=== PATIENT | male | born 1950 | race Caucasian/White ===

== ENCOUNTER → 2016-10-25 | Outpatient (CLI) | payer MEDICARE ==
[~2016-10-25] MED LIST: REGADENOSON 0.4 MG/5 ML SYRINGE IV ONE
--- NOTE | 2016-10-25 09:46 | US ---
EXAMINATION TYPE: US carotid duplex BILAT DATE OF EXAM: 10/25/2016 COMPARISON: NONE CLINICAL HISTORY: I65.21 occlusion and stenosis of rt carotid artery. Patient stated has right caroti d artery occlusion; CABG x 6. EXAM MEASUREMENTS: RIGHT: Peak Systolic Velocity (PSV) cm/sec ----- Right CCA: 50.5 ----- Right ICA: 43.5 bulb only ----- Right ECA: 59.2 ICA/CCA ratio: 0.9 RIGHT: End Diastole cm/sec ----- Right CCA: 0.0 ----- Right ICA: 2.5 bulb only ----- Right ECA: 6.9 LEFT: Peak Systolic Velocity (PSV) cm/sec ----- Left CCA: 71.3 ----- Left ICA: 93.8 ----- Left ECA: 68.6 ICA/CCA ratio: 1.3 LEFT: End Diastole cm/sec ----- Left CCA: 27.6 ----- Left ICA: 22.3 ----- Left ECA: 6.5 VERTEBRALS (direction of flow): Right Vertebral: Antegrade Left Vertebral: Antegrade Right ICA occlusion is noted. Intimal wall thickening is seen at left carotid bifurcation. Grayscale, color Doppler, spectral Doppler imaging performed of the carotid arteries. IMPRESSION: Right internal carotid artery is occluded
--- NOTE | 2016-10-25 11:52 | EST ---
DATE OF SERVICE: 10/25/2016 AGE: 65Y SEX: M HT: 5'3" WT: 175 lbs. Protocol Brian: Other: Lexiscan Cardiolite Stage: Dur. of Exercise: *Heart Rate Blood Pressure *Rest: 52 Rest: 139/67 * *Max. Achieved: 67 Maximum BP: 135/57 85% PMHR: 131 100% PMHR: 164 *METS: INDICATIONS: Chest pain. MEDICATIONS: Patient was given Lexiscan injection over a period of 15 seconds. Peak heart rate of 67 was achieved. Maximum blood pressure of 135/57 mmHg was noted. Resting EKG shows normal sinus rhythm with normal CT interval and QRS duration and normal ST-T waves. No ST segment depression suggestive of ischemia was noted. The results of the nuclear study will follow.
--- NOTE | 2016-10-25 11:57 | ECHOF ---
Referral Reason:I25.10 arterosclerotic heart dis MEASUREMENTS -------- HEIGHT: 160.0 cm WEIGHT: 79.4 kg BP: 139/67 RVIDd: 3.5 cm (< 3.3) IVSd: 1.2 cm (0.6 - 1.1) LVIDd: 4.4 cm (3.9 - 5.3) LVPWd: 1.1 cm (0.6 - 1.1) IVSs: 1.7 cm LVIDs: 3.3 cm LVPWs: 1.5 cm LA Diam: 4.4 cm (2.7 - 3.8) LAESV Index (A-L): 29.67 ml/m Ao Diam: 3.4 cm (2.0 - 3.7) AV Cusp: 2.2 cm (1.5 - 2.6) MV EXCURSION: 21.171 mm (> 18.000) MV EF SLOPE: 50 mm/s (70 - 150) EPSS: 0.9 cm MV E [place]: 0.86 m/s MV DecT: 263 ms MV A [place]: 0.84 m/s MV E/A Ratio: 1.03 RAP: 5.00 mmHg RVSP: 21.84 mmHg FINDINGS -------- Resting bradycardia (HR<60bpm). This was a technically good study. The left ventricular size is normal. There is borderline concentric left ventricular hypertrophy. Overall left ventricular systolic function is normal with, an EF between 55 - 60 %. The right ventricle is mildly enlarged. LA is midly dilated 29-33ml/m2. The right atrium is normal in size. Aortic valve is trileaflet and is mildly thickened. Mild mitral annular calcification present. There is trace to mild mitral regurgitation. Mild tricuspid regurgitation present. Right ventricular systolic pressure is normal at < 35 mmHg. Trace/mild (physiologic) pulmonic regurgitation. The aortic root size is normal. Normal inferior vena cava with normal inspiratory collapse consistent with estimated right atrial pressure of 5 mmHg. The pericardium is normal. CONCLUSIONS -------- 1. Resting bradycardia (HR<60bpm). 2. There is trace to mild mitral regurgitation. 3. Mild tricuspid regurgitation present. 4. Right ventricular systolic pressure is normal at < 35 mmHg. 5. Trace/mild (physiologic) pulmonic regurgitation. 6. The aortic root size is normal. 7. Normal inferior vena cava with normal inspiratory collapse consistent with estimated right atrial pressure of 5 mmHg. 8. The pericardium is normal. 9. This was a technically good study. 10. The left ventricular size is normal. 11. There is borderline concentric left ventricular hypertrophy. 12. Overall left ventricular systolic function is normal with, an EF between 55 - 60 %. 13. The right ventricle is mildly enlarged. 14. LA is midly dilated 29-33ml/m2. 15. Aortic valve is trileaflet and is mildly thickened. 16. Mild mitral annular calcification present. [employer] WORKER: Jessica Ramos RDCS
--- NOTE | 2016-10-25 15:56 | NM ---
EXAMINATION TYPE: NM stress lexiscan cardiolite DATE OF EXAM: 10/25/2016 COMPARISON: NONE HISTORY: Atherosclerotic heart disease TECHNIQUE: After the intravenous administration of 10.9 mCi Tc 99m Sestamibi - Cardiolite resting SP ECT images acquired. The patient received 0.4mg Lexiscan, 27.1 mCi Tc 99m Sestamibi - Stress images obtained. FINDINGS: Review of stress and rest SPECT images demonstrates no distinct perfusion abnormality. Gated analysi s shows normal wall motion with an estimated left ventricular ejection fraction of 54 %. IMPRESSION: No scintigraphic evidence for reversible ischemia.
== END | disposition home or self-care (01) ==
LOC: RADNMMAIN 08:28
PROVIDERS: ATTEND Internal Medicine
DX: I65.21 Occlusion and stenosis of right carotid artery (principal); I25.10 Atherosclerotic heart disease of native coronary artery without angina pectoris; R00.1 Bradycardia, unspecified; I37.1 Nonrheumatic pulmonary valve insufficiency; I08.3 Combined rheumatic disorders of mitral, aortic and tricuspid valves; I51.7 Cardiomegaly
CPT/HCPCS: 93017; 93306; 93880; 78452; A9500; J2785

== ENCOUNTER 2017-04-29 07:21 | Day surgery (SDC) | payer MEDICARE ==
[2017-04-25 14:41] VITALS: BMI 32.8
[~2017-04-29 07:21] MED LIST changes: +LACTATED RINGERS 1,000 ML IV SCH; -REGADENOSON 0.4 MG/5 ML SYRINGE IV ONE
[2017-04-29 07:56] VITALS: RESP 18; TEMP 98.1
[2017-04-29] MEDS: CYCLOPENTOLATE 1% OPHTH SOLN 2 ML BTL OP ONE ×3 (07:59→08:20)
[2017-04-29] MEDS: KETOROLAC 0.5% OPHTH DROPS 5 ML BTL OP ONE ×3 (08:02→08:23)
[2017-04-29] MEDS ORDERED: LIDOCAINE 1% 20 ML VIAL (10MG/ML) FOR IV START INTRADERMA ONE (08:08)
[2017-04-29] MEDS: PHENYLEPHRINE 10% OPHTH DROPS 5 ML BTL OP ONE ×3 (08:08→08:26)
[2017-04-29 08:17] LABS: Glucose,Whole Blood 116 mg/dL (75-99)
[2017-04-29] MEDS ORDERED: PROPOFOL 10 MG/ML 20 ML VIAL IV ONE (08:48)
[2017-04-29] MEDS ORDERED: HYALURONATE SODIUM INTRAOCULAR 1 EACH SYRINGE (10MG/ML) INTRAOCULA ONE (08:51)
[2017-04-29] MEDS ORDERED: BALANCED SALT IRRIG SOLN COMB2 15 ML IRRIG.SOLN INTRAOCULA ONE (08:51)
[2017-04-29] MEDS ORDERED: EPINEPHrine (PF) 0.5 ML in BALANCED SALT IRRIG SOLN COMB2 500 ML IRRIGATION ONE (08:54)
--- NOTE | 2017-04-29 09:11 | P.OP ---
Date of Procedure: 04/29/17 Procedure(s) Performed: PREOPERATIVE DIAGNOSIS: Cataract, right eye. POSTOPERATIVE DIAGNOSIS: Cataract, right eye. OPERATION: Phacoemulsification cataract, right eye. DESCRIPTION OF PROCEDURE: The patient was taken to the preoperative holding area. Intravenous Propofol was given so as to bring about adequate sedation. The following mixture was given for local anesthesia: 5 mL of 2% lidocaine, 5 mL of 0.75% Marcaine, and 1 mL of Wydase. Approximately 4 mL was injected in the retrobulbar space of the surgical eye. Additional 1 mL was then directed to the temporal area of the surgical eye. This was performed to allow adequate neurological block of the facial muscles. The patient was revived and then taken into the operative room. The patient was prepped and draped in the usual sterile manner for the operative eye. A lid speculum was put into position. The conjunctiva was resected back from the limbus in the 12 o'clock position. Bleeding was controlled with electrocautery. A #69 blade was then used and a half-thickness scleral incision approximately 1-mm posterior to the limbus was made on bare sclera. This was shelved in the clear cornea using a crescent knife. Next a 15-degree blade was used to make a stab incision at the 3 o' clock position at the corneolimbal interface. Keratome blade was then used and the superior wound was extended into the anterior chamber. Viscoelastic was injected into the anterior chamber and to maintain its form. Next, a cystotome was used and a continuous anterior capsulotomy was made without difficulty. Hydrodissection using a blunt cannula and BSS was performed. Phaco probe was then employed and a groove extending from 12 to 6 o'clock in the lens was created. A Adrian wand was used through the stab incision so as to perform a divide and conquer technique. Next an irrigation aspiration probe was utilized and any residual cortex was removed from the eye. Again, viscoelastic was injected into the anterior chamber. An Waylon posterior chamber lens implant was placed in the cartridge and injected into the anterior chamber without difficulty. The SinFloqey hook was utilized to spin the lens into position and this was again performed without any difficulty. The irrigation and aspiration probe was again employed and any residual viscoelastic was removed from the eye. Then BSS was injected into the limbal stab incision and the anterior chamber re-inflated. The conjunctiva was reapproximated using electrocautery. One drop of 0.25% Timoptic was placed over the corneal along with TobraDex ophthalmic ointment. Two sterile patches and a Toro eye shield were taped into position. The patient was transported to the recovery room in stable condition. Pathology: none sent Condition: stable Disposition: same day
[2017-04-29 09:19] VITALS: PULSE 55
[2017-04-29 09:29] VITALS: BP 141/74
[2017-04-29] MEDS ORDERED: BUPIVACAINE (PF) 0.75% 5 ML, LIDOCAINE 4% (PF) 5 ML, HYALURONIDASE, HUMAN RECOMB 150 UNIT MISCELLANE ONE ×3 (23:00)
[2017-04-29] MEDS ORDERED: TIMOLOL 0.5% OPHTH SOLN (PF) 0.2 ML DROPERETTE OP ONE (23:00)
[2017-04-29] MEDS ORDERED: GENTAMICIN/PREDNISOL AC OPHTH OINT 3.5GM OPHTHALMIC ONE (23:00)
== END 2017-04-29 09:49 | disposition home or self-care (01) ==
LOC: OR 07:21
PROVIDERS: ATTEND Ophthalmology
DX: E11.36 Type 2 diabetes mellitus with diabetic cataract (principal); I11.9 Hypertensive heart disease without heart failure; M19.90 Unspecified osteoarthritis, unspecified site; Z88.0 Allergy status to penicillin; Z88.8 Allergy status to other drugs, medicaments and biological substances; Z79.82 Long term (current) use of aspirin; Z79.02 Long term (current) use of antithrombotics/antiplatelets; Z79.899 Other long term (current) drug therapy; Z96.1 Presence of intraocular lens; Z95.1 Presence of aortocoronary bypass graft
CPT/HCPCS: 66984; V2632; J2001; J3470; J0171; J2704

== ENCOUNTER 2018-07-13 16:35 | Inpatient (IN) | payer MEDICARE ==
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
[2018-07-13 17:47] LABS: Basophils % (A) 1 %; Eosinophils # (A) 0.2 k/uL (0-0.7); Eosinophils % (A) 3 %; HCT 43.2 % (39.0-53.0); HGB 14.1 gm/dL (13.0-17.5); Lymphocytes # (A) 0.9 k/uL (1.0-4.8); Lymphocytes % (A) 13 %; MCH 31.2 pg (25.0-35.0); MCHC 32.5 g/dL (31.0-37.0); MCV 95.9 fL (80.0-100.0); Mean Platelet Volume 7.4; Monocytes # (A) 0.5 k/uL (0-1.0); Monocytes % (A) 7 %; Neutrophils # (A) 5.1 k/uL (1.3-7.7); Neutrophils % (A) 74 %; Platelet Count 224 k/uL (150-450); RDW 12.8 % (11.5-15.5); WBC 6.9 k/uL (3.8-10.6)
[2018-07-13 17:59] LABS: ALT 31 U/L (21-72); AST 30 U/L (17-59); Albumin 4.6 g/dL (3.5-5.0); Alkaline Phosphatase 90 U/L (38-126); Anion Gap 8 mmol/L; Blood Urea Nitrogen 15 mg/dL (9-20); Calcium 9.3 mg/dL (8.4-10.2); Carbon Dioxide 27 mmol/L (22-30); Chloride 105 mmol/L (98-107); Glucose 101 mg/dL (74-99); Magnesium 1.5 mg/dL (1.6-2.3); Potassium 4.6 mmol/L (3.5-5.1); Sodium 140 mmol/L (137-145); Total Protein 7.7 g/dL (6.3-8.2)
[2018-07-13 18:15] LABS: Creatine Kinase MB 0.4 ng/mL (0.0-2.4)
--- NOTE | 2018-07-13 18:16 | XR ---
EXAMINATION TYPE: XR chest 2V DATE OF EXAM: 07/13/2018 COMPARISON: Chest x-ray April 05, 2015 HISTORY: Cough. TECHNIQUE: Frontal and lateral views of the chest are obtained. FINDINGS: Post-CABG changes with mediastinal clips and sternal wires is present. There is chronic par enchymal change without suspicious focal air space opacity, pleural effusion, or pneumothorax seen. The cardiac silhouette size is stable and enlarged. The osseous structures are demineralized.. Chol ecystectomy clips are noted. IMPRESSION: Cardiomegaly without acute pulmonary process.
[2018-07-13] MEDS ORDERED: MAGNESIUM OXIDE 400 MG TAB PO STA (19:14)
[2018-07-13] MEDS ORDERED: PREGABALIN 100 MG CAP PO SCH (22:30)
[2018-07-13] MEDS ORDERED: ATORVASTATIN 40 MG TAB PO SCH (22:30)
[2018-07-13] MEDS ORDERED: RANOLAZINE 500 MG TAB.ER.12H PO SCH (22:30)
[2018-07-13] MEDS ORDERED: MIRTAZAPINE 15 MG TAB PO SCH (22:30)
[2018-07-13] MEDS ORDERED: ZIPRASIDONE 20 MG VIAL IM PRN (22:31)
[2018-07-13] MEDS ORDERED: MAGNESIUM HYDROXIDE 2,400 MG/10 ML CUP PO PRN (22:31)
[2018-07-13] MEDS ORDERED: ACETAMINOPHEN TAB 325 MG TAB PO PRN (22:31)
[2018-07-13] MEDS ORDERED: LORazepam 1 MG TAB PO PRN (22:31)
[2018-07-13] MEDS ORDERED: MAG HYDROX/AL HYDROX/SIMETH 30 ML CUP PO PRN (22:31)
[2018-07-13] MEDS ORDERED: LORazepam 2 MG/ML INJ IM PRN (22:34)
[2018-07-13 22:43] VITALS: BMI 31.9
[2018-07-13] MEDS ORDERED: SERTRALINE 100 MG TAB PO SCH (22:45)
[2018-07-14 00:22] VITALS: TEMP 98.4
[2018-07-14 01:00] LABS: Glucose,Whole Blood 152 mg/dL (75-99)
[2018-07-14] MEDS ORDERED: NITROGLYCERIN SL TABS 0.4 MG TAB SUBLINGUAL PRN (01:04)
[2018-07-14 01:36] LABS: Basophils % (A) 1 %; Eosinophils # (A) 0.3 k/uL (0-0.7); Eosinophils % (A) 4 %; HGB 14.5 gm/dL (13.0-17.5); Lymphocytes # (A) 1.1 k/uL (1.0-4.8); Lymphocytes % (A) 15 %; MCH 31.7 pg (25.0-35.0); MCHC 33.8 g/dL (31.0-37.0); MCV 93.8 fL (80.0-100.0); Mean Platelet Volume 8.1; Monocytes # (A) 0.6 k/uL (0-1.0); Monocytes % (A) 7 %; Neutrophils # (A) 5.3 k/uL (1.3-7.7); Neutrophils % (A) 72 %; Platelet Count 202 k/uL (150-450); RBC 4.58 m/uL (4.30-5.90); RDW 12.7 % (11.5-15.5); WBC 7.5 k/uL (3.8-10.6)
[2018-07-14] MEDS ORDERED: FLUMAZENIL 0.1 MG/ML 5 ML VIAL IVP ONE (01:42)
[2018-07-14 01:45] LABS: Partial Thromboplastin Time 25.2 sec (22.0-30.0); Prothrombin Time 10.6 sec (9.0-12.0)
--- NOTE | 2018-07-14 02:03 | XR ---
EXAM: XR Chest, 1 View CLINICAL HISTORY: ITS.REASON XR Reason: Resp distress TECHNIQUE: Frontal view of the chest. COMPARISON: Chest x-ray 07/13/18 IMPRESSION: Cardiomegaly. Increase left lung opacity possibly representing pulmonary edema. No pleural effusion.
[2018-07-14 02:07] LABS: Anion Gap 11 mmol/L; Blood Urea Nitrogen 13 mg/dL (9-20); Calcium 9.2 mg/dL (8.4-10.2); Carbon Dioxide 24 mmol/L (22-30); Chloride 107 mmol/L (98-107); Glucose 155 mg/dL (74-99); Sodium 142 mmol/L (137-145)
[2018-07-14 02:08] LABS: Magnesium 1.5 mg/dL (1.6-2.3); Potassium 4.7 mmol/L (3.5-5.1)
[2018-07-14] MEDS ORDERED: FUROSEMIDE 10 MG/ML 4 ML VIAL IV STA (02:22)
[2018-07-14 03:23] VITALS: RESP 16
[2018-07-14 03:31] VITALS: BP 133/71; PULSE 66
--- NOTE | 2018-07-14 03:31 | CT ---
EXAM: CT Head Without Intravenous Contrast CLINICAL HISTORY: ITS.REASON CT Reason: lethargy TECHNIQUE: Axial computed tomography images of the head/brain without intravenous contrast. CTDI is 49 mGy and DLP is 1123 mGy-cm. This CT exam was performed using one or more of the following dose reduction techniques: automated exposure control, adjustment of the mA and/or kV according to patient size, and/or use of iterative reconstruction technique. COMPARISON: No relevant prior studies available. FINDINGS: Brain: No hemorrhage, or mass effect. Patchy periventricular white matter hypodensities likely represent chronic microvascular ischemic changes. Hypodense area in the right insula. Ventricles: No hydrocephalus. Bones/joints: Unremarkable. Soft tissues: Unremarkable. Sinuses: Unremarkable. Mastoid air cells: Clear. IMPRESSION: No acute hemorrhage, hydrocephalus, or mass effect. Chronic microvascular ischemic changes. Hypodensity along the right insula possibly from prior infarct.
[2018-07-14] MEDS ORDERED: CLOPIDOGREL 75 MG TAB PO SCH (09:00)
[2018-07-14] MEDS ORDERED: ASPIRIN 81 MG PO SCH (09:00)
[2018-07-14] MEDS ORDERED: PANTOPRAZOLE 40 MG TABLET PO SCH (09:00)
[2018-07-14] MEDS ORDERED: ATENOLOL 50 MG TAB PO SCH (09:00)
[2018-07-14] MEDS ORDERED: NON-FORMULARY DRUG (Ubidecarenone [Co Q-10] 400 MG) PO SCH (09:00)
== END 2018-07-14 02:23 | disposition short-term general hospital (02) | DRG 885 ==
LOC: EC 16:35 → 3MHU 21:39
PROVIDERS: ADMIT Psychiatry & Neurology Psychiatry; ATTEND Psychiatry & Neurology Psychiatry
DX: F33.2 Major depressive disorder, recurrent severe without psychotic features (principal); R45.851 Suicidal ideations; E66.2 Morbid (severe) obesity with alveolar hypoventilation; E11.42 Type 2 diabetes mellitus with diabetic polyneuropathy; E83.42 Hypomagnesemia; I11.9 Hypertensive heart disease without heart failure; G47.33 Obstructive sleep apnea (adult) (pediatric); I25.10 Atherosclerotic heart disease of native coronary artery without angina pectoris; I44.0 Atrioventricular block, first degree; K21.9 Gastro-esophageal reflux disease without esophagitis; E78.5 Hyperlipidemia, unspecified; M19.90 Unspecified osteoarthritis, unspecified site; B19.20 Unspecified viral hepatitis C without hepatic coma; H26.9 Unspecified cataract; I25.2 Old myocardial infarction; R09.02 Hypoxemia; R06.89 Other abnormalities of breathing; Z79.82 Long term (current) use of aspirin; Z68.32 Body mass index [BMI] 32.0-32.9, adult; Z79.02 Long term (current) use of antithrombotics/antiplatelets; Z79.84 Long term (current) use of oral hypoglycemic drugs; Z79.899 Other long term (current) drug therapy; Z99.89 Dependence on other enabling machines and devices; Z95.1 Presence of aortocoronary bypass graft; Z95.5 Presence of coronary angioplasty implant and graft; Z90.49 Acquired absence of other specified parts of digestive tract; Z87.19 Personal history of other diseases of the digestive system; Z86.19 Personal history of other infectious and parasitic diseases; Z77.098 Contact with and (suspected) exposure to other hazardous, chiefly nonmedicinal, chemicals; Z88.0 Allergy status to penicillin; Z88.8 Allergy status to other drugs, medicaments and biological substances
CPT/HCPCS: 36415; 70450; 71045; 71046; 80048; 80053; 82075; 82550; 82553; 83735; 84484; 85025; 85379; 85610; 85730; 93005; 99285

== ENCOUNTER 2018-07-14 02:25 | Inpatient (IN) | payer MEDICARE ==
[2018-07-14] MEDS ORDERED: FUROSEMIDE 10 MG/ML 4 ML VIAL IV STA (02:33)
[2018-07-14 02:42] VITALS: BMI 31.9
[2018-07-14] MEDS: RANOLAZINE 500 MG TAB.ER.12H PO SCH ×2 (08:16→20:01)
[2018-07-14] MEDS: SERTRALINE 100 MG TAB PO SCH ×2 (08:16→20:01)
[2018-07-14] MEDS: ASPIRIN 81 MG PO SCH (08:16)
[2018-07-14] MEDS: ATENOLOL 50 MG TAB PO SCH (08:16)
[2018-07-14] MEDS: PANTOPRAZOLE 40 MG TABLET PO SCH (08:17)
[2018-07-14] MEDS ORDERED: NON-FORMULARY DRUG (Ubidecarenone [Co Q-10] 400 MG) PO SCH (09:00)
[2018-07-14 10:37] LABS: HCT 39.5 % (39.0-53.0); HGB 13.4 gm/dL (13.0-17.5); MCH 32.5 pg (25.0-35.0); MCHC 33.9 g/dL (31.0-37.0); Mean Platelet Volume 7.6; Platelet Count 184 k/uL (150-450); RBC 4.11 m/uL (4.30-5.90); RDW 12.7 % (11.5-15.5); WBC 6.2 k/uL (3.8-10.6)
[2018-07-14] MEDS: PREGABALIN 100 MG CAP PO SCH ×2 (10:41→20:01)
[2018-07-14 10:47] LABS: ALT 28 U/L (21-72); AST 26 U/L (17-59); Albumin 3.9 g/dL (3.5-5.0); Alkaline Phosphatase 85 U/L (38-126); Anion Gap 6 mmol/L; Blood Urea Nitrogen 14 mg/dL (9-20); Calcium 8.8 mg/dL (8.4-10.2); Carbon Dioxide 28 mmol/L (22-30); Chloride 107 mmol/L (98-107); Glucose 133 mg/dL (74-99); Potassium 4.3 mmol/L (3.5-5.1); Sodium 141 mmol/L (137-145); Total Protein 6.5 g/dL (6.3-8.2)
--- NOTE | 2018-07-14 11:14 | P.HPIM ---
History of Present Illness H&P Date: 07/14/18 Chief Complaint: Acute hypoxemia. His is a 67-year-old male one of my patient with a paced medical history significant for coronary artery disease status post coronary artery bypass graft with the prick his current [facility], hypertension and hypertensive cardio vascular disease with left ventricular hypertrophy, GERD, hyperlipidemia, osteoarthritis, obesity with obstructive sleep apnea, chronic stable angina, patient has been under a lot of stress after his has with multiple medical problem as a matter fact she was hospitalized at [facility] and she ended up with major ischemic stroke for which she ended up dying and her hospice care, patient has been depressed has been following up with me as on a regular basis he came yesterday for a follow-up appointment with his friend and his friend stated that the patient pull up his gun toward his head and was thinking about killing himself, at that time patient was sent to the ER at [facility] and we managed to send the patient to the mental health unit, while he was there patient became quite anxious he did receive Ativan 1 mg and Remeron 30 mg and the patient became quite lethargic and he was not able to wake up at that time the nursing staff had called the A team did receive Romazicon without any relief he was placed on 35% Ventimask because his oxidation was around 88% he had a chest x-ray that showed possible fluid and cardiomegaly, and computed tomography scan of the brain did not show any evidence of acute infarct or bleed, patient was given 1 dose of Lasix 40 mg IV push and was transferred to selective care for evaluation cardiology consultation as well as pulmonary consultation was obtained. Review of Systems Constitutional: Reports lethargy, Reports malaise, Reports weakness, Reports weight loss, Denies anorexia, Denies chronic headaches Eyes: denies blurred vision, denies bulging eye, denies decreased vision Ears: deny: decreased hearing Ears, nose, mouth and throat: Denies dysphagia, Denies neck lump, Denies swelling in throat, Denies sore throat Cardiovascular: Denies chest pain, Denies decreased exercise tolerance, Denies dyspnea on exertion, Denies lightheadedness, Denies rapid heart beat, Denies shortness of breath, Denies syncope Respiratory: Reports sleep apnea, Reports snoring, Denies congestion, Denies cough with sputum, Denies hemoptysis, Denies home oxygen, Denies wheezing Gastrointestinal: Reports diarrhea, Reports loss of appetite, Denies abdominal pain, Denies bloating, Denies BRBPR, Denies heartburn, Denies hematemesis, Denies hematochezia, Denies melena, Denies nausea, Denies vomiting Genitourinary: Reports nocturia, Denies dysuria Musculoskeletal: Denies myalgias Musculoskeletal: absent: ankle pain, ankle stiffness, ankle swelling, elbow pain , elbow stiffness, elbow swelling, foot pain, foot stiffness, foot swelling, hand pain, hand stiffness, hand swelling, hip pain, hip stiffness, hip swelling , knee pain, knee stiffness, knee swelling, shoulder pain, shoulder stiffness, shoulder swelling, wrist pain, wrist stiffness, wrist swelling Integumentary: Denies pruritus, Denies rash Neurological: Denies numbness, Denies weakness Psychiatric: Reports anxiety, Reports depression, Reports sadness/tearfulness, Reports sleep disturbances, Reports suicidal ideation Endocrine: Denies fatigue, Denies weight change Past Medical History Past Medical History: Coronary Artery Disease (CAD), Chest Pain / Angina, Diabetes Mellitus, Eye Disorder, GERD/Reflux, Hyperlipidemia, Hypertension, Myocardial Infarction (MA), Osteoarthritis (OA), Prostate Disorder, Sleep Apnea/ CPAP/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 CATARACT RT EYE Last Myocardial Infarction Date:: 2003? History of Any Multi-Drug Resistant Organisms: None Reported Past Surgical History: Cholecystectomy, Coronary Bypass/CABG, Heart Catheterization With Stent, Orthopedic Surgery Additional Past Surgical History / Comment(s): RT WRIST GANGLION CYST REMOVED.has had stents post cabg not sure how many or what arteries they are in. CABG 2000, COLONOSCOPY, EGD, Past Anesthesia/Blood Transfusion Reactions: Motion Sickness Date of Last Stent Placement:: 2003 Past Psychological History: No Psychological Hx Reported Smoking Status: Never smoker Past Alcohol Use History: None Reported Past Drug Use History: None Reported - Past Family History Father History Unknown: Yes Additional Family Medical History / Comment(s): PT ADOPTED Mother History Unknown: Yes Additional Family Medical History / Comment(s): PT ADOPTED Brother(s) Additional Family Medical History / Comment(s): did find several brothers that had also been adopted out one from agent orange exposure/complications, one from etoh abuse, and one from chino gehrig's disease. Medications and Allergies Home Medications Medication Instructions Recorded Confirmed Type Atenolol [Tenormin] 50 mg PO DAILY 04/05/15 07/14/18 History Pantoprazole Sodium [Protonix] 40 mg PO DAILY 04/05/15 07/14/18 History Aspirin [Adult Low Dose Aspirin EC] 81 mg PO DAILY 03/05/17 07/14/18 History Atorvastatin Calcium [Lipitor] 40 mg PO HS 03/05/17 07/14/18 History Ubidecarenone [Co Q-10] 400 mg PO DAILY 04/25/17 07/14/18 History Chlorhexidine Gluconate [Periogard] 15 ml PO AC-BID 07/14/18 07/14/18 History Clopidogrel [Plavix] 75 mg PO DAILY 07/14/18 07/14/18 History DULoxetine HCL [Cymbalta] 60 mg PO DAILY 07/14/18 07/14/18 History Fluticasone Nasal [place] [Flonase 1 spray EA NOSTRIL BID 07/14/18 07/14/18 History Nasal [place]] Glucerna Shake 1 can PO TID-W/MEALS 07/14/18 07/14/18 History Losartan [Cozaar] 25 mg PO DAILY 07/14/18 07/14/18 History Nitroglycerin Sl Tabs [Nitrostat] 0.4 mg SUBLINGUAL Q5M PRN 07/14/18 07/14/18 History Ranolazine [Ranexa] 1,000 mg PO BID 07/14/18 07/14/18 History metFORMIN HCL [Glucophage] 500 mg PO BID 07/14/18 07/14/18 History Allergies Allergy/AdvReac Type Severity Reaction Status Date / Time Penicillins Allergy Anaphylaxis Verified 07/14/18 09:44 simvastatin [From Zocor] Allergy SEVERE Verified 07/14/18 09:44 JOINT PAIN Physical Exam Vitals: Vital Signs Temp Pulse Resp BP Pulse Ox 07/14/18 08:05 97.6 F 60 12 146/74 97 07/14/18 08:00 60 12 07/14/18 04:12 96 07/14/18 03:26 98.3 F 65 15 132/76 94 L 07/14/18 03:19 88 L Intake and Output 07/13/18 07/14/18 07/14/18 22:59 06:59 14:59 Intake Total 10 Output Total 300 300 Balance -300 -290 Intake: IV 10 Invasive Line 1 10 Output: Urine 300 300 Other: # Voids 1 # Bowel Movements 1 Weight 81.8 kg - Constitutional General appearance: average body habitus, mild distress - EENT Eyes: anicteric sclerae, EOMI, PERRLA, no ptosis, no scleral icterus, normal appearance ENT: hearing grossly normal, NA/AT, normal oropharynx, no thrush Ears: bilateral: normal - Neck Neck: no lymphadenopathy, normal ROM, no rigidity, no stridor, no thyromegaly Carotids: bilateral: upstroke normal Thyroid: bilateral: normal size - Respiratory Respiratory: bilateral: diminished, negative: dullness, rales, rhonchi, wheezing , prolonged expiration, prolonged inspiration - Cardiovascular Rhythm: regular Heart sounds: normal: S1, S2 Abnormal Heart Sounds: systolic murmur, no rub, no S3 Gallop, no S4 Gallop, no click - Gastrointestinal General gastrointestinal: normal bowel sounds, soft, no tenderness, no umbilical hernia, no ventral hernia - Integumentary Integumentary: normal, normal turgor - Neurologic Neurologic: CNII-XII intact - Musculoskeletal Musculoskeletal: gait normal, strength equal bilaterally - Psychiatric Psychiatric: A&O x's 3, no appropriate affect, intact judgment & insight Results CBC & Chem 7: 07/14/18 10:11 07/14/18 10:11 Labs: Abnormal Lab Results - Last 24 Hours (Table) 07/14/18 07/14/18 Range/Units 10:11 10:11 RBC 4.11 L (4.30-5.90) m/uL Glucose 133 H (74-99) mg/dL Thrombosis Risk Factor Assmnt - DVT/VTE Prophylaxis DVT/VTE Prophylaxis: Pharmacologic Prophylaxis ordered, Mechanical Prophylaxis ordered - Choose All That Apply Any of the Below Risk Factors Present?: Yes Each Factor Represents 1 point: Obesity (BMI >25) Other Risk Factors: Yes Each Risk Factor Represents 2 Points: Age 61-74 years Other congenital or acquired thrombophilia - If yes, enter type in comment: No Thrombosis Risk Factor Assessment Total Risk Factor Score: 3 Thrombosis Risk Factor Assessment Level: Moderate Risk Assessment and Plan Assessment: Assessment and plan: 1. Acute hypoxemic possibly hypercarbic respiratory insufficiency thought to be due to underlying obstructive sleep apnea with obesity hypoventilation syndrome, worse with the use of Ativan at the mental health unit without any evidence of acute coronary syndrome or an acute pulmonary edema, we will monitor the patient very closely we'll continue to monitor his cardiac enzymes every 8 hours for the next 3 hours, we will obtain cardiology and pulmonary evaluation, d-dimer is negative at this point in time doubt any evidence of any thrombus embolic disease, repeat a chest x-ray showed cardio megaly without evidence of any pulmonary embolism, computed tomography scan of the brain is negative, we will continue to monitor the patient very closely and discontinue benzodiazepine for good. 2. Severe depression with suicidal thoughts and plan that did not carried out. Patient had pulled a gun to his head and he tried to shoot himself in the past , we'll keep with suicidal precautions, continue patient on Zoloft 100 mg orally twice every day, and Remeron 15 mg orally once every day, we'll obtain psychiatry consultation. 3. History of CAD post CABG with PCI in the past. Continue atenolol 50 mg orally once every day, aspirin 81 mg orally once every day, Ranexa 1000 mg orally twice every day, Lipitor 40 mg orally once every day. 4. Hypertension and hypertensive cardio vascular disease. Continue atenolol 50 mg orally once every day, losartan 25 mg orally once every day. 5. Hyperlipidemia. Continue Lipitor 40 mg orally once every day. 6. Diabetes mellitus type 2. Continue patient on metformin 500 mg orally twice every day. 7. Diabetic polyneuropathy. Continue Lyrica 100 mg orally twice every day. 8. Obesity with obstructive sleep apnea. Patient has a CPAP but he does not use. 9. GERD with a prior history of Hemphill's esophagus. Continue PPI. 10. Osteoarthritis. Stable. 11. DVT prophylaxis. Lovenox 40 mg subcutaneously every 24 hours. 12. GI prophylaxis. Continue patient on PPI. 13. Admit to inpatient. Estimated length of stay 2 midnights. 14. Patient is full code.
[2018-07-14] MEDS: MAGNESIUM SULFATE-D5W PMX 1 GM in DEXTROSE/WATER 1 100ML.BAG IVPB SCH ×2 (11:25→12:10)
[2018-07-14] MEDS: ENOXAPARIN 40 MG/0.4 ML SYRINGE SQ SCH (12:10)
--- NOTE | 2018-07-14 13:55 | P.CNPUL ---
History of Present Illness Consult date: 07/14/18 Requesting physician: Kenisha Stokes Reason for consult: dyspnea Chief complaint: Chest pain History of present illness: This is a very pleasant 67-year-old gentleman who follows with Dr. Stokes as his primary care physician. He has a history of coronary artery disease with previous coronary artery bypass grafting in 2000, multiple stent placements, hyperlipidemia, hypertension, exposure to agent orange, posttraumatic stress disorder. He presented here to the emergency room yesterday with suicidal ideation stating he had held a gun to his head on 2 separate occasions recently. Based on these comments he was admitted to the inpatient psychiatric unit. Earlier this morning he became quite anxious and received Ativan and Remeron and then became quite lethargic and difficult to arouse. He had oxygen saturations are 88% on 3 L. He was placed on a Ventimask and increased to the 90s. An A TEAM was called and he was subsequently transferred here to the selective care unit for further evaluation. Computed tomography scan of the brain revealed no acute intracranial process. This x-ray showed evidence of cardiomegaly and some increasing left lung opacity suspicious for pulmonary edema. We are consulted for the same. The patient is seen today in consultation on the selective care unit. He is currently awake and alert in no acute distress. He is a lifelong nonsmoker. He has not been on oxygen or inhalers in the past. He denies any worsening shortness of breath at this time. No cough or congestion. Maintaining O2 saturations in the 90s on 2 L/m per nasal cannula. White count 6.2. Hemoglobin 13.4. Creatinine 0.95. ProBNP 942. He did receive one dose of Lasix 40 mg IVP approximately 3:30 this morning. He is currently in a negative balance. Echocardiogram for 2017 revealed preserved left ventricular systolic function. Cardiology consult pending. He does have a sitter at the bedside. Review of Systems Constitutional: Reports fatigue, Reports lethargy Eyes: denies blurred vision, denies decreased vision Ears: deny: decreased hearing Ears, nose, mouth and throat: Denies headache, Denies sore throat Cardiovascular: Reports chest pain, Reports dyspnea on exertion, Reports shortness of breath Respiratory: Reports dyspnea Gastrointestinal: Denies abdominal pain, Denies diarrhea, Denies nausea, Denies vomiting Genitourinary: Reports as per HPI Musculoskeletal: Denies myalgias Integumentary: Denies pruritus, Denies rash Neurological: Denies numbness, Denies weakness Psychiatric: Reports anxiety, Reports confusion, Reports suicidal ideation Endocrine: Denies fatigue, Denies weight change Hematologic/Lymphatic: Reports as per HPI Allergic/Immunologic: Reports as per HPI Past Medical History Past Medical History: Coronary Artery Disease (CAD), Chest Pain / Angina, Diabetes Mellitus, Eye Disorder, GERD/Reflux, Hyperlipidemia, Hypertension, Myocardial Infarction ([place]), Osteoarthritis (OA), Prostate Disorder, Sleep Apnea/ CPAP/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 CATARACT RT EYE Last Myocardial Infarction Date:: 2003? History of Any Multi-Drug Resistant Organisms: None Reported Past Surgical History: Cholecystectomy, Coronary Bypass/CABG, Heart Catheterization With Stent, Orthopedic Surgery Additional Past Surgical History / Comment(s): RT WRIST GANGLION CYST REMOVED.has had stents post cabg not sure how many or what arteries they are in. CABG 2000, COLONOSCOPY, EGD, Past Anesthesia/Blood Transfusion Reactions: Motion Sickness Date of Last Stent Placement:: 2003 Past Psychological History: No Psychological Hx Reported Smoking Status: Never smoker Past Alcohol Use History: None Reported Past Drug Use History: None Reported - Past Family History Father History Unknown: Yes Additional Family Medical History / Comment(s): PT ADOPTED Mother History Unknown: Yes Additional Family Medical History / Comment(s): PT ADOPTED Brother(s) Additional Family Medical History / Comment(s): did find several brothers that had also been adopted out one from agent orange exposure/complications, one from etoh abuse, and one from chino gehrig's disease. Medications and Allergies Home Medications Medication Instructions Recorded Confirmed Type Atenolol [Tenormin] 50 mg PO DAILY 04/05/15 07/14/18 History Pantoprazole Sodium [Protonix] 40 mg PO DAILY 04/05/15 07/14/18 History Aspirin [Adult Low Dose Aspirin EC] 81 mg PO DAILY 03/05/17 07/14/18 History Atorvastatin Calcium [Lipitor] 40 mg PO HS 03/05/17 07/14/18 History Ubidecarenone [Co Q-10] 400 mg PO DAILY 04/25/17 07/14/18 History Chlorhexidine Gluconate [Periogard] 15 ml PO AC-BID 07/14/18 07/14/18 History Clopidogrel [Plavix] 75 mg PO DAILY 07/14/18 07/14/18 History DULoxetine HCL [Cymbalta] 60 mg PO DAILY 07/14/18 07/14/18 History Fluticasone Nasal [place] [Flonase 1 spray EA NOSTRIL BID 07/14/18 07/14/18 History Nasal [place]] Glucerna Shake 1 can PO TID-W/MEALS 07/14/18 07/14/18 History Losartan [Cozaar] 25 mg PO DAILY 07/14/18 07/14/18 History Nitroglycerin Sl Tabs [Nitrostat] 0.4 mg SUBLINGUAL Q5M PRN 07/14/18 07/14/18 History Ranolazine [Ranexa] 1,000 mg PO BID 07/14/18 07/14/18 History metFORMIN HCL [Glucophage] 500 mg PO BID 07/14/18 07/14/18 History Allergies Allergy/AdvReac Type Severity Reaction Status Date / Time Penicillins Allergy Anaphylaxis Verified 07/14/18 09:44 simvastatin [From Zocor] Allergy SEVERE Verified 07/14/18 09:44 JOINT PAIN Physical Exam Vitals: Vital Signs Temp Pulse Resp BP Pulse Ox 07/14/18 12:00 62 12 07/14/18 11:39 98.2 F 62 12 139/82 98 07/14/18 08:05 97.6 F 60 12 146/74 97 07/14/18 08:00 60 12 07/14/18 04:12 96 07/14/18 03:26 98.3 F 65 15 132/76 94 L 07/14/18 03:19 88 L Intake and Output 07/13/18 07/14/18 07/14/18 22:59 06:59 14:59 Intake Total 20 Output Total 300 300 Balance -300 -280 Intake: IV 20 Invasive Line 1 20 Output: Urine 300 300 Other: # Voids 1 # Bowel Movements 1 Weight 81.8 kg GENERAL EXAM: Alert, active, comfortable in no apparent distress. On 2 L/m per nasal cannula HEAD: Normocephalic. EYES: Normal reaction of pupils, equal size. NOSE: Clear with pink turbinates. THROAT: No erythema or exudates. NECK: No masses, no JVD. CHEST: No chest wall deformity. LUNGS: Equal air entry with no crackles, wheeze, rhonchi or dullness. CVS: S1 and S2 normal with no audible murmur, regular rhythm. ABDOMEN: No hepatosplenomegaly, normal bowel sounds, no guarding or rigidity. SPINE: No scoliosis or deformity SKIN: No rashes CENTRAL NERVOUS SYSTEM: No focal deficits, tone is normal in all 4 extremities. EXTREMITIES: There is no peripheral edema. No clubbing, no cyanosis. Peripheral pulses are intact. Results - Laboratory Findings CBC and BMP: 07/14/18 10:11 07/14/18 10:11 PT/INR, D-dimer D-Dimer 0.37 mg/L FEU (<0.60) 07/14/18 10:11 Abnormal lab findings: Abnormal Labs 07/14/18 07/14/18 10:11 10:11 RBC 4.11 L Glucose 133 H - Diagnostic Findings Chest x-ray: image reviewed Assessment and Plan Assessment: Impression: #1 Acute hypoxic respiratory failure secondary to suspected excess sedation for anxiety as well as some evidence of fluid volume overload. #2 Suicidal ideation. #3 Coronary artery disease with previous coronary artery bypass grafting and stent placements. Previously preserved left ventricular systolic function in 2017. #4 History of anxiety/depression. #5 Hypertension. #6 Hyperlipidemia. #7 Lifelong nonsmoker. Plan: The patient was seen and evaluated by Dr. Mcgee. Chest x-ray and labs were reviewed. He did receive Lasix 40 mg IVP 1 earlier this morning. No pulmonary complaints. Avoid excess sedation. Maintaining good O2 saturations on 2 L. We'll continue to follow. Continue with a sitter at the bedside regarding suicidal ideation. I, the cosigning physician, performed a history & physical examination of the patient. Lungs sounds with faint crackles in the posterior bases. Maintaining good O2 saturations in the 90s on 2 L/m per nasal cannula. I discussed the assessment and plan of care with my nurse practitioner, Gwendolyn Ruiz. I attest to the above consultation as dictated by her. Time with Patient: Greater than 30
--- NOTE | 2018-07-14 15:35 | P.CRDCN ---
History of Present Illness Consult date: 07/14/18 Requesting physician: Kenisha Stokes Consult reason: chest pain Chief complaint: Attempted suicide History of present illness: This is a pleasant 67-year-old gentleman with known history of diabetes, hyperlipidemia, hypertension, family history of premature coronary artery disease, history of coronary artery disease with prior bypass surgery and stent placement, carotid artery disease with known total occlusion of the right carotid. According to the patient, he's been under significant amount of stress, he states that his had within the past few months. Apparently the patient had gone to his primary care doctor's office for a follow-up visit, a friend went with him and mentioned that the patient had held a gun up to his head and was thinking about killing himself. Patient did go to the emergency room, and subsequently went to the mental health unit. While t here patient became quite anxious, he did receive Ativan and Remeron and after that was significantly lethargic. And 18 was called, chest x-ray was performed which revealed congestive heart failure and cardiomegaly, CT of the brain did not reveal any acute infarct or bleed. Patient was given a dose of IV Lasix and was transferred to the telemetry unit. According to the patient, upon wakening from this he does state that he had an episode of sharp chest pain which lasted about half hour in duration. He denies any associated diaphoresis. Mild shortness of breath. Initial chest x-ray on presentation here showed cardiomegaly without any acute process. EKG showed normal sinus rhythm with no acute changes. Subsequent EKG showed normal sinus rhythm with no acute changes. At the time of my examination, patient is awake and alert, oriented 3, he does have a friend at the bedside. Denies any shortness of breath or further chest discomfort. Echocardiogram performed in 2017 revealed a preserved left ventricular systolic function. White blood cell count is normal, hemoglobin 13.4, platelet count 184. D-dimer negative. Sodium 141, potassium 4.3, BUN 14 and creatinine 0.9. Magnesium 1.5 on admission. Troponin 0.012. BNP 942. Past Medical History Past Medical History: Coronary Artery Disease (CAD), Chest Pain / Angina, Diabetes Mellitus, Eye Disorder, GERD/Reflux, Hyperlipidemia, Hypertension, Myocardial Infarction (NM), Osteoarthritis (OA), Prostate Disorder, Sleep Apnea/CPAP/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 CATARACT RT EYE Last Myocardial Infarction Date:: 2003? History of Any Multi-Drug Resistant Organisms: None Reported Past Surgical History: Cholecystectomy, Coronary Bypass/CABG, Heart Catheterization With Stent, Orthopedic Surgery Additional Past Surgical History / Comment(s): RT WRIST GANGLION CYST REMOVED.has had stents post cabg not sure how many or what arteries they are in. CABG 2000, COLONOSCOPY, EGD, Past Anesthesia/Blood Transfusion Reactions: Motion Sickness Date of Last Stent Placement:: 2003 Past Psychological History: No Psychological Hx Reported Smoking Status: Never smoker Past Alcohol Use History: None Reported Past Drug Use History: None Reported - Past Family History Father History Unknown: Yes Additional Family Medical History / Comment(s): PT ADOPTED Mother History Unknown: Yes Additional Family Medical History / Comment(s): PT ADOPTED Brother(s) Additional Family Medical History / Comment(s): did find several brothers that had also been adopted out one from agent orange exposure/complications, one from etoh abuse, and one from chino gehrig's disease. Medications and Allergies Home Medications Medication Instructions Recorded Confirmed Type Atenolol [Tenormin] 50 mg PO DAILY 04/05/15 07/14/18 History Pantoprazole Sodium [Protonix] 40 mg PO DAILY 04/05/15 07/14/18 History Aspirin [Adult Low Dose Aspirin EC] 81 mg PO DAILY 03/05/17 07/14/18 History Atorvastatin Calcium [Lipitor] 40 mg PO HS 03/05/17 07/14/18 History Ubidecarenone [Co Q-10] 400 mg PO DAILY 04/25/17 07/14/18 History Chlorhexidine Gluconate [Periogard] 15 ml PO AC-BID 07/14/18 07/14/18 History Clopidogrel [Plavix] 75 mg PO DAILY 07/14/18 07/14/18 History DULoxetine HCL [Cymbalta] 60 mg PO DAILY 07/14/18 07/14/18 History Fluticasone Nasal [place] [Flonase 1 spray EA NOSTRIL BID 07/14/18 07/14/18 History Nasal [place]] Glucerna Shake 1 can PO TID-W/MEALS 07/14/18 07/14/18 History Losartan [Cozaar] 25 mg PO DAILY 07/14/18 07/14/18 History Nitroglycerin Sl Tabs [Nitrostat] 0.4 mg SUBLINGUAL Q5M PRN 07/14/18 07/14/18 History Ranolazine [Ranexa] 1,000 mg PO BID 07/14/18 07/14/18 History metFORMIN HCL [Glucophage] 500 mg PO BID 07/14/18 07/14/18 History Allergies Allergy/AdvReac Type Severity Reaction Status Date / Time Penicillins Allergy Anaphylaxis Verified 07/14/18 09:44 simvastatin [From Zocor] Allergy SEVERE Verified 07/14/18 09:44 JOINT PAIN Physical Exam Vitals: Vital Signs Temp Pulse Resp BP Pulse Ox 07/14/18 12:00 62 12 07/14/18 11:39 98.2 F 62 12 139/82 98 07/14/18 08:05 97.6 F 60 12 146/74 97 07/14/18 08:00 60 12 07/14/18 04:12 96 07/14/18 03:26 98.3 F 65 15 132/76 94 L 07/14/18 03:19 88 L Intake and Output 07/14/18 07/14/18 07/14/18 06:59 14:59 22:59 Intake Total 260 Output Total 300 300 Balance -300 -40 Intake: IV 20 Invasive Line 1 20 Oral 240 Output: Urine 300 300 Other: # Voids 1 # Bowel Movements 1 Weight 81.8 kg GENERAL EXAM: Alert, active, comfortable in no apparent distress. On 2 L/m per nasal cannula HEAD: Normocephalic. EYES: Normal reaction of pupils, equal size. NOSE: Clear with pink turbinates. THROAT: No erythema or exudates. NECK: No masses, no JVD. CHEST: No chest wall deformity. LUNGS: Equal air entry with no crackles, wheeze, rhonchi or dullness. CVS: S1 and S2 normal with no audible murmur, regular rhythm. ABDOMEN: No hepatosplenomegaly, normal bowel sounds, no guarding or rigidity. SPINE: No scoliosis or deformity SKIN: No rashes CENTRAL NERVOUS SYSTEM: No focal deficits, tone is normal in all 4 extremities. EXTREMITIES: There is no peripheral edema. No clubbing, no cyanosis. Peripheral pulses are intact. Results 07/14/18 10:11 07/14/18 10:11 Cardiac Enzymes 07/14/18 Range/Units 10:11 AST 26 (17-59) U/L CBC 07/14/18 Range/Units 10:11 WBC 6.2 (3.8-10.6) k/uL RBC 4.11 L (4.30-5.90) m/uL Hgb 13.4 (13.0-17.5) gm/dL Hct 39.5 (39.0-53.0) % Plt Count 184 (150-450) k/uL Comprehensive Metabolic Panel 07/14/18 Range/Units 10:11 Sodium 141 (137-145) mmol/L Potassium 4.3 (3.5-5.1) mmol/L Chloride 107 (98-107) mmol/L Carbon Dioxide 28 (22-30) mmol/L BUN 14 (9-20) mg/dL Creatinine 0.95 (0.66-1.25) mg/dL Glucose 133 H (74-99) mg/dL Calcium 8.8 (8.4-10.2) mg/dL AST 26 (17-59) U/L ALT 28 (21-72) U/L Alkaline Phosphatase 85 (38-126) U/L Total Protein 6.5 (6.3-8.2) g/dL Albumin 3.9 (3.5-5.0) g/dL Current Medications Generic Name Dose Route Start Last Admin Trade Name Jeremiq PRN Reason Stop Dose Admin Aspirin 81 mg 07/14/18 09:00 07/14/18 08:16 Aspirin PO 81 mg DAILY MARGAUX Administration Atenolol 50 mg 07/14/18 09:00 07/14/18 08:16 Tenormin PO 50 mg DAILY MARGAUX Administration Atorvastatin Calcium 40 mg 07/14/18 21:00 Lipitor PO HS MARGAUX Enoxaparin Sodium 40 mg 07/14/18 11:30 07/14/18 12:10 Lovenox SQ 40 mg DAILY MARGAUX Administration Mirtazapine 15 mg 07/14/18 21:00 Remeron PO HS MARGAUX Pantoprazole Sodium 40 mg 07/14/18 09:00 07/14/18 08:17 Protonix PO 40 mg DAILY MARGAUX Administration Pregabalin 100 mg 07/14/18 09:00 07/14/18 10:41 Lyrica PO Not Given BID MARGAUX Ranolazine 500 mg 07/14/18 09:00 07/14/18 08:16 Ranexa PO 500 mg BID MARGAUX Administration Sertraline HCl 100 mg 07/14/18 09:00 07/14/18 08:16 Zoloft PO 100 mg BID MARGAUX Administration Intake and Output 07/14/18 07/14/18 07/14/18 06:59 14:59 22:59 Intake Total 260 Output Total 300 300 Balance -300 -40 Intake: IV 20 Invasive Line 1 20 Oral 240 Output: Urine 300 300 Other: # Voids 1 # Bowel Movements 1 Weight 81.8 kg 07/14/18 10:11 07/14/18 10:11 EKG Interpretations (text) EKG shows a normal sinus rhythm with no acute changes. Assessment and Plan Plan: Assessment and plan #1 Suicidal ideation #2.Acute hypoxic respiratory failure secondary to suspected excess sedation for anxiety as well as some evidence of fluid volume overload. #3 Coronary artery disease with previous coronary artery bypass grafting and stent placements. Previously preserved left ventricular systolic function in 2017. #4 History of anxiety/depression. #5 Hypertension. #6 Hyperlipidemia. #7 chest pain atypical for acute coronary syndrome, initial troponin is negative. EKG shows normal sinus rhythm with no acute changes. Plan We will check an echocardiogram with Doppler study .Obtain 2 subsequent troponins. Start some oral diuretics. Further recommendations to follow. DNP note has been reviewed, I agree with a documented findings and plan of care. Patient was seen and examined.
[2018-07-14] MEDS: MIRTAZAPINE 15 MG TAB PO SCH (20:01)
[2018-07-14] MEDS: ATORVASTATIN 40 MG TAB PO SCH (20:01)
[2018-07-14] MEDS ORDERED: MIRTAZAPINE 15 MG TAB PO SCH (21:00)
[2018-07-14 21:22] LABS: Glucose,Whole Blood 123 mg/dL (75-99)
[2018-07-15 06:53] LABS: Glucose,Whole Blood 114 mg/dL (75-99)
[2018-07-15 07:13] LABS: HCT 40.3 % (39.0-53.0); HGB 13.4 gm/dL (13.0-17.5); MCH 31.6 pg (25.0-35.0); MCHC 33.4 g/dL (31.0-37.0); MCV 94.8 fL (80.0-100.0); Mean Platelet Volume 8.2; Platelet Count 168 k/uL (150-450); RBC 4.25 m/uL (4.30-5.90); RDW 12.6 % (11.5-15.5); WBC 6.7 k/uL (3.8-10.6)
[2018-07-15 07:30] LABS: Albumin 3.7 g/dL (3.5-5.0); Calcium 8.9 mg/dL (8.4-10.2); Magnesium 1.9 mg/dL (1.6-2.3); Potassium 4.3 mmol/L (3.5-5.1); Total Protein 6.5 g/dL (6.3-8.2)
[2018-07-15 07:32] LABS: Glucose,Whole Blood 138 mg/dL (75-99)
[2018-07-15 07:32] LABS: Glucose,Whole Blood 122 mg/dL (75-99)
[2018-07-15] MEDS: ENOXAPARIN 40 MG/0.4 ML SYRINGE SQ SCH (08:28)
[2018-07-15] MEDS: ATENOLOL 50 MG TAB PO SCH (08:28)
[2018-07-15] MEDS: SERTRALINE 100 MG TAB PO SCH ×2 (08:28→21:02)
[2018-07-15] MEDS: PREGABALIN 100 MG CAP PO SCH ×2 (08:28→21:02)
[2018-07-15] MEDS: PANTOPRAZOLE 40 MG TABLET PO SCH (08:28)
[2018-07-15] MEDS: RANOLAZINE 500 MG TAB.ER.12H PO SCH ×2 (08:28→21:01)
[2018-07-15] MEDS: ASPIRIN 81 MG PO SCH (08:28)
--- NOTE | 2018-07-15 09:43 | XR ---
EXAMINATION TYPE: XR chest 2V DATE OF EXAM: 07/15/2018 COMPARISON: Prior chest x-ray 07/14/2018 HISTORY: Shortness of breath TECHNIQUE: Frontal and lateral views of the chest are obtained. FINDINGS: Findings are similar to prior exam. Patient is post median sternotomy, heart size is stabl e. No pneumothorax or pleural effusion. Prominent lung volume may be indicative of underlying COPD. S trand-like densities may reflect subsegmental atelectasis or scarring. IMPRESSION: Findings similar to prior exam, possible atelectatic change, follow-up as indicated
[2018-07-15 11:37] LABS: Glucose,Whole Blood 117 mg/dL (75-99)
--- NOTE | 2018-07-15 11:44 | P.PN ---
Subjective Progress Note Date: 07/15/18 His is a 67-year-old male one of my patient with a paced medical history significant for coronary artery disease status post coronary artery bypass graft with the prick his current intervention [facility], hypertension and hypertensive cardio vascular disease with left ventricular hypertrophy, GERD, hyperlipidemia, osteoarthritis, obesity with obstructive sleep apnea, chronic stable angina, patient has been under a lot of stress after his has with multiple medical problem as a matter fact she was hospitalized at [facility] and she ended up with major ischemic stroke for which she ended up dying and her hospice care, patient has been depressed has been following up with me as on a regular basis he came yesterday for a follow-up appointment with his friend and his friend stated that the patient pull up his gun toward his head and was thinking about killing himself, at that time patient was sent to the ER at [facility] and we managed to send the patient to the mental health unit, while he was there patient became quite anxious he did receive Ativan 1 mg and Remeron 30 mg and the patient became quite lethargic and he was not able to wake up at that time the nursing staff had called the A team did receive Romazicon without any relief he was placed on 35% Ventimask because his oxidation was around 88% he had a chest x-ray that showed possible fluid and cardiomegaly, and computed tomography scan of the brain did not show any evidence of acute infarct or bleed, patient was given 1 dose of Lasix 40 mg IV push and was transferred to selective care for evaluation cardiology consultation as well as pulmonary consultation was obtained. 07/15: Patient is sitting on the edge of the bed talking with the sitter. He is stating he is much improved from yesterday. He denies any shortness of breath or cough. He states he walked in the hallway but did have a drop in his pulse ox 85% with ambulation. His lungs today are clear. He did have a bowel movement yesterday. Chest x-ray is showing a possible left-sided pneumonia and Levaquin will be started. Chest x-ray report is showing similar possible atelectatic change. Incentive spirometry will be added. Patient has been seen bipolar medicine and cardiology. Echocardiogram has been obtained the report is pending. Patient has not been seen by psychiatry. We will plan to monitor patient overnight and transferred to the mental health unit tomorrow. Review of Systems Constitutional: Denies lethargy, denies malaise, denies weakness, Reports weight loss, Denies anorexia, Denies chronic headaches Eyes: denies blurred vision, denies bulging eye, denies decreased vision Ears: deny: decreased hearing Ears, nose, mouth and throat: Denies dysphagia, Denies neck lump, Denies swelling in throat, Denies sore throat Cardiovascular: Denies chest pain, Denies decreased exercise tolerance, Denies dyspnea on exertion, Denies lightheadedness, Denies rapid heart beat, Denies shortness of breath, Denies syncope Respiratory: Reports sleep apnea, Reports snoring, Denies congestion, Denies cough with sputum, Denies hemoptysis, Denies home oxygen, Denies wheezing Gastrointestinal: Reports diarrhea, Reports loss of appetite, Denies abdominal pain, Denies bloating, Denies BRBPR, Denies heartburn, Denies hematemesis, Denies hematochezia, Denies melena, Denies nausea, Denies vomiting Genitourinary: Reports nocturia, Denies dysuria Musculoskeletal: Denies myalgias Musculoskeletal: absent: ankle pain, ankle stiffness, ankle swelling, elbow pain, elbow stiffness, elbow swelling, foot pain, foot stiffness, foot swelling, hand pain, hand stiffness, hand swelling, hip pain, hip stiffness, hip swelling, knee pain, knee stiffness, knee swelling, shoulder pain, shoulder stiffness, shoulder swelling, wrist pain, wrist stiffness, wrist swelling Integumentary: Denies pruritus, Denies rash Neurological: Denies numbness, Denies weakness Psychiatric: Reports anxiety, Reports depression, Reports sadness/tearfulness, Reports sleep disturbances, Reports suicidal ideation Endocrine: Denies fatigue, Denies weight change Objective - Vital Signs Vital signs: Vital Signs Temp 97.6 F 07/15/18 07:30 Pulse 66 07/15/18 08:00 Resp 12 07/15/18 08:47 BP 132/86 07/15/18 07:30 Pulse Ox 95 07/15/18 08:47 Intake & Output 07/14/18 07/15/18 07/15/18 18:59 06:59 18:59 Intake Total 1170 180 Output Total 300 Balance 870 180 Weight 83 kg Intake: IV 230 Invasive Line 1 30 Magnesium Sulfate-D5w Pmx 200 1 gm In Dextrose/Water 1 100ml.bag @ 100 mls/hr IVPB Q1H [facility] Rx#: [id number] Oral 940 180 Output: Urine 300 Other: Voiding Method Toilet Toilet # Voids 1 1 # Bowel Movements 1 - Exam General appearance: average body habitus, no distress - EENT Eyes: anicteric sclerae, EOMI, PERRLA, no ptosis, no scleral icterus, normal appearance ENT: hearing grossly normal, NA/AT, normal oropharynx, no thrush Ears: bilateral: normal - Neck Neck: no lymphadenopathy, normal ROM, no rigidity, no stridor, no thyromegaly Carotids: bilateral: upstroke normal Thyroid: bilateral: normal size - Respiratory Respiratory: bilateral: Clear to auscultation, negative: dullness, rales, rhonchi, wheezing, prolonged expiration, prolonged inspiration - Cardiovascular Rhythm: regular Heart sounds: normal: S1, S2 Abnormal Heart Sounds: systolic murmur, no rub, no S3 Gallop, no S4 Gallop, no click - Gastrointestinal General gastrointestinal: normal bowel sounds, soft, no tenderness, no umbilical hernia, no ventral hernia - Integumentary Integumentary: normal, normal turgor - Neurologic Neurologic: CNII-XII intact - Musculoskeletal Musculoskeletal: gait normal, strength equal bilaterally - Psychiatric Psychiatric: A&O x's 3, no appropriate affect, intact judgment & insight - Labs CBC & Chem 7: 07/15/18 06:44 07/15/18 06:44 Labs: Abnormal Lab Results - Last 24 Hours (Table) 07/14/18 07/14/18 07/14/18 Range/Units 10:11 10:11 11:41 RBC 4.11 L (4.30-5.90) m/uL Glucose 133 H (74-99) mg/dL POC Glucose (mg/dL) 122 H (75-99) mg/dL 07/14/18 07/14/18 07/15/18 Range/Units 16:04 21:16 06:44 RBC 4.25 L (4.30-5.90) m/uL Glucose (74-99) mg/dL POC Glucose (mg/dL) 138 H 123 H (75-99) mg/dL 07/15/18 07/15/18 Range/Units 06:44 06:50 RBC (4.30-5.90) m/uL Glucose 121 H (74-99) mg/dL POC Glucose (mg/dL) 114 H (75-99) mg/dL Assessment and Plan Plan: 1. Acute hypoxemic respiratory failure secondary to underlying obstructive sleep apnea with obesity hypoventilation syndrome, worse with the use of Ativan at the mental health unit with acute pulmonary edema. Continue oral Lasix 40 mg daily, Levaquin and incentive spirometry added for possible pneumonia or atelectasis. Cardiology and troponin are medicine consults appreciated. Echocardiogram is pending. 2. Metabolic encephalopathy secondary to use of Ativan in addition to Remeron and hypoxia. Ativan has been discontinued. Remeron decreased to 15 mg at bedtime. Mental status is back to baseline. 3. Severe depression with suicidal thoughts and plan that did not carried out. Patient had pulled a gun to his head and he tried to shoot himself in the past, we'll keep with suicidal precautions, continue patient on Zoloft 100 mg orally twice every day, and Remeron 15 mg orally once every day, we'll obtain psychiatry consultation. Sitter remains at the bedside. 4. History of CAD post CABG with PCI in the past. Continue atenolol 50 mg orally once every day, aspirin 81 mg orally once every day, Ranexa 1000 mg orally twice every day, Lipitor 40 mg orally once every day. 5. Hypertension and hypertensive cardio vascular disease. Continue atenolol 50 mg orally once every day, losartan 25 mg orally once every day. 6. Hyperlipidemia. Continue Lipitor 40 mg orally once every day. 7. Diabetes mellitus type 2. Continue patient on metformin 500 mg orally twice every day. 8. Diabetic polyneuropathy. Continue Lyrica 100 mg orally twice every day. 9. Obesity with obstructive sleep apnea. Patient has a CPAP but he does not use. 10. GERD with a prior history of Hemphill's esophagus. Continue PPI. 11. Osteoarthritis. Stable. 12. DVT prophylaxis. Lovenox 40 mg subcutaneously every 24 hours. 13. GI prophylaxis. Continue patient on PPI. Patient is full code. Discharge plan: Transfer to the mental health unit tomorrow Impression and plan of care have been directed as dictated by the signing physician. Suzette Layne nurse practitioner acting as scribe for signing physician.
[2018-07-15] MEDS: LEVOFLOXACIN 500 MG TAB PO SCH (12:53)
--- NOTE | 2018-07-15 13:49 | P.PN ---
Subjective Progress Note Date: 07/15/18 This is a pleasant 67-year-old gentleman with known history of diabetes, hyperlipidemia, hypertension, family history of premature coronary artery disease, history of coronary artery disease with prior bypass surgery and stent placement, carotid artery disease with known total occlusion of the right carotid. According to the patient, he's been under significant amount of stress, he states that his had within the past few months. Apparently the patient had gone to his primary care doctor's office for a follow-up visit, a friend went with him and mentioned that the patient had held a gun up to his head and was thinking about killing himself. Patient did go to the emergency room, and subsequently went to the mental health unit. While there patient became quite anxious, he did receive Ativan and Remeron and after that was significantly lethargic. And 18 was called, chest x-ray was performed which revealed congestive heart failure and cardiomegaly, CT of the brain did not reveal any acute infarct or bleed. Patient was given a dose of IV Lasix and was transferred to the telemetry unit. According to the patient, upon wakening from this he does state that he had an episode of sharp chest pain which lasted about half hour in duration. He denies any associated diaphoresis. Mild shortness of breath. Initial chest x-ray on presentation here showed cardiomegaly without any acute process. EKG showed normal sinus rhythm with no acute changes. Subsequent EKG showed normal sinus rhythm with no acute changes. At the time of my examination, patient is awake and alert, oriented 3, he does have a friend at the bedside. Denies any shortness of breath or further chest discomfort. Echocardiogram performed in 2016 revealed a preserved left ventricular systolic function. White blood cell count is normal, hemoglobin 13.4, platelet count 184. D-dimer negative. Sodium 141, potassium 4.3, BUN 14 and creatinine 0.9. Magnesium 1.5 on admission. Troponin 0.012. BNP 942. 07/15/2017 Patient was seen and examined this morning, improved significantly from yesterday. He was up ambulating with physical therapy today, pulse ox did drop to 85% at that time. His lungs overall clear today. Chest x-ray showing a possible left-sided pneumonia patient has been initiated on Levaquin. Echocardiogram with Doppler study has been requested but is yet pending. Blood pressure 128/80 with a heart rate in the 60s, 93% on room air. White blood cell count 6.7, hemoglobin 13.4, platelet count 168. Sodium 141, potassium 4.3, BUN 18 and creatinine 1.0. Magnesium level I.9. IV Lasix has been discontinued and patient has been put back on oral diuretics. Objective - Vital Signs Vital signs: Vital Signs Temp 97.3 F L 07/15/18 12:00 Pulse 64 07/15/18 12:00 Resp 12 07/15/18 12:00 BP 128/81 07/15/18 12:00 Pulse Ox 93 L 07/15/18 12:00 Intake & Output 07/14/18 07/15/18 07/15/18 18:59 06:59 18:59 Intake Total 1170 450 Output Total 300 300 Balance 870 150 Weight 83 kg Intake: IV 230 10 Invasive Line 1 30 10 Magnesium Sulfate-D5w Pmx 200 1 gm In Dextrose/Water 1 100ml.bag @ 100 mls/hr IVPB Q1H [facility] Rx#: [id number] Oral 940 440 Output: Urine 300 300 Other: Voiding Method Toilet Toilet # Voids 1 1 1 # Bowel Movements 1 - Exam GENERAL EXAM: Alert, active, comfortable in no apparent distress. On 2 L/m per nasal cannula HEAD: Normocephalic. EYES: Normal reaction of pupils, equal size. NOSE: Clear with pink turbinates. THROAT: No erythema or exudates. NECK: No masses, no JVD. CHEST: No chest wall deformity. LUNGS: Equal air entry with no crackles, wheeze, rhonchi or dullness. CVS: S1 and S2 normal with no audible murmur, regular rhythm. ABDOMEN: No hepatosplenomegaly, normal bowel sounds, no guarding or rigidity. SPINE: No scoliosis or deformity SKIN: No rashes CENTRAL NERVOUS SYSTEM: No focal deficits, tone is normal in all 4 extremities. EXTREMITIES: There is no peripheral edema. No clubbing, no cyanosis. Periph eral pulses are intact. - Labs CBC & Chem 7: 07/15/18 06:44 07/15/18 06:44 Labs: Abnormal Lab Results - Last 24 Hours (Table) 07/14/18 07/14/18 07/14/18 Range/Units 11:41 16:04 21:16 RBC (4.30-5.90) m/uL Glucose (74-99) mg/dL POC Glucose (mg/dL) 122 H 138 H 123 H (75-99) mg/dL 07/15/18 07/15/18 07/15/18 Range/Units 06:44 06:44 06:50 RBC 4.25 L (4.30-5.90) m/uL Glucose 121 H (74-99) mg/dL POC Glucose (mg/dL) 114 H (75-99) mg/dL 07/15/18 Range/Units 11:31 RBC (4.30-5.90) m/uL Glucose (74-99) mg/dL POC Glucose (mg/dL) 117 H (75-99) mg/dL Assessment and Plan Plan: Assessment and plan #1 Suicidal ideation #2.Acute hypoxic respiratory failure secondary to suspected excess sedation for anxiety as well as some evidence of fluid volume overload. #3 Coronary artery disease with previous coronary artery bypass grafting and stent placements. Previously preserved left ventricular systolic function in 2017. #4 History of anxiety/depression. #5 Hypertension. #6 Hyperlipidemia. #7 chest pain atypical for acute coronary syndrome, initial troponin is negative. EKG shows normal sinus rhythm with no acute changes. Plan We will review the echocardiogram with Doppler study. Continue current medications. DNP note has been reviewed, I agree with a documented findings and plan of care. Patient was seen and examined.
--- NOTE | 2018-07-15 16:02 | P.PN ---
Subjective Progress Note Date: 07/15/18 Principal diagnosis: Acute hypoxic rest or a failure secondary to suspected hypoventilation, and sedation, and mild fluid overload This is a very pleasant 67-year-old gentleman who follows with Dr. Stokes as his primary care physician. He has a history of coronary artery disease with previous coronary artery bypass grafting in 2000, multiple stent placements, hyperlipidemia, hypertension, exposure to agent orange, posttraumatic stress disorder. He presented here to the emergency room yesterday with suicidal ideation stating he had held a gun to his head on 2 separate occasions recently. Based on these comments he was admitted to the inpatient psychiatric unit. Earlier this morning he became quite anxious and received Ativan and Remeron and then became quite lethargic and difficult to arouse. He had oxygen saturations are 88% on 3 L. He was placed on a Ventimask and increased to the 90s. An A TEAM was called and he was subsequently transferred here to the selective care unit for further evaluation. Computed tomography scan of the brain revealed no acute intracranial process. This x-ray showed evidence of cardiomegaly and some increasing left lung opacity suspicious for pulmonary edema. We are consulted for the same. The patient is seen today in consultation on the selective care unit. He is currently awake and alert in no acute distress. He is a lifelong nonsmoker. He has not been on oxygen or inhalers in the past. He denies any worsening shortness of breath at this time. No cough or congestion. Maintaining O2 saturations in the 90s on 2 L/m per nasal cannula. White count 6.2. Hemoglobin 13.4. Creatinine 0.95. ProBNP 942. He did receive one dose of Lasix 40 mg IVP approximately 3:30 this morning. He is currently in a negative balance. Echocardiogram for 2017 revealed preserved left ventricular systolic function. Cardiology consult pending. He does have a sitter at the bedside. On 07/15/2017 patient seen in follow-up on selective care unit, he is awake and alert, sitting up in the recliner, in no acute distress, room air pulse ox is 93%, lung sounds are clear to auscultation, afebrile, no rhonchi, no wheezes no rales, patient was given a dose of IV Lasix yesterday, he has been transitioned to oral Lasix per cardiology, antibiotic coverage in the form of Levaquin, no cough or chest congestion. Objective - Vital Signs Vital signs: Vital Signs Temp 98.2 F 07/15/18 14:39 Pulse 62 07/15/18 14:39 Resp 12 07/15/18 14:39 BP 127/73 07/15/18 14:39 Pulse Ox 93 L 07/15/18 14:39 Intake & Output 07/14/18 07/15/18 07/15/18 18:59 06:59 18:59 Intake Total 1170 1310 Output Total 300 300 Balance 870 1010 Weight 83 kg Intake: IV 230 10 Invasive Line 1 30 10 Magnesium Sulfate-D5w Pmx 200 1 gm In Dextrose/Water 1 100ml.bag @ 100 mls/hr IVPB Q1H [facility] Rx#: [id number] Oral 940 1300 Output: Urine 300 300 Other: Voiding Method Toilet Toilet # Voids 1 1 1 # Bowel Movements 1 - Exam GENERAL EXAM: Alert, pleasant, 67-year-old white male, sitting up in the recliner, on room air, with a pulse ox of 93% comfortable in no apparent distress. HEAD: Normocephalic/atraumatic. EYES: Normal reaction of pupils, equal size. Conjunctiva pink, sclera white. NOSE: Clear with pink turbinates. THROAT: No erythema or exudates. NECK: No masses, no JVD, no thyroid enlargement, no adenopathy. CHEST: No chest wall deformity. Symmetrical expansion. LUNGS: Equal air entry with no crackles, wheeze, rhonchi or dullness. CVS: Regular rate and rhythm, normal S1 and S2, no gallops, no murmurs, no rubs ABDOMEN: Soft, nontender. No hepatosplenomegaly, normal bowel sounds, no guarding or rigidity. EXTREMITIES: No clubbing, no edema, no cyanosis, 2+ pulses and upper and lower extremities. MUSCULOSKELETAL: Muscle strength and tone normal. SPINE: No scoliosis or deformity SKIN: No rashes CENTRAL NERVOUS SYSTEM: Alert and oriented -3. No focal deficits, tone is normal in all 4 extremities. PSYCHIATRIC: Alert and oriented -3. Appropriate affect. Intact judgment and insight. - Labs CBC & Chem 7: 07/15/18 06:44 07/15/18 06:44 Labs: Abnormal Lab Results - Last 24 Hours (Table) 07/14/18 07/14/18 07/14/18 Range/Units 11:41 16:04 21:16 RBC (4.30-5.90) m/uL Glucose (74-99) mg/dL POC Glucose (mg/dL) 122 H 138 H 123 H (75-99) mg/dL 07/15/18 07/15/18 07/15/18 Range/Units 06:44 06:44 06:50 RBC 4.25 L (4.30-5.90) m/uL Glucose 121 H (74-99) mg/dL POC Glucose (mg/dL) 114 H (75-99) mg/dL 07/15/18 Range/Units 11:31 RBC (4.30-5.90) m/uL Glucose (74-99) mg/dL POC Glucose (mg/dL) 117 H (75-99) mg/dL Assessment and Plan Plan: Assessment: #1 Acute hypoxic respiratory failure secondary to hypoventilation and suspected excess sedation for anxiety as well as some evidence of fluid volume overload. #2 Suicidal ideation. #3 Coronary artery disease with previous coronary artery bypass grafting and stent placements. Previously preserved left ventricular systolic function in 2017. #4 History of anxiety/depression. #5 Hypertension. #6 Hyperlipidemia. #7 Lifelong nonsmoker. Plan: Continue with current medical treatment, patient has been weaned off the oxygen, he is awake and alert, no acute distress, lung sounds are clear, no fever no chills, no cough or chest congestion. Maintaining good saturations on room air, denies any chest pain. We will follow on as-needed basis, I performed a history & physical examination of the patient and discussed their management with my nurse practitioner, Laura Alvares. I reviewed the nurse practitioner's note and agree with the documented findings and plan of care. Lung sounds are positive for clear breath sounds. The findings and the impression was discussed with the patient. I attest to the documentation by the nurse practitioner. Time with Patient: Less than 30
[2018-07-15 16:47] LABS: Glucose,Whole Blood 112 mg/dL (75-99)
--- NOTE | 2018-07-15 18:37 | ECHOF ---
Referral Reason:chf MEASUREMENTS -------- HEIGHT: 160.0 cm WEIGHT: 82.6 kg BP: IVSd: 1.2 cm (0.6 - 1.1) LVIDd: 4.6 cm (3.9 - 5.3) LVPWd: 1.4 cm (0.6 - 1.1) IVSs: 1.5 cm LVIDs: 3.4 cm LVPWs: 1.5 cm LAESV Index (A-L): 20.42 ml/m Ao Diam: 2.9 cm (2.0 - 3.7) AV Cusp: 1.9 cm (1.5 - 2.6) LA Diam: 3.6 cm (2.7 - 3.8) MV EXCURSION: 17.701 mm (> 18.000) MV EF SLOPE: 53 mm/s (70 - 150) EPSS: 1.2 cm MV E [place]: 0.49 m/s MV DecT: 349 ms MV A [place]: 0.78 m/s MV E/A Ratio: 0.64 AR PHT: 261 ms RAP: 5.00 mmHg RVSP: 11.42 mmHg FINDINGS -------- Sinus rhythm. This was a technically good study. The left ventricular size is normal. There is mild concentric left ventricular hypertrophy. Overa ll left ventricular systolic function is mildly impaired with, an EF between 45 - 50 %. There is pa radoxical/dysynergic septal motion consistent with post-operative status. Basal inferior LV wall mo tion is hypokinetic. The right ventricle is normal in size. Normal LA size by volume 22+/-6 ml/m2. The right atrial size is normal. Aortic valve is trileaflet and is mildly thickened. Trace amount of aortic regurgitation. There is trace mitral regurgitation. Trace tricuspid regurgitation present. The right ventricular systolic pressure, as measured by Dopp ler, is 11.42mmHg. The pulmonic valve was not well visualized. The aortic root size is normal. IVC Not well visulized. The pericardium is normal. CONCLUSIONS -------- 1. Sinus rhythm. 2. This was a technically good study. 3. The left ventricular size is normal. 4. There is mild concentric left ventricular hypertrophy. 5. Overall left ventricular systolic function is mildly impaired with, an EF between 45 - 50 %. 6. There is paradoxical/dysynergic septal motion consistent with post-operative status. 7. Basal inferior LV wall motion is hypokinetic. 8. The right ventricle is normal in size. 9. Normal LA size by volume 22+/-6 ml/m2. 10. The right atrial size is normal. 11. Aortic valve is trileaflet and is mildly thickened. 12. Trace amount of aortic regurgitation. 13. There is trace mitral regurgitation. 14. Trace tricuspid regurgitation present. 15. The right ventricular systolic pressure, as measured by Doppler, is 11.42mmHg. 16. The pulmonic valve was not well visualized. 17. The aortic root size is normal. 18. IVC Not well visulized. 19. The pericardium is normal. PRODUCTION CELL LEADER: Jessa Luu RDCS
[2018-07-15 20:48] LABS: Glucose,Whole Blood 160 mg/dL (75-99)
[2018-07-15] MEDS: MIRTAZAPINE 15 MG TAB PO SCH (21:01)
[2018-07-15] MEDS: ATORVASTATIN 40 MG TAB PO SCH (21:02)
[2018-07-16 06:07] LABS: Glucose,Whole Blood 143 mg/dL (75-99)
[2018-07-16 08:33] VITALS: RESP 16
[2018-07-16] MEDS ORDERED: FUROSEMIDE 40 MG TAB PO SCH (09:00)
[2018-07-16] MEDS: PREGABALIN 100 MG CAP PO SCH (09:10)
[2018-07-16] MEDS: PANTOPRAZOLE 40 MG TABLET PO SCH (09:10)
[2018-07-16] MEDS: SERTRALINE 100 MG TAB PO SCH (09:11)
[2018-07-16] MEDS: LEVOFLOXACIN 500 MG TAB PO SCH (09:11)
[2018-07-16] MEDS: ASPIRIN 81 MG PO SCH (09:11)
[2018-07-16] MEDS: ENOXAPARIN 40 MG/0.4 ML SYRINGE SQ SCH (09:11)
[2018-07-16] MEDS: ATENOLOL 50 MG TAB PO SCH (09:11)
[2018-07-16] MEDS: RANOLAZINE 500 MG TAB.ER.12H PO SCH (09:22)
[2018-07-16 09:46] VITALS: PULSE 64
[2018-07-16 11:22] LABS: Glucose,Whole Blood 168 mg/dL (75-99)
[2018-07-16 11:39] VITALS: BP 115/69; TEMP 98.2
--- NOTE | 2018-07-16 11:58 | P.DS ---
Providers Date of admission: 07/14/18 02:25 Expected date of discharge: 07/16/18 Attending physician: Kenisha Stokes Consults: 07/14/18 02:36 Consult Physician Routine Consulting Provider: Ernie Andino Consult Reason/Comments: Suicidal ideations; depression Do you want consulting provider notified?: Yes, Notify in am Placement Type Exists?: Yes 07/14/18 09:07 Consult Physician Routine Consulting Provider: Tung Mcgee Consult Reason/Comments: hypoxemia Do you want consulting provider notified?: Yes Consult Physician Routine Consulting Provider: Carlton Osullivan Consult Reason/Comments: chest pain Do you want consulting provider notified?: Yes Primary care physician: Kenisha Stokes Hospital Course: This is a 67-year-old male one of my patient with a paced medical history significant for coronary artery disease status post coronary artery bypass graft with the prick his current intervention [facility], hypertension and hypertensive cardio vascular disease with left ventricular hypertrophy, GERD, hyperlipidemia, osteoarthritis, obesity with obstructive sleep apnea, chronic stable angina, patient has been under a lot of stress after his has with multiple medical problem as a matter fact she was hospitalized at [facility] and she ended up with major ischemic stroke for which she ended up dying and her hospice care, patient has been depressed has been following up with me as on a regular basis he came yesterday for a follow-up appointment with his friend and his friend stated that the patient pull up his gun toward his head and was thinking about killing himself, at that time patient was sent to the ER at [facility] and we managed to send the patient to the mental health unit, while he was there patient became quite anxious he did receive Ativan 1 mg and Remeron 30 mg and the patient became quite lethargic and he was not able to wake up at that time the nursing staff had called the A team did receive Romazicon without any relief he was placed on 35% Ventimask because his oxidation was around 88% he had a chest x-ray that showed possible fluid and cardiomegaly, and computed tomography scan of the brain did not show any evidence of acute infarct or bleed, patient was given 1 dose of Lasix 40 mg IV push and was transferred to [facility] care for evaluation cardiology consultation as well as pulmonary consultation was obtained. 07/15: Patient is sitting on the edge of the bed talking with the sitter. He is stating he is much improved from yesterday. He denies any shortness of breath or cough. He states he walked in the hallway but did have a drop in his pulse ox 85% with ambulation. His lungs today are clear. He did have a bowel movement yesterday. Chest x-ray is showing a possible left-sided pneumonia and Levaquin will be started. Chest x-ray report is showing similar possible atelectatic change. Incentive spirometry will be added. Patient has been seen bipolar medicine and cardiology. Echocardiogram has been obtained the report is pending. Patient has not been seen by psychiatry. We will plan to monitor patient overnight and transferred to the mental health unit tomorrow. 07/16: Patient has been afebrile, heart rate in the 60s and 70s, pulse ox 94% on room air, blood pressure 115/69. Patient states that he is feeling well and is back to his baseline. He denies having any cough. Patient's mental status is back to normal. He does have a sitter at the bedside. We are waiting for psychiatry evaluation. At this time, patient is cleared medically for transfer to mental health unit. Discharge diagnoses: 1. Acute hypoxemic respiratory failure secondary to underlying obstructive sleep apnea with obesity hypoventilation syndrome, worse with the use of Ativan at the mental health unit with acute pulmonary edema. 2. Metabolic encephalopathy secondary to use of Ativan in addition to Remeron and hypoxia. 3. Severe depression with suicidal thoughts and plan that did not carried out. 4. History of CAD post CABG with PCI in the past. 5. Hypertension and hypertensive cardio vascular disease. 6. Hyperlipidemia. 7. Diabetes mellitus type 2. 8. Diabetic polyneuropathy. 9. Obesity with obstructive sleep apnea. 10. GERD with a prior history of Hemphill's esophagus. 11. Osteoarthritis, generalized. Discharge plan: Transfer to the mental health unit Impression and plan of care have been directed as dictated by the signing physician. Suzette Layne nurse practitioner acting as scribe for signing physician. Patient Condition at Discharge: Good Plan - Discharge Summary Discharge Rx Participant: Yes New Discharge Prescriptions: New Furosemide [Lasix] 40 mg PO DAILY #30 tab Levofloxacin [Levaquin] 500 mg PO DAILY #5 tab Pregabalin [Lyrica] 100 mg PO BID cap Mirtazapine [Remeron] 15 mg PO HS tab Continue Pantoprazole Sodium [Protonix] 40 mg PO DAILY Atenolol [Tenormin] 50 mg PO DAILY Atorvastatin Calcium [Lipitor] 40 mg PO HS Aspirin [Adult Low Dose Aspirin EC] 81 mg PO DAILY Ubidecarenone [Co Q-10] 400 mg PO DAILY Ranolazine [Ranexa] 1,000 mg PO BID Glucerna Shake 1 can PO TID-W/MEALS Clopidogrel [Plavix] 75 mg PO DAILY metFORMIN HCL [Glucophage] 500 mg PO BID Nitroglycerin Sl Tabs [Nitrostat] 0.4 mg SUBLINGUAL Q5M PRN PRN Reason: Chest Pain DULoxetine HCL [Cymbalta] 60 mg PO DAILY Fluticasone Nasal Henderson [Flonase Nasal Henderson] 1 spray EA NOSTRIL BID Losartan [Cozaar] 25 mg PO DAILY Discontinued Chlorhexidine Gluconate [Periogard] 15 ml PO AC-BID Discharge Medication List Atenolol [Tenormin] 50 mg PO DAILY 04/05/15 [History] Pantoprazole Sodium [Protonix] 40 mg PO DAILY 04/05/15 [History] Aspirin [Adult Low Dose Aspirin EC] 81 mg PO DAILY 03/05/17 [History] Atorvastatin Calcium [Lipitor] 40 mg PO HS 03/05/17 [History] Ubidecarenone [Co Q-10] 400 mg PO DAILY 04/25/17 [History] Clopidogrel [Plavix] 75 mg PO DAILY 07/14/18 [History] DULoxetine HCL [Cymbalta] 60 mg PO DAILY 07/14/18 [History] Fluticasone Nasal Henderson [Flonase Nasal Henderson] 1 spray EA NOSTRIL BID 07/14/18 [History] Glucerna Shake 1 can PO TID-W/MEALS 07/14/18 [History] Losartan [Cozaar] 25 mg PO DAILY 07/14/18 [History] Nitroglycerin Sl Tabs [Nitrostat] 0.4 mg SUBLINGUAL Q5M PRN 07/14/18 [History] Ranolazine [Ranexa] 1,000 mg PO BID 07/14/18 [History] metFORMIN HCL [Glucophage] 500 mg PO BID 07/14/18 [History] Furosemide [Lasix] 40 mg PO DAILY #30 tab 07/16/18 [Rx] Levofloxacin [Levaquin] 500 mg PO DAILY #5 tab 07/16/18 [Rx] Mirtazapine [Remeron] 15 mg PO HS tab 07/16/18 [Rx] Pregabalin [Lyrica] 100 mg PO BID cap 07/16/18 [Rx] Follow up Appointment(s)/Referral(s): Kenisha Stokes MD [Primary Care Provider] - 07/23/18 2:30 pm () Activity/Diet/Wound Care/Special Instructions: U
--- NOTE | 2018-07-16 12:52 | P.PN ---
Subjective Progress Note Date: 07/16/18 This is a pleasant 67-year-old gentleman with known history of diabetes, hyperlipidemia, hypertension, family history of premature coronary artery disease, history of coronary artery disease with prior bypass surgery and stent placement, carotid artery disease with known total occlusion of the right carotid. According to the patient, he's been under significant amount of stress, he states that his had within the past few months. Apparently the patient had gone to his primary care doctor's office for a follow-up visit, a friend went with him and mentioned that the patient had held a gun up to his head and was thinking about killing himself. Patient did go to the emergency room, and subsequently went to the mental health unit. While there patient became quite anxious, he did receive Ativan and Remeron and after that was significantly lethargic. And 18 was called, chest x-ray was performed which revealed congestive heart failure and cardiomegaly, CT of the brain did not reveal any acute infarct or bleed. Patient was given a dose of IV Lasix and was transferred to the telemetry unit. According to the patient, upon wakening from this he does state that he had an episode of sharp chest pain which lasted about half hour in duration. He denies any associated diaphoresis. Mild shortness of breath. Initial chest x-ray on presentation here showed cardiomegaly without any acute process. EKG showed normal sinus rhythm with no acute changes. Subsequent EKG showed normal sinus rhythm with no acute changes. At the time of my examination, patient is awake and alert, oriented 3, he does have a friend at the bedside. Denies any shortness of breath or further chest discomfort. Echocardiogram performed in 2017 revealed a preserved left ventricular systolic function. White blood cell count is normal, hemoglobin 13.4, platelet count 184. D-dimer negative. Sodium 141, potassium 4.3, BUN 14 and creatinine 0.9. Magnesium 1.5 on admission. Troponin 0.012. BNP 942. 07/15/2017 Patient was seen and examined this morning, improved significantly from yesterday. He was up ambulating with physical therapy today, pulse ox did drop to 85% at that time. His lungs overall clear today. Chest x-ray showing a possible left-sided pneumonia patient has been initiated on Levaquin. Echocardiogram with Doppler study has been requested but is yet pending. Blood pressure 128/80 with a heart rate in the 60s, 93% on room air. White blood cell count 6.7, hemoglobin 13.4, platelet count 168. Sodium 141, potassium 4.3, BUN 18 and creatinine 1.0. Magnesium level I.9. IV Lasix has been discontinued and patient has been put back on oral diuretics. 2018 Patient seen and examined this morning, hemodynamically stable. Feeling significantly better overall. Objective - Vital Signs Vital signs: Vital Signs Temp 98.2 F 07/16/18 11:38 Pulse 64 07/16/18 11:38 Resp 16 07/16/18 11:38 BP 115/69 07/16/18 11:38 Pulse Ox 94 L 07/16/18 11:38 Intake & Output 07/15/18 07/16/18 07/16/18 18:59 06:59 18:59 Intake Total 2180 760 300 Output Total 300 Balance 1880 760 300 Weight 81.7 kg Intake: IV 20 10 Invasive Line 1 20 10 Oral 2160 750 300 Output: Urine 300 Other: Voiding Method Toilet Toilet Toilet # Voids 1 1 - Exam GENERAL EXAM: Alert, active, comfortable in no apparent distress. On 2 L/m per nasal cannula HEAD: Normocephalic. EYES: Normal reaction of pupils, equal size. NOSE: Clear with pink turbinates. THROAT: No erythema or exudates. NECK: No masses, no JVD. CHEST: No chest wall deformity. LUNGS: Equal air entry with no crackles, wheeze, rhonchi or dullness. CVS: S1 and S2 normal with no audible murmur, regular rhythm. ABDOMEN: No hepatosplenomegaly, normal bowel sounds, no guarding or rigidity. SPINE: No scoliosis or deformity SKIN: No rashes CENTRAL NERVOUS SYSTEM: No focal deficits, tone is normal in all 4 extremities. EXTREMITIES: There is no peripheral edema. No clubbing, no cyanosis. Peripheral pulses are intact. - Labs CBC & Chem 7: 07/15/18 06:44 07/15/18 06:44 Labs: Abnormal Lab Results - Last 24 Hours (Table) 07/15/18 07/15/18 07/16/18 Range/Units 16:45 20:47 05:44 POC Glucose (mg/dL) 112 H 160 H 143 H (75-99) mg/dL 07/16/18 Range/Units 11:20 POC Glucose (mg/dL) 168 H (75-99) mg/dL Assessment and Plan Plan: Assessment and plan #1 Suicidal ideation #2.Acute hypoxic respiratory failure secondary to suspected excess sedation for anxiety as well as some evidence of fluid volume overload. #3 Coronary artery disease with previous coronary artery bypass grafting and stent placements. Previously preserved left ventricular systolic function in 2017. #4 History of anxiety/depression. #5 Hypertension. #6 Hyperlipidemia. #7 chest pain atypical for acute coronary syndrome, initial troponin is negative. EKG shows normal sinus rhythm with no acute changes. Plan Echocardiac gram with Doppler study revealed an ejection fraction of 45-50%. From our perspective, patient may be transferred to the psychiatric unit, for medical unit, whatever the primary doctor feels is appropriate. We will follow him now when necessary. DNP note has been reviewed, I agree with a documented findings and plan of care. Patient was seen and examined.
--- NOTE | 2018-07-20 09:50 | CDI ---
Documentation Clarification Form Date: 07/20/18 From: Yessenia Holman Eufemia Daisy, Crew Clerk Hours-8:30 am & 5 pm M-F Admit Date: 07/14/2018 2:25:00 AM Patient Name: Gurpreet Hutchinson Visit Number: [id number] Discharge Date: 07/16/2018 12:35:00 PM ATTENTION: The Clinical Documentation Specialists (CDI) and [facility] Coding Staff appreciate your assistance in clarifying documentation. Please respond to the clarification below the line at the bottom and electronically sign. The CDI & [facility] Coding staff will review the response and follow-up if needed. Please note: Queries are made part of the Legal Health Record. If you have any questions, please contact the author of this message via ITS. Dr. Lilli Quevedo Heart failure is documented in the 07/14 consult, 07/15 PN & 07/16 PN. History/Risk Factors: ac hypoxic resp failure, CAD, S/P CABG & PTCA, hypertensive cardiovascular disease VS/Pulse OX: P-65, R-15, BP-132/76, O2 sat-88 BNP: 942 Echocardiogram Results: left ventricular systolic function is mildly impaired w EF between 45-50% Chest X Ray: possible atelectacic change Treatment: 07/14 IV Lasix 40mg once, 07/16 PO Lasix 40 mg daily In your professional opinion, can you please clarify the acuity and type of CHF if known? TYPE Systolic Heart Failure Diastolic Heart Failure Systolic & Diastolic Heart Failure ACUITY Acute Chronic Acute on Chronic Heart Failure Unable to Determine Other, please specify Documentation Clarification Form Date: 07/20/18 From: Yessenia Holman Eufemia Villa, Crew Clerk Hours-8:30 am & 5 pm M-F Admit Date: 07/14/2018 2:25:00 AM Patient Name: Gurpreet Hutchinson Visit Number: [id number] Discharge Date: 07/16/2018 12:35:00 PM ATTENTION: The Clinical Documentation Specialists (CDI) and [facility] Coding Staff appreciate your assistance in clarifying documentation. Please respond to the clarification below the line at the bottom and electronically sign. The CDI & [facility] Coding staff will review the response and follow-up if needed. Please note: Queries are made part of the Legal Health Record. If you have any questions, please contact the author of this message via ITS. Dr. Lilli Quevedo Heart failure is documented in the 07/14 consult, 07/15 PN & 07/16 PN. History/Risk Factors: ac hypoxic resp failure, CAD, S/P CABG & PTCA, hypertensive cardiovascular disease VS/Pulse OX: P-65, R-15, BP-132/76, O2 sat-88 BNP: 942 Echocardiogram Results: left ventricular systolic function is mildly impaired w EF between 45-50% Chest X Ray: possible atelectacic change Treatment: 07/14 IV Lasix 40mg once, 07/16 PO Lasix 40 mg daily In your professional opinion, can you please clarify the acuity and type of CHF if known? TYPE Systolic Heart Failure Diastolic Heart Failure Systolic & Diastolic Heart Failure ACUITY Acute Chronic Acute on Chronic Heart Failure Unable to Determine Other, please specify MTDD
--- NOTE | 2018-08-11 16:00 | CDI ---
Documentation Clarification Form Date: 08/11/18 From: Yessenia River Eufemia Villa, Precision Instrument Maker Hours-8:30 am & 5 pm M-F Admit Date: 07/14/2018 2:25:00 AM Patient Name: Gurpreet Hutchinson Visit Number: [id number] Discharge Date: 07/16/2018 12:35:00 PM ATTENTION: The Clinical Documentation Specialists (CDI) and [facility] Coding Staff appreciate your assistance in clarifying documentation. Please respond to the clarification below the line at the bottom and electronically sign. The CDI & [facility] Coding staff will review the response and follow-up if needed. Please note: Queries are made part of the Legal Health Record. If you have any questions, please contact the author of this message via ITS. Dr. Lilli Quevedo Heart failure is documented in your 07/14 consult under hx of present illness, / PN & 07/16 PN in the 13th line under subjective. History/Risk Factors: ac hypoxic respiratory failure, CAD, S/P CABG & PTCA, hypertensive cardiovascular disease VS/Pulse OX: P-65, R-15, BP-132/76, O2 sat-88 BNP: 942 Echocardiogram Results: left ventricular systolic function is mildly impaired w EF between 45-50% Chest X Ray: possible atelectatic change Treatment: 07/14 IV Lasix 40mg once, 07/16 PO Lasix 40 mg daily In your professional opinion, can you please clarify the acuity and type of CHF if known? Systolic Heart Failure Diastolic Heart Failure Systolic & Diastolic Heart Failure Acute Chronic Acute on Chronic Heart Failure Unable to Determine Other, please specify MTDD
== END 2018-07-16 12:35 | DRG 189 ==
LOC: 3SCARD 02:25
PROVIDERS: ADMIT Internal Medicine; ATTEND Internal Medicine
DX: J96.01 Acute respiratory failure with hypoxia (principal); G92 Toxic encephalopathy; E66.2 Morbid (severe) obesity with alveolar hypoventilation; R45.851 Suicidal ideations; I25.118 Atherosclerotic heart disease of native coronary artery with other forms of angina pectoris; E11.42 Type 2 diabetes mellitus with diabetic polyneuropathy; I11.0 Hypertensive heart disease with heart failure; K21.9 Gastro-esophageal reflux disease without esophagitis; E78.5 Hyperlipidemia, unspecified; M19.90 Unspecified osteoarthritis, unspecified site; B19.20 Unspecified viral hepatitis C without hepatic coma; H26.9 Unspecified cataract; G47.33 Obstructive sleep apnea (adult) (pediatric); F32.9 Major depressive disorder, single episode, unspecified; I25.2 Old myocardial infarction; Z90.49 Acquired absence of other specified parts of digestive tract; T42.4X5A Adverse effect of benzodiazepines, initial encounter; Z79.84 Long term (current) use of oral hypoglycemic drugs; Z79.82 Long term (current) use of aspirin; Z79.02 Long term (current) use of antithrombotics/antiplatelets; Z79.899 Other long term (current) drug therapy; Z95.1 Presence of aortocoronary bypass graft; Z87.19 Personal history of other diseases of the digestive system; Z77.098 Contact with and (suspected) exposure to other hazardous, chiefly nonmedicinal, chemicals; Z99.89 Dependence on other enabling machines and devices; F43.10 Post-traumatic stress disorder, unspecified; Z95.5 Presence of coronary angioplasty implant and graft; Z82.49 Family history of ischemic heart disease and other diseases of the circulatory system; Y92.230 Patient room in hospital as the place of occurrence of the external cause; F41.9 Anxiety disorder, unspecified; N42.9 Disorder of prostate, unspecified; I50.9 Heart failure, unspecified
CPT/HCPCS: 71046; 80053; 83735; 83880; 84484; 85027; 85379; 93005; 93306; 94760

== ENCOUNTER 2018-07-16 12:48 | Inpatient (IN) | payer MEDICARE ==
[2018-07-16] MEDS ORDERED: ZIPRASIDONE 20 MG VIAL IM PRN (13:32)
[2018-07-16] MEDS ORDERED: MAGNESIUM HYDROXIDE 2,400 MG/10 ML CUP PO PRN (13:32)
[2018-07-16] MEDS ORDERED: ACETAMINOPHEN TAB 325 MG TAB PO PRN (13:32)
--- NOTE | 2018-07-16 15:50 | HP ---
HISTORY AND PHYSICAL DATE OF SERVICE/DICTATION: 07/16/2018 IDENTIFYING DATA: This patient is a 67-year-old who was admitted to the mental health unit from the medical floor. The patient was originally admitted for concerns regarding suicidal ideation. HISTORY OF PRESENT ILLNESS: Earlier this week the patient had been admitted to the mental health unit for suicidal ideation. It appears that the evening he was up here he received Ativan on top of his Remeron and became overly sedated. He does have respiratory issues, including obstructive sleep apnea, and he had some pulmonary edema. He was unresponsive and required transfer to the medical unit for stabilization. After several days he is transferred back to our mental health unit. He indicates that he had been experiencing significant symptoms of depression since the of his last March. He states that she had undergone bypass graft surgery for her lower extremities, and during the recovery process she suffered a major stroke which ended her life. He states that they were for 38 years and the grief has been overwhelming. In addition to ongoing grief, he stated physically he was not feeling well. He had been placed on metformin and did not realize it was causing diarrhea that he was experiencing for a month and a half. He states he could not keep any food in his system. He had diarrhea and lost 35 pounds. He has since been taken off of the metformin, he states. He indicates that his appetite is better. He is feeling better. He reports that he did gesture with a firearm when he was home, but he does not want to commit suicide. He is aware that he has several individuals who are supportive. He is endorsing no significant anxiety symptoms. He reports no thoughts of harming others. He has no homicidal ideation, intent or plan. He endorses no auditory or visual hallucinations or any specific delusions. No history of hypomanic or manic episodes. He does have a firearm at home. PAST PSYCHIATRIC HISTORY: This is his first inpatient psychiatric admission. No history of suicide attempts. Currently he is prescribed Remeron 15 mg at bedtime, Cymbalta 60 mg daily. He states his primary care physician recently increased his Cymbalta to 90 mg daily. He states the Cymbalta has provided no relief, and he was better off on Zoloft, which he took for several years in the past. He states he only changed it at the suggestion of his , as she was on Zoloft and changed to Cymbalta and had better results. He does not work with an outpatient therapist or psychiatrist. At one time in the remote past he did see a physician assistant professor of education at the [facility]. PAST MEDICAL HISTORY: Coronary artery disease. He underwent a quadruple bypass at age 49. He had stents placed at age 51. He is known to have hypertension, GERD, hyperlipidemia, obstructive sleep apnea and osteoarthritis. ALLERGIES: Include ZOCOR and PENICILLIN. CHEMICAL DEPENDENCY HISTORY: He reports using alcohol twice a year. He reports no use of marijuana or illicit drugs. He has never been placed in residential treatment for chemical dependency reasons. Family psychiatric and chemical dependency history are unknown, as the patient was adopted at . LEGAL HISTORY: None reported. ABUSE HISTORY: None reported. SOCIAL HISTORY: The patient is 67 years old. He lives alone. His of 38 years in March of 2018. He has 2 sons and 2 daughters. He is the guardian of one of his daughters, who suffered a traumatic brain injury. He did have a history of service, specifically the [employer]. He was in [place] for 2 years. 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 He states he was never diagnosed with PTSD. He endorses no nightmares or flashbacks related to that service. He states that he was exposed to [place] and is on a 100% [place] disability. MENTAL STATUS EXAMINATION: The patient is a shorter-statured male appearing his stated age. He has a morrison, wears eye glasses. He is dressed in hospital attire. He is pleasant, cooperative and easily directed. He indicates his mood is better. He is reporting no suicidal or homicidal ideation, intent or plan. He does admit that he had those thoughts prior to coming to the hospital. He is reporting no homicidal ideation, intent or plan. He reports no auditory or visual hallucinations or any specific delusions. There is no observed evidence of psychosis. He demonstrates no tangential thinking, loose associations or flight of ideas. He does not appear hypomanic or manic. He is able to demonstrate an appropriate range of affect, including appropriate smiling. He is oriented to person, place and date. He is able to name the days of the week backwards. He demonstrates no verbal or physical aggressiveness. No abnormal involuntary movements. STRENGTHS: Housing, income, support from family. WEAKNESSES: Grief. INTELLECT: Average. IMPRESSIONS: 1. Major depressive disorder, recurrent, severe, without psychosis. 2. Medical comorbidities include coronary artery disease, hypertension, gastroesophageal reflux disease, hyperlipidemia, osteoarthritis, obstructive sleep apnea. PLAN: The patient has been admitted to the mental health unit voluntarily. We reviewed his presenting symptoms and treatment options. We decided we would taper him off of the Cymbalta and would initiate Lexapro. He will continue the Remeron at bedtime 15 mg. We will first start tapering the Cymbalta down before initiating the Lexapro. He will be seen by his primary care physician for routine history and physical exam. Social Work will meet with the patient to complete a psychosocial assessment and begin discharge planning. We will monitor him for safety and encourage full participation in the milieu. We will involve his family in treatment and discharge planning as he will allow. TIFFANIE / HUDSON: [id number] /
[2018-07-16] MEDS: metFORMIN 500 MG TAB PO SCH (17:27)
[2018-07-16] MEDS ORDERED: NON-FORMULARY DRUG (Glucerna Shake 1 CAN) PO SCH (17:30)
[2018-07-16] MEDS: FLUTICASONE 50MCG/SPRAY NASAL 16GM EA NOSTRIL SCH (21:46)
[2018-07-16] MEDS: MIRTAZAPINE 15 MG TAB PO SCH (21:47)
[2018-07-16] MEDS: RANOLAZINE 500 MG TAB.ER.12H PO SCH (21:47)
[2018-07-16] MEDS: PREGABALIN 100 MG CAP PO SCH (21:47)
[2018-07-16] MEDS: ATORVASTATIN 40 MG TAB PO SCH (21:47)
[2018-07-17] MEDS: PANTOPRAZOLE 40 MG TABLET PO SCH (08:52)
[2018-07-17] MEDS: metFORMIN 500 MG TAB PO SCH ×2 (08:52→16:56)
[2018-07-17] MEDS: ASPIRIN 81 MG PO SCH (08:52)
[2018-07-17] MEDS: CLOPIDOGREL 75 MG TAB PO SCH (08:53)
[2018-07-17] MEDS: FUROSEMIDE 40 MG TAB PO SCH (08:53)
[2018-07-17] MEDS: LEVOFLOXACIN 500 MG TAB PO SCH (08:53)
[2018-07-17] MEDS: PREGABALIN 100 MG CAP PO SCH ×2 (08:53→21:46)
[2018-07-17] MEDS: RANOLAZINE 500 MG TAB.ER.12H PO SCH ×2 (08:53→21:47)
[2018-07-17] MEDS: ATENOLOL 50 MG TAB PO SCH (08:53)
[2018-07-17] MEDS: LOSARTAN 25 MG TAB PO SCH (08:53)
[2018-07-17] MEDS: FLUTICASONE 50MCG/SPRAY NASAL 16GM EA NOSTRIL SCH ×2 (08:55→21:48)
[2018-07-17] MEDS ORDERED: DULoxetine HCL 30 MG CAPSULE.DR PO SCH (09:00)
[2018-07-17] MEDS ORDERED: NON-FORMULARY DRUG (Ubidecarenone [Co Q-10] 400 MG) PO SCH (09:00)
[2018-07-17] MEDS ORDERED: DULoxetine HCL 60 MG CAPSULE.DR PO SCH (09:00)
--- NOTE | 2018-07-17 12:12 | P.MDCNMH ---
History of Present Illness H&P Date: 07/17/18 This is a 67-year-old male patient of Dr. Stokes with a past medical history significant for coronary artery disease status post coronary artery bypass graft with the prick his current intervention as well [facility] with the [facility], hypertension and hypertensive cardiovascular disease with left ventricular hypertrophy, GERD, hyperlipidemia, osteoarthritis, obesity with obstructive sleep apnea, chronic stable angina, patient has been under a lot of stress after his has with multiple medical problem as a matter fact she was hospitalized at [facility] and she ended up with major ischemic stroke for which she ended up dying under hospice care. Patient has been depressed has been following in the office with Dr. Stokes on a regular basis. He came for a follow-up appointment with his friend and his friend stated that the patient pull up his gun toward his head and was thinking about killing himself, at that time patient was sent to the ER at [facility] and we managed to send the patient to the mental health unit, while he was there patient became quite anxious he did receive Ativan 1 mg and Remeron 30 mg and the patient became quite lethargic and he was not able to wake up at that time the nursing staff had called the A team did receive Romazicon without any relief he was placed on 35% Ventimask because his oxidation was around 88% he had a chest x-ray that showed possible fluid and cardiomegaly, and computed tomography scan of the brain did not show any evidence of acute infarct or bleed, patient was given 1 dose of Lasix 40 mg IV push and was transferred to [facility] care for evaluation cardiology consultation as well as pulmonary consultation was obtained. Patient was stabilized and transferred to the mental health unit. Patient states he has seen the psychiatrist and has participated in group therapy. He states he is feeling improvement in his emotions. Patient denies any cough or shortness of breath. No fever no chills. Review of Systems All systems: negative Constitutional: Denies chills, Denies fatigue, Denies fever, Denies poor appetite, Denies weakness Eyes: Ears: Ears, nose, mouth and throat: Denies dental pain, Denies dysphagia, Denies hea dache, Denies nasal congestion, Denies nasal discharge, Denies sore throat, Denies vertigo Cardiovascular: Denies chest pain, Denies shortness of breath Respiratory: Denies cough Gastrointestinal: Denies abdominal pain, Denies diarrhea, Denies loss of appetite, Denies melena, Denies nausea, Denies vomiting Genitourinary: Denies dysuria Musculoskeletal: Denies frequent falls, Denies gait dysfunction, Denies muscle weakness, Denies myalgias Integumentary: Denies pruritus, Denies rash, Denies wounds Neurological: Reports aphasia, Reports change in mentation, Reports change in speech, Reports confusion, Reports seizures, Denies head injury, Denies numbness, Denies weakness Psychiatric: Reports anxiety, Reports depression, Reports difficulty concentrating, Reports hopelessness, Reports sadness/tearfulness, Reports suicidal ideation Endocrine: Denies fatigue, Denies weight change Past Medical History Past Medical History: Coronary Artery Disease (CAD), Chest Pain / Angina, Diabetes Mellitus, Eye Disorder, GERD/Reflux, Hyperlipidemia, Hypertension, Myocardial Infarction ([place]), Osteoarthritis (OA), Prostate Disorder, 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 CATARACT RT EYE Last Myocardial Infarction Date:: 2003? History of Any Multi-Drug Resistant Organisms: None Reported Past Surgical History: Cholecystectomy, Coronary Bypass/CABG, Heart Catheterization With Stent, Orthopedic Surgery Additional Past Surgical History / Comment(s): RT WRIST GANGLION CYST REMOVED.has had stents post cabg not sure how many or what arteries they are in. CABG 2000, COLONOSCOPY, EGD, Past Anesthesia/Blood Transfusion Reactions: Motion Sickness Date of Last Stent Placement:: 2003 Past Psychological History: No Psychological Hx Reported Smoking Status: Never smoker Past Alcohol Use History: None Reported Past Drug Use History: None Reported - Past Family History Father History Unknown: Yes Additional Family Medical History / Comment(s): PT ADOPTED Mother History Unknown: Yes Additional Family Medical History / Comment(s): PT ADOPTED Brother(s) Additional Family Medical History / Comment(s): did find several brothers that had also been adopted out one from agent orange exposure/complications, one from etoh abuse, and one from chino gehrig's disease. Medications and Allergies Home Medications Medication Instructions Recorded Confirmed Type Atenolol [Tenormin] 50 mg PO DAILY 04/05/15 07/14/18 History Pantoprazole Sodium [Protonix] 40 mg PO DAILY 04/05/15 07/14/18 History Aspirin [Adult Low Dose Aspirin EC] 81 mg PO DAILY 03/05/17 07/14/18 History Atorvastatin Calcium [Lipitor] 40 mg PO HS 03/05/17 07/14/18 History Ubidecarenone [Co Q-10] 400 mg PO DAILY 04/25/17 07/14/18 History Clopidogrel [Plavix] 75 mg PO DAILY 07/14/18 07/14/18 History DULoxetine HCL [Cymbalta] 60 mg PO DAILY 07/14/18 07/14/18 History Fluticasone Nasal [place] [Flonase 1 spray EA NOSTRIL BID 07/14/18 07/14/18 History Nasal [place]] Glucerna Shake 1 can PO TID-W/MEALS 07/14/18 07/14/18 History Losartan [Cozaar] 25 mg PO DAILY 07/14/18 07/14/18 History Nitroglycerin Sl Tabs [Nitrostat] 0.4 mg SUBLINGUAL Q5M PRN 07/14/18 07/14/18 History Ranolazine [Ranexa] 1,000 mg PO BID 07/14/18 07/14/18 History metFORMIN HCL [Glucophage] 500 mg PO BID 07/14/18 07/14/18 History Furosemide [Lasix] 40 mg PO DAILY #30 tab 07/16/18 Rx Levofloxacin [Levaquin] 500 mg PO DAILY #5 tab 07/16/18 Rx Mirtazapine [Remeron] 15 mg PO HS tab 07/16/18 Rx Pregabalin [Lyrica] 100 mg PO BID cap 07/16/18 Rx Allergies Allergy/AdvReac Type Severity Reaction Status Date / Time Penicillins Allergy Anaphylaxis Verified 07/14/18 09:44 simvastatin [From Zocor] Allergy SEVERE Verified 07/14/18 09:44 JOINT PAIN Physical Exam Vitals: Vital Signs Temp Pulse Resp BP Pulse Ox 07/17/18 06:51 97.4 F L 63 18 131/66 90 L 07/16/18 22:16 69 18 125/60 96 07/16/18 13:13 67 16 133/69 97 General appearance: average body habitus, no distress - EENT Eyes: anicteric sclerae, EOMI, PERRLA, no ptosis, no scleral icterus, normal appearance ENT: hearing grossly normal, NA/AT, normal oropharynx, no thrush Ears: bilateral: normal - Neck Neck: no lymphadenopathy, normal ROM, no rigidity, no stridor, no thyromegaly Carotids: bilateral: upstroke normal Thyroid: bilateral: normal size - Respiratory Respiratory: bilateral: diminished, negative: dullness, rales, rhonchi, wheezing, prolonged expiration, prolonged inspiration - Cardiovascular Rhythm: regular Heart sounds: normal: S1, S2 Abnormal Heart Sounds: systolic murmur, no rub, no S3 Gallop, no S4 Gallop, no click - Gastrointestinal General gastrointestinal: normal bowel sounds, soft, no tenderness, no umbilical hernia, no ventral hernia - Integumentary Integumentary: normal, normal turgor - Neurologic Neurologic: CNII-XII intact - Musculoskeletal Musculoskeletal: gait normal, strength equal bilaterally - Psychiatric Psychiatric: A&O x's 3, appropriate affect, intact judgment & insight Cranial Nerve Examination - Cranial Nerves Cranial Nerve I- Olfactory: Intact Cranial Nerve II- Optic: Intact Cranial Nerve III- Oculomotor: Intact Cranial Nerve IV- Trochlear: Intact Cranial Nerve V- Trigeminal: Intact Cranial Nerve - Abducens: Intact Cranial Nerve VII- Facial: Intact Cranial Nerve VIII- Auditory: Intact Cranial Nerve IX- Glossopharyngeal: Intact Cranial Nerve X- Vagus: Intact Cranial Nerve XI- Accessory: Intact Cranial Nerve XII- Hypoglossal: Intact Assessment and Plan Plan: 1. Severe depression with suicidal thoughts and plan that did not carried out. Patient had pulled a gun to his head and he tried to shoot himself in the past. Patient is currently on Cymbalta 30 mg daily, Remeron 15 mg at bedtime, Lyrica 100 mg twice daily, Geodon as needed. Continue current management per psychiatrist. 2. Recent treatment for acute hypoxemic respiratory failure secondary to underlying obstructive sleep apnea with obesity hypoventilation syndrome, possible pneumonia, acute pulmonary edema, stable. Continue Lasix 40 mg oral daily, Levaquin 500 milligrams daily and completed on July 21. 3. Recent treatment for metabolic encephalopathy secondary to use of Ativan in addition to Remeron and hypoxia. 4. History of CAD post CABG with PCI in the past. Continue atenolol 50 mg orally once every day, aspirin 81 mg orally once every day, Ranexa 1000 mg orally twice every day, Lipitor 40 mg orally once every day. 5. Hypertension and hypertensive cardio vascular disease. Continue atenolol 50 mg orally once every day, losartan 25 mg orally once every day. 6. Hyperlipidemia. Continue Lipitor 40 mg orally once every day. 7. Diabetes mellitus type 2. Continue patient on metformin 500 mg orally twice every day. 8. Diabetic polyneuropathy. Continue Lyrica 100 mg orally twice every day. 9. Obesity with obstructive sleep apnea. Patient has a CPAP but he does not use. 10. GERD with a prior history of Hemphill's esophagus. Continue PPI. 11. Osteoarthritis. Stable. 12. DVT prophylaxis. Ambulation. 13. GI prophylaxis. Continue patient on PPI. Patient is full code. Discharge plan: Home Impression and plan of care have been directed as dictated by the signing physician. Suzette Layne nurse practitioner acting as scribe for signing physician.
--- NOTE | 2018-07-17 14:30 | P.PN ---
Progress Note - Text Interval history: The patient is found in group he follows me to an interview room. He states that his mood is better. He has been attending groups. Sleep stable appetite stable. He expects that his female friend will visit over the weekend. We reviewed the proposed medication changes and he is agreeable. We will discontinue the Cymbalta and initiate Lexapro. Continue Remeron is written. He states that's only his female friend knows he is in the hospital his children are unaware as he does not want to bother them. Mental status exam: The patient is alert he is dressed in his own clothing hygiene grooming adequate. He is pleasant cooperative and easily directable. He reports no suicidal or homicidal ideation intent or plan. He reports no auditory or visual hallucinations or any specific delusions. There is no observed evidence of psychosis. He demonstrates no tangential thinking loose associations or flight of ideas. He does not appear hypomanic or manic. He is oriented to person place and date. He demonstrates a euthymic affect which is appropriately reactive. Insight and judgment improving. Plan: We will discontinue the Cymbalta and we'll monitor for any discontinuation side effects. We will initiate Lexapro 5 mg daily with a plan of titrating further. We will monitor him for safety and encourage participation in the milieu. Continue Remeron is written. Vital signs reviewed. He may be appropriate for discharge as soon as Friday if he is clinically stable.
[2018-07-17] MEDS: MIRTAZAPINE 15 MG TAB PO SCH (21:46)
[2018-07-17] MEDS: ATORVASTATIN 40 MG TAB PO SCH (21:47)
[2018-07-17] MEDS: SENNOSIDES-DOCUSATE SODIUM 1 EACH TAB PO SCH (21:47)
[2018-07-18] MEDS: NITROGLYCERIN SL TABS 0.4 MG TAB SUBLINGUAL PRN (07:11)
[2018-07-18] MEDS: MAG HYDROX/AL HYDROX/SIMETH 30 ML CUP PO PRN ×2 (07:24→23:50)
[2018-07-18] MEDS: FLUTICASONE 50MCG/SPRAY NASAL 16GM EA NOSTRIL SCH ×2 (08:55→20:13)
[2018-07-18] MEDS: metFORMIN 500 MG TAB PO SCH ×2 (08:56→17:30)
[2018-07-18] MEDS: ATENOLOL 50 MG TAB PO SCH (08:56)
[2018-07-18] MEDS: CLOPIDOGREL 75 MG TAB PO SCH (08:56)
[2018-07-18] MEDS: ASPIRIN 81 MG PO SCH (08:56)
[2018-07-18] MEDS: PANTOPRAZOLE 40 MG TABLET PO SCH (08:56)
[2018-07-18] MEDS: FUROSEMIDE 40 MG TAB PO SCH (08:57)
[2018-07-18] MEDS: ESCITALOPRAM 5 MG TAB PO SCH (08:57)
[2018-07-18] MEDS: PREGABALIN 100 MG CAP PO SCH ×2 (08:57→20:13)
[2018-07-18] MEDS: LEVOFLOXACIN 500 MG TAB PO SCH (08:57)
[2018-07-18] MEDS: LOSARTAN 25 MG TAB PO SCH (08:57)
[2018-07-18] MEDS: SENNOSIDES-DOCUSATE SODIUM 1 EACH TAB PO SCH ×2 (08:58→20:13)
[2018-07-18] MEDS: RANOLAZINE 500 MG TAB.ER.12H PO SCH ×2 (08:58→20:13)
--- NOTE | 2018-07-18 17:21 | P.PN ---
Progress Note - Text Progress Note Date: 07/18/18 Interval history: Patient reports that initially he was hospitalized medically and then transferred to the psychiatric unit. He is seen in cross coverage today. He does describe that he is feeling better. He seems to be tolerating the psychotropic medications well. He states that earlier today he was having some chest pain had an EKG Geodon which she says was similar to his previous EKG. He seems to relay that it's baseline for him to have some chest pressure. He does not appear to be in any acute distress. He talks about his recently passing away. He has been attending groups. Mental status exam: He is alert and cooperative with the interview. His speech is fluent, not rapid or pressured. Thought processes are organized. He relates that he has resolved any thoughts of harm to himself. He does not voice any thoughts of harm to others. No evidence of psychosis or agitation. Plan: Patient will be maintained on current psychotropic medication regimen. We'll continue to monitor for any medication side effects monitor his ongoing response to treatment.
[2018-07-18] MEDS: MIRTAZAPINE 15 MG TAB PO SCH (20:13)
[2018-07-18] MEDS: ATORVASTATIN 40 MG TAB PO SCH (20:13)
[2018-07-19] MEDS: metFORMIN 500 MG TAB PO SCH ×2 (07:26→17:10)
[2018-07-19] MEDS: PANTOPRAZOLE 40 MG TABLET PO SCH (07:26)
[2018-07-19] MEDS: LEVOFLOXACIN 500 MG TAB PO SCH (09:11)
[2018-07-19] MEDS: CLOPIDOGREL 75 MG TAB PO SCH (09:11)
[2018-07-19] MEDS: FLUTICASONE 50MCG/SPRAY NASAL 16GM EA NOSTRIL SCH ×2 (09:11→20:11)
[2018-07-19] MEDS: ESCITALOPRAM 5 MG TAB PO SCH (09:11)
[2018-07-19] MEDS: RANOLAZINE 500 MG TAB.ER.12H PO SCH ×2 (09:11→20:11)
[2018-07-19] MEDS: FUROSEMIDE 40 MG TAB PO SCH (09:11)
[2018-07-19] MEDS: ATENOLOL 50 MG TAB PO SCH (09:11)
[2018-07-19] MEDS: LOSARTAN 25 MG TAB PO SCH (09:11)
[2018-07-19] MEDS: SENNOSIDES-DOCUSATE SODIUM 1 EACH TAB PO SCH ×2 (09:12→20:11)
[2018-07-19] MEDS: PREGABALIN 100 MG CAP PO SCH ×2 (09:13→20:11)
[2018-07-19] MEDS: ASPIRIN 81 MG PO SCH (09:20)
--- NOTE | 2018-07-19 15:20 | P.PN ---
Progress Note - Text Progress Note Date: 07/19/18 Interval history: Patient is seen again in cross coverage today. He says he slept about 5 hours last night. He relates he didn't have anything for breakfast but he did eat lunch. He says last night he was having some difficulties with acid reflux. He does not voice any specific adverse psych otropic medication side effects. Mental status exam: He is alert and cooperative with the interview. Speech is fluent, not rapid or pressured. Thought processes organized. His mood overall is improved. He denies any thoughts of harm to self. He does not voice any thoughts of harm to others. No evidence of psychosis or agitation. Plan: Patient will be maintained on current psychotropic medication regimen. We'll continue to monitor for any medication side effects monitor his ongoing response to treatment him. Status is improved. He also verbalizes interest in going to a grief counseling group
[2018-07-19] MEDS: ATORVASTATIN 40 MG TAB PO SCH (20:11)
[2018-07-19] MEDS: MIRTAZAPINE 15 MG TAB PO SCH (20:11)
[2018-07-19] MEDS: MAG HYDROX/AL HYDROX/SIMETH 30 ML CUP PO PRN (20:15)
[2018-07-19 21:05] VITALS: BMI 32.3
[2018-07-20 06:57] VITALS: RESP 14; TEMP 97.6
[2018-07-20 07:05] VITALS: BP 120/60; PULSE 63
[2018-07-20] MEDS: NITROGLYCERIN SL TABS 0.4 MG TAB SUBLINGUAL PRN (07:54)
--- NOTE | 2018-07-20 09:32 | P.DS ---
Providers Date of admission: 07/19/18 00:20 Expected date of discharge: 07/20/18 Attending physician: Wil Novak Consults: 07/16/18 13:32 Consult Physician Routine Consulting Provider: Kenisha Stokes Consult Reason/Comments: medical care Do you want consulting provider notified?: Yes Primary care physician: Stated None - Discharge Diagnosis(es) (1) Major depressive disorder, recurrent severe without psychotic features Current Visit: Yes Status: Acute Priority: High Hospital Course: Brief summary of admission note: This patient is a 67-year-old who was admitted to the mental health unit from the medical floor. The patient was admitted to the mental health unit for suicidal ideation. The patient indicated he was experiencing significant symptoms of depression since the of his last March. In addition to dealing with ongoing grief he stated he was not feeling physically well. He was not able to keep food down and had lost a significant amount of weight. At some point he gestured with a firearm at home. He stated he did not want to commit suicide but realized he needed help. For full detail presents referred to my psychiatric evaluation dated 07/16/2018. Summary of hospital course: The patient was initially admitted to the mental health unit for suicidal ideation. During the first evening while here he experienced some respiratory compromise. This appears to be due to ongoing pulmonary issues in conjunction with receiving Ativan at bedtime. He was transferred to the medical floor was stabilized and returned back to the mental health unit for further evaluation and treatment. The patient did sign in vol untarily. We reviewed his presenting symptoms and treatment options. We decided to transition him off of Cymbalta and put him on Lexapro. He was continued on Remeron. No further benzodiazepines were prescribed. The patient was seen by internal medicine for routine history and physical exam. The patient was pleasant cooperative. He participated in groups. Reported a progressive improvement of symptoms while here. He initially stated that he was having significant diarrhea due to being on metformin and he believes asked what caused the weight loss and the physical decompensation. He states the physical decompensation along with his grief led him to have hopeless thoughts. He has however continued to be on metformin without any difficulty. When we discussed this further he does not recall which medication was stopped alleviating that problem. The patient chose not to involve his children and his care but does have a significant other who he is willing to have participate in a support meeting. The patient reports a complete resolution of any hopeless thinking or suicidal thoughts. He demonstrates future oriented thinking. Mental status exam: The patient is a shorter statured male appearing his stated age. He wears a morrison eyeglasses he is dressed in his own clothing. He is pleasant cooperative and easily directed in the interview. He indicates his mood is good. Affect is appropriately expressive. He reports no hopelessness thinking he reports no suicidal ideation intent or plan. He reports no homicidal ideation intent or plan. He reports no auditory or visual hallucinations or any specific delusions there is no observed evidence of psychosis. He demonstrates no tangential thinking loose associations or flight of ideas. He does not appear hypomanic or manic. He seated calmly in the chair. He demonstrates no verbal or physical aggressiveness. Speech is fluent spontaneous nonpressured. He remains oriented to person place and date. He spontaneously describes future oriented thinking. Plan: The patient will be discharged mental health unit today he will return to his own home. His significant other will be involved in a support meeting facilitated by social work. The patient will continue on Remeron 15 mg at bedtime Lexapro 10 mg daily. Social work will arrange his outpatient mental health follow-up. The patient does not require continued hospitalization on the mental health unit. There is no imminent safety risk he is appropriate for transition outpatient care. He is instructed to return to the hospital with any acute safety concerns. Patient Condition at Discharge: Stable Plan - Discharge Summary Discharge Rx Participant: Yes New Discharge Prescriptions: New Levofloxacin [Levaquin] 500 mg PO DAILY #1 tab Escitalopram [Lexapro] 10 mg PO DAILY #30 tab Continue Pantoprazole Sodium [Protonix] 40 mg PO DAILY Atenolol [Tenormin] 50 mg PO DAILY Atorvastatin Calcium [Lipitor] 40 mg PO HS Aspirin [Adult Low Dose Aspirin EC] 81 mg PO DAILY Ubidecarenone [Co Q-10] 400 mg PO DAILY Ranolazine [Ranexa] 1,000 mg PO BID Clopidogrel [Plavix] 75 mg PO DAILY metFORMIN HCL [Glucophage] 500 mg PO BID Nitroglycerin Sl Tabs [Nitrostat] 0.4 mg SUBLINGUAL Q5M PRN PRN Reason: Chest Pain Fluticasone Nasal [place] [Flonase Nasal [place]] 1 spray EA NOSTRIL BID Losartan [Cozaar] 25 mg PO DAILY Furosemide [Lasix] 40 mg PO DAILY #30 tab Pregabalin [Lyrica] 100 mg PO BID cap Mirtazapine [Remeron] 15 mg PO HS #30 tab Discontinued Glucerna Shake 1 can PO TID-W/MEALS DULoxetine HCL [Cymbalta] 60 mg PO DAILY Levofloxacin [Levaquin] 500 mg PO DAILY #5 tab Discharge Medication List Atenolol [Tenormin] 50 mg PO DAILY 04/05/15 [History] Pantoprazole Sodium [Protonix] 40 mg PO DAILY 04/05/15 [History] Aspirin [Adult Low Dose Aspirin EC] 81 mg PO DAILY 03/05/17 [History] Atorvastatin Calcium [Lipitor] 40 mg PO HS 03/05/17 [History] Ubidecarenone [Co Q-10] 400 mg PO DAILY 04/25/17 [History] Clopidogrel [Plavix] 75 mg PO DAILY 07/14/18 [History] Fluticasone Nasal [place] [Flonase Nasal [place]] 1 spray EA NOSTRIL BID 07/14/18 [History] Losartan [Cozaar] 25 mg PO DAILY 07/14/18 [History] Nitroglycerin Sl Tabs [Nitrostat] 0.4 mg SUBLINGUAL Q5M PRN 07/14/18 [History] Ranolazine [Ranexa] 1,000 mg PO BID 07/14/18 [History] metFORMIN HCL [Glucophage] 500 mg PO BID 07/14/18 [History] Furosemide [Lasix] 40 mg PO DAILY #30 tab 07/16/18 [Rx] Pregabalin [Lyrica] 100 mg PO BID cap 07/16/18 [Rx] Escitalopram [Lexapro] 10 mg PO DAILY #30 tab 07/20/18 [Rx] Levofloxacin [Levaquin] 500 mg PO DAILY #1 tab 07/20/18 [Rx] Mirtazapine [Remeron] 15 mg PO HS #30 tab 07/20/18 [Rx] Follow up Appointment(s)/Referral(s): Josi PARK [Other] - 07/24/18 8:00 am
[2018-07-20] MEDS: RANOLAZINE 500 MG TAB.ER.12H PO SCH (09:51)
[2018-07-20] MEDS: PANTOPRAZOLE 40 MG TABLET PO SCH (09:52)
[2018-07-20] MEDS: SENNOSIDES-DOCUSATE SODIUM 1 EACH TAB PO SCH (09:52)
[2018-07-20] MEDS: metFORMIN 500 MG TAB PO SCH (09:52)
[2018-07-20] MEDS: ASPIRIN 81 MG PO SCH (09:52)
[2018-07-20] MEDS: LEVOFLOXACIN 500 MG TAB PO SCH (09:53)
[2018-07-20] MEDS: ATENOLOL 50 MG TAB PO SCH (09:54)
[2018-07-20] MEDS: FUROSEMIDE 40 MG TAB PO SCH (09:54)
[2018-07-20] MEDS: LOSARTAN 25 MG TAB PO SCH (09:54)
[2018-07-20] MEDS: CLOPIDOGREL 75 MG TAB PO SCH (09:54)
[2018-07-20] MEDS: PREGABALIN 100 MG CAP PO SCH (09:55)
[2018-07-20] MEDS: FLUTICASONE 50MCG/SPRAY NASAL 16GM EA NOSTRIL SCH (10:00)
[2018-07-20] MEDS: ESCITALOPRAM 5 MG TAB PO SCH (10:44)
[2018-07-21] MEDS ORDERED: ESCITALOPRAM 10 MG TAB PO SCH (09:00)
== END 2018-07-20 14:53 | disposition home or self-care (01) | DRG 885 ==
LOC: 3MHU 12:48 → UNDOADMIN 12:48 → 3MHU 07-19 00:20
PROVIDERS: ADMIT Psychiatry & Neurology Psychiatry; ATTEND Psychiatry & Neurology Psychiatry
DX: F33.2 Major depressive disorder, recurrent severe without psychotic features (principal); R45.851 Suicidal ideations; E78.5 Hyperlipidemia, unspecified; G47.33 Obstructive sleep apnea (adult) (pediatric); I10 Essential (primary) hypertension; I25.10 Atherosclerotic heart disease of native coronary artery without angina pectoris; K21.9 Gastro-esophageal reflux disease without esophagitis; M19.90 Unspecified osteoarthritis, unspecified site; R07.9 Chest pain, unspecified; Z79.899 Other long term (current) drug therapy; Z95.1 Presence of aortocoronary bypass graft; Z88.0 Allergy status to penicillin; Z88.8 Allergy status to other drugs, medicaments and biological substances
CPT/HCPCS: 84484; 93005

== ENCOUNTER 2018-08-13 07:28 | Emergency (ER) | payer MEDICARE ==
[2018-08-13 07:40] VITALS: RESP 18; TEMP 98.7
[2018-08-13] MEDS ORDERED: SODIUM CHLORIDE 0.9% 1,000 ML IV STA (07:43)
--- NOTE | 2018-08-13 07:57 | ED ---
General Adult HPI <Jon Ring - Last Filed: 08/13/18 12:06> - General Source: patient, EMS, RN notes reviewed, old records reviewed Mode of arrival: EMS Limitations: no limitations <JuanRadha - Last Filed: 08/13/18 22:40> - General Chief complaint: Weakness Stated complaint: Weakness Time Seen by Provider: 08/13/18 07:31 - History of Present Illness Initial comments: Patient is a 67-year-old male with a history of diabetes, hypertension, eye disorder, osteoarthritis prostate disorder and sleep apnea. He presents emergency department today with general weakness and shakiness over the past several days. Patient reports that he fell yesterday onto his buttock. He denies any significant head injury. Patient recently admitted for depression, and had apneic episode. Patient has no fever or chills. Denies cough. (aRdha Martinez) - Related Data Home Medications Medication Instructions Recorded Confirmed Atenolol [Tenormin] 50 mg PO DAILY 04/05/15 08/13/18 Pantoprazole Sodium [Protonix] 40 mg PO DAILY 04/05/15 08/13/18 Aspirin [Adult Low Dose Aspirin EC] 81 mg PO DAILY 03/05/17 08/13/18 Atorvastatin Calcium [Lipitor] 40 mg PO HS 03/05/17 08/13/18 Ubidecarenone [Co Q-10] 400 mg PO DAILY 04/25/17 08/13/18 Clopidogrel [Plavix] 75 mg PO DAILY 07/14/18 08/13/18 Fluticasone Nasal [place] [Flonase 1 spray EA NOSTRIL BID 07/14/18 08/13/18 Nasal [place]] Losartan [Cozaar] 25 mg PO DAILY 07/14/18 08/13/18 Nitroglycerin Sl Tabs [Nitrostat] 0.4 mg SUBLINGUAL Q5M PRN 07/14/18 08/13/18 Ranolazine [Ranexa] 1,000 mg PO BID 07/14/18 08/13/18 metFORMIN HCL [Glucophage] 500 mg PO BID 07/14/18 08/13/18 Previous Rx's Medication Instructions Recorded Furosemide [Lasix] 40 mg PO DAILY #30 tab 07/16/18 Pregabalin [Lyrica] 100 mg PO BID cap 07/16/18 Escitalopram [Lexapro] 10 mg PO DAILY #30 tab 07/20/18 Levofloxacin [Levaquin] 500 mg PO DAILY #1 tab 07/20/18 Mirtazapine [Remeron] 15 mg PO HS #30 tab 07/20/18 Allergies Allergy/AdvReac Type Severity Reaction Status Date / Time Penicillins Allergy Anaphylaxis Verified 08/13/18 08:59 simvastatin [From Zocor] AdvReac SEVERE Verified 08/13/18 08:59 JOINT PAIN Review of Systems ROS Other: All systems not noted in ROS Statement are negative. <Jon Ring - Last Filed: 08/13/18 12:06> ROS Other: All systems not noted in ROS Statement are negative. <Radha Martinez - Last Filed: 08/13/18 22:40> ROS Statement: Those systems with pertinent positive or pertinent negative responses have been documented in the HPI. Past Medical History Past Medical History: Coronary Artery Disease (CAD), Chest Pain / Angina, Diabetes Mellitus, Eye Disorder, GERD/Reflux, Hyperlipidemia, Hypertension, Myocardial Infarction (MT), Osteoarthritis (OA), Prostate Disorder, Sleep Apnea/CPAP/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 CATARACT RT EYE Last Myocardial Infarction Date:: 2003? History of Any Multi-Drug Resistant Organisms: None Reported Past Surgical History: Cholecystectomy, Coronary Bypass/CABG, Heart Catheterization With Stent, Orthopedic Surgery Additional Past Surgical History / Comment(s): RT WRIST GANGLION CYST REMOVED.has had stents post cabg not sure how many or what arteries they are in. CABG 2000, COLONOSCOPY, EGD, Past Anesthesia/Blood Transfusion Reactions: Motion Sickness Date of Last Stent Placement:: 2003 Past Psychological History: No Psychological Hx Reported Smoking Status: Never smoker Past Alcohol Use History: None Reported Past Drug Use History: None Reported - Past Family History Father History Unknown: Yes Additional Family Medical History / Comment(s): PT ADOPTED Mother History Unknown: Yes Additional Family Medical History / Comment(s): PT ADOPTED Brother(s) Additional Family Medical History / Comment(s): did find several brothers that had also been adopted out one from agent orange exposure/complications, one from etoh abuse, and one from chino gehrig's disease. <Radha Martinez - Last Filed: 08/13/18 22:40> General Exam Limitations: no limitations General appearance: alert, in no apparent distress, other (generalized weakness) Head exam: Present: atraumatic, normocephalic, normal inspection Eye exam: Present: normal appearance, PERRL, EOMI. Absent: scleral icterus, conjunctival injection, periorbital swelling ENT exam: Present: normal exam, mucous membranes moist Neck exam: Present: normal inspection. Absent: tenderness, meningismus, lymphadenopathy Respiratory exam: Present: normal lung sounds bilaterally. Absent: respiratory distress, wheezes, rales, rhonchi, stridor Cardiovascular Exam: Present: regular rate, normal rhythm, normal heart sounds. Absent: systolic murmur, diastolic murmur, rubs, gallop, clicks GI/Abdominal exam: Present: soft, normal bowel sounds. Absent: distended, tenderness, guarding, rebound, rigid Extremities exam: Present: normal inspection, full ROM, normal capillary refill. Absent: tenderness, pedal edema, joint swelling, calf tenderness Back exam: Present: normal inspection Neurological exam: Present: alert, oriented X3, CN II-XII intact, other (shakiness noted on hand movements. ) Psychiatric exam: Present: normal affect, normal mood Skin exam: Present: warm, dry, intact, normal color. Absent: rash <Radha Martinez - Last Filed: 08/13/18 22:40> - General Exam Comments Initial Comments: 67 year old male, patient is weak. (Radha Martinez) Course Vital Signs 08/13/18 08/13/18 08/13/18 07:33 08:42 11:04 Temperature 98.7 F Pulse Rate 83 78 81 Respiratory 18 18 18 Rate Blood Pressure 145/84 139/79 160/89 O2 Sat by Pulse 93 L 97 98 Oximetry 08/13/18 14:45 Temperature Pulse Rate 72 Respiratory 18 Rate Blood Pressure 142/72 O2 Sat by Pulse 100 Oximetry EKG Findings - EKG Comments: EKG Findings:: EKG performed at 820 shows sinus rhythm with first-degree AV block. Prolonged QT. Abnormal EKG. She tolerated 80 bpm. Most to 82 ms. Frustration 86 no seconds. QT QTc is 420/44 ms. <Radha Martinez - Last Filed: 08/13/18 22:40> Medical Decision Making - Lab Data Result diagrams: 08/13/18 07:52 08/13/18 07:52 <Jon Ring - Last Filed: 08/13/18 12:06> - Lab Data Result diagrams: 08/13/18 07:52 08/13/18 07:52 <Radha Martinez - Last Filed: 08/13/18 22:40> - Medical Decision Making 59-year-old male presenting with generalized weakness. Patient has nonfocal exam, stable vital signs initial evaluation. Workup in the emergency department reveals normal CBC, CMP does show some hypokalemia, otherwise unremarkable. Patient influenza testing is negative. Urinalysis negative for significant infection. Patient is evaluated by his primary care physician Dr. Stokes in the emergency department, will arrange for close outpatient follow-up. (Jon Ring) - Lab Data Lab Results 08/13/18 08/13/18 08/13/18 Range/Units 07:52 07:52 07:52 WBC 5.3 (3.8-10.6) k/uL RBC 4.04 L (4.30-5.90) m/uL Hgb 12.4 L (13.0-17.5) gm/dL Hct 37.6 L (39.0-53.0) % MCV 93.1 (80.0-100.0) fL MCH 30.7 (25.0-35.0) pg MCHC 33.0 (31.0-37.0) g/dL RDW 13.9 (11.5-15.5) % Plt Count 172 (150-450) k/uL Neutrophils % 74 % Lymphocytes % 10 % Monocytes % 9 % Eosinophils % 3 % Basophils % 1 % Neutrophils # 3.9 (1.3-7.7) k/uL Lymphocytes # 0.5 L (1.0-4.8) k/uL Monocytes # 0.5 (0-1.0) k/uL Eosinophils # 0.2 (0-0.7) k/uL Basophils # 0.0 (0-0.2) k/uL PT (9.0-12.0) sec INR (<1.2) APTT (22.0-30.0) sec Sodium 142 (137-145) mmol/L Potassium 4.4 (3.5-5.1) mmol/L Chloride 110 H (98-107) mmol/L Carbon Dioxide 24 (22-30) mmol/L Anion Gap 8 mmol/L BUN 20 (9-20) mg/dL Creatinine 0.91 (0.66-1.25) mg/dL Est GFR (CKD-EPI)AfAm >90 (>60 ml/min/1.73 sqM) Est GFR (CKD-EPI)NonAf 86 (>60 ml/min/1.73 sqM) Glucose 122 H (74-99) mg/dL Plasma Lactic Acid Tito 1.1 (0.7-2.0) mmol/L Calcium 7.6 L (8.4-10.2) mg/dL Total Bilirubin 1.0 (0.2-1.3) mg/dL AST 39 (17-59) U/L ALT 42 (21-72) U/L Alkaline Phosphatase 111 (38-126) U/L Troponin I (0.000-0.034) ng/mL Total Protein 6.5 (6.3-8.2) g/dL Albumin 3.7 (3.5-5.0) g/dL Urine Color Urine Appearance (Clear) Urine pH (5.0-8.0) Ur Specific [place] (1.001-1.035) Urine Protein (Negative) Urine Glucose (UA) (Negative) Urine Ketones (Negative) Urine Blood (Negative) Urine Nitrite (Negative) Urine Bilirubin (Negative) Urine Urobilinogen (<2.0) mg/dL Ur Leukocyte Esterase (Negative) Urine RBC (0-5) /hpf Urine WBC (0-5) /hpf Urine Mucus (None) /hpf Influenza Type A RNA (Not Detectd) Influenza Type B (PCR) (Not Detectd) 08/13/18 08/13/18 08/13/18 Range/Units 07:52 07:52 10:52 WBC (3.8-10.6) k/uL RBC (4.30-5.90) m/uL Hgb (13.0-17.5) gm/dL Hct (39.0-53.0) % MCV (80.0-100.0) fL MCH (25.0-35.0) pg MCHC (31.0-37.0) g/dL RDW (11.5-15.5) % Plt Count (150-450) k/uL Neutrophils % % Lymphocytes % % Monocytes % % Eosinophils % % Basophils % % Neutrophils # (1.3-7.7) k/uL Lymphocytes # (1.0-4.8) k/uL Monocytes # (0-1.0) k/uL Eosinophils # (0-0.7) k/uL Basophils # (0-0.2) k/uL PT 10.8 (9.0-12.0) sec INR 1.0 (<1.2) APTT 28.1 (22.0-30.0) sec Sodium (137-145) mmol/L Potassium (3.5-5.1) mmol/L Chloride (98-107) mmol/L Carbon Dioxide (22-30) mmol/L Anion Gap mmol/L BUN (9-20) mg/dL Creatinine (0.66-1.25) mg/dL Est GFR (CKD-EPI)AfAm (>60 ml/min/1.73 sqM) Est GFR (CKD-EPI)NonAf (>60 ml/min/1.73 sqM) Glucose (74-99) mg/dL Plasma Lactic Acid Tito (0.7-2.0) mmol/L Calcium (8.4-10.2) mg/dL Total Bilirubin (0.2-1.3) mg/dL AST (17-59) U/L ALT (21-72) U/L Alkaline Phosphatase (38-126) U/L Troponin I <0.012 (0.000-0.034) ng/mL Total Protein (6.3-8.2) g/dL Albumin (3.5-5.0) g/dL Urine Color Red Urine Appearance Clear (Clear) Urine pH 6.0 (5.0-8.0) Ur Specific [place] 1.031 (1.001-1.035) Urine Protein 2+ H (Negative) Urine Glucose (UA) Negative (Negative) Urine Ketones Trace H (Negative) Urine Blood Negative (Negative) Urine Nitrite Negative (Negative) Urine Bilirubin Negative (Negative) Urine Urobilinogen 4.0 (<2.0) mg/dL Ur Leukocyte Esterase Negative (Negative) Urine RBC 9 H (0-5) /hpf Urine WBC 4 (0-5) /hpf Urine Mucus Few H (None) /hpf Influenza Type A RNA (Not Detectd) Influenza Type B (PCR) (Not Detectd) 08/13/18 Range/Units 10:52 WBC (3.8-10.6) k/uL RBC (4.30-5.90) m/uL Hgb (13.0-17.5) gm/dL Hct (39.0-53.0) % MCV (80.0-100.0) fL MCH (25.0-35.0) pg MCHC (31.0-37.0) g/dL RDW (11.5-15.5) % Plt Count (150-450) k/uL Neutrophils % % Lymphocytes % % Monocytes % % Eosinophils % % Basophils % % Neutrophils # (1.3-7.7) k/uL Lymphocytes # (1.0-4.8) k/uL Monocytes # (0-1.0) k/uL Eosinophils # (0-0.7) k/uL Basophils # (0-0.2) k/uL PT (9.0-12.0) sec INR (<1.2) APTT (22.0-30.0) sec Sodium (137-145) mmol/L Potassium (3.5-5.1) mmol/L Chloride (98-107) mmol/L Carbon Dioxide (22-30) mmol/L Anion Gap mmol/L BUN (9-20) mg/dL Creatinine (0.66-1.25) mg/dL Est GFR (CKD-EPI)AfAm (>60 ml/min/1.73 sqM) Est GFR (CKD-EPI)NonAf (>60 ml/min/1.73 sqM) Glucose (74-99) mg/dL Plasma Lactic Acid Tito (0.7-2.0) mmol/L Calcium (8.4-10.2) mg/dL Total Bilirubin (0.2-1.3) mg/dL AST (17-59) U/L ALT (21-72) U/L Alkaline Phosphatase (38-126) U/L Troponin I (0.000-0.034) ng/mL Total Protein (6.3-8.2) g/dL Albumin (3.5-5.0) g/dL Urine Color Urine Appearance (Clear) Urine pH (5.0-8.0) Ur Specific [place] (1.001-1.035) Urine Protein (Negative) Urine Glucose (UA) (Negative) Urine Ketones (Negative) Urine Blood (Negative) Urine Nitrite (Negative) Urine Bilirubin (Negative) Urine Urobilinogen (<2.0) mg/dL Ur Leukocyte Esterase (Negative) Urine RBC (0-5) /hpf Urine WBC (0-5) /hpf Urine Mucus (None) /hpf Influenza Type A RNA Not Detected (Not Detectd) Influenza Type B (PCR) Not Detected (Not Detectd) Disposition <Jon Ring - Last Filed: 08/13/18 12:06> Is patient prescribed a controlled substance at d/c from ED?: No Time of Disposition: 11:48 <Radha Martinez - Last Filed: 08/13/18 22:40> Clinical Impression: Generalized weakness Disposition: HOME SELF-CARE Condition: Good Instructions (If sedation given, give patient instructions): Weakness (ED) Additional Instructions: Patient advised to follow-up with Dr. Stokes in the office. Patient should return to the emergency department if any alarming signs or symptoms occur. Referrals: Kenisha Stokes MD [Primary Care Provider] - 1-2 days
[2018-08-13 08:09] LABS: Basophils % (A) 1 %; Eosinophils # (A) 0.2 k/uL (0-0.7); Eosinophils % (A) 3 %; HCT 37.6 % (39.0-53.0); HGB 12.4 gm/dL (13.0-17.5); Lymphocytes # (A) 0.5 k/uL (1.0-4.8); Lymphocytes % (A) 10 %; MCH 30.7 pg (25.0-35.0); MCV 93.1 fL (80.0-100.0); Mean Platelet Volume 8.4; Monocytes # (A) 0.5 k/uL (0-1.0); Monocytes % (A) 9 %; Neutrophils # (A) 3.9 k/uL (1.3-7.7); Neutrophils % (A) 74 %; Platelet Count 172 k/uL (150-450); RBC 4.04 m/uL (4.30-5.90); RDW 13.9 % (11.5-15.5); WBC 5.3 k/uL (3.8-10.6)
[2018-08-13 08:19] LABS: Partial Thromboplastin Time 28.1 sec (22.0-30.0); Prothrombin Time 10.8 sec (9.0-12.0)
[2018-08-13 08:21] LABS: ALT 42 U/L (21-72); AST 39 U/L (17-59); Albumin 3.7 g/dL (3.5-5.0); Alkaline Phosphatase 111 U/L (38-126); Anion Gap 8 mmol/L; Blood Urea Nitrogen 20 mg/dL (9-20); Calcium 7.6 mg/dL (8.4-10.2); Carbon Dioxide 24 mmol/L (22-30); Chloride 110 mmol/L (98-107); Glucose 122 mg/dL (74-99); Potassium 4.4 mmol/L (3.5-5.1); Sodium 142 mmol/L (137-145); Total Protein 6.5 g/dL (6.3-8.2)
--- NOTE | 2018-08-13 08:21 | CT ---
EXAMINATION TYPE: CT brain wo con DATE OF EXAM: 08/13/2018 COMPARISON: CT brain 07/14/2018 HISTORY: Weakness CT DLP: 1079.4 mGycm Automated exposure control for dose reduction was used. Helical acquisition through the brain. FINDINGS: Cerebral vascular calcifications are present. There is no evident hemorrhage or hydrocephalus. Cortic al atrophy is stable. Periventricular white matter shows patchy low attenuation as on previous. There are basal ganglia calcifications incidentally noted. The calvarium is intact. Paranasal sinuses and mastoid air cells are within normal limits. Orbits are stable. IMPRESSION: STABLE EXAM, NO ACUTE ABNORMALITY.
--- NOTE | 2018-08-13 09:37 | XR ---
EXAMINATION TYPE: XR chest 2V DATE OF EXAM: 08/13/2018 COMPARISON: Chest x-ray July 15, 2018 HISTORY: Increased weakness. TECHNIQUE: Frontal and lateral views of the chest are obtained. FINDINGS: Post CABG changes with mediastinal clips and sternal wires is redemonstrated. 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 The cardiac silhouette size is stable and mildly enlarged. Multilevel spurring in the thoracic spine is present. IMPRESSION: Chronic parenchymal changes and mild cardiomegaly without acute pulmonary process.
[2018-08-13 11:15] LABS: Appearance,Urine Clear (Clear); Bilirubin,Urine Negative (Negative); Blood,Urine Negative (Negative); Color,Urine Red; Glucose,Urine (UA) Negative (Negative); Ketones,Urine Trace (Negative); Leukocyte Esterase,Urine Negative (Negative); Mucus,Urine Few /hpf; Nitrite,Urine Negative (Negative); Protein,Urine 2+ (Negative); RBC,Urine 9 /hpf (0-5); Specific Gravity,Urine 1.031 (1.001-1.035); WBC,Urine 4 /hpf (0-5)
[2018-08-13 14:47] VITALS: BP 142/72; PULSE 72
== END 2018-08-13 12:10 | disposition home or self-care (01) ==
LOC: EC 07:28
DX: R53.1 Weakness (principal); E87.6 Hypokalemia; I25.119 Atherosclerotic heart disease of native coronary artery with unspecified angina pectoris; E11.9 Type 2 diabetes mellitus without complications; K21.9 Gastro-esophageal reflux disease without esophagitis; E78.5 Hyperlipidemia, unspecified; I10 Essential (primary) hypertension; I25.2 Old myocardial infarction; G47.30 Sleep apnea, unspecified; Z79.82 Long term (current) use of aspirin; Z79.02 Long term (current) use of antithrombotics/antiplatelets; Z79.51 Long term (current) use of inhaled steroids; Z79.84 Long term (current) use of oral hypoglycemic drugs; Z79.899 Other long term (current) drug therapy; Z88.0 Allergy status to penicillin; Z88.8 Allergy status to other drugs, medicaments and biological substances; Z95.1 Presence of aortocoronary bypass graft; Z95.5 Presence of coronary angioplasty implant and graft
CPT/HCPCS: 36415; 70450; 71046; 80053; 81001; 83605; 84484; 85025; 85610; 85730; 87502; 93005; 96360; 96361; 99285

== ENCOUNTER 2018-08-15 01:43 | Inpatient (IN) | payer MEDICARE ==
[2018-08-15] MEDS ORDERED: IPRATROPIUM-ALBUTEROL 3 ML NEB INHALATION STA (02:02)
--- NOTE | 2018-08-15 02:13 | ED ---
Chest Pain HPI - General Source: EMS Mode of arrival: EMS Limitations: physical limitation <Melissa Villatoro - Last Filed: 08/15/18 04:48> <Cathy Delacruz - Last Filed: 08/21/18 22:11> - General Chief Complaint: Chest Pain Stated Complaint: Chest Pain Time Seen by Provider: 08/15/18 01:46 - History of Present Illness Initial Comments: 67-year-old male patient with past medical history significant for coronary artery disease status post CABG at age 49 and an additional 4 stents placed 2 years later, presents to the emergency department today for evaluation of chest pain and shortness of breath. Patient states that he woke from sleep with substernal sharp aching chest pain. Patient states is radiating through to his back. Patient states he did have shortness of breath and sweating with this. He did take 2 nitro at home which did improve symptoms. Upon EMS arrival patient was pale, diaphoretic, and using abdominal accessory muscles to breathe. Patient was given additional nitro in the ambulance and started on high flow oxygen. Patient did have improvement of chest pain with these measures. Patient denies any abdominal pain. States he did take Tylenol PM prior to bed. States he is feeling well throughout the day. Patient denies any recent rash, fever, chills, diarrhea, constipation, back pain, numbness, tingling, dizziness, weakness, hematuria, dysuria, urinary urgency, urinary frequency, headache, visual changes, or any other complaints. (Melissa Villatoro) - Related Data Home Medications Medication Instructions Recorded Confirmed Pantoprazole Sodium [Protonix] 40 mg PO DAILY 04/05/15 08/15/18 Aspirin [Adult Low Dose Aspirin EC] 81 mg PO DAILY 03/05/17 08/15/18 Ubidecarenone [Co Q-10] 400 mg PO DAILY 04/25/17 08/15/18 Clopidogrel [Plavix] 75 mg PO DAILY 07/14/18 08/15/18 Fluticasone Nasal [place] [Flonase 1 spray EA NOSTRIL BID 07/14/18 08/15/18 Nasal [place]] Nitroglycerin Sl Tabs [Nitrostat] 0.4 mg SUBLINGUAL Q5M PRN 07/14/18 08/15/18 Ranolazine [Ranexa] 1,000 mg PO BID 07/14/18 08/15/18 Previous Rx's Medication Instructions Recorded Furosemide [Lasix] 40 mg PO DAILY #30 tab 07/16/18 Pregabalin [Lyrica] 100 mg PO BID cap 07/16/18 Escitalopram [Lexapro] 10 mg PO DAILY #30 tab 07/20/18 Mirtazapine [Remeron] 15 mg PO HS #30 tab 07/20/18 Atorvastatin [Lipitor] 80 mg PO HS #30 tab 08/18/18 Carvedilol [Coreg*] 12.5 mg PO BID-W/MEALS #60 tab 08/18/18 Isosorbide Mononitrate ER [Imdur] 30 mg PO DAILY #30 tab.er.24h 08/18/18 Losartan [Cozaar] 25 mg PO HS #0 08/18/18 Spironolactone [Aldactone] 25 mg PO DAILY #30 tab 08/18/18 Tamsulosin [Flomax] 0.4 mg PO PC-BRKFST #30 cap.er.24h 08/18/18 metFORMIN HCL [Glucophage] 500 mg PO BID #0 08/18/18 Allergies Allergy/AdvReac Type Severity Reaction Status Date / Time Penicillins Allergy Anaphylaxis Verified 08/15/18 07:10 simvastatin [From Zocor] AdvReac SEVERE Verified 08/15/18 07:10 JOINT PAIN Review of Systems ROS Other: All systems not noted in ROS Statement are negative. <Melissa Villatoro M - Last Filed: 08/15/18 04:48> ROS Other: All systems not noted in ROS Statement are negative. <Cathy Delacruz - Last Filed: 08/21/18 22:11> ROS Statement: Those systems with pertinent positive or pertinent negative responses have been documented in the HPI. EKG Findings - EKG Comments: EKG Findings:: EKG obtained at 0206 shows sinus rhythm with a first-degree AV block, ventricular rate is 79, MO interval to 52, QRS duration 88, QT 426, QTC 488. No significant past elevation or depression at this time. EKG obtained at 034D obtained after patient had an increase in chest pain and shortness of breath, showed a sinus rhythm with first-degree AV block, did show worsening depression in lead 1, aVL, V2, V3, V4, V5. <Melissa Villatoro M - Last Filed: 08/15/18 04:48> Past Medical History Past Medical History: Coronary Artery Disease (CAD), Chest Pain / Angina, Diabetes Mellitus, Eye Disorder, GERD/Reflux, Hyperlipidemia, Hypertension, Myocardial Infarction (CT), Osteoarthritis (OA), Prostate Disorder, Sleep Apnea/CPAP/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 CATARACT RT EYE Last Myocardial Infarction Date:: 2003? History of Any Multi-Drug Resistant Organisms: None Reported Past Surgical History: Cholecystectomy, Coronary Bypass/CABG, Heart Catheterization With Stent, Orthopedic Surgery Additional Past Surgical History / Comment(s): RT WRIST GANGLION CYST REMOVED.has had stents post cabg not sure how many or what arteries they are in. CABG 2000, COLONOSCOPY, EGD, Past Anesthesia/Blood Transfusion Reactions: Motion Sickness Date of Last Stent Placement:: 2003 Past Psychological History: No Psychological Hx Reported Smoking Status: Never smoker Past Alcohol Use History: None Reported Past Drug Use History: None Reported - Past Family History Father History Unknown: Yes Additional Family Medical History / Comment(s): PT ADOPTED Mother History Unknown: Yes Additional Family Medical History / Comment(s): PT ADOPTED Brother(s) Additional Family Medical History / Comment(s): did find several brothers that had also been adopted out one from agent orange exposure/complications, one from etoh abuse, and one from chino gehrig's disease. <Melissa Villatoro - Last Filed: 08/15/18 04:48> General Exam Limitations: physical limitation General appearance: alert, in no apparent distress, other (Physical well- developed, well-nourished adult male patient in no acute distress. Vital signs upon presentation are temperature 97.3F, pulse 87, respirations 22, blood pressure 141/82, pulse ox 95% on 5 L nasal cannula.) Eye exam: Present: normal appearance, PERRL, EOMI. Absent: scleral icterus, conjunctival injection, periorbital swelling ENT exam: Present: normal exam, normal oropharynx, mucous membranes moist Respiratory exam: Present: wheezes (Course expiratory wheezing in the posterior lung stark). Absent: normal lung sounds bilaterally, respiratory distress, rales, rhonchi, stridor Cardiovascular Exam: Present: regular rate, normal rhythm, normal heart sounds. Absent: systolic murmur, diastolic murmur, rubs, gallop, clicks GI/Abdominal exam: Present: soft, normal bowel sounds. Absent: distended, tenderness, guarding, rebound, rigid Neurological exam: Present: alert, oriented X3, CN II-XII intact Psychiatric exam: Present: normal affect, normal mood Skin exam: Present: warm, dry, intact, normal color. Absent: rash <Bantle,Melissa M - Last Filed: 08/15/18 04:48> Course Vital Signs 08/15/18 08/15/18 08/15/18 01:45 02:22 02:28 Temperature 97.3 F L Pulse Rate 87 80 82 Respiratory 22 18 18 Rate Blood Pressure 141/82 O2 Sat by Pulse 95 Oximetry 08/15/18 08/15/18 08/15/18 03:41 03:55 04:06 Temperature Pulse Rate 86 120 H 105 H Respiratory 22 32 H 24 Rate Blood Pressure 152/95 197/122 162/114 O2 Sat by Pulse 90 L 82 L 95 Oximetry 08/15/18 08/15/18 08/15/18 04:10 04:48 04:51 Temperature Pulse Rate 107 H 84 85 Respiratory 23 18 19 Rate Blood Pressure 151/105 162/104 163/95 O2 Sat by Pulse 94 L 98 96 Oximetry 08/15/18 08/15/18 08/15/18 05:57 06:11 07:11 Temperature 98.4 F Pulse Rate 71 68 65 Respiratory 18 18 18 Rate Blood Pressure 148/93 151/104 151/89 O2 Sat by Pulse 98 97 98 Oximetry 08/15/18 08/15/18 08/15/18 08:00 08:30 09:00 Temperature Pulse Rate 59 L 64 66 Respiratory Rate Blood Pressure 151/89 147/85 147/85 O2 Sat by Pulse 98 98 97 Oximetry 08/15/18 08/15/18 08/15/18 10:00 10:30 11:00 Temperature Pulse Rate 63 62 87 Respiratory Rate Blood Pressure 157/73 145/83 145/83 O2 Sat by Pulse 99 94 L 100 Oximetry 08/15/18 11:30 Temperature Pulse Rate 68 Respiratory Rate Blood Pressure 150/99 O2 Sat by Pulse 99 Oximetry Chest Pain MDM <Melissa Villatoro - Last Filed: 08/15/18 04:48> <Cathy Delacruz - Last Filed: 08/21/18 22:11> - [facility] 67-year-old male patient with history of coronary artery disease, status post CABG and stenting presents to the emergency department today for evaluation of shortness of breath and chest pain. Patient reports symptoms woke him from sleep around 2300. Upon EMS arrival patient was pale, diaphoretic, and hypoxic with oxygen saturation in the high 70s low 80s. Patient symptoms did improve after receiving nitro and oxygen. Upon arrival patient did report improvement of symptoms. Physical examination did reveal coarse crackles to the bilateral posterior lungs. Labs reviewed and did reveal elevated BNP at 2490. Initial troponin 0.030. Remainder of labs are unremarkable. EKG did show some ST changes. Chest xray shows worsening consolidation and developing pleural effusion on the right. While in the emergency department patient did have acute onset of dyspnea, he was hypoxic at 78-79% on 5 L via nasal cannula. Patient was reporting increased chest pain. He was diaphoretic and pale. We repeated the EKG which did show worsening depression and lead 1, aVL, and V2 through V5. We did administer an additional nitro, nitro paste, morphine, and he was given 40 mg of Lasix IV push. We did start BiPAP. Oxygen saturation and symptoms did improve. Blood pressure and heart rate remain elevated, lopressor given. Patient will be admitted for serial troponins, diuresis, and respiratory support. (Melissa Villatoro) I personally saw and examined the patient. I reviewed and agree with the mid- level provider findings including all diagnostic interpretations and treatment plans as written unless otherwise stated. (Cathy Delacruz) Critical Care Time Critical Care Time: Yes Total Critical Care Time: 36 <Melissa Villatoro - Last Filed: 08/15/18 04:48> Disposition Decision to Admit Reason: Admit from EC Decision Date: 08/15/18 Decision Time: 04:48 <Melissa Villatoro - Last Filed: 08/15/18 04:48> <Cathy Delacruz - Last Filed: 08/21/18 22:11> Clinical Impression: Acute respiratory failure with hypoxia, CHF (congestive heart failure), Flash pulmonary edema Disposition: ADMITTED IP TO THIS HOSP Condition: Good
--- NOTE | 2018-08-15 02:37 | XR ---
EXAM: XR Chest, 2 Views CLINICAL HISTORY: Chest Pain TECHNIQUE: Frontal and lateral views of the chest. COMPARISON: 08/13/18 FINDINGS: Worsening consolidation bilaterally compared to prior study. Increasing fluid is suggested by fluid in the fissure on the right. IMPRESSION: Worsening consolidation bilaterally. Developing pleural effusion the right
[2018-08-15 02:44] LABS: Basophils % (A) 1 %; Eosinophils # (A) 0.3 k/uL (0-0.7); Eosinophils % (A) 5 %; HCT 38.5 % (39.0-53.0); HGB 13.1 gm/dL (13.0-17.5); Lymphocytes # (A) 0.8 k/uL (1.0-4.8); Lymphocytes % (A) 12 %; MCH 31.2 pg (25.0-35.0); MCHC 34.1 g/dL (31.0-37.0); MCV 91.5 fL (80.0-100.0); Mean Platelet Volume 10.6; Monocytes # (A) 0.4 k/uL (0-1.0); Monocytes % (A) 6 %; Neutrophils # (A) 4.9 k/uL (1.3-7.7); Neutrophils % (A) 75 %; Platelet Count 159 k/uL (150-450); RBC 4.21 m/uL (4.30-5.90); RDW 15.2 % (11.5-15.5); WBC 6.6 k/uL (3.8-10.6)
[2018-08-15 02:53] LABS: Partial Thromboplastin Time 26.9 sec (22.0-30.0); Prothrombin Time 10.4 sec (9.0-12.0)
[2018-08-15 03:21] LABS: Albumin 3.3 g/dL (3.5-5.0); Calcium 7.7 mg/dL (8.4-10.2); Total Protein 6.2 g/dL (6.3-8.2)
[2018-08-15 03:23] LABS: Magnesium 1.9 mg/dL (1.6-2.3); Potassium 3.9 mmol/L (3.5-5.1)
[2018-08-15] MEDS ORDERED: FUROSEMIDE 10 MG/ML 4 ML VIAL IV STA (03:35)
[2018-08-15] MEDS ORDERED: HEPARIN SODIUM,PORCINE 5,000 UNIT/ML 1 ML VIAL IV PRN (03:42)
[2018-08-15] MEDS ORDERED: MORPHINE SULFATE 4 MG/ML SYRINGE IVP STA (03:42)
[2018-08-15] MEDS ORDERED: NITROGLYCERIN OINT 1 INCH/GM PACKET TOPICAL STA (03:44)
[2018-08-15] MEDS ORDERED: NITROGLYCERIN SL TABS 0.4 MG TAB SUBLINGUAL STA (03:44)
[2018-08-15] MEDS: HEPARIN SOD,PORK IN 0.45% NACL 25,000 UNIT in 0.45% NACL 1 250ML.BAG IV SCH (04:03)
[2018-08-15] MEDS ORDERED: METOPROLOL TARTRATE 5 MG/5 ML VIAL IVP STA (04:29)
[2018-08-15] MEDS ORDERED: NALOXONE 0.4 MG/ML 1 ML VIAL IV PRN (04:45)
[2018-08-15] MEDS: SODIUM CHLORIDE 0.9% 1,000 ML IV SCH (04:53)
--- NOTE | 2018-08-15 06:25 | XR ---
EXAM: XR Chest, 1 View CLINICAL HISTORY: : Pain TECHNIQUE: Frontal view of the chest. COMPARISON: 08/15/18 to 24 hours FINDINGS: Lungs: Worsening consolidation bilaterally compared to prior study Pleural space: Unremarkable. No pneumothorax. Heart: Unremarkable. No cardiomegaly. Mediastinum: Unremarkable. Bones/joints: Unremarkable. IMPRESSION: Worsening bilateral consolidation
--- NOTE | 2018-08-15 10:07 | P.CRDCN ---
History of Present Illness Consult date: 08/15/18 History of present illness: IMPRESSION / ASSESSMENT: Chest pain with EKG changes Acute heart failure Acute hypoxic respiratory failure Known coronary artery disease with previous CABG and stenting Hypertension Hyperlipidemia Obstructive sleep apnea Urgent hypertension PLAN: Continue heparin drip. Continue Lasix 40 mg IV every 12 hours Echocardiogram Repeat troponins Resume atenolol 50 mg daily, Lipitor 40 g at bedtime, Plavix 75 mg daily, aspirin 81 mg daily, losartan 25 mg daily, Ranexa 1000 mg twice daily Patient may require heart catheterization once stabilized HPI This is a 67-year-old male patient of Dr. Dr. Quevedo but follows at the [facility] with past history of hyperlipidemia, hypertension, coronary artery disease with 4 vessel CABG and 4 stents, total occlusion of the right carotid. The patient states he has had indigestion but has been quite bad for the past 2 days. He complains of pain in the midsternal area that radiated thr ough to his back and included his right arm. He thinks that has been relieved with the current BiPAP. He does complain of cough without sputum production. Patient presented to [facility] emergency center with hypoxemia, blood pressure 197/122, heart rate 120s. Chest x-ray reveals worsening bilateral consolidation. EKG is a sinus mechanism with first-degree AV block and ST changes. Troponin 0.030, proBNP 2490, creatinine 1.01, hemoglobin 13.1. Echocardiogram in July 2018 revealed EF of 45-50%, trace mitral regurgitation, trace tricuspid regurgitation. ROS: No fever chills or rigors, Reports cough, no phlegm or expectoration, no nausea, vomiting or diarrhea, no hematuria, dysuria, no musculoskeletal complaints, no strokes or seizures, no skin lesions. EXAMINATION: Gen: This is a 67-year-old male. He is resting in the ER stretcher. BiPAP is in place. Vital signs: Afebrile, heart rate in the 50s and 60s, blood pressure 147/85, pulse ox 97% on BiPAP HEENT: Head is atraumatic, normocephalic. Pupils equal, round. Sclerae is anicteric. NECK: Supple. No JVD. No lymphadenopathy. No thyromegaly. LUNGS: Diminished in the bases with scattered rhonchi. Mild intercostal retractions. HEART: Regular rate and rhythm. Systolic murmur. ABDOMEN: Soft. Bowel sounds are present. No masses. No tenderness. EXTREMITIES: No pedal edema. No calf tenderness. NEUROLOGICAL: Patient is awake, alert and oriented x3. Cranial nerves 2 through 12 are grossly intact. Nurse practitioner note has been reviewed, I agree with documented findings and plan of care. Patient was seen and examined. Past Medical History Past Medical History: Coronary Artery Disease (CAD), Chest Pain / Angina, Diabetes Mellitus, Eye Disorder, GERD/Reflux, Hyperlipidemia, Hypertension, Myocardial Infarction (OR), Osteoarthritis (OA), Prostate Disorder, Sleep Apnea/CPAP/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 CAT ARACT RT EYE Last Myocardial Infarction Date:: 2003? History of Any Multi-Drug Resistant Organisms: None Reported Past Surgical History: Cholecystectomy, Coronary Bypass/CABG, Heart Catheterization With Stent, Orthopedic Surgery Additional Past Surgical History / Comment(s): RT WRIST GANGLION CYST R EMOVED.has had stents post cabg not sure how many or what arteries they are in. CABG 2000, COLONOSCOPY, EGD, Past Anesthesia/Blood Transfusion Reactions: Motion Sickness Date of Last Stent Placement:: 2003 Past Psychological History: No Psychological Hx Reported Smoking Status: Never smoker Past Alcohol Use History: None Reported Past Drug Use History: None Reported - Past Family History Father History Unknown: Yes Additional Family Medical History / Comment(s): PT ADOPTED Mother History Unknown: Yes Additional Family Medical History / Comment(s): PT ADOPTED Brother(s) Additional Family Medical History / Comment(s): did find several brothers that had also been adopted out one from agent orange exposure/complications, one from etoh abuse, and one from chino gehrig's disease. Medications and Allergies Home Medications Medication Instructions Recorded Confirmed Type Atenolol [Tenormin] 50 mg PO DAILY 04/05/15 08/15/18 History Pantoprazole Sodium [Protonix] 40 mg PO DAILY 04/05/15 08/15/18 History Aspirin [Adult Low Dose Aspirin EC] 81 mg PO DAILY 03/05/17 08/15/18 History Atorvastatin Calcium [Lipitor] 40 mg PO HS 03/05/17 08/15/18 History Ubidecarenone [Co Q-10] 400 mg PO DAILY 04/25/17 08/15/18 History Clopidogrel [Plavix] 75 mg PO DAILY 07/14/18 08/15/18 History Fluticasone Nasal [place] [Flonase 1 spray EA NOSTRIL BID 07/14/18 08/15/18 History Nasal [place]] Losartan [Cozaar] 25 mg PO DAILY 07/14/18 08/15/18 History Nitroglycerin Sl Tabs [Nitrostat] 0.4 mg SUBLINGUAL Q5M PRN 07/14/18 08/15/18 History Ranolazine [Ranexa] 1,000 mg PO BID 07/14/18 08/15/18 History metFORMIN HCL [Glucophage] 500 mg PO BID 07/14/18 08/15/18 History Furosemide [Lasix] 40 mg PO DAILY #30 tab 07/16/18 08/15/18 Rx Pregabalin [Lyrica] 100 mg PO BID cap 07/16/18 08/15/18 Rx Escitalopram [Lexapro] 10 mg PO DAILY #30 tab 07/20/18 08/15/18 Rx Mirtazapine [Remeron] 15 mg PO HS #30 tab 07/20/18 08/15/18 Rx Allergies Allergy/AdvReac Type Severity Reaction Status Date / Time Penicillins Allergy Anaphylaxis Verified 08/15/18 07:10 simvastatin [From Zocor] AdvReac SEVERE Verified 08/15/18 07:10 JOINT PAIN Physical Exam Vitals: Vital Signs Temp Pulse Resp BP Pulse Ox 08/15/18 08:00 98 08/15/18 07:11 65 18 151/89 98 08/15/18 06:11 68 18 151/104 97 08/15/18 05:57 98.4 F 71 18 148/93 98 08/15/18 04:51 85 19 163/95 96 08/15/18 04:48 84 18 162/104 98 08/15/18 04:10 107 H 23 151/105 94 L 08/15/18 04:06 105 H 24 162/114 95 08/15/18 03:55 120 H 32 H 197/122 82 L 08/15/18 03:41 86 22 152/95 90 L 08/15/18 02:28 82 18 08/15/18 02:22 80 18 08/15/18 01:45 97.3 F L 87 22 141/82 95 Intake and Output 08/14/18 08/15/18 08/15/18 22:59 06:59 14:59 Other: Weight 86.183 kg Results 08/15/18 02:03 08/15/18 02:03 Cardiac Enzymes 08/15/18 08/15/18 Range/Units 02:03 02:03 AST 35 (17-59) U/L Troponin I 0.030 (0.000-0.034) ng/mL Coagulation 08/15/18 Range/Units 02:03 PT 10.4 (9.0-12.0) sec APTT 26.9 (22.0-30.0) sec CBC 08/15/18 Range/Units 02:03 WBC 6.6 (3.8-10.6) k/uL RBC 4.21 L (4.30-5.90) m/uL Hgb 13.1 (13.0-17.5) gm/dL Hct 38.5 L (39.0-53.0) % Plt Count 159 (150-450) k/uL Comprehensive Metabolic Panel 08/15/18 Range/Units 02:03 Sodium 140 (137-145) mmol/L Potassium 3.9 (3.5-5.1) mmol/L Chloride 110 H (98-107) mmol/L Carbon Dioxide 20 L (22-30) mmol/L BUN 15 (9-20) mg/dL Creatinine 1.01 (0.66-1.25) mg/dL Glucose 160 H (74-99) mg/dL Calcium 7.7 L (8.4-10.2) mg/dL AST 35 (17-59) U/L ALT 38 (21-72) U/L Alkaline Phosphatase 112 (38-126) U/L Total Protein 6.2 L (6.3-8.2) g/dL Albumin 3.3 L (3.5-5.0) g/dL Current Medications Generic Name Dose Route Start Last Admin Trade Name Freq PRN Reason Stop Dose Admin Furosemide 40 mg 08/15/18 09:00 Lasix IV Q12HR MARGAUX Heparin Sodium (Porcine) 0 unit 08/15/18 03:42 Heparin IV PER PROTOCOL PRN Low PTT Protocol Heparin Sodium/Sodium Chloride 250 mls @ 10 mls/hr 08/15/18 04:00 08/15/18 04:03 25,000 unit/ Sodium Chloride IV 1,000 units/hr .Q24H MARGAUX 10 mls/hr Administration Protocol Sodium Chloride 1,000 mls @ 20 mls/hr 08/15/18 04:45 08/15/18 04:53 Saline 0.9% IV 20 mls/hr .Q24H MARGAUX Administration Morphine Sulfate 4 mg 08/15/18 04:45 Morphine Sulfate (Inj) IV Q4HR PRN Severe Pain Naloxone HCl 0.2 mg 08/15/18 04:45 Narcan IV Q2M PRN Opioid Reversal Intake and Output 08/14/18 08/15/18 08/15/18 22:59 06:59 14:59 Other: Weight 86.183 kg 08/15/18 02:03 08/15/18 02:03
[2018-08-15] MEDS ORDERED: ATENOLOL 50 MG TAB PO SCH ×2 (10:15→21:00)
--- NOTE | 2018-08-15 10:51 | P.CRDCN ---
History of Present Illness History of present illness: 67-year-old male patient who presented with shortness of breath and chest discomfort first ECG was normal. Troponin is normal subsequent ECG showed ST depression inferolaterally but troponin was repeated and it jumped up to 9.0 Plan Proceed with coronary angiography discussed with Dr. Osullivan discussed with the nurse Past Medical History Past Medical History: Coronary Artery Disease (CAD), Chest Pain / Angina, Diabetes Mellitus, Eye Disorder, GERD/Reflux, Hyperlipidemia, Hypertension, Myocardial Infarction (MO), Osteoarthritis (OA), Prostate Disorder, Sleep Apnea/CPAP/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 CATARACT RT EYE Last Myocardial Infarction Date:: 2003? History of Any Multi-Drug Resistant Organisms: None Reported Past Surgical History: Cholecystectomy, Coronary Bypass/CABG, Heart Catheterization With Stent, Orthopedic Surgery Additional Past Surgical History / Comment(s): RT WRIST GANGLION CYST REMOVED.has had stents post cabg not sure how many or what arteries they are in. CABG 2000, COLONOSCOPY, EGD, Past Anesthesia/Blood Transfusion Reactions: Motion Sickness Date of Last Stent Placement:: 2003 Past Psychological History: No Psychological Hx Reported Smoking Status: Never smoker Past Alcohol Use History: None Reported Past Drug Use History: None Reported - Past Family History Father History Unknown: Yes Additional Family Medical History / Comment(s): PT ADOPTED Mother History Unknown: Yes Additional Family Medical History / Comment(s): PT ADOPTED Brother(s) Additional Family Medical History / Comment(s): did find several brothers that had also been adopted out one from agent orange exposure/complications, one from etoh abuse, and one from chino gehrig's disease. Medications and Allergies Home Medications Medication Instructions Recorded Confirmed Type Atenolol [Tenormin] 50 mg PO DAILY 04/05/15 08/15/18 History Pantoprazole Sodium [Protonix] 40 mg PO DAILY 04/05/15 08/15/18 History Aspirin [Adult Low Dose Aspirin EC] 81 mg PO DAILY 03/05/17 08/15/18 History Atorvastatin Calcium [Lipitor] 40 mg PO HS 03/05/17 08/15/18 History Ubidecarenone [Co Q-10] 400 mg PO DAILY 04/25/17 08/15/18 History Clopidogrel [Plavix] 75 mg PO DAILY 07/14/18 08/15/18 History Fluticasone Nasal [place] [Flonase 1 spray EA NOSTRIL BID 07/14/18 08/15/18 History Nasal [place]] Losartan [Cozaar] 25 mg PO DAILY 07/14/18 08/15/18 History Nitroglycerin Sl Tabs [Nitrostat] 0.4 mg SUBLINGUAL Q5M PRN 07/14/18 08/15/18 History Ranolazine [Ranexa] 1,000 mg PO BID 07/14/18 08/15/18 History metFORMIN HCL [Glucophage] 500 mg PO BID 07/14/18 08/15/18 History Furosemide [Lasix] 40 mg PO DAILY #30 tab 07/16/18 08/15/18 Rx Pregabalin [Lyrica] 100 mg PO BID cap 07/16/18 08/15/18 Rx Escitalopram [Lexapro] 10 mg PO DAILY #30 tab 07/20/18 08/15/18 Rx Mirtazapine [Remeron] 15 mg PO HS #30 tab 07/20/18 08/15/18 Rx Allergies Allergy/AdvReac Type Severity Reaction Status Date / Time Penicillins Allergy Anaphylaxis Verified 08/15/18 07:10 simvastatin [From Zocor] AdvReac SEVERE Verified 08/15/18 07:10 JOINT PAIN Physical Exam Vitals: Vital Signs Temp Pulse Resp BP Pulse Ox 08/15/18 09:00 66 147/85 97 08/15/18 08:30 64 147/85 98 08/15/18 08:00 59 L 151/89 98 08/15/18 07:11 65 18 151/89 98 08/15/18 06:11 68 18 151/104 97 08/15/18 05:57 98.4 F 71 18 148/93 98 08/15/18 04:51 85 19 163/95 96 08/15/18 04:48 84 18 162/104 98 08/15/18 04:10 107 H 23 151/105 94 L 08/15/18 04:06 105 H 24 162/114 95 08/15/18 03:55 120 H 32 H 197/122 82 L 08/15/18 03:41 86 22 152/95 90 L 08/15/18 02:28 82 18 08/15/18 02:22 80 18 08/15/18 01:45 97.3 F L 87 22 141/82 95 Intake and Output 08/14/18 08/15/18 08/15/18 22:59 06:59 14:59 Intake Total 66 Balance 66 Intake: Intake, IV Titration 66 Amount Heparin Sod,Pork in 0.45% 66 NaCl 25,000 unit In 0.45 % NaCl 1 250ml.bag @ 10 mls/hr IV .Q24H [facility] Rx#: [id number] Other: Weight 86.183 kg Results 08/15/18 02:03 08/15/18 02:03 Cardiac Enzymes 08/15/18 08/15/18 08/15/18 Range/Units 02:03 02:03 09:25 AST 35 (17-59) U/L Troponin I 0.030 9.910 H* (0.000-0.034) ng/mL Coagulation 08/15/18 08/15/18 Range/Units 02:03 09:25 PT 10.4 (9.0-12.0) sec APTT 26.9 43.7 H (22.0-30.0) sec CBC 08/15/18 Range/Units 02:03 WBC 6.6 (3.8-10.6) k/uL RBC 4.21 L (4.30-5.90) m/uL Hgb 13.1 (13.0-17.5) gm/dL Hct 38.5 L (39.0-53.0) % Plt Count 159 (150-450) k/uL Comprehensive Metabolic Panel 08/15/18 Range/Units 02:03 Sodium 140 (137-145) mmol/L Potassium 3.9 (3.5-5.1) mmol/L Chloride 110 H (98-107) mmol/L Carbon Dioxide 20 L (22-30) mmol/L BUN 15 (9-20) mg/dL Creatinine 1.01 (0.66-1.25) mg/dL Glucose 160 H (74-99) mg/dL Calcium 7.7 L (8.4-10.2) mg/dL AST 35 (17-59) U/L ALT 38 (21-72) U/L Alkaline Phosphatase 112 (38-126) U/L Total Protein 6.2 L (6.3-8.2) g/dL Albumin 3.3 L (3.5-5.0) g/dL Current Medications Generic Name Dose Route Start Last Admin Trade Name Freq PRN Reason Stop Dose Admin Aspirin 81 mg 08/15/18 10:15 Aspirin PO DAILY [facility] Atenolol 50 mg 08/15/18 21:00 Tenormin PO DAILY [facility] Atorvastatin Calcium 40 mg 08/15/18 21:00 Lipitor PO HS [facility] Clopidogrel Bisulfate 75 mg 08/15/18 10:15 Plavix PO DAILY [facility] Furosemide 40 mg 08/15/18 09:00 Lasix IV Q12HR [facility] Heparin Sodium (Porcine) 0 unit 08/15/18 03:42 Heparin IV PER PROTOCOL PRN Low PTT Protocol Heparin Sodium/Sodium Chloride 250 mls @ 10 mls/hr 08/15/18 04:00 08/15/18 10:39 25,000 unit/ Sodium Chloride IV 1,200 units/hr .Q24H [facility] 12 mls/hr Titration Protocol Sodium Chloride 1,000 mls @ 20 mls/hr 08/15/18 04:45 08/15/18 04:53 Saline 0.9% IV 20 mls/hr .Q24H [facility] Administration Losartan Potassium 25 mg 08/15/18 10:15 Cozaar PO DAILY [facility] Morphine Sulfate 4 mg 08/15/18 04:45 Morphine Sulfate (Inj) IV Q4HR PRN Severe Pain Naloxone HCl 0.2 mg 08/15/18 04:45 Narcan IV Q2M PRN Opioid Reversal Ranolazine 1,000 mg 08/15/18 10:15 Ranexa PO BID [facility] Intake and Output 08/14/18 08/15/18 08/15/18 22:59 06:59 14:59 Intake Total 66 Balance 66 Intake: Intake, IV Titration 66 Amount Heparin Sod,Pork in 0.45% 66 NaCl 25,000 unit In 0.45 % NaCl 1 250ml.bag @ 10 mls/hr IV .Q24H [facility] Rx#: [id number] Other: Weight 86.183 kg 08/15/18 02:03 08/15/18 02:03
[2018-08-15] MEDS: RANOLAZINE 500 MG TAB.ER.12H PO SCH ×2 (10:57→21:44)
[2018-08-15] MEDS: FUROSEMIDE 10 MG/ML 4 ML VIAL IV SCH ×2 (10:58→21:44)
[2018-08-15] MEDS: ASPIRIN 81 MG PO SCH (10:58)
[2018-08-15] MEDS: CLOPIDOGREL 75 MG TAB PO SCH (10:58)
[2018-08-15] MEDS: LOSARTAN 25 MG TAB PO SCH (11:21)
[2018-08-15] MEDS ORDERED: LIDOCAINE 1% INJ 10MG/ML (20 ML MDV) ONE (11:39)
[2018-08-15] MEDS ORDERED: HEPARIN SODIUM 1,000 UN/ML (10ML VL) ONE (11:39)
[2018-08-15] MEDS ORDERED: VERAPAMIL 2.5 MG/ML 2 ML AMP ONE (11:39)
[2018-08-15] MEDS ORDERED: fentaNYL (PF) 50 MCG/ML 2 ML AMP ONE (11:58)
[2018-08-15] MEDS ORDERED: fentaNYL (PF) 50 MCG/ML 2 ML AMP IVP ONE (12:27)
[2018-08-15] MEDS ORDERED: LIDOCAINE 1% INJ 10MG/ML (20 ML MDV) SQ ONE (12:27)
[2018-08-15] MEDS ORDERED: IV FLUID CONTINUATION 300 ML IV ONE (12:29)
[2018-08-15] MEDS ORDERED: IOPAMIDOL-370 125ML BTL INJ ONE (13:01)
[2018-08-15] MEDS ORDERED: RX INFO: IV CONTRAST WAS GIVEN 1 EACH MISC MISCELLANE PRN (13:05)
[2018-08-15] MEDS ORDERED: SODIUM CHLORIDE 0.9% 1,000 ML IV SCH (13:15)
--- NOTE | 2018-08-15 14:02 | CC ---
CARDIAC CATHETERIZATION REPORT DATE OF SERVICE: PERFORMING PHYSICIAN: Carlton Osullivan MD, [employer]. PROCEDURE PERFORMED: 1. Selective left and right coronary angiogram. 2. Left heart catheterization. 3. Selective right common femoral artery angiogram. INDICATION: This is a 67-year-old gentleman with history of coronary artery disease and prior coronary artery bypass grafting with the last heart catheterization was performed in 2002 showing severe triple-vessel coronary artery disease with patent MARROQUIN to LAD, patent SVG to ramus intermedius, and patent radial artery to RCA. He presented to the hospital with shortness of breath and was diagnosed with flash pulmonary edema. He was ruled in for acute non ST elevation myocardial infarction. He was seen and evaluated by Dr. Wright who did recommend proceeding with coronary angiogram to evaluate the anatomy of the coronary artery and bypass grafting. APPROACH: Right common femoral artery. COMPLICATION: None. LEVEL OF SEDATION: Moderate with sedation length of 34 minutes. PROCEDURE DESCRIPTION: After obtaining an informed consent, the patient was brought to the cardiac director of labor relations. The right common femoral artery was cannulated using micropuncture technique, the micropuncture wire passed easily, then I placed a 6-Turkmen sheath in the right common femoral artery. I did selective left and right coronary angiogram using JL4 and JR4 catheters. I did radial artery to RCA angiogram, SVG to OM angiogram, and MARROQUIN to LAD angiogram using the JR4 catheter. Subsequently, I did left heart catheterization using 6-Turkmen pigtail catheter. The procedure was completed without any complication. SELECTIVE CORONARY ANGIOGRAM: 1. The left main has eccentric plaque, appeared to be in the range of 70% in the mid shaft of the left main. The left main bifurcates into left circumflex, ramus intermedius, and left anterior descending artery. 2. The left circumflex is 100% occluded in the proximal portion. 3. The ramus intermedius has a tight lesion in the proximal portion and the SVG to the ramus appeared to be occluded. 4. The left anterior descending artery has critical disease in the proximal portion. 5. The right coronary artery is occluded by the ostium. CORONARY BYPASS ANGIOGRAM: 1. The MARROQUIN to LAD is patent. 2. The SVG to ramus intermedius occluded. 3. The radial artery to right coronary artery is subtotally occluded as well. CONCLUSION: 1. Severe triple-vessel coronary artery disease. 2. Patent MARROQUIN to LAD and the MARROQUIN is functioning well. 3. Occluded SVG to ramus intermedius. 4. Occluded radial artery to right coronary artery. POSTPROCEDURE MANAGEMENT: 1. Given the above anatomy, I did recommend maximized medical treatment and follow up with the patient. 2. The patient did not have any symptoms of chest pain or chest discomfort and he came in mainly with shortness of breath and flash pulmonary edema. 3. If he develops any more chest pain or chest discomfort, I would recommend doing a PCI of the left main to open the flow to the diagonal/ramus intermedius coronary artery. MMODL / IJN: [id number] /
--- NOTE | 2018-08-15 14:30 | ECHOF ---
Referral Reason:Chest Pain; CHF MEASUREMENTS -------- HEIGHT: 160.0 cm WEIGHT: 86.2 kg BP: 151/104 RVIDd: 2.5 cm (< 3.3) IVSd: 1.2 cm (0.6 - 1.1) LVIDd: 4.3 cm (3.9 - 5.3) LVPWd: 1.3 cm (0.6 - 1.1) IVSs: 1.5 cm LVIDs: 3.7 cm LVPWs: 1.6 cm LA Diam: 2.9 cm (2.7 - 3.8) LAESV Index (A-L): 31.99 ml/m Ao Diam: 3.3 cm (2.0 - 3.7) AV Cusp: 2.1 cm (1.5 - 2.6) MV EXCURSION: 19.089 mm (> 18.000) MV EF SLOPE: 59 mm/s (70 - 150) EPSS: 1.2 cm MV E [place]: 0.91 m/s MV DecT: 156 ms MV A [place]: 0.99 m/s MV E/A Ratio: 0.92 FINDINGS -------- Sinus rhythm. This was a technically adequate study. The left ventricular size is normal. There is mild concentric left ventricular hypertrophy. Overa ll left ventricular systolic function is mild-moderately impaired with, an EF between 40 - 45 %. Ba sabino inferior LV wall motion is hypokinetic. Basal inferoseptal LV wall motion is hypokinetic. M id inferior LV wall motion is hypokinetic. Mid inferoseptal LV wall motion is hypokinetic. The right ventricle is normal in size. LA is midly dilated 29-33ml/m2. The right atrium is normal in size. There is mild aortic valve sclerosis. The mitral valve leaflets are mildly thickened. Mild mitral annular calcification present. Modera te mitral regurgitation is present. The tricuspid valve appears structurally normal. Trace/mild (physiologic) pulmonic regurgitation. The aortic root size is normal. Normal inferior vena cava with normal inspiratory collapse consistent with estimated right atrial pre ssure of 5 mmHg. There is no pericardial effusion. CONCLUSIONS -------- 1. Sinus rhythm. 2. This was a technically adequate study. 3. The left ventricular size is normal. 4. Overall left ventricular systolic function is mild-moderately impaired with, an EF between 40 - 45 %. 5. Basal inferior LV wall motion is hypokinetic. 6. Basal inferoseptal LV wall motion is hypokinetic. 7. Mid inferior LV wall motion is hypokinetic. 8. Mid inferoseptal LV wall motion is hypokinetic. 9. The right ventricle is normal in size. 10. LA is midly dilated 29-33ml/m2. 11. The right atrium is normal in size. 12. There is mild aortic valve sclerosis. 13. The mitral valve leaflets are mildly thickened. 14. Mild mitral annular calcification present. 15. Moderate mitral regurgitation is present. 16. The tricuspid valve appears structurally normal. 17. Trace/mild (physiologic) pulmonic regurgitation. 18. The aortic root size is normal. 19. Normal inferior vena cava with normal inspiratory collapse consistent with estimated right atrial pressure of 5 mmHg. 20. There is no pericardial effusion. CASH SPECIALIST: Jessica Ramos RDCS
[2018-08-15 16:47] LABS: Glucose,Whole Blood 81 mg/dL (75-99)
[2018-08-15] MEDS: CARVEDILOL 6.25 MG TAB PO SCH (18:02)
--- NOTE | 2018-08-15 18:11 | P.HPIM ---
History of Present Illness H&P Date: 08/15/18 Chief Complaint: chest pain shortness of breath This is a 64-year-old gentleman patient of Dr. Stokes, CAD, Dr. Jones follows with [facility]. 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 Patient thinks that this is relieved by BiPAP treatments, he ran out of his nitroglycerin, patient denies any hemoptysis, has some cough, Emergency room, patient has blood pressure of 197/122, heart rate of 122, has some hypoxemia, chest x-ray shows worsening bilateral consolidation, EKG shows n ormal sinus rhythm with AV block and ST changes, troponin on entry was 0.03, creatinine of 1.01, proBNP of 2490, echocardiogram July 2018, EF 45-50%, trace MR, trace TR patient underwent cardiac cath today secondary to an elevated troponin, an abnormal EKG with ST depressions in the lateral precordial leads, he has extensive severe coronary artery disease, the only patent graft is a MARROQUIN to the LAD, significant occlusive disease including left main, severe LV dysfunction. Coronary intervention was for medical management, no percutaneous intervention done during the heart cath Review of Systems Constitutional: Reports as per HPI, Denies anorexia, Denies chills, Denies chronic headaches, Denies chronic pain, Denies daytime sleepiness, Denies fatigue, Denies fever, Denies lethargy, Denies malaise, Denies night sweats, Denies poor appetite, Denies sweats, Denies weakness, Denies weight gain, Denies weight loss Ears, nose, mouth and throat: Reports as per HPI, Denies ant. neck pain, Denies bleeding gums, Denies dental pain, Denies dysphagia, Denies epistaxis, Denies headache, Denies hoarseness, Denies mouth pain, Denies nasal congestion, Denies nasal discharge, Denies neck fullness/pressure, Denies neck lump, Denies nose pain, Denies odynophagia, Denies post-nasal drip, Denies sinus pain, Denies sinus pressure, Denies swelling in mouth, Denies swelling in throat, Denies sore throat, Denies vertigo, Denies voice changes Cardiovascular: Reports as per HPI, Reports chest pain, Reports dyspnea on exertion, Denies claudication, Denies decreased exercise tolerance, Denies edema, Denies high blood pressure, Denies irregular heart beat, Denies leg edema, Denies lightheadedness, Denies orthopnea, Denies palpitations, Denies paroxysmal nocturnal dyspnea, Denies phlebitis, Denies rapid heart beat, Denies shortness of breath, Denies syncope Respiratory: Reports as per HPI, Denies congestion, Denies cough, Denies cough with sputum, Denies dyspnea, Denies excessive sputum, Denies hemoptysis, Denies home oxygen, Denies pain, Denies pain on inspiration, Denies pleurisy, Denies respiratory infections, Denies sleep apnea, Denies snoring, Denies wheezing Gastrointestinal: Reports as per HPI, Denies abdominal pain, Denies belching, Denies bloating, Denies BRBPR, Denies change in bowel habits, Denies coffee ground emesis, Denies constipation, Denies diarrhea, Denies dyspepsia, Denies early satiety, Denies excessive gas, Denies heartburn, Denies hematemesis, Denies hematochezia, Denies indigestion, Denies jaundice, Denies lactose intolerance, Denies loss of appetite, Denies melena, Denies nausea, Denies vomiting Genitourinary: Reports as per HPI, Denies decreased libido, Denies difficulties fathering child, Denies discharge, Denies dysuria, Denies erectile dysfunction, Denies flank pain, Denies genital pain, Denies genital sores, Denies hematuria, Denies impotence, Denies incontinence, Denies kidney stones, Denies nocturia, Denies polyuria, Denies testicular lump, Denies testicular pain, Denies urinary frequency, Denies urinary hesitancy, Denies urinary retention Musculoskeletal: Reports as per HPI, Denies arm numbness/tingling, Denies atrophy, Denies fractures, Denies frequent falls, Denies gait dysfunction, Denies hot joints, Denies leg numbness/tingling, Denies limitation of motion, Denies loss of height, Denies low back pain, Denies morning stiffness, Denies muscle cramps, Denies muscle weakness, Denies myalgias, Denies neck pain, Denies neck stiffness, Denies prior amputations, Denies redness of joints, Denies shooting arm pain, Denies shooting leg pain Integumentary: Reports as per HPI, Denies acne, Denies boils, Denies brittle nails, Denies change in hair/nails, Denies color changes, Denies darkening of skin, Denies depigmentation, Denies dryness, Denies foot/leg ulcers, Denies growths, Denies hirsutism, Denies lesions, Denies onychomycosis, Denies pruritus, Denies rash, Denies sores, Denies striae, Denies unusual bruising, Denies wounds Neurological: Reports as per HPI, Denies aphasia, Denies ataxia, Denies balance difficulties, Denies burning pain, Denies change in mentation, Denies change in smell/taste, Denies change in speech, Denies confusion, Denies convulsions, Denies double vision, Denies gait dysfunction, Denies head injury, Denies headaches, Denies hearing difficulties, Denies lack of coordination, Denies loss of vision, Denies memory loss, Denies migraines, Denies motor disturbance, Denies numbness, Denies paralysis, Denies paresthesias, Denies seizures, Denies sensory deficit, Denies spasticity, Denies syncope, Denies tic, Denies tingling, Denies transient paralysis, Denies tremors, Denies vertigo, Denies weakness, Denies visual changes Psychiatric: Reports as per HPI, Denies anhedonia, Denies anxiety, Denies anxiety attacks, Denies change in appetite, Denies change in libido, Denies change in sleep habits, Denies confusion, Denies depression, Denies difficulty concentrating, Denies disorientation, Denies hallucinations, Denies hopelessness, Denies hypersomnia, Denies insomnia, Denies irritability, Denies memory loss, Denies mood swings, Denies paranoia, Denies sadness/tearfulness, Denies sleep disturbances, Denies suicidal ideation Endocrine: Reports as per HPI, Denies cold intolerance, Denies deepening of the voice, Denies excessive sweating, Denies excessive thirst, Denies fatigue, Denies flushing, Denies heat intolerance, Denies high blood sugars, Denies increase in ring/shoe/hat size, Denies low blood sugars, Denies nocturia, Denies palpitations, Denies polydipsia, Denies polyphagia, Denies polyuria, Denies proptosis, Denies recent glucocorticoid use, Denies thyroid mass, Denies weight change Hematologic/Lymphatic: Reports as per HPI, Denies easy bleeding, Denies easy bruising, Denies lymphadenopathy, Denies lymphedema, Denies thrombophilia Allergic/Immunologic: Reports as per HPI, Denies allergic rhinitis, Denies anaphylaxis, Denies angioedema, Denies gluten intolerance, Denies persistent infections, Denies seasonal allergies, Denies urticaria, Denies wheezing Past Medical History Past Medical History: Coronary Artery Disease (CAD), Chest Pain / Angina, Diabetes Mellitus, Eye Disorder, GERD/Reflux, Hyperlipidemia, Hypertension, Myocardial Infarction (PR), Osteoarthritis (OA), Prostate Disorder, Sleep Apnea/CPAP/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 CATARACT RT EYE Last Myocardial Infarction Date:: 2003? History of Any Multi-Drug Resistant Organisms: None Reported Past Surgical History: Cholecystectomy, Coronary Bypass/CABG, Heart Catheterization With Stent, Orthopedic Surgery Additional Past Surgical History / Comment(s): RT WRIST GANGLION CYST REMOVED.has had stents post cabg not sure how many or what arteries they are in. CABG 2000, COLONOSCOPY, EGD, Past Anesthesia/Blood Transfusion Reactions: Motion Sickness Date of Last Stent Placement:: 2003 Past Psychological History: No Psychological Hx Reported Smoking Status: Never smoker Past Alcohol Use History: None Reported Past Drug Use History: None Reported - Past Family History Father History Unknown: Yes Additional Family Medical History / Comment(s): PT ADOPTED Mother History Unknown: Yes Additional Family Medical History / Comment(s): PT ADOPTED Brother(s) Additional Family Medical History / Comment(s): did find several brothers that had also been adopted out one from agent orange exposure/complications, one from etoh abuse, and one from chino gehrig's disease. Medications and Allergies Home Medications Medication Instructions Recorded Confirmed Type Atenolol [Tenormin] 50 mg PO DAILY 04/05/15 08/15/18 History Pantoprazole Sodium [Protonix] 40 mg PO DAILY 04/05/15 08/15/18 History Aspirin [Adult Low Dose Aspirin EC] 81 mg PO DAILY 03/05/17 08/15/18 History Atorvastatin Calcium [Lipitor] 40 mg PO HS 03/05/17 08/15/18 History Ubidecarenone [Co Q-10] 400 mg PO DAILY 04/25/17 08/15/18 History Clopidogrel [Plavix] 75 mg PO DAILY 07/14/18 08/15/18 History Fluticasone Nasal [place] [Flonase 1 spray EA NOSTRIL BID 07/14/18 08/15/18 History Nasal [place]] Losartan [Cozaar] 25 mg PO DAILY 07/14/18 08/15/18 History Nitroglycerin Sl Tabs [Nitrostat] 0.4 mg SUBLINGUAL Q5M PRN 07/14/18 08/15/18 Hi story Ranolazine [Ranexa] 1,000 mg PO BID 07/14/18 08/15/18 History metFORMIN HCL [Glucophage] 500 mg PO BID 07/14/18 08/15/18 History Furosemide [Lasix] 40 mg PO DAILY #30 tab 07/16/18 08/15/18 Rx Pregabalin [Lyrica] 100 mg PO BID cap 07/16/18 08/15/18 Rx Escitalopram [Lexapro] 10 mg PO DAILY #30 tab 07/20/18 08/15/18 Rx Mirtazapine [Remeron] 15 mg PO HS #30 tab 07/20/18 08/15/18 Rx Allergies Allergy/AdvReac Type Severity Reaction Status Date / Time Penicillins Allergy Anaphylaxis Verified 08/15/18 07:10 simvastatin [From Zocor] AdvReac SEVERE Verified 08/15/18 07:10 JOINT PAIN Physical Exam Vitals: Vital Signs Temp Pulse Resp BP Pulse Ox 08/15/18 11:30 68 150/99 99 08/15/18 11:00 87 145/83 100 08/15/18 10:30 62 145/83 94 L 08/15/18 10:00 63 157/73 99 08/15/18 09:00 66 147/85 97 08/15/18 08:30 64 147/85 98 08/15/18 08:00 59 L 151/89 98 08/15/18 07:11 65 18 151/89 98 08/15/18 06:11 68 18 151/104 97 08/15/18 05:57 98.4 F 71 18 148/93 98 08/15/18 04:51 85 19 163/95 96 08/15/18 04:48 84 18 162/104 98 08/15/18 04:10 107 H 23 151/105 94 L 08/15/18 04:06 105 H 24 162/114 95 08/15/18 03:55 120 H 32 H 197/122 82 L 08/15/18 03:41 86 22 152/95 90 L 08/15/18 02:28 82 18 08/15/18 02:22 80 18 08/15/18 01:45 97.3 F L 87 22 141/82 95 Intake and Output 08/14/18 08/15/18 08/15/18 22:59 06:59 14:59 Intake Total 66 Balance 66 Intake: Intake, IV Titration 66 Amount Heparin Sod,Pork in 0.45% 66 NaCl 25,000 unit In 0.45 % NaCl 1 250ml.bag @ 10 mls/hr IV .Q24H [facility] Rx#: [id number] Other: Weight 86.183 kg - Constitutional General appearance: cooperative, no acute distress, obese - EENT Eyes: anicteric sclerae, PERRLA - Neck Neck: normal ROM - Respiratory Respiratory: bilateral: CTA, negative: diminished, dullness, rales, rhonchi - Cardiovascular Rhythm: regular Heart sounds: normal: S1, S2 - Gastrointestinal General gastrointestinal: normal bowel sounds, soft - Integumentary Integumentary: decreased turgor, normal - Musculoskeletal Musculoskeletal: gait normal - Psychiatric Psychiatric: A&O x's 3, appropriate affect Results CBC & Chem 7: 08/15/18 02:03 08/15/18 02:03 Labs: Abnormal Lab Results - Last 24 Hours (Table) 08/15/18 08/15/18 08/15/18 Range/Units 02:03 02:03 09:25 RBC 4.21 L (4.30-5.90) m/uL Hct 38.5 L (39.0-53.0) % Lymphocytes # 0.8 L (1.0-4.8) k/uL APTT 43.7 H (22.0-30.0) sec Chloride 110 H (98-107) mmol/L Carbon Dioxide 20 L (22-30) mmol/L Glucose 160 H (74-99) mg/dL Calcium 7.7 L (8.4-10.2) mg/dL Troponin I (0.000-0.034) ng/mL Total Protein 6.2 L (6.3-8.2) g/dL Albumin 3.3 L (3.5-5.0) g/dL 08/15/18 Range/Units 09:25 RBC (4.30-5.90) m/uL Hct (39.0-53.0) % Lymphocytes # (1.0-4.8) k/uL APTT (22.0-30.0) sec Chloride (98-107) mmol/L Carbon Dioxide (22-30) mmol/L Glucose (74-99) mg/dL Calcium (8.4-10.2) mg/dL Troponin I 9.910 H* (0.000-0.034) ng/mL Total Protein (6.3-8.2) g/dL Albumin (3.5-5.0) g/dL Thrombosis Risk Factor Assmnt - DVT/VTE Prophylaxis DVT/VTE Prophylaxis: Pharmacologic Prophylaxis ordered - Choose All That Apply Each Factor Represents 1 point: Abnormal pulmonary function (COPD), Acute PR Each Risk Factor Represents 2 Points: Age 61-74 years Thrombosis Risk Factor Assessment Total Risk Factor Score: 4 Thrombosis Risk Factor Assessment Level: Moderate Risk Assessment and Plan Plan: 1. acute and STEMI, with elevated troponins peaking at 11, cardiac cath 08/15/2008shows severe extensive coronary artery disease, with multiple occlusive disease including the left main, and severe LV dysfunction, patient was started on Coreg 6.25 mg twice a day, and after and stressed oh would be initiated,patient patient is not on any Liam during this admission, continue on Ranexa itroglycerin, Plavix Lipitor aspirin. Status post cardiac cath 08/15/2008severe triple-vessel coronary artery disease, patent MARROQUIN to the LAD and MARROQUIN is functioning well, occluded SVG to Ramus intermedius, occluded radial artery to right coronary arteryperformed by Dr. Osullivan 2. history of diabetes mellitus2 with complications to include neuropathy on metformin currently on hold secondary to cardiac cath contrast regular rate for age with sliding scale, obtain hemoglobin A1c Accu-Cheks before meals and at bedtime, continue [id number] mg twice a day no changes 3 history of CAD prior history of CABG four-vessel home medications were resumed to include his hypertensive agents and start insulin 4. Hepatitis C, inactive 5. Exposure to agent orange 6. Dysthymia, on Lexapro 10 and Remeron 15 at bedtime 7, hyperlipidemiaon Lipitor, PSA 9 inhibitors are recommended by cardiology 8. GERD stable on maintenance medications 9. Obstructive sleep apnea 10. Osteoarthritis
[2018-08-15] MEDS ORDERED: ATORVASTATIN 40 MG TAB PO SCH (21:00)
[2018-08-15 21:12] LABS: Glucose,Whole Blood 116 mg/dL (75-99)
[2018-08-15] MEDS: PREGABALIN 100 MG CAP PO SCH (21:44)
[2018-08-15] MEDS: MIRTAZAPINE 15 MG TAB PO SCH (21:44)
[2018-08-15] MEDS: ESCITALOPRAM 10 MG TAB PO SCH (21:51)
[2018-08-15] MEDS: MORPHINE SULFATE 4 MG/ML SYRINGE IV PRN (22:36)
[2018-08-16 06:23] LABS: Glucose,Whole Blood 109 mg/dL (75-99)
[2018-08-16] MEDS: HEPARIN SOD,PORK IN 0.45% NACL 25,000 UNIT in 0.45% NACL 1 250ML.BAG IV SCH (06:35)
[2018-08-16] MEDS: SODIUM CHLORIDE 0.9% 1,000 ML IV SCH (06:48)
[2018-08-16 07:05] LABS: Basophils % (A) 1 %; Eosinophils # (A) 0.3 k/uL (0-0.7); Eosinophils % (A) 6 %; HCT 34.8 % (39.0-53.0); Lymphocytes # (A) 0.7 k/uL (1.0-4.8); Lymphocytes % (A) 13 %; MCHC 34.6 g/dL (31.0-37.0); MCV 89.5 fL (80.0-100.0); Mean Platelet Volume 10.9; Monocytes # (A) 0.4 k/uL (0-1.0); Monocytes % (A) 8 %; Neutrophils # (A) 3.4 k/uL (1.3-7.7); Neutrophils % (A) 69 %; Platelet Count 146 k/uL (150-450); RBC 3.89 m/uL (4.30-5.90)
[2018-08-16] MEDS: FUROSEMIDE 10 MG/ML 4 ML VIAL IV SCH ×2 (07:53→19:34)
[2018-08-16] MEDS: RANOLAZINE 500 MG TAB.ER.12H PO SCH ×2 (07:55→20:21)
[2018-08-16] MEDS: CLOPIDOGREL 75 MG TAB PO SCH (07:55)
[2018-08-16] MEDS: ASPIRIN 81 MG PO SCH (07:55)
[2018-08-16] MEDS: PREGABALIN 100 MG CAP PO SCH ×2 (07:55→20:21)
[2018-08-16] MEDS: CARVEDILOL 6.25 MG TAB PO SCH (07:55)
[2018-08-16] MEDS: ESCITALOPRAM 10 MG TAB PO SCH (07:55)
[2018-08-16] MEDS: PANTOPRAZOLE 40 MG TABLET PO SCH (07:55)
[2018-08-16] MEDS: LOSARTAN 25 MG TAB PO SCH (07:55)
--- NOTE | 2018-08-16 10:21 | P.PN ---
Subjective Patient is resting comfortably in bed. Last night he did have some chest pain. He status post a non-Q-wave myocardial infarction and he underwent coronary angiography yesterday which showed significant and extensive triple-vessel disease, patent MARROQUIN graft to the LAD and a decision was made by Dr. Armenta or myself to pursue medical treatment only given the extent of his disease in the coronary arteries No shortness of breath at this time looks comfortable Breath sounds are reduced bilaterally with no rhonchi no crackles Abdomen soft nontender Extremities warm Blood pressure 145/75 and 130/64 mmHg pulse rate in the 70s afebrile Impression Non-Q wave myocardial infarction Ischemic cardiopathy ejection fraction 40-45% Inferior wall hypokinesis Moderate mitral regurgitation Hypertension Type 2 diabetes Suggest Increase carvedilol to 12.5 mg twice daily Increase atorvastatin to 80 mg daily Aldactone 25 mg daily Lipid panel Continue telemetry monitoring Watch for any arrhythmias Objective - Vital Signs Vital signs: Vital Signs Temp 97.9 F 08/16/18 07:59 Pulse 80 08/16/18 07:59 Resp 18 08/16/18 07:59 BP 145/75 08/16/18 07:59 Pulse Ox 98 08/16/18 07:59 Intake & Output 08/15/18 08/16/18 08/16/18 18:59 06:59 18:59 Intake Total 381 200 358 Output Total 1000 1400 Balance -619 -1200 358 Weight 86.1 kg Intake: IV 75 Intake, IV Titration 66 Amount Heparin Sod,Pork in 0.45% 66 NaCl 25,000 unit In 0.45 % NaCl 1 250ml.bag @ 10 mls/hr IV .Q24H [facility] Rx#: [id number] Oral 240 200 358 Output: Urine 1000 1400 Other: Voiding Method Indwelling Catheter Indwelling Catheter Indwelling Catheter - Labs CBC & Chem 7: 08/16/18 06:04 08/15/18 02:03 Labs: Abnormal Lab Results - Last 24 Hours (Table) 08/15/18 08/15/18 08/15/18 Range/Units 09:25 13:57 21:09 RBC (4.30-5.90) m/uL Hgb (13.0-17.5) gm/dL Hct (39.0-53.0) % RDW (11.5-15.5) % Plt Count (150-450) k/uL Lymphocytes # (1.0-4.8) k/uL POC Glucose (mg/dL) 116 H (75-99) mg/dL Troponin I 9.910 H* 11.700 H* (0.000-0.034) ng/mL 08/16/18 08/16/18 Range/Units 06:04 06:22 RBC 3.89 L (4.30-5.90) m/uL Hgb 12.0 L (13.0-17.5) gm/dL Hct 34.8 L (39.0-53.0) % RDW 16.0 H (11.5-15.5) % Plt Count 146 L (150-450) k/uL Lymphocytes # 0.7 L (1.0-4.8) k/uL POC Glucose (mg/dL) 109 H (75-99) mg/dL Troponin I (0.000-0.034) ng/mL
[2018-08-16 11:39] LABS: Glucose,Whole Blood 147 mg/dL (75-99)
--- NOTE | 2018-08-16 15:40 | P.PN ---
Subjective Progress Note Date: 08/16/18 This is a 64-year-old gentleman patient of Dr. Stokes, CAD, Dr. Jones follows with the MI clinic. 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 Patient thinks that this is relieved by BiPAP treatments, he ran out of his nitroglycerin, patient denies any hemoptysis, has some cough, Emergency room, patient has blood pressure of 197/122, heart rate of 122, has some hypoxemia, chest x-ray shows worsening bilateral consolidation, EKG shows normal sinus rhythm with AV block and ST changes, troponin on entry was 0.03, c reatinine of 1.01, proBNP of 2490, echocardiogram July 2018, EF 45-50%, trace MR, trace TR patient underwent cardiac cath today secondary to an elevated troponin, an abnormal EKG with ST depressions in the lateral precordial leads, he has extensive severe coronary artery disease, the only patent graft is a MARROQUIN to the LAD, significant occlusive disease including left main, severe LV dysfunction. Coronary intervention was for medical management, no percutaneous intervention done during the heart cath 08/16: Patient still has indwelling Kaye catheter, no prior history off prostatic surgery, Flomax initiated, for urinary retention, postvoid residuals to be done, he still has complaints of chest pain last night, cardiology is increased his Coreg to 12.5 mg twice a day, patient denies any lightheadedness no palpitations, no GI symptoms. Hemoglobin 12.0, blood sugars 81-147 blood pressure systolic blood pressure 120-145, heart rate 70-80 Review of Systems Constitutional: Reports as per HPI, Denies anorexia, Denies chills, Denies chronic headaches, Denies chronic pain, Denies daytime sleepiness, Denies fatigue, Denies fever, Denies lethargy, Denies malaise, Denies night sweats, Denies poor appetite, Denies sweats, Denies weakness, Denies weight gain, Denies weight loss Ears, nose, mouth and throat: Reports as per HPI, Denies ant. neck pain, Denies bleeding gums, Denies dental pain, Denies dysphagia, Denies epistaxis, Denies headache, Denies hoarseness, Denies mouth pain, Denies nasal congestion, Denies nasal discharge, Denies neck fullness/pressure, Denies neck lump, Denies nose pain, Denies odynophagia, Denies post-nasal drip, Denies sinus pain, Denies sinus pressure, Denies swelling in mouth, Denies swelling in throat, Denies sore throat, Denies vertigo, Denies voice changes Cardiovascular: Reports as per HPI, Reports chest pain, Reports dyspnea on exertion, Denies claudication, Denies decreased exercise tolerance, Denies edema, Denies high blood pressure, Denies irregular heart beat, Denies leg edema, Denies lightheadedness, Denies orthopnea, Denies palpitations, Denies p aroxysmal nocturnal dyspnea, Denies phlebitis, Denies rapid heart beat, Denies shortness of breath, Denies syncope Respiratory: Reports as per HPI, Denies congestion, Denies cough, Denies cough with sputum, Denies dyspnea, Denies excessive sputum, Denies hemoptysis, Denies home oxygen, Denies pain, Denies pain on inspiration, Denies pleurisy, Denies respiratory infections, Denies sleep apnea, Denies snoring, Denies wheezing Gastrointestinal: Reports as per HPI, Denies abdominal pain, Denies belching, Denies bloating, Denies BRBPR, Denies change in bowel habits, Denies coffee ground emesis, Denies constipation, Denies diarrhea, Denies dyspepsia, Denies early satiety, Denies excessive gas, Denies heartburn, Denies hematemesis, Denies hematochezia, Denies indigestion, Denies jaundice, Denies lactose intolerance, Denies loss of appetite, Denies melena, Denies nausea, Denies vomiting Genitourinary: Reports as per HPI, Denies decreased libido, Denies difficulties fathering child, Denies discharge, Denies dysuria, Denies erectile dysfunction, Denies flank pain, Denies genital pain, Denies genital sores, Denies hematuria, Denies impotence, Denies incontinence, Denies kidney stones, Denies nocturia, Denies polyuria, Denies testicular lump, Denies testicular pain, Denies urinary frequency, Denies urinary hesitancy, Denies urinary retention Musculoskeletal: Reports as per HPI, Denies arm numbness/tingling, Denies atrophy, Denies fractures, Denies frequent falls, Denies gait dysfunction, Denies hot joints, Denies leg numbness/tingling, Denies limitation of motion, Denies loss of height, Denies low back pain, Denies morning stiffness, Denies muscle cramps, Denies muscle weakness, Denies myalgias, Denies neck pain, Denies neck stiffness, Denies prior amputations, Denies redness of joints, Denies shooting arm pain, Denies shooting leg pain Integumentary: Reports as per HPI, Denies acne, Denies boils, Denies brittle nails, Denies change in hair/nails, Denies color changes, Denies darkening of skin, Denies depigmentation, Denies dryness, Denies foot/leg ulcers, Denies growths, Denies hirsutism, Denies lesions, Denies onychomycosis, Denies pruritus, Denies rash, Denies sores, Denies striae, Denies unusual bruising, Denies wounds Neurological: Reports as per HPI, Denies aphasia, Denies ataxia, Denies balance difficulties, Denies burning pain, Denies change in mentation, Denies change in smell/taste, Denies change in speech, Denies confusion, Denies convulsions, Denies double vision, Denies gait dysfunction, Denies head injury, Denies headaches, Denies hearing difficulties, Denies lack of coordination, Denies loss of vision, Denies memory loss, Denies migraines, Denies motor disturbance, Denies numbness, Denies paralysis, Denies paresthesias, Denies seizures, Denies sensory deficit, Denies spasticity, Denies syncope, Denies tic, Denies tingling, Denies transient paralysis, Denies tremors, Denies vertigo, Denies weakness, Denies visual changes Psychiatric: Reports as per HPI, Denies anhedonia, Denies anxiety, Denies anxiety attacks, Denies change in appetite, Denies change in libido, Denies change in sleep habits, Denies confusion, Denies depression, Denies difficulty concentrating, Denies disorientation, Denies hallucinations, Denies hopelessness, Denies hypersomnia, Denies insomnia, Denies irritability, Denies memory loss, Denies mood swings, Denies paranoia, Denies sadness/tearfulness, Denies sleep disturbances, Denies suicidal ideation Endocrine: Reports as per HPI, Denies cold intolerance, Denies deepening of the voice, Denies excessive sweating, Denies excessive thirst, Denies fatigue, Denies flushing, Denies heat intolerance, Denies high blood sugars, Denies increase in ring/shoe/hat size, Denies low blood sugars, Denies nocturia, Denies palpitations, Denies polydipsia, Denies polyphagia, Denies polyuria, Denies proptosis, Denies recent glucocorticoid use, Denies thyroid mass, Denies weight change Hematologic/Lymphatic: Reports as per HPI, Denies easy bleeding, Denies easy bruising, Denies lymphadenopathy, Denies lymphedema, Denies thrombophilia Allergic/Immunologic: Reports as per HPI, Denies allergic rhinitis, Denies anaphylaxis, Denies angioedema, Denies gluten intolerance, Denies persistent infections, Denies seasonal allergies, Denies urticaria, Denies wheezing Objective - Vital Signs Vital signs: Vital Signs Temp 98 F 08/16/18 15:17 Pulse 78 08/16/18 15:17 Resp 18 08/16/18 15:17 BP 120/64 08/16/18 15:17 Pulse Ox 96 08/16/18 15:17 Intake & Output 08/15/18 08/16/18 08/16/18 18:59 06:59 18:59 Intake Total 381 200 358 Output Total 1000 1400 1800 Balance -488 -8552 -9819 Weight 86.1 kg Intake: IV 75 Intake, IV Titration 66 Amount Heparin Sod,Pork in 0.45% 66 NaCl 25,000 unit In 0.45 % NaCl 1 250ml.bag @ 10 mls/hr IV .Q24H [facility] Rx#: [id number] Oral 240 200 358 Output: Urine 1000 1400 1800 Other: Voiding Method Indwelling Catheter Indwelling Catheter Indwelling Catheter - Constitutional General appearance: Present: cooperative, no acute distress, obese, thin - EENT Eyes: Present: anicteric sclerae, EOMI, PERRLA, dentition normal ENT: Present: NA/AT, normal oropharynx - Neck Neck: Present: normal ROM - Respiratory Respiratory: bilateral: CTA, negative: diminished, dullness, rales - Cardiovascular Rhythm: regular Heart sounds: normal: S1, S2 Abnormal Heart Sounds: Absent: systolic murmur, diastolic murmur, rub, S3 Gallop, S4 Gallop, click, other - Gastrointestinal General gastrointestinal: Present: normal bowel sounds, soft - Integumentary Integumentary: Present: decreased turgor, normal - Neurologic Neurologic: Present: CNII-XII intact - Musculoskeletal Musculoskeletal: Present: gait normal, strength equal bilaterally - Psychiatric Psychiatric: Present: A&O x's 3, appropriate affect, intact judgment & insight - Allied health notes Allied health notes reviewed: nursing - Labs CBC & Chem 7: 08/17/18 06:03 08/17/18 06:03 Labs: Abnormal Lab Results - Last 24 Hours (Table) 08/15/18 08/16/18 08/16/18 Range/Units 21:09 06:04 06:22 RBC 3.89 L (4.30-5.90) m/uL Hgb 12.0 L (13.0-17.5) gm/dL Hct 34.8 L (39.0-53.0) % RDW 16.0 H (11.5-15.5) % Plt Count 146 L (150-450) k/uL Lymphocytes # 0.7 L (1.0-4.8) k/uL POC Glucose (mg/dL) 116 H 109 H (75-99) mg/dL 08/16/18 Range/Units 11:26 RBC (4.30-5.90) m/uL Hgb (13.0-17.5) gm/dL Hct (39.0-53.0) % RDW (11.5-15.5) % Plt Count (150-450) k/uL Lymphocytes # (1.0-4.8) k/uL POC Glucose (mg/dL) 147 H (75-99) mg/dL Assessment and Plan Plan: 1. acute and STEMI, still with unstable angina symptoms with elevated troponins peaking at 11, cardiac cath 08/15/2018 shows severe extensive coronary artery di sease, with multiple occlusive disease including the left main, and severe LV dysfunction, patient 's Coreg was increased to2.5mg twice a day, and after and stressed oh would be initiated,patient patient is not on any Liam during this admission, continue on Ranexa itroglycerin, Plavix Lipitor aspirin. Status post cardiac cath 9severe triple-vessel coronary artery disease, patent MARROQUIN to the LAD and MARROQUIN is functioning well, occluded SVG to Ramus intermedius, occluded radial artery to right coronary arteryperformed by Dr. Osullivan. Medical management is currently planned 2. history of diabetes mellitus2 with complications to include neuropathy on metformin currently on hold secondary to cardiac cath contrast regular rate for age with sliding scale, obtain hemoglobin A1c Accu-Cheks before meals and at bedtime, continue [id number] mg twice a day no changes 3 history of CAD prior history of CABG four-vessel home medications were resumed to include his hypertensive agents and start insulin 4. Hepatitis C, inactive 5. Exposure to agent orange progress follow-up as an outpatient by PCP 6. Dysthymia, on Lexapro 10 and Remeron 15 at bedtime 7, hyperlipidemia on Lipitor, PSA 9 inhibitors are recommended by cardiology 8. GERD stable on maintenance medications 9. Obstructive sleep apnea 10. Osteoarthritis 11. Urinary retention, BPH with LUTs Kaye catheter will be discontinued today, at 10 PM, start tamsulosin 0.4 mg daily postvoid residuals to be done every shift
[2018-08-16 16:36] LABS: Glucose,Whole Blood 146 mg/dL (75-99)
[2018-08-16] MEDS: TAMSULOSIN 0.4 MG CAP.ER.24H PO SCH (17:12)
[2018-08-16] MEDS: CARVEDILOL 12.5 MG TAB PO SCH (17:12)
[2018-08-16] MEDS: ATORVASTATIN 80 MG TAB PO SCH (19:39)
[2018-08-16] MEDS: MIRTAZAPINE 15 MG TAB PO SCH (20:21)
[2018-08-16 21:06] LABS: Glucose,Whole Blood 186 mg/dL (75-99)
[2018-08-17] MEDS: HEPARIN SOD,PORK IN 0.45% NACL 25,000 UNIT in 0.45% NACL 1 250ML.BAG IV SCH (05:09)
[2018-08-17 06:24] LABS: Glucose,Whole Blood 171 mg/dL (75-99)
[2018-08-17 06:50] LABS: Basophils % (A) 1 %; Eosinophils # (A) 0.3 k/uL (0-0.7); Eosinophils % (A) 5 %; HCT 38.8 % (39.0-53.0); Lymphocytes # (A) 0.9 k/uL (1.0-4.8); Lymphocytes % (A) 15 %; MCH 30.6 pg (25.0-35.0); MCHC 33.4 g/dL (31.0-37.0); MCV 91.7 fL (80.0-100.0); Mean Platelet Volume 8.6; Monocytes # (A) 0.5 k/uL (0-1.0); Monocytes % (A) 9 %; Neutrophils # (A) 3.8 k/uL (1.3-7.7); Neutrophils % (A) 67 %; Platelet Count 153 k/uL (150-450); RBC 4.24 m/uL (4.30-5.90); RDW 13.5 % (11.5-15.5); WBC 5.7 k/uL (3.8-10.6)
[2018-08-17 07:06] LABS: Anion Gap 10 mmol/L; Blood Urea Nitrogen 18 mg/dL (9-20); Calcium 8.3 mg/dL (8.4-10.2); Carbon Dioxide 27 mmol/L (22-30); Chloride 103 mmol/L (98-107); Glucose 143 mg/dL (74-99); Potassium 3.6 mmol/L (3.5-5.1); Sodium 140 mmol/L (137-145)
[2018-08-17] MEDS: ASPIRIN 81 MG PO SCH (08:13)
[2018-08-17] MEDS: SPIRONOLACTONE 25 MG TAB PO SCH (08:13)
[2018-08-17] MEDS: RANOLAZINE 500 MG TAB.ER.12H PO SCH ×2 (08:13→21:03)
[2018-08-17] MEDS: PREGABALIN 100 MG CAP PO SCH ×2 (08:13→21:03)
[2018-08-17] MEDS: TAMSULOSIN 0.4 MG CAP.ER.24H PO SCH (08:13)
[2018-08-17] MEDS: ESCITALOPRAM 10 MG TAB PO SCH (08:13)
[2018-08-17] MEDS: PANTOPRAZOLE 40 MG TABLET PO SCH (08:13)
[2018-08-17] MEDS: CARVEDILOL 12.5 MG TAB PO SCH ×2 (08:13→16:58)
[2018-08-17] MEDS: CLOPIDOGREL 75 MG TAB PO SCH (08:13)
[2018-08-17] MEDS: LOSARTAN 25 MG TAB PO SCH (08:13)
[2018-08-17] MEDS: FUROSEMIDE 40 MG TAB PO SCH ×2 (08:18→16:59)
[2018-08-17] MEDS: MORPHINE SULFATE 4 MG/ML SYRINGE IV PRN (09:24)
[2018-08-17 11:08] VITALS: BMI 33.5
[2018-08-17 11:43] LABS: Glucose,Whole Blood 141 mg/dL (75-99)
[2018-08-17] MEDS: ISOSORBIDE MONONITRATE ER 30 MG TAB.ER.24H PO SCH (12:19)
[2018-08-17 16:26] LABS: Glucose,Whole Blood 159 mg/dL (75-99)
--- NOTE | 2018-08-17 19:33 | P.PN ---
Subjective Patient is doing well. Sitting in a chair comfortably. No chest discomfort dizziness lightheadedness no orthopnea no PND no breathing trouble at night he was admitted with non-Q-wave myocardial infarction initially He underwent coronary angiography of the weekend and was found to have severe coronary artery disease but a patent MARROQUIN to the LAD. Medical treatment was recommended He has done well since then Blood pressure 130/60 mmHg respirations 14 No breathing trouble no respiratory distress Normal heart sounds regular no murmurs or gallops. Abdomen is soft nontender extremities are warm Impression severe coronary artery disease Non-Q-wave myocardial infarction Medical management recommended Suggest Switched to by mouth Lasix today 40 mg twice daily Continue current medications including carvedilol aspirin Plavix Imdur losartan and spironolactone Objective - Vital Signs Vital signs: Vital Signs Temp 98.3 F 08/16/18 20:44 Pulse 82 08/17/18 16:00 Resp 16 08/17/18 16:00 BP 92/55 08/17/18 16:00 Pulse Ox 94 L 08/17/18 16:00 Intake & Output 08/17/18 08/17/18 08/18/18 06:59 18:59 06:59 Intake Total 240 480 Output Total 250 Balance -10 480 Weight 86 kg 86 kg Intake: Oral 240 480 Output: Urine 250 Other: Voiding Method Urinal Urinal # Voids 2 - Labs CBC & Chem 7: 08/17/18 06:03 08/17/18 06:03 Labs: Abnormal Lab Results - Last 24 Hours (Table) 08/16/18 08/17/18 08/17/18 Range/Units 21:04 06:03 06:03 RBC 4.24 L (4.30-5.90) m/uL Hct 38.8 L (39.0-53.0) % Lymphocytes # 0.9 L (1.0-4.8) k/uL Glucose 143 H (74-99) mg/dL POC Glucose (mg/dL) 186 H (75-99) mg/dL Calcium 8.3 L (8.4-10.2) mg/dL 08/17/18 08/17/18 08/17/18 Range/Units 06:22 11:27 16:11 RBC (4.30-5.90) m/uL Hct (39.0-53.0) % Lymphocytes # (1.0-4.8) k/uL Glucose (74-99) mg/dL POC Glucose (mg/dL) 171 H 141 H 159 H (75-99) mg/dL Calcium (8.4-10.2) mg/dL
[2018-08-17 21:02] LABS: Glucose,Whole Blood 168 mg/dL (75-99)
[2018-08-17] MEDS: ATORVASTATIN 80 MG TAB PO SCH (21:02)
[2018-08-17] MEDS: MIRTAZAPINE 15 MG TAB PO SCH (21:03)
[2018-08-18 06:16] LABS: Glucose,Whole Blood 141 mg/dL (75-99)
[2018-08-18] MEDS: CARVEDILOL 12.5 MG TAB PO SCH (06:35)
[2018-08-18] MEDS: PANTOPRAZOLE 40 MG TABLET PO SCH (06:35)
[2018-08-18 07:46] LABS: Basophils % (A) 0 %; Eosinophils # (A) 0.3 k/uL (0-0.7); Eosinophils % (A) 6 %; HCT 34.8 % (39.0-53.0); HGB 11.6 gm/dL (13.0-17.5); Lymphocytes # (A) 0.8 k/uL (1.0-4.8); Lymphocytes % (A) 16 %; MCH 30.7 pg (25.0-35.0); MCHC 33.4 g/dL (31.0-37.0); MCV 91.9 fL (80.0-100.0); Mean Platelet Volume 8.2; Monocytes # (A) 0.3 k/uL (0-1.0); Monocytes % (A) 7 %; Neutrophils # (A) 3.2 k/uL (1.3-7.7); Neutrophils % (A) 67 %; Platelet Count 155 k/uL (150-450); RBC 3.79 m/uL (4.30-5.90); RDW 13.5 % (11.5-15.5); WBC 4.7 k/uL (3.8-10.6)
[2018-08-18 07:51] LABS: Calcium 8.4 mg/dL (8.4-10.2); Potassium 3.8 mmol/L (3.5-5.1)
[2018-08-18] MEDS: RANOLAZINE 500 MG TAB.ER.12H PO SCH (08:43)
[2018-08-18] MEDS: CLOPIDOGREL 75 MG TAB PO SCH (08:44)
[2018-08-18] MEDS: ESCITALOPRAM 10 MG TAB PO SCH (08:44)
[2018-08-18] MEDS: ASPIRIN 81 MG PO SCH (08:44)
[2018-08-18] MEDS: FUROSEMIDE 40 MG TAB PO SCH (08:44)
[2018-08-18] MEDS: TAMSULOSIN 0.4 MG CAP.ER.24H PO SCH (08:44)
[2018-08-18] MEDS: ISOSORBIDE MONONITRATE ER 30 MG TAB.ER.24H PO SCH (08:44)
[2018-08-18] MEDS: PREGABALIN 100 MG CAP PO SCH (08:44)
[2018-08-18] MEDS: SPIRONOLACTONE 25 MG TAB PO SCH (08:44)
[2018-08-18] MEDS: LOSARTAN 25 MG TAB PO SCH (08:44)
--- NOTE | 2018-08-18 09:38 | P.PN ---
Subjective Progress Note Date: 08/17/18 This is a 64-year-old gentleman patient of Dr. Stokes, CAD, Dr. Jones follows with the OR clinic. 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 Patient thinks that this is relieved by BiPAP treatments, he ran out of his nitroglycerin, patient denies any hemoptysis, has some cough, Emergency room, patient has blood pressure of 197/122, heart rate of 122, has some hypoxemia, chest x-ray shows worsening bilateral consolidation, EKG shows normal sinus rhythm with AV block and ST changes, troponin on entry was 0.03, cr eatinine of 1.01, proBNP of 2490, echocardiogram July 2018, EF 45-50%, trace MR, trace TR patient underwent cardiac cath today secondary to an elevated troponin, an abnormal EKG with ST depressions in the lateral precordial leads, he has extensive severe coronary artery disease, the only patent graft is a MARROQUIN to the LAD, significant occlusive disease including left main, severe LV dysfunction. Coronary intervention was for medical management, no percutaneous intervention done during the heart cath 08/16: Patient still has indwelling Kaye catheter, no prior history off prostatic surgery, Flomax initiated, for urinary retention, postvoid residuals to be done, he still has complaints of chest pain last night, cardiology is increased his Coreg to 12.5 mg twice a day, patient denies any lightheadedness no palpitations, no GI symptoms. Hemoglobin 12.0, blood sugars 81-147 blood pressure systolic blood pressure 120-145, heart rate 70-80 08/17: The patient states that he did have some chest pain this morning after he took a shower. He was given morphine for relief. He is complaining also of a little bit of indigestion. He states he is not eating much. He denies having any diarrhea. Patient to be assessed for home oxygen need. Pulse ox is 98% on 3 L, heart rate in the 80s, blood pressure 140/70. Electrolytes are within normal limits, creatinine 0.95. Blood sugars running between [address] Wright is changed his Lasix to oral today and continue Coreg, aspirin, Plavix, Imdur, losartan and spironolactone. Review Of Systems: Constitutional: No fever, no chills, no night sweats. No weight change. No weakness, fatigue or lethargy. No daytime sleepiness. EENT: No headache. No blurred vision or double vision, no loss of vision. No loss of Hearing, no ringing in the ears, no dizziness. No nasal drainage or congestion. No epistaxis. No sore throat. Lungs: No shortness of breath, cough, no sputum production. No wheezing. Cardiovascular: Reports chest pain, no lower extremity edema. No palpitations. No paroxysmal nocturnal dyspnea. No orthopnea. No lightheadedness or dizziness. No syncopal episodes. Abdominal: No abdominal pain. No nausea, vomiting. No diarrhea. No constipation. No bloody or tarry stools reports decreased appetite. Genitourinary: No dysuria, increased frequency, urgency. No urinary retention. Musculoskeletal: No myalgias. No muscle weakness, no gait dysfunction, no frequent falls. No back pain. No neck pain. Integumentary: No wounds, no lesions. No rash or pruritus. No unusual bruising. No change in hair or nails. Neurologic: No aphasia. No facial droop. No change in mentation. No head injury. No headache. No paralysis. No paresthesia. Psychiatric: No depression. No anxiety. No mood swings. Endocrine: No abnormal blood sugars. No weight change. No excessive sweating or thirst. No cold intolerance. Objective - Vital Signs Vital signs: Vital Signs Temp 98.3 F 08/16/18 20:44 Pulse 101 H 08/17/18 08:00 Resp 16 08/17/18 11:33 BP 113/69 08/17/18 08:00 Pulse Ox 98 08/17/18 08:00 Intake & Output 08/16/18 08/17/18 08/17/18 18:59 06:59 18:59 Intake Total 598 240 240 Output Total 1800 250 Balance -1202 -10 240 Weight 86 kg 86 kg Intake: Oral 598 240 240 Output: Urine 1800 250 Other: Voiding Method Indwelling Catheter Urinal Urinal # Voids 2 - Exam General appearance: Present: cooperative, no acute distress, obese, thin, patient resting in bed in - EENT Eyes: Present: anicteric sclerae, EOMI, PERRLA, dentition normal ENT: Present: NA/AT, normal oropharynx - Neck Neck: Present: normal ROM - Respiratory Respiratory: bilateral: CTA, negative: diminished, dullness, rales - Cardiovascular Rhythm: regular Heart sounds: normal: S1, S2 Abnormal Heart Sounds: Absent: systolic murmur, diastolic murmur, rub, S3 Gallop, S4 Gallop, click, other - Gastrointestinal General gastrointestinal: Present: normal bowel sounds, soft - Integumentary Integumentary: Present: decreased turgor, normal - Neurologic Neurologic: Present: CNII-XII intact - Musculoskeletal Musculoskeletal: Present: gait normal, strength equal bilaterally - Psychiatric Psychiatric: Present: A&O x's 3, appropriate affect, intact judgment & insight - Labs CBC & Chem 7: 08/18/18 07:19 08/18/18 07:19 Labs: Abnormal Lab Results - Last 24 Hours (Table) 08/16/18 08/16/18 08/16/18 Range/Units 11:26 16:27 21:04 RBC (4.30-5.90) m/uL Hct (39.0-53.0) % Lymphocytes # (1.0-4.8) k/uL Glucose (74-99) mg/dL POC Glucose (mg/dL) 147 H 146 H 186 H (75-99) mg/dL Calcium (8.4-10.2) mg/dL 08/17/18 08/17/18 08/17/18 Range/Units 06:03 06:03 06:22 RBC 4.24 L (4.30-5.90) m/uL Hct 38.8 L (39.0-53.0) % Lymphocytes # 0.9 L (1.0-4.8) k/uL Glucose 143 H (74-99) mg/dL POC Glucose (mg/dL) 171 H (75-99) mg/dL Calcium 8.3 L (8.4-10.2) mg/dL Assessment and Plan Plan: 1. acute NonSTEMI, still with unstable angina symptoms status post coronary angiography found to have severe coronary artery disease but patent MARROQUIN to the LAD. Medical management was recommended by cardiology. Transition Lasix to oral, continue Coreg, aspirin, Plavix, Imdur, losartan and spironolactone. Patient is also on Ranexa. 2. history of diabetes mellitus2 with complications to include neuropathy on metformin currently on hold secondary to cardiac cath contrast regular rate for age with sliding scale, obtain hemoglobin A1c Accu-Cheks before meals and at bedtime, continue [id number] mg twice a day no changes 3. history of CAD prior history of CABG four-vessel home medications were resumed to include his hypertensive agents and start insulin 4. Hepatitis C, inactive 5. Exposure to agent orange progress follow-up as an outpatient by PCP 6. Dysthymia, on Lexapro 10 and Remeron 15 at bedtime 7. Hyperlipidemia on Lipitor, PSA 9 inhibitors are recommended by cardiology 8. GERD stable on maintenance medications 9. Obstructive sleep apnea 10. Osteoarthritis 11. Urinary retention, BPH. Kaye has been discontinued. Continue tamsulosin 0.4 mg daily postvoid residuals to be done every shift 12. Possible chronic hypoxic respiratory failure. Patient to have home O2 assessment. Discharge plan: Home with [facility] or [facility]. PT and OT to evaluate. Impression and plan of care have been directed as dictated by the signing physician. Suzette Layne nurse practitioner acting as scribe for signing physician.
[2018-08-18 11:11] VITALS: BP 98/57; PULSE 64; RESP 18; TEMP 96
[2018-08-18 11:45] LABS: Glucose,Whole Blood 164 mg/dL (75-99)
--- NOTE | 2018-08-18 14:22 | P.DS ---
Providers Date of admission: 08/15/18 04:47 Expected date of discharge: 08/18/18 Attending physician: Ashley Cotton Consults: 08/15/18 04:46 Consult Physician Routine Consulting Provider: [facility] Consult Reason/Comments: Chest Pain; CHF Do you want consulting provider notified?: Yes Primary care physician: Kenisha Stokes [facility] Course: This is a 64-year-old gentleman patient of Dr. Stokes, CAD, Dr. Jones follows with the [facility]. 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 Patient thinks that this is relieved by BiPAP treatments, he ran out of his nitroglycerin, patient denies any hemoptysis, has some cough, Emergency room, patient has blood pressure of 197/122, heart rate of 122, has some hypoxemia, chest x-ray shows worsening bilateral consolidation, EKG shows normal sinus rhythm with AV block and ST changes, troponin on entry was 0.03, creatinine of 1.01, proBNP of 2490, echocardiogram July 2018, EF 45-50%, trace MR, trace TR patient underwent cardiac cath today secondary to an elevated troponin, an abnormal EKG with ST depressions in the lateral precordial leads, he has extensive severe coronary artery disease, the only patent graft is a MARROQUIN to the LAD, significant occlusive disease including left main, severe LV dysfunction. Coronary intervention was for medical management, no percutaneous intervention done during the heart cath 08/16: Patient still has indwelling Kaye catheter, no prior history off prostatic surgery, Flomax initiated, for urinary retention, postvoid residuals to be done, he still has complaints of chest pain last night, cardiology is increased his Coreg to 12.5 mg twice a day, patient denies any lightheadedness no palpita tions, no GI symptoms. Hemoglobin 12.0, blood sugars 81-147 blood pressure systolic blood pressure 120-145, heart rate 70-80 08/17: The patient states that he did have some chest pain this morning after he took a shower. He was given morphine for relief. He is complaining also of a little bit of indigestion. He states he is not eating much. He denies having any diarrhea. Patient to be assessed for home oxygen need. Pulse ox is 98% on 3 L, heart rate in the 80s, blood pressure 140/70. Electrolytes are within normal limits, creatinine 0.95. Blood sugars running between [address] Wright is changed his Lasix to oral today and continue Coreg, aspirin, Plavix, Imdur, losartan and spironolactone. 08/18: Patient denies having episodes of chest pain. He states he has been ambulatory. His pulse ox is 92-94% on room air. He does not qualify for home oxygen. Patient has been cleared for discharge by cardiology. New prescriptions have been sent through to his pharmacy. Patient will be discharged home today in stable condition. Echocardiogram reveals EF 40-45%, LV hypokinetic, moderate mitral regurgitation, mild aortic valve sclerosis. Discharge diagnoses: 1. acute NonSTEMI 2. history of diabetes mellitus2 3. history of CAD prior history of CABG four-vessel 4. Hepatitis C, inactive 5. Exposure to agent orange 6. Dysthymia 7. Hyperlipidemia 8. GERD 9. Obstructive sleep apnea 10. Osteoarthritis 11. Urinary retention, BPH. 12. Possible chronic hypoxic respiratory failure. Patient to have home O2 assessment. Discharge plan: Home with [facility]. PT and OT to evaluate. Impression and plan of care have been directed as dictated by the signing physician. Suzette Layne nurse practitioner acting as scribe for signing physician. Patient Condition at Discharge: Good Plan - Discharge Summary New Discharge Prescriptions: New Spironolactone [Aldactone] 25 mg PO DAILY #30 tab Carvedilol [Coreg*] 12.5 mg PO BID-W/MEALS #60 tab Tamsulosin [Flomax] 0.4 mg PO PC-BRKFST #30 cap.er.24h Isosorbide Mononitrate ER [Imdur] 30 mg PO DAILY #30 tab.er.24h Atorvastatin [Lipitor] 80 mg PO HS #30 tab Continue Pantoprazole Sodium [Protonix] 40 mg PO DAILY Aspirin [Adult Low Dose Aspirin EC] 81 mg PO DAILY Ubidecarenone [Co Q-10] 400 mg PO DAILY Ranolazine [Ranexa] 1,000 mg PO BID Clopidogrel [Plavix] 75 mg PO DAILY Nitroglycerin Sl Tabs [Nitrostat] 0.4 mg SUBLINGUAL Q5M PRN PRN Reason: Chest Pain Fluticasone Nasal [place] [Flonase Nasal [place]] 1 spray EA NOSTRIL BID Furosemide [Lasix] 40 mg PO DAILY #30 tab Pregabalin [Lyrica] 100 mg PO BID cap Escitalopram [Lexapro] 10 mg PO DAILY #30 tab Mirtazapine [Remeron] 15 mg PO HS #30 tab metFORMIN HCL [Glucophage] 500 mg PO BID #0 Changed Losartan [Cozaar] 25 mg PO HS #0 Discontinued Atenolol [Tenormin] 50 mg PO DAILY Atorvastatin Calcium [Lipitor] 40 mg PO HS metFORMIN HCL [Glucophage] 500 mg PO BID Discharge Medication List Pantoprazole Sodium [Protonix] 40 mg PO DAILY 04/05/15 [History] Aspirin [Adult Low Dose Aspirin EC] 81 mg PO DAILY 03/05/17 [History] Ubidecarenone [Co Q-10] 400 mg PO DAILY 04/25/17 [History] Clopidogrel [Plavix] 75 mg PO DAILY 07/14/18 [History] Fluticasone Nasal [place] [Flonase Nasal [place]] 1 spray EA NOSTRIL BID 07/14/18 [History] Nitroglycerin Sl Tabs [Nitrostat] 0.4 mg SUBLINGUAL Q5M PRN 07/14/18 [History] Ranolazine [Ranexa] 1,000 mg PO BID 07/14/18 [History] Furosemide [Lasix] 40 mg PO DAILY #30 tab 07/16/18 [Rx] Pregabalin [Lyrica] 100 mg PO BID cap 07/16/18 [Rx] Escitalopram [Lexapro] 10 mg PO DAILY #30 tab 07/20/18 [Rx] Mirtazapine [Remeron] 15 mg PO HS #30 tab 07/20/18 [Rx] Atorvastatin [Lipitor] 80 mg PO HS #30 tab 08/18/18 [Rx] Carvedilol [Coreg*] 12.5 mg PO BID-W/MEALS #60 tab 08/18/18 [Rx] Isosorbide Mononitrate ER [Imdur] 30 mg PO DAILY #30 tab.er.24h 08/18/18 [Rx] Losartan [Cozaar] 25 mg PO HS #0 0409/19 [Rx] Spironolactone [Aldactone] 25 mg PO DAILY #30 tab 08/18/18 [Rx] Tamsulosin [Flomax] 0.4 mg PO PC-BRKFST #30 cap.er.24h 08/18/18 [Rx] metFORMIN HCL [Glucophage] 500 mg PO BID #0 08/18/18 [Rx] Follow up Appointment(s)/Referral(s): Osvaldo Hollis MD [STAFF PHYSICIAN] - 1 Week (Spoke to medical receptionist medical assistant. Office will call with appointment time) Kenisha Stokes MD [Primary Care Provider] - 08/26/18 2:45 pm (Friday) Ambulatory/Diagnostic Orders: Basic Metabolic Panel [LAB.AMB] Location: None Selected Patient Instructions/Handouts: *Surgery [facility] - After Heart Catheterization - Certified Family Mediator Instructions, Left Heart Catheterization (DC), Pulmonary Edema (DC) Discharge Disposition: HOME SELF-CARE
--- NOTE | 2018-08-18 19:53 | P.PN ---
Subjective Patient is doing well no chest discomfort no breathing trouble. He has been ambulating around. No dizziness or lightheadedness. He is tolerating his medications Vitals are stable blood pressure 131/70 mmHg Breath sounds are clear no rhonchi no crackles Heart sounds are normal normal S1 normal S2 no murmurs or gallops. Abdomen soft nontender Extremities warm no edema Impression acute myocardial infarction non-Q-wave CO Suggest Patient will go home from a cardiac standpoint Continue his parallel tone carvedilol isosorbide mononitrate atorvastatin and aspirin Continue Ranexa and Plavix Follow-up with Dr. Hollis Continue Lasix Objective - Vital Signs Vital signs: Vital Signs Temp 96.0 F L 08/18/18 11:10 Pulse 64 08/18/18 11:10 Resp 18 08/18/18 11:10 BP 98/57 08/18/18 11:10 Pulse Ox 92 L 08/18/18 11:10 Intake & Output 08/18/18 08/18/18 08/19/18 06:59 18:59 06:59 Intake Total 20 360 Balance 20 360 Weight 84 kg Intake: IV 20 0.9 20 Oral 360 - Labs CBC & Chem 7: 08/18/18 07:19 08/18/18 07:19 Labs: Abnormal Lab Results - Last 24 Hours (Table) 08/17/18 08/18/18 08/18/18 Range/Units 21:02 06:14 07:19 RBC (4.30-5.90) m/uL Hgb (13.0-17.5) gm/dL Hct (39.0-53.0) % Lymphocytes # (1.0-4.8) k/uL BUN 25 H (9-20) mg/dL Creatinine 1.41 H (0.66-1.25) mg/dL Glucose 136 H (74-99) mg/dL POC Glucose (mg/dL) 168 H 141 H (75-99) mg/dL 08/18/18 08/18/18 Range/Units 07:19 11:30 RBC 3.79 L (4.30-5.90) m/uL Hgb 11.6 L (13.0-17.5) gm/dL Hct 34.8 L (39.0-53.0) % Lymphocytes # 0.8 L (1.0-4.8) k/uL BUN (9-20) mg/dL Creatinine (0.66-1.25) mg/dL Glucose (74-99) mg/dL POC Glucose (mg/dL) 164 H (75-99) mg/dL
--- NOTE | 2018-08-19 15:01 | CDI ---
Documentation Clarification Form Date: 08/19/18 From: Laly Harrison Phone: If you have a question regarding this query, please contact Eufemia Villa at [phone] between 8am and 5pm Admit Date: 08/15/2018 4:47:00 AM Patient Name: Gurpreet Hutchinson Visit Number: [id number] Discharge Date: 08/18/2018 2:00:00 PM ATTENTION: The Clinical Documentation Specialists (CDI) and [facility] Coding Staff appreciate your assistance in clarifying documentation. Please respond to the clarification below the line at the bottom and electronically sign. The CDI & [facility] Coding staff will review the response and follow-up if needed. Please note: Queries are made part of the Legal Health Record. If you have any questions, please contact the author of this message via ITS. Suzette Layne NP/Dr. Blake Wright Acute heart failure is documented in your consult note. History/Risk Factors: Patient was admitted for NSTEMI and has extensive severe CAD. The patient has a history of previous CABG and stent placement. The patient also has a history of ischemic cardiomyopathy, hypertension, previous MD, diabetes and hyperlipidemia. Clinical Indicators: Elevated BNP, dyspnea VS/Pulse OX: T. 97.3, P. 87, R. 22, BP 141/82, Pulse ox 95% BNP: 2490 Echocardiogram Results: Ejection fraction between 40 - 45%. Chest X Ray: Worsening consolidation bilaterally. Developing pleural effusion on the right. Treatment: IV Lasix In your professional opinion, can you please clarify the acuity and type of CHF if known? Systolic Heart Failure: Acute Chronic Acute on Chronic Diastolic Heart Failure: Acute Chronic Acute on Chronic Systolic & Diastolic Heart Failure: Acute Chronic Acute on Chronic Heart Failure Unable to Determine Other, please specify MTDD
== END 2018-08-18 14:00 | disposition home or self-care (01) | DRG 280 ==
LOC: EC 01:43 → 3SCARD 04:47
PROVIDERS: ADMIT Family Medicine; ATTEND Family Medicine
PROC: B2111ZZ Fluoroscopy of Multiple Coronary Arteries using Low Osmolar Contrast (ICD-10-PCS; 2018-08-15)
PROC: B2131ZZ Fluoroscopy of Multiple Coronary Artery Bypass Grafts using Low Osmolar Contrast (ICD-10-PCS; 2018-08-15)
PROC: 4A023N7 Measurement of Cardiac Sampling and Pressure, Left Heart, Percutaneous Approach (ICD-10-PCS; principal; 2018-08-15 11:44)
DX: I21.4 Non-ST elevation (NSTEMI) myocardial infarction (principal); J96.21 Acute and chronic respiratory failure with hypoxia; I50.23 Acute on chronic systolic (congestive) heart failure; I25.710 Atherosclerosis of autologous vein coronary artery bypass graft(s) with unstable angina pectoris; I25.5 Ischemic cardiomyopathy; E11.40 Type 2 diabetes mellitus with diabetic neuropathy, unspecified; I11.0 Hypertensive heart disease with heart failure; E78.5 Hyperlipidemia, unspecified; F34.1 Dysthymic disorder; G47.33 Obstructive sleep apnea (adult) (pediatric); I08.0 Rheumatic disorders of both mitral and aortic valves; I25.2 Old myocardial infarction; K21.9 Gastro-esophageal reflux disease without esophagitis; M19.90 Unspecified osteoarthritis, unspecified site; N40.1 Benign prostatic hyperplasia with lower urinary tract symptoms; R33.8 Other retention of urine; B19.20 Unspecified viral hepatitis C without hepatic coma; H26.9 Unspecified cataract; I16.0 Hypertensive urgency; K30 Functional dyspepsia; E66.9 Obesity, unspecified; Z68.32 Body mass index [BMI] 32.0-32.9, adult; Z79.02 Long term (current) use of antithrombotics/antiplatelets; Z79.82 Long term (current) use of aspirin; Z79.4 Long term (current) use of insulin; Z79.899 Other long term (current) drug therapy; Z90.49 Acquired absence of other specified parts of digestive tract; Z95.5 Presence of coronary angioplasty implant and graft; Z95.1 Presence of aortocoronary bypass graft; Z57.4 Occupational exposure to toxic agents in agriculture; Z88.0 Allergy status to penicillin; Z88.8 Allergy status to other drugs, medicaments and biological substances; Z81.1 Family history of alcohol abuse and dependence; Z84.89 Family history of other specified conditions
CPT/HCPCS: 36415; 51702; 70450; 71045; 71046; 80048; 80053; 81001; 83605; 83735; 83880; 84484; 85025; 85610; 85730; 87502; 93005; 93306; 93459; 94640; 94660; 94760; 96360; 96361; 96365; 96366; 96374; 96375; 96376; 99285; 99291

== ENCOUNTER 2019-02-17 12:28 | Inpatient (IN) | payer MEDICARE ==
[2019-02-17 13:50] LABS: Basophils # (A) 0.1 k/uL (0-0.2); Basophils % (A) 2 %; Eosinophils # (A) 0.1 k/uL (0-0.7); Eosinophils % (A) 2 %; HCT 38.7 % (39.0-53.0); HGB 12.1 gm/dL (13.0-17.5); Lymphocytes # (A) 0.6 k/uL (1.0-4.8); Lymphocytes % (A) 9 %; MCH 31.6 pg (25.0-35.0); MCHC 31.4 g/dL (31.0-37.0); MCV 100.6 fL (80.0-100.0); Macrocytosis Slight; Mean Platelet Volume 7.3; Monocytes # (A) 0.4 k/uL (0-1.0); Monocytes % (A) 6 %; Neutrophils # (A) 5.4 k/uL (1.3-7.7); Neutrophils % (A) 79 %; Platelet Count 188 k/uL (150-450); RBC 3.84 m/uL (4.30-5.90); RDW 14.5 % (11.5-15.5); WBC 6.8 k/uL (3.8-10.6)
[2019-02-17 14:02] LABS: Calcium 9.3 mg/dL (8.4-10.2); INR 0.9 (<1.2); Partial Thromboplastin Time 24.8 sec (22.0-30.0); Prothrombin Time 10.2 sec (9.0-12.0); Total Bilirubin 0.6 mg/dL (0.2-1.3)
[2019-02-17 14:10] LABS: Potassium 6.9 mmol/L (3.5-5.1)
[2019-02-17] MEDS ORDERED: INSULIN REGULAR 100 UNIT/ML VIAL IV ONE (14:21)
[2019-02-17] MEDS ORDERED: ALBUTEROL NEBULIZED 2.5 MG/3 ML INHALATION STA (14:21)
[2019-02-17] MEDS ORDERED: DEXTROSE 50% SYRINGE 50 ML IVP STA (14:21)
--- NOTE | 2019-02-17 14:21 | XR ---
EXAMINATION TYPE: XR chest 2V DATE OF EXAM: 02/17/2019 COMPARISON: 08/15/2018 TECHNIQUE: PA and lateral views submitted. HISTORY: Altered mental status FINDINGS: Postsurgical changes noted. There is a mild cardiomegaly and interstitial prominence. Arthropathy of the shoulders. No pneumothorax. Basilar consolidation and small effusion noted. Hypertrophic and dege nerative change of the spine. Surgical clips in the abdomen. IMPRESSION: Right basilar atelectasis or infiltrate with tiny effusion. Mild central venous congestio n in the differential diagnosis.
--- NOTE | 2019-02-17 14:30 | CT ---
EXAMINATION TYPE: CT brain wo con DATE OF EXAM: 02/17/2019 COMPARISON: 08/13/2018 HISTORY: Weakness and tremor CT DLP: 1106.4 mGycm Automated exposure control for dose reduction was used. FINDINGS: There is intracranial atherosclerotic changes. There is extensive increased density involving the bas ilar artery which appears to be calcific. Significant stenosis in the differential diagnosis. Calcifi cations in the basal ganglia are noted. There is diffuse low-attenuation in the white matter bilatera lly which is nonspecific. Mild generalized degenerative change. No mass effect or midline shift. IMPRESSION: 1. DEGENERATIVE AND NONSPECIFIC WHITE MATTER CHANGES MOST TYPICAL OF REMOTE WHITE MATTER ISCHEMIA. IF THERE IS CONCERN FOR ACUTE ISCHEMIA CORRELATE WITH MRI CLINICALLY WARRANTED. 2. THERE IS HYPERDENSITY WITHIN THE BASILAR ARTERY WHICH APPEARS STABLE AND LIKELY REPRESENTS CALCIFI ED SIGNIFICANT ATHEROSCLEROTIC PLAQUE.
[2019-02-17] MEDS ORDERED: ALBUTEROL NEB (CONC) 2.5 MG/0.5 ML INHALATION STA (14:37)
[2019-02-17] MEDS ORDERED: SODIUM CHLORIDE 0.9% 1,000 ML IV STA (15:27)
--- NOTE | 2019-02-17 15:31 | ED ---
General Adult HPI - General Chief complaint: Recheck/Abnormal Lab/Rx Stated complaint: Decreased mobility Time Seen by Provider: 02/17/19 12:30 Source: family Mode of arrival: EMS Limitations: no limitations - History of Present Illness Initial comments: The patient is a 68-year-old male who presents to the emergency room with reported tremors and weakness. The patient reports that he went to bed last night and was well. He will woke up this morning and felt extremely weak in his bilateral lower extremities. States he attempted to place weight on them however they felt like they were going to give out underneath him. at bedside states that she does believe he has been weak since Friday. They went to dinner and she felt as if the patient was dragging his left leg behind him. This morning she states that his symptoms seemed worse. He was slightly confused with slurred speech. No history of similar in the past. Denies a history of CVA or TIA. The patient denies any chest pain or shortness of breath. No fevers or chills. Denies any headaches or visual changes. No recent head trauma. No fevers or chills. No recent medication changes. Denies any changes in his bowel or bladder habits. No back pain or flank pain. No color change, warmth or redness to the he lower extremities. Denies back or flank pain. No saddle anesthesia. There are no alleviating, precipitating or modifying factors - Related Data Home Medications Medication Instructions Recorded Confirmed Pantoprazole Sodium [Protonix] 40 mg PO DAILY 04/05/15 02/17/19 Aspirin [Adult Low Dose Aspirin EC] 81 mg PO DAILY 03/05/17 02/17/19 Ubidecarenone [Co Q-10] 400 mg PO DAILY 04/25/17 02/17/19 Clopidogrel [Plavix] 75 mg PO DAILY 07/14/18 02/17/19 Fluticasone Nasal [place] [Flonase 1 spray EA NOSTRIL BID 07/14/18 02/17/19 Nasal [place]] Nitroglycerin Sl Tabs [Nitrostat] 0.4 mg SUBLINGUAL Q5M PRN 07/14/18 02/17/19 Ranolazine [Ranexa] 1,000 mg PO BID 07/14/18 02/17/19 Escitalopram [Lexapro] 20 mg PO DAILY 02/17/19 02/17/19 Finasteride [Proscar] 5 mg PO DAILY 02/17/19 02/17/19 Tamsulosin [Flomax] 0.4 mg PO BID 02/17/19 02/17/19 Previous Rx's Medication Instructions Recorded Pregabalin [Lyrica] 100 mg PO BID cap 07/16/18 Mirtazapine [Remeron] 15 mg PO HS #30 tab 07/20/18 Atorvastatin [Lipitor] 80 mg PO HS #30 tab 08/18/18 Carvedilol [Coreg*] 12.5 mg PO BID-W/MEALS #60 tab 08/18/18 Isosorbide Mononitrate ER [Imdur] 30 mg PO DAILY #30 tab.er.24h 08/18/18 Losartan [Cozaar] 25 mg PO HS #0 08/18/18 Spironolactone [Aldactone] 25 mg PO DAILY #30 tab 08/18/18 Allergies Allergy/AdvReac Type Severity Reaction Status Date / Time Penicillins Allergy Anaphylaxis Verified 02/17/19 12:49 simvastatin [From Zocor] AdvReac SEVERE Verified 02/17/19 12:49 JOINT PAIN Review of Systems ROS Statement: Those systems with pertinent positive or pertinent negative responses have been documented in the HPI. ROS Other: All systems not noted in ROS Statement are negative. Past Medical History Past Medical History: Coronary Artery Disease (CAD), Chest Pain / Angina, Diabetes Mellitus, Eye Disorder, GERD/Reflux, Hyperlipidemia, Hypertension, Myocardial Infarction ([place]), Osteoarthritis (OA), Prostate Disorder, Sleep Apnea/CPAP/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 CATARACT RT EYE Last Myocardial Infarction Date:: 2003? History of Any Multi-Drug Resistant Organisms: None Reported Past Surgical History: Cholecystectomy, Coronary Bypass/CABG, Heart Catheterization With Stent, Orthopedic Surgery Additional Past Surgical History / Comment(s): RT WRIST GANGLION CYST REMOVED.has had stents post cabg not sure how many or what arteries they are in. CABG 2000, COLONOSCOPY, EGD, Past Anesthesia/Blood Transfusion Reactions: Motion Sickness Date of Last Stent Placement:: 2003 Past Psychological History: Depression Smoking Status: Never smoker Past Alcohol Use History: Occasional Past Drug Use History: None Reported - Past Family History Father History Unknown: Yes Additional Family Medical History / Comment(s): PT ADOPTED Mother History Unknown: Yes Additional Family Medical History / Comment(s): PT ADOPTED Brother(s) Additional Family Medical History / Comment(s): did find several brothers that had also been adopted out one from agent orange exposure/complications, one from etoh abuse, and one from chino gehrig's disease. General Exam Limitations: no limitations General appearance: alert, in no apparent distress Head exam: Present: atraumatic, normocephalic, normal inspection Eye exam: Present: normal appearance, PERRL, EOMI. Absent: scleral icterus, conjunctival injection, periorbital swelling ENT exam: Present: normal exam, mucous membranes moist Neck exam: Present: normal inspection. Absent: tenderness, meningismus, lymphadenopathy Respiratory exam: Present: normal lung sounds bilaterally. Absent: respiratory distress, wheezes, rales, rhonchi, stridor Cardiovascular Exam: Present: regular rate, normal rhythm, normal heart sounds. Absent: systolic murmur, diastolic murmur, rubs, gallop, clicks GI/Abdominal exam: Present: soft, normal bowel sounds. Absent: distended, tenderness, guarding, rebound, rigid Extremities exam: Present: normal capillary refill, other (the patient has 4/5 strength in his RLE, 3/5 strength in his LLE. 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 Intact distal sensation. ). Absent: tenderness, pedal edema, joint swelling, calf tenderness Back exam: Present: normal inspection Neurological exam: Present: alert, oriented X3, CN II-XII intact, other (No dysarthria or aphasia noted on my exam) Psychiatric exam: Present: normal affect, normal mood Skin exam: Present: warm, dry, intact, normal color. Absent: rash Course Vital Signs 02/17/19 02/17/19 02/17/19 12:33 13:30 14:30 Temperature 97.9 F Pulse Rate 53 L 54 L 53 L Respiratory 18 18 18 Rate Blood Pressure 119/79 136/69 130/73 O2 Sat by Pulse 98 94 L 95 Oximetry 02/17/19 02/17/19 02/17/19 14:42 14:56 15:30 Temperature Pulse Rate 54 L 56 L 53 L Respiratory 18 Rate Blood Pressure 110/58 O2 Sat by Pulse 96 Oximetry 02/17/19 02/17/19 17:30 18:30 Temperature 97.9 F Pulse Rate 53 L 53 L Respiratory 18 18 Rate Blood Pressure 130/67 117/87 O2 Sat by Pulse 94 L 96 Oximetry EKG Findings - EKG Comments: EKG Findings:: EKG demonstrates a sinus bradycardia with a first-degree AV block. Ventricular rate of 51. [place] interval is 272. QRS 86. QTC 400. No acute ST segment elevations or depressions concerning for ischemic changes. Q waves in lead 3. Medical Decision Making - Medical Decision Making Upon arrival a thorough history and physical exam was performed. Patient was placed into room 11. His does present to bedside and reports a history. Her concern for left lower extremity weakness with slurred speech. I did encourage a stroke workup. Symptom onset was on Friday when the first no pete the patient dragging his left lower extremity. DI dd recommend laboratory studies and a CT of the patient's brain. Lab studies demonstrated a hemoglobin 12.1. Potassium is 6.9. Creatinine 1.1. Glucose 118. Troponin is negative. 12-lead EKG was performed which demonstrated a normal sinus rhythm. CT brain demonstrates no acute intracranial findings. Chest x-ray demonstrates a right basilar atelectasis or infiltrate with tiny effusion. I discussed these results with the patient. He reports no fever or cough at this time. I will hold off on treating the patient for pneumonia as he has no clinical signs. I did provide the patient with 10 mg of albuterol, an amp of dextrose and 10 units of IV insulin for his hyperkalemia. I will repeat his labs after 4 hours. I did recommend hospital admission for which the patient did agree. I called and discussed the case with Dr. Benz. He does request a nephro and neuro consult. I will also order carotid dopplers and echo. The patient was placed on telemetry monitoring. I will hold spironolactone. The patient agreed to the treatment plan and was transported to the floor in stable condition - Lab Data Result diagrams: 02/18/19 06:45 02/18/19 06:45 Lab Results 02/17/19 02/17/19 02/17/19 Range/Units 13:40 13:40 13:40 WBC 6.8 (3.8-10.6) k/uL RBC 3.84 L (4.30-5.90) m/uL Hgb 12.1 L (13.0-17.5) gm/dL Hct 38.7 L (39.0-53.0) % MCV 100.6 H (80.0-100.0) fL MCH 31.6 (25.0-35.0) pg MCHC 31.4 (31.0-37.0) g/dL RDW 14.5 (11.5-15.5) % Plt Count 188 (150-450) k/uL Neutrophils % 79 % Lymphocytes % 9 % Monocytes % 6 % Eosinophils % 2 % Basophils % 2 % Neutrophils # 5.4 (1.3-7.7) k/uL Lymphocytes # 0.6 L (1.0-4.8) k/uL Monocytes # 0.4 (0-1.0) k/uL Eosinophils # 0.1 (0-0.7) k/uL Basophils # 0.1 (0-0.2) k/uL Macrocytosis Slight PT 10.2 (9.0-12.0) sec INR 0.9 (<1.2) APTT 24.8 (22.0-30.0) sec Sodium 139 (137-145) mmol/L Potassium 6.9 H* (3.5-5.1) mmol/L Chloride 105 (98-107) mmol/L Carbon Dioxide 29 (22-30) mmol/L Anion Gap 5 mmol/L BUN 23 H (9-20) mg/dL Creatinine 1.11 (0.66-1.25) mg/dL Est GFR (CKD-EPI)AfAm 78 (>60 ml/min/1.73 sqM) Est GFR (CKD-EPI)NonAf 68 (>60 ml/min/1.73 sqM) Glucose 118 H (74-99) mg/dL Calcium 9.3 (8.4-10.2) mg/dL Total Bilirubin 0.6 (0.2-1.3) mg/dL AST 23 (17-59) U/L ALT 23 (21-72) U/L Alkaline Phosphatase 92 (38-126) U/L Troponin I (0.000-0.034) ng/mL Total Protein 7.0 (6.3-8.2) g/dL Albumin 4.0 (3.5-5.0) g/dL 02/17/19 Range/Units 13:40 WBC (3.8-10.6) k/uL RBC (4.30-5.90) m/uL Hgb (13.0-17.5) gm/dL Hct (39.0-53.0) % MCV (80.0-100.0) fL MCH (25.0-35.0) pg MCHC (31.0-37.0) g/dL RDW (11.5-15.5) % Plt Count (150-450) k/uL Neutrophils % % Lymphocytes % % Monocytes % % Eosinophils % % Basophils % % Neutrophils # (1.3-7.7) k/uL Lymphocytes # (1.0-4.8) k/uL Monocytes # (0-1.0) k/uL Eosinophils # (0-0.7) k/uL Basophils # (0-0.2) k/uL Macrocytosis PT (9.0-12.0) sec INR (<1.2) APTT (22.0-30.0) sec Sodium (137-145) mmol/L Potassium (3.5-5.1) mmol/L Chloride (98-107) mmol/L Carbon Dioxide (22-30) mmol/L Anion Gap mmol/L BUN (9-20) mg/dL Creatinine (0.66-1.25) mg/dL Est GFR (CKD-EPI)AfAm (>60 ml/min/1.73 sqM) Est GFR (CKD-EPI)NonAf (>60 ml/min/1.73 sqM) Glucose (74-99) mg/dL Calcium (8.4-10.2) mg/dL Total Bilirubin (0.2-1.3) mg/dL AST (17-59) U/L ALT (21-72) U/L Alkaline Phosphatase (38-126) U/L Troponin I <0.012 (0.000-0.034) ng/mL Total Protein (6.3-8.2) g/dL Albumin (3.5-5.0) g/dL Disposition Clinical Impression: Lower extremity weakness, Hyperkalemia, Difficulty balancing when standing Disposition: ADMITTED IP TO THIS [facility] Condition: Serious Is patient prescribed a controlled substance at d/c from ED?: No Decision to Admit Reason: Admit from EC Decision Date: 02/17/19 Decision Time: 16:27
[2019-02-17] MEDS ORDERED: ALBUTEROL NEB (CONC) 2.5 MG/0.5 ML INHALATION SCH (16:00)
[2019-02-17] MEDS ORDERED: NALOXONE 0.4 MG/ML 1 ML VIAL IV PRN (16:27)
--- NOTE | 2019-02-17 17:23 | US ---
EXAMINATION TYPE: US carotid duplex BILAT DATE OF EXAM: 02/17/2019 COMPARISON: Prior carotid ultrasound October 25, 2016 CLINICAL HISTORY: weakness, possible cva/tia. Left leg weakness today. Patient stated has right ICA o cclusion EXAM MEASUREMENTS: RIGHT: Peak Systolic Velocity (PSV) cm/sec ----- Right CCA: 33.9 ----- Right ICA: 92.4 proximal bulb ----- Right ECA: 65.3 proximal ICA/CCA ratio: 2.7 RIGHT: End Diastole cm/sec ----- Right CCA: 0.0 ----- Right ICA: 0.0 ----- Right ECA: 0.0 LEFT: Peak Systolic Velocity (PSV) cm/sec ----- Left CCA: 56.7 ----- Left ICA: 80.5 ----- Left ECA: 68.6 ICA/CCA ratio: 1.4 LEFT: End Diastole cm/sec ----- Left CCA: 21.0 ----- Left ICA: 31.5 ----- Left ECA: 2.5 VERTEBRALS (direction of flow): Right Vertebral: Antegrade Left Vertebral: Antegrade Rhythm: Normal Absent color flow and PW Doppler is noted proximal and distal Right ICA. Some color flow is noted mid right ICA lumen and may be short segment anastomosis with Right ECA, however, no audible Pulse Doppl er signal or color flow is noted distally. Hyperechoic echoes are noted within right ICA. Moderate wa ll plaque is noted in Left ICA, and mild wall changes are noted left ECA. IMPRESSION: New or recurrent complete occlusion of the distal right internal carotid artery is thoug ht present. Consider CTA study to better evaluate. Criteria for Assigning % of Stenosis / Diameter reduction (Estimation based on the indirect measurements of the internal carotid artery velocities (ICA PSV). 1. Normal (no stenosis)=ICA PSV < 125 cm/s: ratio < 2.0: ICA EDV<40 cm/s. 2. Less than 50% stenosis=ICA PSV < 125 cm/s: ratio < 2.0: ICA EDV<40 cm/s. 3. 50 to 69% stenosis=ICA PSV of 125 to 230 cm/s: ration 2.0 ? 4.0: ICA EDV 40-100 cm/s. 4. Greater than 70% stenosis to near occlusion= ICA PSV > 230 cm/s: ratio > 4.0: ICA EDV > 100 cm/s. 5. Near occlusion= ICA PSV velocities may be low or undetectable: variable ratio and ICA EDV. 6. Total occlusion=unable to detect flow.
[2019-02-17] MEDS: PREGABALIN 100 MG CAP PO SCH (20:42)
[2019-02-17] MEDS: ATORVASTATIN 80 MG TAB PO SCH (20:42)
[2019-02-17] MEDS: RANOLAZINE 500 MG TAB.ER.12H PO SCH (20:42)
[2019-02-17] MEDS ORDERED: TAMSULOSIN 0.4 MG CAP.ER.24H PO SCH (21:00)
[2019-02-17] MEDS ORDERED: LOSARTAN 25 MG TAB PO SCH (21:00)
[2019-02-17 21:14] LABS: Glucose,Whole Blood 145 mg/dL (75-99)
[2019-02-17] MEDS: CARVEDILOL 12.5 MG TAB PO SCH (22:35)
[2019-02-18 02:14] LABS: Appearance,Urine Clear (Clear); Bilirubin,Urine Negative (Negative); Blood,Urine Negative (Negative); Color,Urine Yellow; Glucose,Urine (UA) Negative (Negative); Ketones,Urine Negative (Negative); Leukocyte Esterase,Urine Negative (Negative); Nitrite,Urine Negative (Negative); PH, Urine 7.5 (5.0-8.0); Protein,Urine Negative (Negative); Specific Gravity,Urine 1.009 (1.001-1.035); Urobilinogen,Urine <2.0 mg/dL (<2.0)
[2019-02-18 06:30] LABS: Glucose,Whole Blood 86 mg/dL (75-99)
[2019-02-18] MEDS: PANTOPRAZOLE 40 MG TABLET PO SCH (06:30)
[2019-02-18] MEDS: CARVEDILOL 12.5 MG TAB PO SCH ×2 (06:30→17:16)
[2019-02-18 07:23] LABS: Basophils % (A) 0 %; Eosinophils # (A) 0.1 k/uL (0-0.7); Eosinophils % (A) 1 %; HCT 39.7 % (39.0-53.0); Lymphocytes # (A) 0.7 k/uL (1.0-4.8); Lymphocytes % (A) 11 %; MCH 32.9 pg (25.0-35.0); MCHC 32.8 g/dL (31.0-37.0); MCV 100.2 fL (80.0-100.0); Macrocytosis Slight; Mean Platelet Volume 6.4; Monocytes # (A) 0.4 k/uL (0-1.0); Monocytes % (A) 6 %; Neutrophils # (A) 5.1 k/uL (1.3-7.7); Neutrophils % (A) 79 %; Platelet Count 214 k/uL (150-450); RBC 3.96 m/uL (4.30-5.90); RDW 14.3 % (11.5-15.5); WBC 6.4 k/uL (3.8-10.6)
[2019-02-18 07:28] LABS: Basophils % (A) 1 %; Eosinophils # (A) 0.1 k/uL (0-0.7); Eosinophils % (A) 1 %; HCT 40.8 % (39.0-53.0); HGB 12.7 gm/dL (13.0-17.5); Lymphocytes # (A) 0.7 k/uL (1.0-4.8); Lymphocytes % (A) 10 %; MCH 31.2 pg (25.0-35.0); MCHC 31.1 g/dL (31.0-37.0); MCV 100.4 fL (80.0-100.0); Macrocytosis Slight; Mean Platelet Volume 7.2; Monocytes # (A) 0.3 k/uL (0-1.0); Monocytes % (A) 5 %; Neutrophils # (A) 5.6 k/uL (1.3-7.7); Neutrophils % (A) 82 %; Platelet Count 209 k/uL (150-450); RBC 4.07 m/uL (4.30-5.90); RDW 14.6 % (11.5-15.5); WBC 6.8 k/uL (3.8-10.6)
[2019-02-18 07:34] LABS: Albumin 4.2 g/dL (3.5-5.0); Calcium 9.4 mg/dL (8.4-10.2); Magnesium 1.8 mg/dL (1.6-2.3); Potassium 5.5 mmol/L (3.5-5.1); Total Protein 7.4 g/dL (6.3-8.2)
[2019-02-18] MEDS: ISOSORBIDE MONONITRATE ER 30 MG TAB.ER.24H PO SCH (08:38)
[2019-02-18] MEDS: CLOPIDOGREL 75 MG TAB PO SCH (08:39)
[2019-02-18] MEDS: ASPIRIN 81 MG PO SCH (08:39)
[2019-02-18] MEDS: PREGABALIN 100 MG CAP PO SCH ×2 (08:39→20:52)
[2019-02-18] MEDS: ESCITALOPRAM 20 MG TAB PO SCH (08:39)
[2019-02-18] MEDS: TAMSULOSIN 0.4 MG CAP.ER.24H PO SCH (08:39)
[2019-02-18] MEDS: RANOLAZINE 500 MG TAB.ER.12H PO SCH ×2 (08:39→20:52)
[2019-02-18] MEDS: FINASTERIDE 5 MG TAB PO SCH (08:39)
[2019-02-18] MEDS ORDERED: FAMOTIDINE 20 MG TAB ONE (08:44)
[2019-02-18] MEDS ORDERED: HEPARIN SODIUM,PORCINE 5,000 UNIT/ML 1 ML VIAL ONE (08:44)
[2019-02-18] MEDS: HEPARIN SODIUM,PORCINE 5,000 UNIT/ML 1 ML VIAL SQ SCH ×2 (08:46→20:52)
[2019-02-18] MEDS: FAMOTIDINE 20 MG TAB PO SCH (08:46)
[2019-02-18] MEDS ORDERED: FUROSEMIDE 10 MG/ML 4 ML VIAL IV STA (09:29)
[2019-02-18] MEDS ORDERED: FUROSEMIDE 10 MG/ML 4 ML VIAL ONE (09:57)
--- NOTE | 2019-02-18 11:15 | P.HPIM ---
History of Present Illness H&P Date: 02/18/19 Chief Complaint: TIA/CVA, lower extremity weakness, severe hyperkalemia, carotid stenosis 68-year-old male one of Dr. Stokes's patient with past medical history of CAD, hypertension, hyperlipidemia with severe neuropathy who was in the hospital in July after an MRI had a PCI and stent placement done successfully. Also patient has been treated for ischemic cardiomyopathy and was started on Aldactone few month ago. He developed to have severe generalized weakness all over his body but worsening in the lower extremity not been able to ambulate and walk had more weakness in the left side than the right side and did not feel well ended up coming to the emergency department at [facility] where was seen and evaluated surprisingly his potassium was very high at 6.9 after treating his potassium supplement 1 hydration patient continued to have slight w eakness in the left side compared to the right side his lower extremity weakness has improved some he was admitted to the hospital for TIA/CVA and for further workup to make sure it's going on is not related to transmyelitis or any we are type of neuropathy or central nervous system problem. Review of Systems CONSTITUTIONAL: Well-developed no acute respiratory distress. Overweight EYES: No icterus sclerae, no conjunctivitis. EARS, NOSE, MOUTH, THROAT, and FACE: No sore throat, lymphadenopathy, carotid bruits or deformity. RESPIRATORY: No SOB cough or wheezes. CARDIOVASCULAR: Positive PND orthopnea or angina is edema GASTROINTESTINAL: No Abd pain, Nausea or vomiting, no Diarrhea or constipation, No GI Bleed, no distention or masses. GENITOURINARY: Negative for Hematuria or UTI, no kidney stones. Mild BPH symptoms INTEGUMENT/BREAST: Negative for any muscular injury with mild osteoarthritis.. HEMATOLOGIC/LYMPHATIC: Negative for bleed or purpura. MUSCULOSKELTAL: Negative for Myalgia or arthralgia. NEURLOGICAL: Positive weakness in the left side with generalized weakness worsening in the lower extremity than upper extremity. BEHAVIORAL/PSYCH: Negative. ENDOCRINE: Negative. Past Medical History Past Medical History: Coronary Artery Disease (CAD), Chest Pain / Angina, Diabetes Mellitus, Eye Disorder, GERD/Reflux, Hyperlipidemia, Hypertension, Myocardial Infarction (RI), Osteoarthritis (OA), Prostate Disorder, Sleep Apnea/CPAP/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 CATARACT RT EYE Last Myocardial Infarction Date:: 2018 History of Any Multi-Drug Resistant Organisms: None Reported Past Surgical History: Cholecystectomy, Coronary Bypass/CABG, Heart Catheterization With Stent, Orthopedic Surgery Additional Past Surgical History / Comment(s): RT WRIST GANGLION CYST REMOVED.has had stents post cabg not sure how many or what arteries they are in. CABG 2000, COLONOSCOPY, EGD, Past Anesthesia/Blood Transfusion Reactions: Motion Sickness Date of Last Stent Placement:: 2003 Past Psychological History: Depression Smoking Status: Never smoker Past Alcohol Use History: Occasional Past Drug Use History: None Reported - Past Family History Father History Unknown: Yes Additional Family Medical History / Comment(s): PT ADOPTED Mother History Unknown: Yes Additional Family Medical History / Comment(s): PT ADOPTED Brother(s) Additional Family Medical History / Comment(s): did find several brothers that had also been adopted out one from agent orange exposure/complications, one from etoh abuse, and one from chino gehrig's disease. Medications and Allergies Home Medications Medication Instructions Recorded Confirmed Type Pantoprazole Sodium [Protonix] 40 mg PO DAILY 04/05/15 02/17/19 History Aspirin [Adult Low Dose Aspirin EC] 81 mg PO DAILY 03/05/17 02/17/19 History Ubidecarenone [Co Q-10] 400 mg PO DAILY 04/25/17 02/17/19 History Clopidogrel [Plavix] 75 mg PO DAILY 07/14/18 02/17/19 History Fluticasone Nasal [place] [Flonase 1 spray EA NOSTRIL BID 07/14/18 02/17/19 History Nasal [place]] Nitroglycerin Sl Tabs [Nitrostat] 0.4 mg SUBLINGUAL Q5M PRN 07/14/18 02/17/19 History Ranolazine [Ranexa] 1,000 mg PO BID 07/14/18 02/17/19 History Pregabalin [Lyrica] 100 mg PO BID cap 07/16/18 02/17/19 Rx Mirtazapine [Remeron] 15 mg PO HS #30 tab 07/20/18 02/17/19 Rx Atorvastatin [Lipitor] 80 mg PO HS #30 tab 08/18/18 02/17/19 Rx Carvedilol [Coreg*] 12.5 mg PO BID-W/MEALS #60 tab 08/18/18 02/17/19 Rx Isosorbide Mononitrate ER [Imdur] 30 mg PO DAILY #30 tab.er.24h 08/18/1801/28 Rx Losartan [Cozaar] 25 mg PO HS #0 08/18/18 02/17/19 Rx Spironolactone [Aldactone] 25 mg PO DAILY #30 tab 08/18/18 02/17/19 Rx Escitalopram [Lexapro] 20 mg PO DAILY 02/17/19 02/17/19 History Finasteride [Proscar] 5 mg PO DAILY 02/17/19 02/17/19 History Tamsulosin [Flomax] 0.4 mg PO BID 02/17/19 02/17/19 History Allergies Allergy/AdvReac Type Severity Reaction Status Date / Time Penicillins Allergy Anaphylaxis Verified 02/17/19 12:49 simvastatin [From Zocor] AdvReac SEVERE Verified 02/17/19 12:49 JOINT PAIN Physical Exam Vitals: Vital Signs Temp Pulse Pulse Resp BP BP Pulse Ox 02/18/19 04:00 57 L 18 02/18/19 00:00 98.0 F 52 L 18 135/77 96 02/17/19 21:44 95 02/17/19 20:40 97.7 F 64 18 147/89 95 02/17/19 20:31 97.7 F 64 16 147/89 95 02/17/19 18:30 97.9 F 53 L 18 117/87 96 02/17/19 17:30 53 L 18 130/67 94 L 02/17/19 15:30 53 L 18 110/58 96 02/17/19 14:56 56 L 02/17/19 14:42 54 L 02/17/19 14:30 53 L 18 130/73 95 02/17/19 13:30 54 L 18 136/69 94 L 02/17/19 12:33 97.9 F 53 L 18 119/79 98 Intake and Output 02/17/19 02/17/19 02/18/19 14:59 22:59 06:59 Other: Voiding Method Toilet Toilet # Voids 1 Weight 85 kg 85 kg General Appearance: Alert, cooperative, no distress, appears stated age. Mildly overweight Neck HEENT: Supple, no lymphadenopathy, no thyroid enlargement, no carotid bruits. Lungs: Clear to auscultation without crackles or wheezes no rhonchi, no deformity. Chest Wall: Decrease expansion with deep inspiration no tenderness and no deformity was found on exam, no costochondral pain or discomfort. Heart: Regular rate and rhythm, S1, S2 normal, positive S3 positive JVD with systolic murmur. Back: Symmetric, no curvature, ROM normal, no CVA tenderness. Abdomen: Soft, non-tender, bowel sounds active all four quadrants, no masses, no organomegaly. Extremities: Trace edema decreased pulses dorsalis pedis bilaterally with mild osteoarthritis in both knees. Pulses: 2+ and symmetric. Skin: Skin color, texture, tugor normal, no rashes or lesions. Neurologic: Alert oriented x3 cranial nerves II through XII intact, positive weakness in the left side compared to the right side mostly the left upper extremity 2 out of 5 compared to before in the right side. Also has slight weakness of the lower extremity bilaterally with strength only Results CBC & Chem 7: 02/18/19 06:45 02/18/19 06:45 Labs: Abnormal Lab Results - Last 24 Hours (Table) 02/17/19 02/17/19 02/17/19 Range/Units 13:40 13:40 17:30 RBC 3.84 L (4.30-5.90) m/uL Hgb 12.1 L (13.0-17.5) gm/dL Hct 38.7 L (39.0-53.0) % MCV 100.6 H (80.0-100.0) fL Lymphocytes # 0.6 L (1.0-4.8) k/uL Potassium 6.9 H* 5.6 H (3.5-5.1) mmol/L BUN 23 H (9-20) mg/dL Glucose 118 H (74-99) mg/dL POC Glucose (mg/dL) (75-99) mg/dL 02/17/19 Range/Units 21:12 RBC (4.30-5.90) m/uL Hgb (13.0-17.5) gm/dL Hct (39.0-53.0) % MCV (80.0-100.0) fL Lymphocytes # (1.0-4.8) k/uL Potassium (3.5-5.1) mmol/L BUN (9-20) mg/dL Glucose (74-99) mg/dL POC Glucose (mg/dL) 145 H (75-99) mg/dL Thrombosis Risk Factor Assmnt - DVT/VTE Prophylaxis DVT/VTE Prophylaxis: Pharmacologic Prophylaxis ordered, Mechanical Prophylaxis ordered Assessment and Plan Plan: 1 CVA/TIA: Patient will be admitted to the hospital see neurology, echo, carotid and electronic device monitor be done continue to do neuro exam every 2 hours for now further testing including MRI of the brain CT of the neck and his carotid ultrasound to be done. 2 severe hyperkalemia: Most likely Iatrogenic will hold Aldactone for now, patient was giving Late, sodium bicarbonate continue hydration we'll consult nephrology. 3 severe stenosis of the carotid artery: Patient be going for CT of the neck for further decision if there is any stenosis extended above the jaw level or not and whether he need any intervention on it. 4 ischemic cardiomyopathy: Patient is seeing cardiology regular basis and Dr. Stokes with medication titrate recently. Still on Ranexa, Cozaar Plavix and Coreg. 6 5 post RI with angioplasty and stent placement from July patient has been doing well with medication no chest pain or angina lately still symptomatic with congestive heart failure and shortness of breath with exertion. 6 hyperlipidemia: Remain on atorvastatin 80 mg daily. 7 BPH: Patient remain on Proscar and Flomax. 8 chronic lower back pain: Remain on Lyrica and hydrocodone. 9 depression: Still on Lexapro, and Remeron. 10 GERD/GI prophylaxis: Patient still on pantoprazole. DVT prophylaxis: Knee-high VICKY hose and early mobilization. CODE STATUS: Full code. Admit patient to inpatient status for more than 2 nights.
[2019-02-18 11:50] LABS: Glucose,Whole Blood 92 mg/dL (75-99)
--- NOTE | 2019-02-18 12:51 | P.CNNES ---
History of Present Illness Consult date: 02/18/19 Reason for Consult: Possible stroke Chief complaint: Tremors and weakness in bilateral lower extremities History of Present Illness: HISTORY OF PRESENT ILLNESS: Thank you for allowing me to evaluate Mr. Gurpreet Hutchinson. Mr. Hutchinson is a 68-year-old man with past medical history of coronary artery dis ease, chest pain, diabetes, GERD, hyperlipidemia, hypertension, PA, osteoarthritis, sleep apnea, ?hepatitis C, pancreatitis, neuropathy, right eye cataract, prostate disorder, depression, who presented to [facility] for bilateral lower extremity weakness. Patient has had generalized weakness all over his body, but he realized that it was worsened in his lower extremities. The patient was initially seen in the emergency room, his potassium was high at 6.9, and was treated, but the patient continued to have low show any weakness. Patient states that he has had bilateral lower extremity weakness previously, and he was told it was from dehydration. Patient always has some tremors of breath, but that's his baseline. He states that he knew about the right artery blockage soon as about a couple of years ago. Patient does not remember why and how he found out about it. Patient endorses that he had numbness in his left index finger since he had a nail go through his tip of L finger, but otherwise he does not complain of any numbness or tingling. Patient denies any headache, nausea, vomiting, double/blurry vision, recent sickness. PAST MEDICAL HISTORY: coronary artery disease, chest pain, diabetes, GERD, hyperlipidemia, hypertension, PA, osteoarthritis, sleep apnea, ? Hepatitis C, pancreatitis, neuropathy, right eye cataract, prostate disorder, depression PAST SURGICAL HISTORY: CABG, cholecystectomy, heart catheterization with stent, orthopedic surgery HOME MEDICATIONS: Pantoprazole, aspirin, ranolazine, Plavix, nitroglycerin, Lyrica, mirtazapine, spironolactone, carvedilol, Imdur, atorvastatin, losartan, escitalopram, finasteride, tamsulosin ALLERGIES: Penicillin, simvastatin SOCIAL HISTORY: Never smoker. Social drinker. FAMILY HISTORY: Patient was adopted REVIEW OF SYSTEMS: The 14 systems are reviewed and no additional points are identified compared to the review of systems documented history and physical PHYSICAL EXAMINATION: VITAL SIGNS: T 97/7 HR 58 RR 18 BP 125/60 O2 sat 95% on RA GEN.: NAD, pleasant and cooperative HEENT: NCAT, sclera without icterus NECK: Supple SKIN AND EXTREMITIES: Warm to touch, no edema NEURO: MENTAL STATUS: Patient alert and oriented to self, place, time. Able to name the current president. Speech fluent, able to name and repeat, following all commands readily. No right and left disorientation, extinction to double si multaneous stimulation, finger agnosia, neglect. CRANIAL NERVES II THROUGH XII: II: Pupils are equal and reactive to light symmetrically. No afferent pupillary defect. Visual stark are intact. III, IV, : No ptosis. Extraocular movements full. No nystagmus. V: Facial sensation intact from V1-3. VII. No clear facial asymmetry. VIII: Hearing intact to finger rub bilaterally. IX, X: Symmetric palate elevation. XI: Shoulder shrug intact. XII: Tongue midline without fasciculation or atrophy. MOTOR: Normal bulk/tone. No tremor. Mild left upper extremity drift. Strength is 5/5 throughout all 4 extremities. SENSORY: Intact to light touch in all 4 extremities. Romberg is negative. REFLEXES: 2+ throughout. Toes are downgoing. COORDINATION: Finger to nose intact. No dysmetria. GAIT: Narrow-based and stable. Able to toe/heel/tandem walk DIAGNOSTIC TESTING: LABORATORY: WBC 6.4 hemoglobin 13.0 MCV 100.2 platelet 214 sodium 139 potassium 5.5 chloride 105 bicarb 26 BUN 22 creatinine 1.06 glucose 89 AST 25 ALT 26 alk phos urinalysis negative IMAGING: CT head without contrast 02/17/2019: Degenerative and nonspecific white matter changes typical of remote white matter disease. There is hyperdensity within the basilar artery which appears stable and likely represents calcified significant atherosclerotic plaque. Carotid Doppler bilateral 02/17/2019: New or recurrent complete occlusion of the distal right ICA. Present. Consider CT study to better evaluate. EKG 02/17/19: Sinus bradycardia with 1st degree AV block ASSESSMENT: Mr. Hutchinson is a 68-year-old man with past medical history of coronary artery disease, chest pain, diabetes, GERD, hyperlipidemia, hypertension, PA, osteoarthritis, sleep apnea, ?hepatitis C, pancreatitis, neuropathy, right eye cataract, prostate disorder, depression, who presented to [facility] for bilateral lower extremity weakness. Patient's symptoms have improved since admission, but on exam, patient noted to have left upper extremity drift. Patient with multiple risk factors for stroke. Recommend stroke workup and management RECOMMENDATIONS: 1. MRI brain without contrast 2. CTA of head and neck with and without contrast 3. Transthoracic echocardiogram (taken, awaiting final read) 4. Cardiac monitoring 5. Permissive HTN for 24-48 hours SBP >220. Give labetalol 10mg IV q1h PRN for SBP >220 DBP >110 6. Continue with plavix and atorvastatin 80mg 7. Labs: A1C, TSH, FLP 8. PT/OT/ST per protocol 9. Discussed with patient about stroke prevention guidelines. Medication compliance, hypertension/diabetes control, lifestyle changes including no smoking, drinking in moderation, losing weight, exercising, eating healthier 10. Neurology will continue to follow 11. Patient needs to follow up with neurologist as outpatient with her 1-2 weeks of discharge Past Medical History Past Medical History: Coronary Artery Disease (CAD), Chest Pain / Angina, Diabetes Mellitus, Eye Disorder, GERD/Reflux, Hyperlipidemia, Hypertension, Raghu cardial Infarction (PA), Osteoarthritis (OA), Prostate Disorder, Sleep Apnea/CPAP/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 CATARACT RT EYE Last Myocardial Infarction Date:: 2018 History of Any Multi-Drug Resistant Organisms: None Reported Past Surgical History: Cholecystectomy, Coronary Bypass/CABG, Heart Catheterization With Stent, Orthopedic Surgery Additional Past Surgical History / Comment(s): RT WRIST GANGLION CYST REMOVED.has had stents post cabg not sure how many or what arteries they are in. CABG 2000, COLONOSCOPY, EGD, Past Anesthesia/Blood Transfusion Reactions: Motion Sickness Date of Last Stent Placement:: 2003 Past Psychological History: Depression Smoking Status: Never smoker Past Alcohol Use History: Occasional Past Drug Use History: None Reported - Past Family History Father History Unknown: Yes Additional Family Medical History / Comment(s): PT ADOPTED Mother History Unknown: Yes Additional Family Medical History / Comment(s): PT ADOPTED Brother(s) Additional Family Medical History / Comment(s): did find several brothers that had also been adopted out one from agent orange exposure/complications, one from etoh abuse, and one from [place] gehrig's disease. Medications and Allergies Home Medications Medication Instructions Recorded Confirmed Type Pantoprazole Sodium [Protonix] 40 mg PO DAILY 04/05/15 02/17/19 History Aspirin [Adult Low Dose Aspirin EC] 81 mg PO DAILY 03/05/17 02/17/19 History Ubidecarenone [Co Q-10] 400 mg PO DAILY 04/25/17 02/17/19 History Clopidogrel [Plavix] 75 mg PO DAILY 07/14/18 02/17/19 History Fluticasone Nasal [place] [Flonase 1 spray EA NOSTRIL BID 07/14/18 02/17/19 History Nasal [place]] Nitroglycerin Sl Tabs [Nitrostat] 0.4 mg SUBLINGUAL Q5M PRN 07/14/18 02/17/19 History Ranolazine [Ranexa] 1,000 mg PO BID 07/14/18 02/17/19 History Pregabalin [Lyrica] 100 mg PO BID cap 07/16/18 02/17/19 Rx Mirtazapine [Remeron] 15 mg PO HS #30 tab 07/20/18 02/17/19 Rx Atorvastatin [Lipitor] 80 mg PO HS #30 tab 08/18/18 02/17/19 Rx Carvedilol [Coreg*] 12.5 mg PO BID-W/MEALS #60 tab 08/18/18 02/17/19 Rx Isosorbide Mononitrate ER [Imdur] 30 mg PO DAILY #30 tab.er.24h 08/18/18 02/17/19 Rx Losartan [Cozaar] 25 mg PO HS #0 08/18/18 02/17/19 Rx Spironolactone [Aldactone] 25 mg PO DAILY #30 tab 08/18/18 02/17/19 Rx Escitalopram [Lexapro] 20 mg PO DAILY 02/17/19 02/17/19 History Finasteride [Proscar] 5 mg PO DAILY 02/17/19 02/17/19 History Tamsulosin [Flomax] 0.4 mg PO BID 02/17/19 02/17/19 History Allergies Allergy/AdvReac Type Severity Reaction Status Date / Time Penicillins Allergy Anaphylaxis Verified 02/17/19 12:49 simvastatin [From Zocor] AdvReac SEVERE Verified 02/17/19 12:49 JOINT PAIN Physical Examination - Vital Signs Vital Signs: Vital Signs Temp Pulse Pulse Resp BP BP Pulse Ox 02/18/19 08:36 58 L 18 02/18/19 08:33 97.7 F 58 L 18 125/60 95 02/18/19 04:00 98.2 F 55 L 18 116/78 96 02/18/19 00:00 98.0 F 52 L 18 135/77 96 02/17/19 21:44 95 02/17/19 20:40 97.7 F 64 18 147/89 95 02/17/19 20:31 97.7 F 64 16 147/89 95 02/17/19 18:30 97.9 F 53 L 18 117/87 96 02/17/19 17:30 53 L 18 130/67 94 L 02/17/19 15:30 53 L 18 110/58 96 02/17/19 14:56 56 L 02/17/19 14:42 54 L 02/17/19 14:30 53 L 18 130/73 95 02/17/19 13:30 54 L 18 136/69 94 L 02/17/19 12:33 97.9 F 53 L 18 119/79 98 Intake and Output 02/17/19 02/18/19 02/18/19 22:59 06:59 14:59 Intake Total 1400 Balance 1400 Intake: Intake, IV Titration 900 Amount Sodium Chloride 0.9% 1, 900 000 ml @ 75 mls/hr IV . [id number] STA Rx#:[id number] Oral 500 Other: Voiding Method Toilet Toilet Toilet # Voids 1 Weight 85 kg Results - Laboratory Findings CBC and BMP: 02/18/19 06:45 02/18/19 06:45 Abnormal Lab Findings: Abnormal Labs 02/17/19 02/17/19 02/17/19 13:40 13:40 17:30 RBC 3.84 L Hgb 12.1 L Hct 38.7 L MCV 100.6 H Lymphocytes # 0.6 L Potassium 6.9 H* 5.6 H BUN 23 H Glucose 118 H POC Glucose (mg/dL) 02/17/19 02/18/19 02/18/19 21:12 06:45 06:45 RBC 4.07 L Hgb 12.7 L Hct MCV 100.4 H Lymphocytes # 0.7 L Potassium 5.5 H BUN 22 H Glucose POC Glucose (mg/dL) 145 H 02/18/19 06:45 RBC 3.96 L Hgb Hct MCV 100.2 H Lymphocytes # 0.7 L Potassium BUN Glucose POC Glucose (mg/dL)
--- NOTE | 2019-02-18 12:55 | ECHOF ---
Referral Reason:weakness, possible cva/tia MEASUREMENTS -------- HEIGHT: 160.0 cm WEIGHT: 84.8 kg BP: 116/78 RVIDd: 3.4 cm (< 3.3) IVSd: 1.5 cm (0.6 - 1.1) LVIDd: 4.3 cm (3.9 - 5.3) LVPWd: 1.5 cm (0.6 - 1.1) IVSs: 1.7 cm LVIDs: 4.0 cm LVPWs: 1.5 cm LA Diam: 5.1 cm (2.7 - 3.8) LAESV Index (A-L): 41.00 ml/m Ao Diam: 3.4 cm (2.0 - 3.7) AV Cusp: 2.2 cm (1.5 - 2.6) LA Diam: 3.6 cm (2.7 - 3.8) MV EXCURSION: 19.913 mm (> 18.000) MV EF SLOPE: 71 mm/s (70 - 150) EPSS: 0.8 cm MV E [place]: 0.65 m/s MV DecT: 243 ms MV A [place]: 0.86 m/s MV E/A Ratio: 0.76 RAP: 5.00 mmHg RVSP: 17.82 mmHg TAPSE: 19.09 mm FINDINGS -------- Sinus rhythm. This was a techncally difficult study with suboptimal views, , Lumason utilized for enhancement of im ages. The left ventricular size is normal. Left ventricular wall thickness is normal. Overall left vent ricular systolic function is mildly impaired with, an EF between 45 - 50 %. The diastolic filling p attern is normal for the age of the patient 12.64. The right ventricle is normal in size. The left atrial size is normal. LA is severely dilated >40 ml/m2 The right atrial size is normal. 5.0mg OF Lumason UTLIZED: 2 OR MORE WALL SEGMENTS NOT VISUALIZED. There is mild aortic valve sclerosis. There is no evidence of aortic regurgitation. Mild mitral annular calcification present. Mild mitral regurgitation is present. Mild tricuspid regurgitation present. Right ventricular systolic pressure is normal at < 35 mmHg. There is no evidence of pulmonary hypertension. The pulmonic valve was not well visualized. The aortic root size is normal. There is no pericardial effusion. CONCLUSIONS -------- 1. Sinus rhythm. 2. This was a techncally difficult study with suboptimal views, , Lumason utilized for enhancement of images. 3. The left ventricular size is normal. 4. Left ventricular wall thickness is normal. 5. Overall left ventricular systolic function is mildly impaired with, an EF between 45 - 50 %. 6. The diastolic filling pattern is normal for the age of the patient 12.64 7. The right ventricle is normal in size. 8. The left atrial size is normal. 9. LA is severely dilated >40 ml/m2 10. The right atrial size is normal. 11. 5.0mg OF Lumason UTLIZED: 2 OR MORE WALL SEGMENTS NOT VISUALIZED. 12. There is mild aortic valve sclerosis. 13. Mild mitral annular calcification present. 14. Mild mitral regurgitation is present. 15. Mild tricuspid regurgitation present. 16. Right ventricular systolic pressure is normal at < 35 mmHg. 17. There is no evidence of pulmonary hypertension. 18. The pulmonic valve was not well visualized. 19. The aortic root size is normal. 20. There is no pericardial effusion. CLASSROOM PARAPROFESSIONAL: Kimmie Almodovar RDCS
--- NOTE | 2019-02-18 14:16 | CONS ---
CONSULTATION REASON FOR CONSULT: Hyperkalemia. HISTORY OF PRESENT ILLNESS: Patient is a 68-year-old male who has a history of coronary artery disease, hypertension, hyperlipidemia. Patient also has a history of ischemic cardiomyopathy. He was admitted to the hospital with complaints of increased weakness, mainly on the left side. Patient did not have any other complaints of fever, chills, nausea, vomiting, abdominal pain or diarrhea. He denies any prior history of elevated potassium levels. He was noted to have serum potassium of 6.9 mEq/L. Review of previous labs shows potassium of 3.8 on 08/18/2018. The patient was recently started on Aldactone. He was on Cozaar already. Aldactone was at 25 mg daily. Patient denies any history of use of nonsteroidal anti-inflammatory agents. Serum creatinine was 1.1. It is at 1.0 now. Serum potassium has decreased to 5.5 mEq/L. 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 PAST SURGICAL HISTORY: Positive for cholecystectomy, coronary artery bypass surgery, cardiac catheterization, coronary stent placement, wrist ganglion cyst removed, colonoscopy, EGD, CABG 2000. SOCIAL HISTORY: Negative for smoking, drug abuse or alcohol abuse. MEDICATIONS: Prior to admission included Protonix, aspirin, Plavix, Ranexa, Lyrica, Remeron, Lipitor, Coreg, Imdur, Cozaar, Aldactone, Lexapro, Proscar, Flomax. ALLERGIES: Include SIMVASTATIN and PENICILLIN, PENICILLIN cause anaphylaxis, SIMVASTATIN caused joint pains. REVIEW OF SYSTEMS: As per HPI. Other systems negative. PHYSICAL EXAMINATION: Patient is comfortable, awake, alert, oriented x3 he is not in any acute distress. Blood pressure was 125/60, heart rate of 58 per minute. He is afebrile. Examination of the heart S1, S2. Examination of the lungs, bilateral breath sounds are heard. Abdomen is soft, non-tender. Examination of the lower extremities shows no significant edema. 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 LABS: Show hemoglobin of 13.0, white cell count 6.4, sodium 139, potassium 5.5, BUN 22, creatinine 1.06. UA is completely unremarkable. Chest x-ray showed right basilar atelectasis or infiltrates. Mild central venous congestion. MMODL / IJN: [id number] /
--- NOTE | 2019-02-18 14:16 | CONS ---
CONSULTATION ADDENDUM: Chest x-ray showed right basilar atelectasis. Mild central venous congestion was noted. ASSESSMENT: 1. Acute kidney injury, possibly prerenal. Serum creatinine slightly improved; however, this may be patient's baseline. 2. Hyperkalemia associated with recent initiation of Aldactone along with Cozaar and increased potassium intake. Patient denies use of nonsteroidal anti-inflammatory agents. Ideally, he should not develop such significant hyperkalemia without any other precipitating factors. I believe his acute kidney injury may have been more pronounced as we have a previous creatinine of 0.9 in August of 2018. Currently, blood pressure is not low. I will give 1 dose of Lasix to help with the hyperkalemia. Patient will be maintained off Aldactone as well as Cozaar. Once his serum potassium has improved, we can resume the angiotensin receptor blockers and Aldactone along with strict low-potassium diet. Patient should be maintained on small dose of loop diuretics to help with the hyperkalemia, if he has a tendency towards hyperkalemia as outpatient. 3. Type 2 diabetes. 4. History of ischemic cardiomyopathy, ejection fraction not known. 5. Hypertension, currently controlled. PLAN: Continue off of IV fluids. Hold off on Cozaar for now due to persistent hyperkalemia. Lasix x1 IV push. Repeat labs in a.m. and we can likely resume lower dose of Cozaar depending on the blood pressure and serum potassium. Patient will be given a handout for low-potassium diet as well. Consider adding low-dose loop diuretics as outpatient to help with the tendency towards hyperkalemia. Patient is also advised to avoid constipation. His blood sugar should be well-controlled as well which they seem to be currently. Thank you for this consultation. Will continue to follow the patient with you during his hospitalization. MMODL / IJN: [id number] /
--- NOTE | 2019-02-18 15:19 | CT ---
EXAMINATION TYPE: CT angio head neck DATE OF EXAM: 02/18/2019 COMPARISON: Correlation ultrasound 02/17/2019 HISTORY: 68-year-old male Weakness TECHNIQUE: Contiguous axial scanning of the head and neck performed with IV Contrast, patient injecte d with 65 mL of Isovue 370. Coronal/sagittal MIP reconstructions performed. 3-D reconstructions gener ated on a dedicated workstation. CT DLP: 508.6 mGycm Automated exposure control for dose reduction was used. FINDINGS: Neck: Median sternotomy wires. Bovine configuration to the aortic arch. Right common carotid artery is patent. There is occlusion of the right internal carotid artery. Left common and internal carotid arteries are patent with very minimal atherosclerotic calcification in the carotid bulb. Mild atherosclerotic narrowing at the origin of the right vertebral artery. Both vertebral arteries a re otherwise codominant and patent throughout the course. Head: Mild to moderate atherosclerotic narrowing at the proximal V4 segment left vertebral artery. The righ t vertebral and basilar artery are patent without significant stenosis. The right internal carotid artery remains occluded but there is reconstitution of the right MCA and A CA branches probably from retrograde flow from a patent anterior communicating artery. Anterior circu lation otherwise patent without aneurysmal change seen. Mild irregular atherosclerotic narrowing throughout the left carotid siphon. IMPRESSION: NECK: 1. RIGHT ICA OCCLUSION CONFIRMED. 2. MILD ATHEROSCLEROTIC NARROWING AT THE ORIGIN OF THE RIGHT VERTEBRAL ARTERY. HEAD: 1. CONTINUATION OF ICA OCCLUSION ON THE RIGHT. RECONSTITUTION OF THE RIGHT ASH AND MCA BRANCHES LIKEL Y FROM RETROGRADE FLOW THROUGH A PATENT ANTERIOR COMMUNICATING ARTERY. 2. MILD TO MODERATE FOCAL ATELECTATIC NARROWING OF THE PROXIMAL V4 SEGMENT LEFT VERTEBRAL ARTERY. 3. MILD ATHEROSCLEROTIC NARROWING THROUGHOUT THE LEFT CAROTID SIPHON.
[2019-02-18 16:40] LABS: Glucose,Whole Blood 115 mg/dL (75-99)
[2019-02-18] MEDS: ATORVASTATIN 80 MG TAB PO SCH (20:52)
[2019-02-18 21:08] LABS: Glucose,Whole Blood 158 mg/dL (75-99)
[2019-02-19 02:56] LABS: Glucose,Whole Blood 131 mg/dL (75-99)
--- NOTE | 2019-02-19 03:43 | CT ---
EXAMINATION TYPE: CT brain wo con DATE OF EXAM: 02/19/2019 COMPARISON: 02/17/2019 HISTORY: fall Headache CT DLP: 1125.4 mGycm Automated exposure control for dose reduction was used. FINDINGS: There is patchy hypodensity in the periventricular white matter. There is no mass effect nor midline shift. There is no sign of intracranial hemorrhage. There is hypodensity in the insula right temporal lobe. The calvarium is intact. There is mild symmetric thalamic calcification. IMPRESSION: CEREBRAL ATROPHY. CHRONIC SMALL VESSEL ISCHEMIA WITH MORE LOCALIZED ISCHEMIA ALSO IN THE INSULA RIGHT TEMPORAL LOBE. NO ACUTE INTRACRANIAL ABNORMALITY. NO CHANGE COMPARED TO RECENT EXAM.
--- NOTE | 2019-02-19 03:50 | XR ---
EXAMINATION TYPE: XR chest 2V DATE OF EXAM: 02/19/2019 COMPARISON: 02/17/2019 HISTORY: Fall. Pain. TECHNIQUE: Frontal and lateral views of the chest are obtained. FINDINGS: Heart and mediastinum are within normal limits. There are sternal wires. Lungs are clear. There is no heart failure. There is old left side healed rib fracture. There are chest leads. There i s no pleural effusion or pneumothorax. IMPRESSION: No active cardiopulmonary disease. There is improved inspiration compared to last exam.
[2019-02-19 06:09] LABS: Glucose,Whole Blood 127 mg/dL (75-99)
[2019-02-19] MEDS: CARVEDILOL 12.5 MG TAB PO SCH (06:38)
[2019-02-19] MEDS: PANTOPRAZOLE 40 MG TABLET PO SCH (06:38)
--- NOTE | 2019-02-19 07:46 | MR ---
EXAMINATION TYPE: MR brain wo con DATE OF EXAM: 02/19/2019 COMPARISON: CT brain from earlier today and older CTs. HISTORY: Code stroke with acute stroke suspected on admission 2 days earlier as patient presented wit h weakness and tremor. Recent fall injury earlier today. TECHNIQUE: Multiplanar, multisequence imaging of the brain and brainstem is performed without IV cont rast. FINDINGS: Diffusion weighted images demonstrate no evidence of a recent infarct or other diffusion abnormality. There is no worrisome extra-axial fluid collection. Mild ventricular and sulcal prominence. More foca l areas of T2 hyperintensity throughout the white matter bilaterally seen most prominent involving th e right deep and periventricular regions. Midline structures demonstrate normal morphology. The craniocervical junction appears within normal limits. Normal vascular flow voids are present. The visualized sinuses are clear and the globes are i ntact. IMPRESSION: No evidence of a recent infarct. Mild diffuse age-related cerebral atrophy with fairly ad vanced nonspecific white matter changes presumed on the basis of product of diffuse chronic small ves maurilio ischemic change.
[2019-02-19 08:10] VITALS: BP 119/59; PULSE 66; RESP 18; TEMP 97.1
[2019-02-19] MEDS: HEPARIN SODIUM,PORCINE 5,000 UNIT/ML 1 ML VIAL SQ SCH (09:09)
[2019-02-19] MEDS: PREGABALIN 100 MG CAP PO SCH (09:10)
[2019-02-19] MEDS: ASPIRIN 81 MG PO SCH (09:10)
[2019-02-19] MEDS: RANOLAZINE 500 MG TAB.ER.12H PO SCH (09:10)
[2019-02-19] MEDS: ISOSORBIDE MONONITRATE ER 30 MG TAB.ER.24H PO SCH (09:10)
[2019-02-19] MEDS: ESCITALOPRAM 20 MG TAB PO SCH (09:10)
[2019-02-19] MEDS: CLOPIDOGREL 75 MG TAB PO SCH (09:10)
[2019-02-19] MEDS: TAMSULOSIN 0.4 MG CAP.ER.24H PO SCH (09:10)
[2019-02-19] MEDS: FAMOTIDINE 20 MG TAB PO SCH (09:10)
[2019-02-19] MEDS: FINASTERIDE 5 MG TAB PO SCH (09:10)
[2019-02-19 10:40] LABS: HCT 38.6 % (39.0-53.0); HGB 12.7 gm/dL (13.0-17.5); MCH 32.4 pg (25.0-35.0); MCHC 32.9 g/dL (31.0-37.0); MCV 98.3 fL (80.0-100.0); Mean Platelet Volume 6.1; Platelet Count 208 k/uL (150-450); RBC 3.93 m/uL (4.30-5.90); RDW 14.1 % (11.5-15.5); WBC 8.3 k/uL (3.8-10.6)
[2019-02-19 10:51] LABS: Calcium 9.3 mg/dL (8.4-10.2); Potassium 4.9 mmol/L (3.5-5.1)
[2019-02-19 11:59] LABS: Glucose,Whole Blood 122 mg/dL (75-99)
--- NOTE | 2019-02-19 12:25 | P.DS ---
Providers Date of admission: 02/17/19 16:27 Attending physician: Ganesh Benz Consults: 02/17/19 16:29 Consult Physician Urgent Consulting Provider: Dipika Gama Consult Reason/Comments: possible CVA Do you want consulting provider notified?: Yes Consult Physician Urgent Consulting Provider: Aurora Atwood Consult Reason/Comments: acute hyperkalemia Do you want consulting provider notified?: Yes Primary care physician: Kenisha Stokes Hospital Course: Chief Complaint: TIA/CVA, lower extremity weakness, severe hyperkalemia, carotid stenosis 68-year-old male one of Dr. Stokes's patient with past medical history of CAD, hypertension, hyperlipidemia with severe neuropathy who was in the hospital in July after an MRI had a PCI and stent placement done successfully. Also patient has been treated for ischemic cardiomyopathy and was started on Aldactone few month ago. He developed to have severe generalized weakness all over his body but worsening in the lower extremity not been able to ambulate and walk had more weakness in the left side than the right side and did not feel well ended up coming to the emergency department at [facility] where was seen and evaluated surprisingly his potassium was very high at 6.9 after treating his potassium supplement 1 hydration patient continued to have slight weakness in the left side compared to the right side his lower extremity weakness has improved some he was admitted to the hospital for TIA/CVA and for further workup to make sure it's going on is not related to transmyelitis or any we are type of neuropathy or central nervous system problem. Review of Systems CONSTITUTIONAL: Well-developed no acute respiratory distress. Overweight EYES: No icterus sclerae, no conjunctivitis. EARS, NOSE, MOUTH, THROAT, and FACE: No sore throat, lymphadenopathy, carotid bruits or deformity. RESPIRATORY: No SOB cough or wheezes. CARDIOVASCULAR: Positive PND orthopnea or angina is edema GASTROINTESTINAL: No Abd pain, Nausea or vomiting, no Diarrhea or constipation, No GI Bleed, no distention or masses. GENITOURINARY: Negative for Hematuria or UTI, no kidney stones. Mild BPH symptoms INTEGUMENT/BREAST: Negative for any muscular injury with mild osteoarthritis.. HEMATOLOGIC/LYMPHATIC: Negative for bleed or purpura. MUSCULOSKELTAL: Negative for Myalgia or arthralgia. NEURLOGICAL: Positive weakness in the left side with generalized weakness worsening in the lower extremity than upper extremity. BEHAVIORAL/PSYCH: Negative. ENDOCRINE: Negative. General Appearance: Alert, cooperative, no distress, appears stated age. Mildly overweight Neck HEENT: Supple, no lymphadenopathy, no thyroid enlargement, no carotid bruits. Lungs: Clear to auscultation without crackles or wheezes no rhonchi, no deformity. Chest Wall: Decrease expansion with deep inspiration no tenderness and no deformity was found on exam, no costochondral pain or discomfort. Heart: Regular rate and rhythm, S1, S2 normal, positive S3 positive JVD with systolic murmur. Back: Symmetric, no curvature, ROM normal, no CVA tenderness. Abdomen: Soft, non-tender, bowel sounds active all four quadrants, no masses, no organomegaly. Extremities: Trace edema decreased pulses dorsalis pedis bilaterally with mild osteoarthritis in both knees. Pulses: 2+ and symmetric. Skin: Skin color, texture, tugor normal, no rashes or lesions. Neurologic: Alert oriented x3 cranial nerves II through XII intact, positive weakness in the left side compared to the right side mostly the left upper extremity 2 out of 5 compared to before in the right side. 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 2 severe hyperkalemia: Most likely Iatrogenic will hold Aldactone for now, patient was giving Late, sodium bicarbonate continue hydration we'll consult nephrology. 3 severe stenosis of the carotid artery: Patient be going for CT of the neck for further decision if there is any stenosis extended above the jaw level or not and whether he need any intervention on it. 4 ischemic cardiomyopathy: Patient is seeing cardiology regular basis and Dr. Stokes with medication titrate recently. Still on Ranexa, Cozaar Plavix and Coreg. 6 5 post NE with angioplasty and stent placement from July patient has been doing well with medication no chest pain or angina lately still symptomatic with congestive heart failure and shortness of breath with exertion. 6 hyperlipidemia: Remain on atorvastatin 80 mg daily. 7 BPH: Patient remain on Proscar and Flomax. 8 chronic lower back pain: Remain on Lyrica and hydrocodone. 9 depression: Still on Lexapro, and Remeron. 10 GERD/GI prophylaxis: Patient still on pantoprazole. DVT prophylaxis: Knee-high VICKY hose and early mobilization. Patient has small fall this morning ended up going for x-ray and CAT scan of the brain didn't show any abnormality. Also was sent for CTA which showed the same complicity with the severe blockage and stenosis in his carotid artery not any different but compensated which I don't think it has affected the current presentation at all. Patient also was seen Dr. Gama neurology who agree with the current Lantus to make sure MRI of the brain doesn't show any other abnormality. MRI of the brain was performed today to excess full he did not show any major finding. Patient was having significant hyperkalemia most likely from Aldactone which will be held for now. Patient is stable to be discharged home without Aldactone to follow-up with his primary care in the next few days and if neurology recommended follow-up can be arranged as well. Also with the significant stenosis of the carotid artery highly recommended for patient to see vascular at least once a year. Patient Condition at Discharge: Serious Plan - Discharge Summary Discharge Rx Participant: No New Discharge Prescriptions: Continue Pantoprazole Sodium [Protonix] 40 mg PO DAILY Aspirin [Adult Low Dose Aspirin EC] 81 mg PO DAILY Ubidecarenone [Co Q-10] 400 mg PO DAILY Ranolazine [Ranexa] 1,000 mg PO BID Clopidogrel [Plavix] 75 mg PO DAILY Nitroglycerin Sl Tabs [Nitrostat] 0.4 mg SUBLINGUAL Q5M PRN PRN Reason: Chest Pain Fluticasone Nasal [place] [Flonase Nasal [place]] 1 spray EA NOSTRIL BID Pregabalin [Lyrica] 100 mg PO BID cap Mirtazapine [Remeron] 15 mg PO HS #30 tab Carvedilol [Coreg*] 12.5 mg PO BID-W/MEALS #60 tab Isosorbide Mononitrate ER [Imdur] 30 mg PO DAILY #30 tab.er.24h Atorvastatin [Lipitor] 80 mg PO HS #30 tab Losartan [Cozaar] 25 mg PO HS #0 Escitalopram [Lexapro] 20 mg PO DAILY Tamsulosin [Flomax] 0.4 mg PO BID Finasteride [Proscar] 5 mg PO DAILY Discontinued Spironolactone [Aldactone] 25 mg PO DAILY #30 tab Discharge Medication List Pantoprazole Sodium [Protonix] 40 mg PO DAILY 04/05/15 [History] Aspirin [Adult Low Dose Aspirin EC] 81 mg PO DAILY 03/05/17 [History] Ubidecarenone [Co Q-10] 400 mg PO DAILY 04/25/17 [History] Clopidogrel [Plavix] 75 mg PO DAILY 07/14/18 [History] Fluticasone Nasal [place] [Flonase Nasal [place]] 1 spray EA NOSTRIL BID 07/14/18 [History] Nitroglycerin Sl Tabs [Nitrostat] 0.4 mg SUBLINGUAL Q5M PRN 07/14/18 [History] Ranolazine [Ranexa] 1,000 mg PO BID 07/14/18 [History] Pregabalin [Lyrica] 100 mg PO BID cap 07/16/18 [Rx] Mirtazapine [Remeron] 15 mg PO HS #30 tab 07/20/18 [Rx] Atorvastatin [Lipitor] 80 mg PO HS #30 tab 08/18/18 [Rx] Carvedilol [Coreg*] 12.5 mg PO BID-W/MEALS #60 tab 08/18/18 [Rx] Isosorbide Mononitrate ER [Imdur] 30 mg PO DAILY #30 tab.er.24h 08/18/18 [Rx] Losartan [Cozaar] 25 mg PO HS #0 08/18/18 [Rx] Escitalopram [Lexapro] 20 mg PO DAILY 02/17/19 [History] Finasteride [Proscar] 5 mg PO DAILY 02/17/19 [History] Tamsulosin [Flomax] 0.4 mg PO BID 02/17/19 [History] Follow up Appointment(s)/Referral(s): Kenisha Stokes MD [Primary Care Provider] - 02/24/19 3:00 pm (Friday) Ambulatory/Diagnostic Orders: Comprehensive Metabolic Panel [LAB.AMB] Location: None Selected Magnesium [LAB.AMB] Location: None Selected Patient Instructions/Handouts: Hyperkalemia (DC) Discharge Disposition: HOME SELF-CARE
--- NOTE | 2019-02-19 12:31 | P.PN ---
Progress Note - Text Progress Note Date: 02/19/19 SUBJECTIVE/INTERVAL EVENTS: No acute overnight events. Patient denies any weakness, numbness, tingling, headache, dizziness, double/blurry vision. PHYSICAL EXAMINATION: VITAL SIGNS: T 98 HR 59 RR 20 BP 150/79 O2 sat 97% on RA GEN.: NAD, pleasant and cooperative HEENT: NCAT, sclera without icterus NECK: Supple SKIN AND EXTREMITIES: Warm to touch, no edema NEURO: MENTAL STATUS: Patient alert and oriented to self, place, time. Able to name the current president. Speech fluent, able to name and repeat, following all commands readily. No right and left disorientation, extinction to double simultaneous stimulation, finger agnosia, neglect. CRANIAL NERVES II THROUGH XII: II: Pupils are equal and reactive to light symmetrically. No afferent pupillary defect. Visual stark are intact. III, IV, : No ptosis. Extraocular movements full. No nystagmus. V: Facial sensation intact from V1-3. VII. No clear facial asymmetry. VIII: Hearing intact to finger rub bilaterally. IX, X: Symmetric palate elevation. XI: Shoulder s hrug intact. XII: Tongue midline without fasciculation or atrophy. MOTOR: Normal bulk/tone. No tremor. No drift (yesterday, patient had a mild left upper extremity drift). Strength is 5/5 throughout all 4 extremities. SENSORY: Intact to light touch in all 4 extremities. Romberg is negative. REFLEXES: 2+ throughout. Toes are downgoing. COORDINATION: Finger to nose intact. No dysmetria. GAIT: Narrow-based and stable. Able to toe/heel/tandem walk DIAGNOSTIC TESTING: LABORATORY: WBC 6.4 hemoglobin 13.0 MCV 100.2 platelet 214 sodium 139 potassium 5.5 chloride 105 bicarb 26 BUN 22 creatinine 1.06 glucose 89 AST 25 ALT 26 alk phos urinalysis negative TSH 2.840 total cholesterol 204 LDL 126 HDL 51 triglycerides 133 IMAGING: MRI brain without contrast 02/18/2018: No evidence of a recent infarct. Mild diffuse age-related cerebral atrophy with fairly advanced nonspecific white matter changes, diffuse chronic small vessel ischemic change. CT head without contrast 02/17/2019: Degenerative and nonspecific white matter changes typical of remote white matter disease. There is hyperdensity within the basilar artery which appears stable and likely represents calcified significant atherosclerotic plaque. Carotid Doppler bilateral 02/17/2019: New or recurrent complete occlusion of the distal right ICA. Present. Consider CT study to better evaluate. EKG 02/17/19: Sinus bradycardia with 1st degree AV block Transthoracic echocardiogram 02/18/2019: Sinus rhythm. LV/RV/RA sizes are normal. LA severely dilated. EF 45-50%. Cardiac monitoring sinus bradycardia ASSESSMENT: Mr. Hutchinson is a 68-year-old man with past medical history of coronary artery disease, chest pain, diabetes, GERD, hyperlipidemia, hypertension, MA, osteoarthritis, sleep apnea, ?hepatitis C, pancreatitis, neuropathy, right eye cataract, prostate disorder, depression, who presented to [facility] for bilateral lower extremity weakness. Patient's symptoms have improved since admission, but on exam, patient noted to have left upper extremity drift. Patient with multiple risk factors for stroke. MRI brain without contrast not showing any acute infarct. Transthoracic echocardiograms showing severely dilated left atrium. EKG and cardiac monitoring with no atrial arrhythmia. Final diagnosis TIA. RECOMMENDATIONS: 1. Continue with plavix and atorvastatin 80mg 2. Labs: A1C 3. Event monitoring or loop recorder as patient with dilated left atrium. 4. Discussed with patient about stroke prevention guidelines. Medication compliance, hypertension/diabetes control, lifestyle changes including no smoking, drinking in moderation, losing weight, exercising, eating healthier 5. Patient needs to follow up with neurologist as outpatient with her 1-2 weeks of discharge 6. Neurology will sign off at this time. Neurology is not available over the weekend in-house. However, feel free to [employer] message me over the weekend if you have any questions or concerns
[2019-02-19 18:38] LABS: Hemoglobin A1C 6.6 % (4.0-6.0)
--- NOTE | 2019-02-19 18:39 | PN ---
PROGRESS NOTE Patient is seen for followup for hyperkalemia. He was admitted to the hospital with severe hyperkalemia. Potassium was at 6.9. Patient was recently started on Aldactone. He had been on angiotensin receptor blockers as well. Serum potassium has improved. Patient wants to go home today. On examination this morning, blood pressure 119/59, heart rate 66 per minute. Patient is afebrile. EXAMINATION OF THE HEART: S1 and S2. EXAMINATION OF LUNGS: Bilateral breath sounds are heard. ABDOMEN: Soft, non-tender. Examination of lower extremities shows no evidence of edema. Labs show sodium 138, potassium 4.9, BUN 25, creatinine 1.14. ASSESSMENT: 1. Hyperkalemia associated with mild acute kidney injury as well as Aldactone in the setting of use of Cozaar. He is currently off of angiotensin receptor blockers, status post one dose of Lasix. Continue with small dose of loop diuretics as outpatient. 2. Mild acute kidney injury, currently improved. 3. Type 2 diabetes. 4. History of ischemic cardiomyopathy. 5. Hypertension, currently controlled. Blood pressure is actually on the lower side. PLAN: Patient is stable for discharge. Follow up as outpatient. Repeat labs as outpatient. Consider adding low-dose loop diuretics, depending on his serum potassium as outpatient. MMODL / IJN: [id number] /
--- NOTE | 2019-02-24 10:27 | CDI ---
Documentation Clarification Form Date: 02/24/19 From: Yessenia Holman Phone: If questions call [facility] @ [phone], Hours-8:30 am & 5 pm M- Haris Admit Date: 02/17/2019 4:27:00 PM Patient Name: Gurpreet Hutchinson Visit Number: [id number] Discharge Date: 02/19/2019 12:36:00 PM ATTENTION: The Clinical Documentation Specialists (CDI) and [facility] Coding Staff appreciate your assistance in clarifying documentation. Please respond to the clarification below the line at the bottom and electronically sign. The CDI & [facility] Coding staff will review the response and follow-up if needed. Please note: Queries are made part of the Legal Health Record. If you have any questions, please contact the author of this message via ITS. Dr. Ganesh Benz Congestive heart failure per H&P & DS. History/Risk Factors: Post MS with angioplasty and stent & CABG, HTN, DM Clinical Indicators: shortness of breath with exertion VS/Pulse OX: P-53, R-18, BP-119/79, O2 sat-94 BNP: none Echocardiogram Results: left ventricular systolic function is mildly impaired w EF between 45-50% Chest X Ray: mild venous congestion Treatment: IV Lasix, Coreg, Imdur, Cozaar, Aldactone In your professional opinion, can you please clarify the acuity and type of CHF if known? TYPE Systolic Heart Failure Diastolic Heart Failure Systolic & Diastolic Heart Failure ACUITY Acute Chronic Acute on chronic Unable to Determine Other, please specify no heart failure MTDD
--- NOTE | 2019-03-10 10:37 | CDI ---
Documentation Clarification Form Date: 03/10/19 From: Yessenia Holman Phone: If you have a question about this query, please contact Eufemia Villa, It Security Analyst at [phone] between 8am and 5pm. Admit Date: 02/17/19 Discharge Date: 02/19/19 Patient Name: Gurpreet Hucthinson Visit Number: [id number] ATTENTION: The Clinical Documentation Specialists (CDI) and [facility] Coding Staff appreciate your assistance in clarifying documentation. Please respond to the clarification below the line at the bottom and electronically sign. The CDI & [facility] Coding staff will review the response and follow-up if needed. Please note: Queries are made part of the Legal Health Record. If you have any questions, please contact the author of this message via ITS. Dear Dr Cristiano Benz, Conflicting documentation has been found in the medical record: TIA/CVA is documented as a diagnosis in the DS. Neurology Final PN: TIA History/Risk Factors: HTN, HARRISON, DM w neuropathy, cataract, hyperkalemia Clinical Indicators: He developed severe generalized weakness all over his body but worsening in the lowver extremity not been able to ambulate and walk, left is worse than right. CT head: No evidence of recent infarct. Mild diffuse age-related cerebaral atrophy with fairly advanced nonspecific white matter changes presumed on the basis of product of diffuse chronic small vessel ischemic changes. Carotid US: Right ICA occlusion, mild narrowing at the origin of the right vertebral artery Echo: Severely dilated left atrium. Treatment: Plavix & Atrovastatin In your opinion, what is the most clinically appropriate diagnosis for this patient? CVA TIA due to ICA, right Other explanation of clinical findings Unable to determine (no explanation for clinical findings) CVA MTDD
== END 2019-02-19 12:36 | disposition home or self-care (01) | DRG 65 ==
LOC: EC 12:28 → 3SCARD 16:27
PROVIDERS: ADMIT Internal Medicine Geriatric Medicine; ATTEND Internal Medicine Geriatric Medicine
DX: I63.9 Cerebral infarction, unspecified (principal); N17.9 Acute kidney failure, unspecified; J98.11 Atelectasis; I65.21 Occlusion and stenosis of right carotid artery; E11.40 Type 2 diabetes mellitus with diabetic neuropathy, unspecified; E11.36 Type 2 diabetes mellitus with diabetic cataract; E87.5 Hyperkalemia; R40.2362 Coma scale, best motor response, obeys commands, at arrival to emergency department; R40.2142 Coma scale, eyes open, spontaneous, at arrival to emergency department; R40.2252 Coma scale, best verbal response, oriented, at arrival to emergency department; T50.0X5A Adverse effect of mineralocorticoids and their antagonists, initial encounter; I44.0 Atrioventricular block, first degree; I25.5 Ischemic cardiomyopathy; I10 Essential (primary) hypertension; F32.9 Major depressive disorder, single episode, unspecified; E78.5 Hyperlipidemia, unspecified; G47.30 Sleep apnea, unspecified; N40.0 Benign prostatic hyperplasia without lower urinary tract symptoms; H26.9 Unspecified cataract; I25.10 Atherosclerotic heart disease of native coronary artery without angina pectoris; K21.9 Gastro-esophageal reflux disease without esophagitis; M17.0 Bilateral primary osteoarthritis of knee; G89.29 Other chronic pain; M54.5 Low back pain; I25.2 Old myocardial infarction; R47.81 Slurred speech; Z79.82 Long term (current) use of aspirin; Z79.02 Long term (current) use of antithrombotics/antiplatelets; Z79.899 Other long term (current) drug therapy; Z77.098 Contact with and (suspected) exposure to other hazardous, chiefly nonmedicinal, chemicals; Z90.49 Acquired absence of other specified parts of digestive tract; Z95.1 Presence of aortocoronary bypass graft; Z95.5 Presence of coronary angioplasty implant and graft; Z86.73 Personal history of transient ischemic attack (TIA), and cerebral infarction without residual deficits; Z86.19 Personal history of other infectious and parasitic diseases; Z87.19 Personal history of other diseases of the digestive system; Z98.890 Other specified postprocedural states; Z99.89 Dependence on other enabling machines and devices; Z88.0 Allergy status to penicillin; Z88.8 Allergy status to other drugs, medicaments and biological substances; Z91.89 Other specified personal risk factors, not elsewhere classified; Z81.1 Family history of alcohol abuse and dependence; Z82.0 Family history of epilepsy and other diseases of the nervous system; Y92.009 Unspecified place in unspecified non-institutional (private) residence as the place of occurrence of the external cause; W19.XXXA Unspecified fall, initial encounter
CPT/HCPCS: 36415; 70450; 70496; 70498; 70551; 71046; 80048; 80053; 80061; 81003; 83036; 83735; 84132; 84443; 84484; 85025; 85027; 85610; 85730; 93005; 93306; 93880; 94640; 96374; 99285

== ENCOUNTER 2019-03-01 15:43 | Inpatient (IN) | payer MEDICARE ==
[2019-03-01] MEDS ORDERED: HEPARIN SODIUM,PORCINE 5,000 UNIT/ML 1 ML VIAL IV PRN (17:35)
[2019-03-01] MEDS ORDERED: NALOXONE 0.4 MG/ML 1 ML VIAL IV PRN (17:43)
[2019-03-01] MEDS ORDERED: ACETAMINOPHEN TAB 325 MG TAB PO PRN (17:43)
[2019-03-01] MEDS ORDERED: SODIUM CHLORIDE 0.9% 1,000 ML IV SCH (17:45)
[2019-03-01 18:03] LABS: Basophils # (A) 0.1 k/uL (0-0.2); Basophils % (A) 1 %; Eosinophils # (A) 0.1 k/uL (0-0.7); Eosinophils % (A) 1 %; HCT 37.6 % (39.0-53.0); Lymphocytes # (A) 0.8 k/uL (1.0-4.8); Lymphocytes % (A) 8 %; MCH 33.2 pg (25.0-35.0); MCHC 34.5 g/dL (31.0-37.0); MCV 96.3 fL (80.0-100.0); Mean Platelet Volume 6.5; Monocytes # (A) 0.5 k/uL (0-1.0); Monocytes % (A) 5 %; Neutrophils # (A) 8.4 k/uL (1.3-7.7); Neutrophils % (A) 83 %; Platelet Count 236 k/uL (150-450); RDW 13.9 % (11.5-15.5); WBC 10.1 k/uL (3.8-10.6)
[2019-03-01 18:12] LABS: Albumin 4.3 g/dL (3.5-5.0); Calcium 9.2 mg/dL (8.4-10.2); Magnesium 1.7 mg/dL (1.6-2.3); Phosphorus 4.6 mg/dL (2.5-4.5); Potassium 4.5 mmol/L (3.5-5.1); Total Bilirubin 0.9 mg/dL (0.2-1.3); Total Protein 7.9 g/dL (6.3-8.2)
[2019-03-01 18:18] LABS: Partial Thromboplastin Time 56.3 sec (22.0-30.0); Prothrombin Time 10.5 sec (9.0-12.0)
[2019-03-01] MEDS: NITROGLYCERIN-D5W PMX 50 MG in DEXTROSE/WATER 1 250ML.BAG IV SCH (18:20)
[2019-03-01] MEDS: HEPARIN SOD,PORK IN 0.45% NACL 25,000 UNIT in 0.45% NACL 1 250ML.BAG IV SCH (18:23)
[2019-03-01] MEDS: LOSARTAN 25 MG TAB PO SCH (20:30)
[2019-03-01] MEDS: CARVEDILOL 12.5 MG TAB PO SCH (20:30)
[2019-03-01] MEDS: ATORVASTATIN 80 MG TAB PO SCH (20:30)
[2019-03-01] MEDS: PREGABALIN 100 MG CAP PO SCH (20:30)
[2019-03-01] MEDS: TAMSULOSIN 0.4 MG CAP.ER.24H PO SCH (20:30)
[2019-03-01 20:38] LABS: Glucose,Whole Blood 145 mg/dL (75-99)
[2019-03-01] MEDS: MELATONIN 3 MG TABLET PO PRN (20:54)
[2019-03-01] MEDS: INSULIN ASPART (NovoLOG) 100 UNIT/ML VIAL SQ SCH (21:01)
[2019-03-01 22:15] LABS: Appearance,Urine Clear (Clear); Bacteria,Urine Rare /hpf; Bilirubin,Urine Negative (Negative); Blood,Urine Small (Negative); Color,Urine Yellow; Glucose,Urine (UA) Negative (Negative); Hyaline Casts,Urine 23 /lpf (0-2); Ketones,Urine Trace (Negative); Leukocyte Esterase,Urine Negative (Negative); Mucus,Urine Rare /hpf; Nitrite,Urine Negative (Negative); Protein,Urine Trace (Negative); RBC,Urine 20 /hpf (0-5); Specific Gravity,Urine 1.011 (1.001-1.035); Squamous Epithelial Cell,Urine <1 /hpf (0-4); Urobilinogen,Urine <2.0 mg/dL (<2.0)
[2019-03-02] MEDS ORDERED: ALPRAZolam 0.5 MG TAB PO STA (00:40)
[2019-03-02] MEDS ORDERED: MAG HYDROX/AL HYDROX/SIMETH 30 ML CUP PO PRN ×2 (00:41→13:53)
[2019-03-02] MEDS ORDERED: MORPHINE SULFATE 2 MG/ML SYRINGE IVP PRN (00:41)
[2019-03-02] MEDS: INSULIN ASPART (NovoLOG) 100 UNIT/ML VIAL SQ SCH ×4 (06:33→20:47)
[2019-03-02 06:34] LABS: Glucose,Whole Blood 129 mg/dL (75-99)
[2019-03-02] MEDS: CARVEDILOL 12.5 MG TAB PO SCH ×2 (06:41→18:34)
[2019-03-02] MEDS: PANTOPRAZOLE 40 MG TABLET PO SCH (06:41)
[2019-03-02 06:50] LABS: Basophils % (A) 0 %; Eosinophils # (A) 0.1 k/uL (0-0.7); Eosinophils % (A) 1 %; HCT 34.7 % (39.0-53.0); HGB 11.7 gm/dL (13.0-17.5); Lymphocytes # (A) 0.9 k/uL (1.0-4.8); Lymphocytes % (A) 10 %; MCH 32.7 pg (25.0-35.0); MCHC 33.7 g/dL (31.0-37.0); MCV 96.8 fL (80.0-100.0); Mean Platelet Volume 6.3; Monocytes # (A) 0.7 k/uL (0-1.0); Monocytes % (A) 8 %; Neutrophils # (A) 7.1 k/uL (1.3-7.7); Neutrophils % (A) 79 %; Platelet Count 225 k/uL (150-450); RBC 3.58 m/uL (4.30-5.90); WBC 8.9 k/uL (3.8-10.6)
[2019-03-02 07:07] LABS: Calcium 8.8 mg/dL (8.4-10.2); Potassium 4.4 mmol/L (3.5-5.1)
[2019-03-02] MEDS: ASPIRIN 81 MG PO SCH (08:16)
[2019-03-02] MEDS: FINASTERIDE 5 MG TAB PO SCH (08:16)
[2019-03-02] MEDS: TAMSULOSIN 0.4 MG CAP.ER.24H PO SCH ×2 (08:16→20:47)
[2019-03-02] MEDS: SPIRONOLACTONE 25 MG TAB PO SCH (08:16)
[2019-03-02] MEDS: ESCITALOPRAM 20 MG TAB PO SCH (08:16)
[2019-03-02] MEDS: CLOPIDOGREL 75 MG TAB PO SCH (08:16)
[2019-03-02] MEDS: PREGABALIN 100 MG CAP PO SCH ×2 (08:16→20:47)
[2019-03-02] MEDS: NITROGLYCERIN-D5W PMX 50 MG in DEXTROSE/WATER 1 250ML.BAG IV SCH (10:25)
[2019-03-02] MEDS: HEPARIN SOD,PORK IN 0.45% NACL 25,000 UNIT in 0.45% NACL 1 250ML.BAG IV SCH (10:26)
[2019-03-02 10:54] VITALS: BMI 33.3
[2019-03-02 12:23] LABS: Glucose,Whole Blood 124 mg/dL (75-99)
--- NOTE | 2019-03-02 12:47 | P.CRDCN ---
History of Present Illness History of present illness: Patient transferred from [facility] Seen by Dr. Ramos were in cardiac consultation Undergoing coronary angiography today with Dr. Osullivan/Dr. Quevedo Spoke to nurse in the ICU to get the records from [facility] including Dr. Ramos's initial consultation Past Medical History Past Medical History: Coronary Artery Disease (CAD), Chest Pain / Angina, Diabetes Mellitus, Eye Disorder, GERD/Reflux, Hyperlipidemia, Hypertension, Myocardial Infarction (AK), Osteoarthritis (OA), Prostate Disorder, Sleep Apnea/CPAP/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 CATARACT RT EYE; was using CPAP but has not used in more than 2 years as it is not working correctly ( [facility]) Last Myocardial Infarction Date:: 2003? History of Any Multi-Drug Resistant Organisms: None Reported Past Surgical History: Cholecystectomy, Coronary Bypass/CABG, Heart Catheterization With Stent, Orthopedic Surgery Additional Past Surgical History / Comment(s): RT WRIST GANGLION CYST REMOVED.has had stents post cabg not sure how many or what arteries they are in. CABG 1999 (Quadruple bypass), COLONOSCOPY, EGD, Past Anesthesia/Blood Transfusion Reactions: Motion Sickness Additional Past Anesthesia/Blood Transfusion Reaction / Comment(s): Family hx unknown, patient was adopted Date of Last Stent Placement:: 2003 Past Psychological History: Depression, PTSD Smoking Status: Never smoker Past Alcohol Use History: Occasional Past Drug Use History: None Reported - Past Family History Sister(s) Additional Family Medical History / Comment(s): thinks his sister from Cancer but is not sure Father History Unknown: Yes Additional Family Medical History / Comment(s): PT ADOPTED Mother History Unknown: Yes Additional Family Medical History / Comment(s): PT ADOPTED Brother(s) Additional Family Medical History / Comment(s): did find several brothers that had also been adopted out one from agent orange exposure/complications, one from etoh abuse, and one from chino gehrig's disease. Medications and Allergies Home Medications Medication Instructions Recorded Confirmed Type Pantoprazole Sodium [Protonix] 40 mg PO DAILY 04/05/15 03/01/19 History Ubidecarenone [Co Q-10] 400 mg PO DAILY 04/25/17 03/01/19 History Fluticasone Nasal [place] [Flonase 1 spray EA NOSTRIL BID 07/14/18 03/01/19 History Nasal [place]] Nitroglycerin Sl Tabs [Nitrostat] 0.4 mg SUBLINGUAL Q5M PRN 07/14/18 03/01/19 History Ranolazine [Ranexa] 1,000 mg PO BID 07/14/18 03/01/19 History Pregabalin [Lyrica] 100 mg PO BID cap 07/16/18 03/01/19 Rx Mirtazapine [Remeron] 15 mg PO HS #30 tab 07/20/18 03/01/19 Rx Atorvastatin [Lipitor] 80 mg PO HS #30 tab 08/18/18 03/01/19 Rx Carvedilol [Coreg*] 12.5 mg PO BID-W/MEALS #60 tab 08/18/18 03/01/19 Rx Isosorbide Mononitrate ER [Imdur] 30 mg PO DAILY #30 tab.er.24h 08/18/18 03/01/19 Rx Losartan [Cozaar] 25 mg PO HS #0 08/18/18 03/01/19 Rx Escitalopram [Lexapro] 20 mg PO DAILY 02/17/19 03/01/19 History Finasteride [Proscar] 5 mg PO DAILY 02/17/19 03/01/19 History Tamsulosin [Flomax] 0.4 mg PO BID 02/17/19 03/01/19 History Allergies Allergy/AdvReac Type Severity Reaction Status Date / Time Penicillins Allergy Anaphylaxis Verified 03/01/19 20:28 simvastatin [From Zocor] AdvReac SEVERE Verified 03/01/19 20:28 JOINT PAIN Physical Exam Vitals: Vital Signs Temp Pulse Resp BP Pulse Ox 03/02/19 12:00 84 20 115/74 92 L 03/02/19 11:00 86 18 107/79 96 03/02/19 10:00 84 16 111/78 93 L 03/02/19 09:00 89 17 114/71 94 L 03/02/19 08:00 98.3 F 78 17 130/87 93 L 03/02/19 07:00 76 15 124/89 94 L 03/02/19 06:30 79 12 121/81 92 L 03/02/19 06:00 78 20 128/89 93 L 03/02/19 05:30 79 13 126/88 96 03/02/19 05:00 80 19 127/87 95 03/02/19 04:30 80 14 122/90 95 03/02/19 04:00 98.4 F 79 23 132/87 93 L 03/02/19 03:30 81 13 126/87 94 L 03/02/19 03:00 78 20 125/93 93 L 03/02/19 02:30 79 18 133/88 94 L 03/02/19 02:00 80 12 126/94 92 L 03/02/19 01:30 75 14 136/96 93 L 03/02/19 01:00 84 14 136/99 91 L 03/02/19 00:30 84 20 143/100 92 L 03/02/19 00:00 98.6 F 80 8 L 136/98 94 L 03/01/19 23:41 84 29 H 138/98 93 L 03/01/19 23:30 90 10 L 142/100 92 L 03/01/19 23:00 81 16 140/99 93 L 03/01/19 22:30 88 33 H 138/98 92 L 03/01/19 22:00 80 12 130/100 92 L 03/01/19 21:30 86 17 141/95 92 L 03/01/19 21:00 84 25 H 142/96 92 L 03/01/19 20:30 87 24 147/102 96 03/01/19 20:00 90 20 148/104 93 L 03/01/19 19:30 98.5 F 88 18 153/111 94 L 03/01/19 19:10 93 34 H 160/107 96 03/01/19 19:00 93 26 H 154/106 96 03/01/19 18:50 93 22 154/106 96 03/01/19 18:40 92 20 144/107 95 03/01/19 18:30 93 20 155/108 94 L 03/01/19 18:20 89 17 155/101 94 L 03/01/19 18:10 88 13 155/101 94 L 03/01/19 18:00 93 36 H 139/99 94 L 03/01/19 17:50 92 23 139/99 95 03/01/19 17:40 89 30 H 139/99 94 L 03/01/19 17:30 97.9 F 92 20 138/98 95 Intake and Output 03/01/19 03/02/19 03/02/19 22:59 06:59 14:59 Intake Total 208.35 314.35 357.636 Output Total 325 213 200 Balance -116.65 101.35 157.636 Intake: Intake, IV Titration 108.35 314.35 357.636 Amount Heparin Sod,Pork in 0.45% 196.536 NaCl 25,000 unit In 0.45 % NaCl 1 250ml.bag @ 12 UNITS/KG/HR 10.32 mls/hr IV .Q24H [facility] Rx#: [id number] Nitroglycerin-D5w Pmx 50 8.35 154.35 41.1 mg In Dextrose/Water 1 250ml.bag @ 10 MCG/MIN 3 mls/hr IV .Q24H [facility] Rx#: [id number] Sodium Chloride 0.9% 1, 100 160 120 000 ml @ 20 mls/hr IV . Q24H [facility] Rx#:[id number] Oral 100 Output: Urine 325 213 200 Other: Voiding Method Indwelling Catheter Indwelling Catheter Indwelling Catheter Weight 86 kg 85.2 kg 85.2 kg Results 03/02/19 05:46 03/02/19 05:46 Cardiac Enzymes 03/01/19 03/01/19 03/02/19 Range/Units 17:55 17:55 00:03 AST 478 H (17-59) U/L Troponin I 84.200 H* 85.000 H* (0.000-0.034) ng/mL 03/02/19 Range/Units 05:46 AST (17-59) U/L Troponin I 48.900 H* (0.000-0.034) ng/mL Coagulation 03/01/19 03/02/19 03/02/19 Range/Units 17:55 00:03 05:46 PT 10.5 (9.0-12.0) sec APTT 56.3 H 67.2 H 60.9 H (22.0-30.0) sec Lipids 03/01/19 Range/Units 17:55 Triglycerides 90 (<150) mg/dL Cholesterol 254 H (<200) mg/dL HDL Cholesterol 56 (40-60) mg/dL CBC 03/01/19 03/02/19 Range/Units 17:55 05:46 WBC 10.1 8.9 (3.8-10.6) k/uL RBC 3.90 L 3.58 L (4.30-5.90) m/uL Hgb 13.0 11.7 L (13.0-17.5) gm/dL Hct 37.6 L 34.7 L (39.0-53.0) % Plt Count 236 225 (150-450) k/uL Comprehensive Metabolic Panel 03/01/19 03/02/19 Range/Units 17:55 05:46 Sodium 139 137 (137-145) mmol/L Potassium 4.5 4.4 (3.5-5.1) mmol/L Chloride 102 103 (98-107) mmol/L Carbon Dioxide 27 25 (22-30) mmol/L BUN 18 21 H (9-20) mg/dL Creatinine 1.16 1.11 (0.66-1.25) mg/dL Glucose 130 H 135 H (74-99) mg/dL Calcium 9.2 8.8 (8.4-10.2) mg/dL AST 478 H (17-59) U/L ALT 65 (21-72) U/L Alkaline Phosphatase 106 (38-126) U/L Total Protein 7.9 (6.3-8.2) g/dL Albumin 4.3 (3.5-5.0) g/dL Current Medications Generic Name Dose Route Start Last Admin Trade Name Freq PRN Reason Stop Dose Admin Acetaminophen 650 mg 03/01/19 17:43 Tylenol Tab PO Q4HR PRN Fever and/or Mild Pain Al Hydroxide/Mg Hydroxide 30 ml 03/02/19 00:41 03/02/19 00:46 Maalox PO 30 ml Q4HR PRN Administration GI Upset Aspirin 81 mg 03/02/19 09:00 03/02/19 08:16 Aspirin PO 81 mg DAILY [facility] Administration Atorvastatin Calcium 80 mg 03/01/19 21:00 03/01/19 20:30 Lipitor PO 80 mg HS [facility] Administration Carvedilol 12.5 mg 03/01/19 20:00 03/02/19 06:41 Coreg PO 12.5 mg BID-W/MEALS [facility] Administration Clopidogrel Bisulfate 75 mg 03/02/19 09:00 03/02/19 08:16 Plavix PO 75 mg DAILY [facility] Administration Escitalopram Oxalate 20 mg 03/02/19 09:00 03/02/19 08:16 Lexapro PO 20 mg DAILY [facility] Administration Finasteride 5 mg 03/02/19 09:00 03/02/19 08:16 Proscar PO 5 mg DAILY [facility] Administration Heparin Sodium (Porcine) 0 unit 03/01/19 17:35 Heparin IV PER PROTOCOL PRN Low PTT Protocol Sodium Chloride 1,000 mls @ 80 mls/hr 03/01/19 17:45 03/01/19 18:22 Saline 0.9% IV 20 mls/hr .[id number] [facility] Administration Nitroglycerin/Dextrose 50 mg/ 250 mls @ 3 mls/hr 03/01/19 18:00 03/02/19 10:25 IV Solution IV 30 mcg/min .Q24H [facility] 9 mls/hr Administration Protocol 10 MCG/MIN Insulin Aspart 0 unit 03/01/19 21:00 03/02/19 12:37 Novolog SQ Not Given ACHS [facility] Protocol Losartan Potassium 25 mg 03/01/19 21:00 03/01/19 20:30 Cozaar PO 25 mg HS [facility] Administration Melatonin 3 mg 03/01/19 20:50 03/01/19 20:54 Melatonin PO 3 mg HS PRN Administration Insomnia Morphine Sulfate 2 mg 03/02/19 00:41 Morphine Sulfate (Inj) IVP Q4H PRN Pain/Discomfort Naloxone HCl 0.2 mg 03/01/19 17:43 Narcan IV Q2M PRN Opioid Reversal Pantoprazole Sodium 40 mg 03/02/19 07:30 03/02/19 06:41 Protonix PO 40 mg [id number] [facility] Administration Pregabalin 100 mg 03/01/19 21:00 03/02/19 08:16 Lyrica PO 100 mg BID [facility] Administration Spironolactone 25 mg 03/02/19 09:00 03/02/19 08:16 Aldactone PO 25 mg DAILY [facility] Administration Tamsulosin HCl 0.4 mg 03/01/19 21:00 03/02/19 08:16 Flomax PO 0.4 mg BID [facility] Administration Intake and Output 03/01/19 03/02/19 03/02/19 22:59 06:59 14:59 Intake Total 208.35 314.35 357.636 Output Total 325 213 200 Balance -116.65 101.35 157.636 Intake: Intake, IV Titration 108.35 314.35 357.636 Amount Heparin Sod,Pork in 0.45% 196.536 NaCl 25,000 unit In 0.45 % NaCl 1 250ml.bag @ 12 UNITS/KG/HR 10.32 mls/hr IV .Q24H [facility] Rx#: [id number] Nitroglycerin-D5w Pmx 50 8.35 154.35 41.1 mg In Dextrose/Water 1 250ml.bag @ 10 MCG/MIN 3 mls/hr IV .Q24H [facility] Rx#: [id number] Sodium Chloride 0.9% 1, 100 160 120 000 ml @ 20 mls/hr IV . Q24H [facility] Rx#:[id number] Oral 100 Output: Urine 325 213 200 Other: Voiding Method Indwelling Catheter Indwelling Catheter Indwelling Catheter Weight 86 kg 85.2 kg 85.2 kg Patient Weight 03/03/19 06:59 Weight 85.2 kg 03/02/19 05:46 03/02/19 05:46
[2019-03-02] MEDS ORDERED: NITROGLYCERIN D5W PMX IV ONE ×2 (13:00)
[2019-03-02] MEDS ORDERED: IV FLUID CONTINUATION 1,000 ML IV ONE (13:00)
[2019-03-02] MEDS ORDERED: FLUID CONTINUATION IV ONE ×2 (13:00)
[2019-03-02] MEDS ORDERED: LIDOCAINE 1% INJ 10MG/ML (20 ML MDV) ONE (13:04)
[2019-03-02] MEDS ORDERED: LIDOCAINE 1% INJ 10MG/ML (20 ML MDV) SQ ONE (13:16)
[2019-03-02] MEDS ORDERED: MIDAZOLAM 2 MG/2 ML VIAL IVP ONE (13:16)
[2019-03-02] MEDS ORDERED: HEPARIN SODIUM 1,000 UN/ML (10ML VL) IV ONE (13:34)
[2019-03-02] MEDS ORDERED: HEPARIN SODIUM 1,000 UN/ML (10ML VL) ONE (13:35)
[2019-03-02] MEDS ORDERED: CLOPIDOGREL 75 MG TAB ONE (13:48)
[2019-03-02] MEDS ORDERED: IOPAMIDOL-370 125ML BTL INJ ONE (13:49)
[2019-03-02] MEDS ORDERED: CLOPIDOGREL 75 MG TAB PO ONE (13:50)
[2019-03-02] MEDS ORDERED: ATROPINE SULFATE 0.1 MG/ML 10ML SYRINGE IV PRN (13:53)
[2019-03-02] MEDS ORDERED: RX INFO: IV CONTRAST WAS GIVEN 1 EACH MISC MISCELLANE PRN (13:53)
[2019-03-02] MEDS ORDERED: ZOLPIDEM 5 MG TAB PO PRN (13:53)
[2019-03-02] MEDS ORDERED: NITROGLYCERIN SL TABS 0.4 MG TAB SUBLINGUAL PRN (13:53)
[2019-03-02] MEDS ORDERED: SODIUM CHLORIDE 0.9% 1,000 ML IV SCH (14:00)
[2019-03-02 14:21] LABS: Glucose,Whole Blood 119 mg/dL (75-99)
[2019-03-02 14:49] LABS: Hemoglobin A1C 6.3 % (4.0-6.0)
[2019-03-02 16:54] LABS: Glucose,Whole Blood 121 mg/dL (75-99)
--- NOTE | 2019-03-02 17:26 | CC ---
CARDIAC CATHETERIZATION REPORT DATE OF SERVICE: 03/02/2019 PERFORMING PHYSICIAN: Carlton Osullivan MD, tumblers supervisor. PROCEDURES PERFORMED: 1. Selective left and right coronary angiogram. 2. Saphenous vein graft to left circumflex angiogram. 3. MARROQUIN to LAD angiogram. 4. Left heart catheterization. 5. Successful stenting of the left main coronary artery using a 3.5 x 12 mm Xience drug-eluting stent with an excellent angiographic result and reduction of stenosis from 90% to 0%. INDICATION: This is a 68-year-old gentleman with history of coronary artery disease with his last heart catheterization performed in August of 2018 showing severe triple-vessel CAD with severe disease involving the left main and occlusion of all vein grafts and patent MARROQUIN to LAD. He was transferred to [facility] from [facility] with chest discomfort and ruled in for acute etu-IB-wffdsntld myocardial infarction. Because of that, heart catheterization was advised. APPROACH: Right common femoral artery. COMPLICATIONS: None. LEVEL OF SEDATION: Moderate, with sedation length of 34 minutes. PROCEDURE DESCRIPTION: After obtaining informed consent, the patient was brought to the cardiac cathode washer. The right common femoral artery was cannulated using micropuncture technique. The micropuncture wire passed easily. Then I placed a 6-Croat[place] sheath in the right common femoral artery. After that I did selective left and right coronary angiogram using JL4 and JR4 catheters. SVG to left circumflex angiogram was performed using the JR4 catheter as well as the MARROQUIN to LAD angiogram. Then left heart catheterization was performed using JR4 catheter which flipped into the LV. Then I did pull back across the aortic valve. The procedure was completed without any complication. CORONARY ANGIOGRAM: 1. The left main has eccentric-type that appeared to be in the range of 80% to 90%. It involves the mid shaft of the left main. The left main bifurcates into left circumflex and left anterior descending artery. 2. The left circumflex is 100% occluded in the proximal portion. 3. The LAD is 100% occluded in the mid portion. It gives rise to a large diagonal branch which has a lesion that appeared to be in the range of 80% in the proximal portion. 4. The right coronary artery is chronically occluded in the proximal portion. 5. The SVG to circumflex is occluded. 6. MARROQUIN to LAD is patent. PERCUTANEOUS CORONARY INTERVENTION OF THE LEFT MAIN: Anticoagulation was initiated using heparin. The patient was given 8000 units of heparin IV. Subsequently I did engage the left main using JL4 guide with a short tip. I wired using a run-through wire. After that I did PTCA ballooning using 3.0 x 12 mm balloon before I deployed a 3.5 x 12 mm Xience [place] where the stent was positioned under fluoroscopic guidance and deployed under its nominal pressure. Subsequently I post- dilated the stent using a 3.5 x 8 mm NC balloon which was inflated under 20 atmospheres for 20 seconds, with the following angiogram showing excellent angiographic results with reduction of stenosis from 90% to 0%. The procedure was completed without any complication. CONCLUSION: 1. Severe triple-vessel coronary artery disease and critical left main disease. 2. Patent MARROQUIN to LAD. 3. Known occluded all vein grafts. 4. Successful stenting of the mid shaft of the left main using a 3.5 x 8 mm Xience [place] with an excellent angiographic result and reduction of stenosis from 80% to 0%. POST-PROCEDURE MANAGEMENT: 1. Dual anti-platelet therapy. 2. Risk factor modifications. 3. Follow up with the patient. MMODL / IJN: [id number] /
[2019-03-02 20:27] LABS: Glucose,Whole Blood 160 mg/dL (75-99)
[2019-03-02] MEDS: ATORVASTATIN 80 MG TAB PO SCH (20:47)
[2019-03-02] MEDS: LOSARTAN 25 MG TAB PO SCH (20:47)
[2019-03-03] MEDS: TEMAZEPAM 15 MG CAP PO PRN ×2 (01:41→20:28)
[2019-03-03 04:37] LABS: Basophils % (A) 1 %; Eosinophils # (A) 0.1 k/uL (0-0.7); Eosinophils % (A) 2 %; HCT 32.3 % (39.0-53.0); Lymphocytes # (A) 0.6 k/uL (1.0-4.8); Lymphocytes % (A) 10 %; MCH 33.5 pg (25.0-35.0); MCV 98.6 fL (80.0-100.0); Monocytes # (A) 0.4 k/uL (0-1.0); Monocytes % (A) 7 %; Neutrophils # (A) 4.7 k/uL (1.3-7.7); Neutrophils % (A) 78 %; Platelet Count 188 k/uL (150-450); RBC 3.27 m/uL (4.30-5.90); WBC 6.1 k/uL (3.8-10.6)
[2019-03-03 04:46] LABS: Calcium 8.2 mg/dL (8.4-10.2); Potassium 4.4 mmol/L (3.5-5.1)
[2019-03-03 07:00] LABS: Glucose,Whole Blood 124 mg/dL (75-99)
[2019-03-03] MEDS: INSULIN ASPART (NovoLOG) 100 UNIT/ML VIAL SQ SCH ×4 (07:00→20:28)
[2019-03-03] MEDS: CARVEDILOL 12.5 MG TAB PO SCH ×2 (07:08→17:28)
[2019-03-03] MEDS: PANTOPRAZOLE 40 MG TABLET PO SCH (07:08)
[2019-03-03] MEDS: CLOPIDOGREL 75 MG TAB PO SCH (08:18)
[2019-03-03] MEDS: PREGABALIN 100 MG CAP PO SCH ×2 (08:18→20:25)
[2019-03-03] MEDS: ASPIRIN 81 MG PO SCH (08:18)
[2019-03-03] MEDS: FINASTERIDE 5 MG TAB PO SCH (08:18)
[2019-03-03] MEDS: ESCITALOPRAM 20 MG TAB PO SCH (08:18)
[2019-03-03] MEDS: TAMSULOSIN 0.4 MG CAP.ER.24H PO SCH ×2 (08:18→20:28)
[2019-03-03] MEDS: SPIRONOLACTONE 25 MG TAB PO SCH (08:18)
[2019-03-03 11:49] LABS: Glucose,Whole Blood 144 mg/dL (75-99)
--- NOTE | 2019-03-03 13:00 | P.PN ---
Subjective Patient is resting comfortably in bed no chest discomfort dizziness lightheadedness or palpitations Blood pressure 102/60 mmHg respirations 14, pulse rate in 70s afebrile 98.1F Breath sounds are clear no rhonchi no crackles Heart sounds S1 and S2 are normal no murmurs or gallop. Abdomen is soft nontender Central obesity noted 70s warm no edema No JVD Impression Non-Q wave myocardial infarction Left main disease Status post stenting to the left main with a drug-eluting stent Underlying triple-vessel coronary artery disease status post coronary artery bypass grafting Patient was transferred from [facility] for management of acute non-ST elevation DE Suggest Aspirin, atorvastatin, carvedilol, Plavix, losartan and spironolactone to continue May go to [facility] Objective - Vital Signs Vital signs: Vital Signs Temp 98.1 F 03/03/19 12:00 Pulse 75 03/03/19 12:00 Resp 15 03/03/19 12:00 BP 102/63 03/03/19 12:00 Pulse Ox 92 L 03/03/19 12:00 Intake & Output 03/02/19 03/03/19 03/03/19 18:59 06:59 18:59 Intake Total 4836.788 8164 370 Output Total 640 585 65 Balance 697.636 435 305 Weight 85.2 kg 82.4 kg Intake: IV 405 825 150 Sodium Chloride 0.9% 1, 825 150 000 ml @ 75 mls/hr IV . [id number] [facility] Rx#:[id number] Intake, IV Titration 812.636 75 Amount Heparin Sod,Pork in 0.45% 196.536 NaCl 25,000 unit In 0.45 % NaCl 1 250ml.bag @ 12 UNITS/KG/HR 10.32 mls/hr IV .Q24H [facility] Rx#: [id number] Nitroglycerin-D5w Pmx 50 41.1 mg In Dextrose/Water 1 250ml.bag @ 10 MCG/MIN 3 mls/hr IV .Q24H [facility] Rx#: [id number] Sodium Chloride 0.9% 1, 375 75 000 ml @ 75 mls/hr IV . [id number] [facility] Rx#:[id number] Sodium Chloride 0.9% 1, 200 000 ml @ 80 mls/hr IV . [id number] [facility] Rx#:[id number] Oral 120 120 220 Output: Urine 640 585 65 Other: Voiding Method Indwelling Catheter Indwelling Catheter Indwelling Catheter # Bowel Movements 1 ABP, PAP, CO, CI - Last Documented Arterial Blood Pressure 116/63 - Labs CBC & Chem 7: 03/03/19 04:13 03/03/19 04:13 Labs: Abnormal Lab Results - Last 24 Hours (Table) 03/02/19 03/02/19 03/02/19 Range/Units 05:46 14:19 16:53 RBC (4.30-5.90) m/uL Hgb (13.0-17.5) gm/dL Hct (39.0-53.0) % Lymphocytes # (1.0-4.8) k/uL Chloride (98-107) mmol/L BUN (9-20) mg/dL Glucose (74-99) mg/dL POC Glucose (mg/dL) 119 H 121 H (75-99) mg/dL Hemoglobin A1c 6.3 H (4.0-6.0) % Calcium (8.4-10.2) mg/dL 03/02/19 03/03/19 03/03/19 Range/Units 20:25 04:13 04:13 RBC 3.27 L (4.30-5.90) m/uL Hgb 11.0 L (13.0-17.5) gm/dL Hct 32.3 L (39.0-53.0) % Lymphocytes # 0.6 L (1.0-4.8) k/uL Chloride 108 H (98-107) mmol/L BUN 21 H (9-20) mg/dL Glucose 124 H (74-99) mg/dL POC Glucose (mg/dL) 160 H (75-99) mg/dL Hemoglobin A1c (4.0-6.0) % Calcium 8.2 L (8.4-10.2) mg/dL 03/03/19 03/03/19 Range/Units 06:58 11:48 RBC (4.30-5.90) m/uL Hgb (13.0-17.5) gm/dL Hct (39.0-53.0) % Lymphocytes # (1.0-4.8) k/uL Chloride (98-107) mmol/L BUN (9-20) mg/dL Glucose (74-99) mg/dL POC Glucose (mg/dL) 124 H 144 H (75-99) mg/dL Hemoglobin A1c (4.0-6.0) % Calcium (8.4-10.2) mg/dL
--- NOTE | 2019-03-03 13:42 | CDI ---
Documentation Clarification Form Date: 03/03/2019 1:08:32 PM From: Aneta Perkins Phone: '[phone] Admit Date: 03/01/2019 5:36:00 PM Patient Name: Gurpreet Hutchinson Visit Number: [id number] Discharge Date: ATTENTION: The Clinical Documentation Specialists (CDI) and [facility] Coding Staff appreciate your assistance in clarifying documentation. Please respond to the clarification below the line at the bottom and electronically sign. The CDI & [facility] Coding staff will review the response and follow-up if needed. Please note: Queries are made part of the Legal Health Record. If you have any questions, please contact the author of this message via ITS. Dr. Kenisha Stokes After he woke up from anesthesia, he developed to have significant chest pain and severe shortness of breath Per H & P 03/01/2019 History/Risk Factors: 68-year-old male presents to [facility] as a transfer from [facility] for possible left heart catheterization. Medical History DM diet controlled; CAD; Sleep apnea Clinical Indicators: Vital signs:138/98 92 97.9 20 95% 6 L nasal cannula Lung/Breathing assessment: H & P 03/01/2019 Decreased breath sounds at the bases, few rhonchi, minimal expiratory wheezes, minimal crackles. No chest wall tenderness minimal intercostal retractions. Treatment: 6 L oxygen nasal cannula 95% at admission 10/30/2018 1730. 03/01 1930 94% 2L nasal cannula; 03/01 2130 92% 3L nasal cannula; 03/01 2341 93% 4L nasal cannula 03/03 0730 91% room air In your professional opinion, can you please clarify if these findings signify one of the following conditions? * Acute Respiratory Failure * Acute Respiratory Distress * Acute Respiratory Insufficiency * Other Diagnosis, please specify * Unable to determine Specificity: If known, further specify (if known): With hypercapnia? (pCO2 >50 and pH <7.35) With hypoxia? (pO2 <60 mm Hg or SpO2 <91% on room air) (Last Query Form Revision: January 2019) Acute respiratory failure due to pulmonary edema due to Left main disease with NSTEMI MTDD
--- NOTE | 2019-03-03 16:40 | P.HPIM ---
History of Present Illness H&P Date: 03/02/19 Chief Complaint: Acute non-ST elevation NV. This is a 68-year-old male one of my patient with a previous medical history significant for CAD post-NV as well as history of CABG with MARROQUIN to LAD and occluded all SVGs venous graft, attempted PCI of the diagonal branch back in July 2018 that was unsuccessful, ischemic cardiopathy, hypertension and hypertensive cardio vascular disease, hyperlipidemia, GERD, diabetes mellitus type 2, osteoarthritis, benign prostatic hypertrophy, sleep apnea on CPAP, patient was doing fine up until the day before the admission when he developed to have a significant chest pain at night prior to his scheduled procedure regarding his Hemphill's esophagus patient has been off aspirin and Plavix for the past 5 days prior to the procedure patient didn't do anything about it because thought that there is nothing can be done for his heart at this point so he went on to scheduled procedure underwent EGD by Dr. Estrada at [facility] and after the procedure developed to have a significant chest pain associated with severe shortness breath he did receive nitroglycerin and aspirin and he was rushed to the emergency department at [facility] initial 12-lead EKG showed ST elevation in aVR with ST depression in aVL with diffuse ischemic anterolateral changes patient was immediately started on heparin drip as well as nitroglycerin drip along with aspirin beta la and Lipitor and he was admitted to the ICU initial troponin was negative however his second troponin can to 46 and the decision was made to transfer the patient to [facility] for evaluation by interventional cardiology and he was scheduled to go for left heart catheterization. Review of Systems Constitutional: Reports weakness, Denies anorexia, Denies chronic headaches, Denies lethargy Eyes: denies blurred vision, denies bulging eye, denies decreased vision, denies diplopia Ears: deny: decreased hearing Ears, nose, mouth and throat: Denies dysphagia, Denies neck lump, Denies sore throat Cardiovascular: Reports chest pain, Reports decreased exercise tolerance, Reports dyspnea on exertion, Reports shortness of breath, Denies lightheadedness, Denies rapid heart beat, Denies syncope Respiratory: Reports sleep apnea, Denies congestion, Denies cough with sputum, Denies home oxygen, Denies respiratory infections, Denies snoring, Denies wheezing Gastrointestinal: Denies abdominal pain, Denies bloating, Denies BRBPR, Denies heartburn, Denies melena, Denies nausea, Denies vomiting Genitourinary: Reports nocturia, Denies dysuria Musculoskeletal: Denies myalgias Musculoskeletal: absent: ankle pain, ankle stiffness, ankle swelling, elbow pain, elbow stiffness, elbow swelling, foot pain, foot stiffness, foot swelling, hand pain, hand stiffness, hand swelling, hip pain, hip stiffness, hip swelling, knee pain, knee stiffness, knee swelling, shoulder pain, shoulder stiffness, shoulder swelling, wrist pain, wrist stiffness, wrist swelling Integumentary: Denies pruritus, Denies rash Neurological: Denies numbness, Denies weakness Psychiatric: Reports depression, Denies anxiety, Denies sadness/tearfulness, Denies sleep disturbances, Denies suicidal ideation Endocrine: Denies fatigue, Denies weight change Past Medical History Past Medical History: Coronary Artery Disease (CAD), Chest Pain / Angina, Diabetes Mellitus, Eye Disorder, GERD/Reflux, Hyperlipidemia, Hypertension, Myocardial Infarction (NV), Osteoarthritis (OA), Prostate Disorder, Sleep Apnea/CPAP/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 CATARACT RT EYE; was using CPAP but has not used in more than 2 years as it is not working correctly ( [facility]) Last Myocardial Infarction Date:: 2003? History of Any Multi-Drug Resistant Organisms: None Reported Past Surgical History: Cholecystectomy, Coronary Bypass/CABG, Heart Cat heterization With Stent, Orthopedic Surgery Additional Past Surgical History / Comment(s): RT WRIST GANGLION CYST REMOVED.has had stents post cabg not sure how many or what arteries they are in. CABG 1999 (Quadruple bypass), COLONOSCOPY, EGD, Past Anesthesia/Blood Transfusion Reactions: Motion Sickness Additional Past Anesthesia/Blood Transfusion Reaction / Comment(s): Family hx unknown, patient was adopted Date of Last Stent Placement:: 2003 Past Psychological History: Depression, PTSD Smoking Status: Never smoker Past Alcohol Use History: Occasional Past Drug Use History: None Reported - Past Family History Sister(s) Additional Family Medical History / Comment(s): thinks his sister from Cancer but is not sure Father History Unknown: Yes Additional Family Medical History / Comment(s): PT ADOPTED Mother History Unknown: Yes Additional Family Medical History / Comment(s): PT ADOPTED Brother(s) Additional Family Medical History / Comment(s): did find several brothers that had also been adopted out one from agent orange exposure/complications, one from etoh abuse, and one from chino gehrig's disease. Medications and Allergies Home Medications Medication Instructions Recorded Confirmed Type Pantoprazole Sodium [Protonix] 40 mg PO DAILY 04/05/15 03/01/19 History Ubidecarenone [Co Q-10] 400 mg PO DAILY 04/25/17 03/01/19 History Fluticasone Nasal [place] [Flonase 1 spray EA NOSTRIL BID 07/14/18 03/01/19 History Nasal [place]] Nitroglycerin Sl Tabs [Nitrostat] 0.4 mg SUBLINGUAL Q5M PRN 07/14/18 03/01/19 History Ranolazine [Ranexa] 1,000 mg PO BID 07/14/18 03/01/19 History Pregabalin [Lyrica] 100 mg PO BID cap 07/16/18 03/01/19 Rx Mirtazapine [Remeron] 15 mg PO HS #30 tab 07/20/18 03/01/19 Rx Atorvastatin [Lipitor] 80 mg PO HS #30 tab 08/18/18 03/01/19 Rx Carvedilol [Coreg*] 12.5 mg PO BID-W/MEALS #60 tab 08/18/18 03/01/19 Rx Isosorbide Mononitrate ER [Imdur] 30 mg PO DAILY #30 tab.er.24h 08/18/18 03/01/19 Rx Losartan [Cozaar] 25 mg PO HS #0 08/18/18 03/01/19 Rx Escitalopram [Lexapro] 20 mg PO DAILY 02/17/19 03/01/19 History Finasteride [Proscar] 5 mg PO DAILY 02/17/19 03/01/19 History Tamsulosin [Flomax] 0.4 mg PO BID 02/17/19 03/01/19 History Allergies Allergy/AdvReac Type Severity Reaction Status Date / Time Penicillins Allergy Anaphylaxis Verified 10/21/19 20:28 simvastatin [From Zocor] AdvReac SEVERE Verified 03/01/19 20:28 JOINT PAIN Physical Exam Vitals: Vital Signs Temp Pulse Resp BP Pulse Ox 03/02/19 12:45 86 19 99/70 93 L 03/02/19 12:00 84 20 115/74 92 L 03/02/19 11:00 86 18 107/79 96 03/02/19 10:00 84 16 111/78 93 L 03/02/19 09:00 89 17 114/71 94 L 03/02/19 08:00 98.3 F 78 17 130/87 93 L 03/02/19 07:00 76 15 124/89 94 L 03/02/19 06:30 79 12 121/81 92 L 03/02/19 06:00 78 20 128/89 93 L 03/02/19 05:30 79 13 126/88 96 03/02/19 05:00 80 19 127/87 95 03/02/19 04:30 80 14 122/90 95 03/02/19 04:00 98.4 F 79 23 132/87 93 L 03/02/19 03:30 81 13 126/87 94 L 03/02/19 03:00 78 20 125/93 93 L 03/02/19 02:30 79 18 133/88 94 L 03/02/19 02:00 80 12 126/94 92 L 03/02/19 01:30 75 14 136/96 93 L 03/02/19 01:00 84 14 136/99 91 L 03/02/19 00:30 84 20 143/100 92 L 03/02/19 00:00 98.6 F 80 8 L 136/98 94 L 03/01/19 23:41 84 29 H 138/98 93 L 03/01/19 23:30 90 10 L 142/100 92 L 03/01/19 23:00 81 16 140/99 93 L 03/01/19 22:30 88 33 H 138/98 92 L 03/01/19 22:00 80 12 130/100 92 L 03/01/19 21:30 86 17 141/95 92 L 03/01/19 21:00 84 25 H 142/96 92 L 03/01/19 20:30 87 24 147/102 96 03/01/19 20:00 90 20 148/104 93 L 03/01/19 19:30 98.5 F 88 18 153/111 94 L 03/01/19 19:10 93 34 H 160/107 96 03/01/19 19:00 93 26 H 154/106 96 03/01/19 18:50 93 22 154/106 96 03/01/19 18:40 92 20 144/107 95 03/01/19 18:30 93 20 155/108 94 L 03/01/19 18:20 89 17 155/101 94 L 03/01/19 18:10 88 13 155/101 94 L 03/01/19 18:00 93 36 H 139/99 94 L 03/01/19 17:50 92 23 139/99 95 03/01/19 17:40 89 30 H 139/99 94 L 03/01/19 17:30 97.9 F 92 20 138/98 95 Intake and Output 03/01/19 03/02/19 03/02/19 22:59 06:59 14:59 Intake Total 208.35 314.35 437.636 Output Total 325 213 230 Balance -116.65 101.35 207.636 Intake: IV 0 Intake, IV Titration 108.35 314.35 437.636 Amount Heparin Sod,Pork in 0.45% 196.536 NaCl 25,000 unit In 0.45 % NaCl 1 250ml.bag @ 12 UNITS/KG/HR 10.32 mls/hr IV .Q24H [facility] Rx#: [id number] Nitroglycerin-D5w Pmx 50 8.35 154.35 41.1 mg In Dextrose/Water 1 250ml.bag @ 10 MCG/MIN 3 mls/hr IV .Q24H [facility] Rx#: [id number] Sodium Chloride 0.9% 1, 100 160 200 000 ml @ 80 mls/hr IV . [id number] [facility] Rx#:[id number] Oral 100 Output: Urine 325 213 230 Other: Voiding Method Indwelling Catheter Indwelling Catheter Indwelling Catheter Weight 86 kg 85.2 kg 85.2 kg HEENT: Head is atraumatic, normocephalic, pupils were equal round reactive to light and accommodation, extraocular muscle movement were intact. Mucous membranes of the mouth are moist. Neck: Supple, no JVP. Chest: Decreased breath sounds at the bases, few rhonchi, minimal expiratory wheezes, minimal crackles, no chest wall tenderness, minimal intercostal retractions. Heart: First heart sound is depressed, second heart sound is normal, there is systolic ejection murmur 2/6 located in the left sternal border, S3. Abdomen: Soft, nontender, nondistended, positive bowel sounds, there is no hep atosplenomegaly. Extremities: Trace edema, no calf tenderness, dorsalis pedis +1 bilaterally. Neurologic examination: Patient is awake alert and oriented 3, cranial nerves II-12 appear grossly intact, muscle power 4 out of 5 in upper and lower extremities bilaterally. Results CBC & Chem 7: 03/03/19 04:13 03/03/19 04:13 Labs: Abnormal Lab Results - Last 24 Hours (Table) 03/01/19 03/01/19 03/01/19 Range/Units 17:55 17:55 17:55 RBC 3.90 L (4.30-5.90) m/uL Hgb (13.0-17.5) gm/dL Hct 37.6 L (39.0-53.0) % Neutrophils # 8.4 H (1.3-7.7) k/uL Lymphocytes # 0.8 L (1.0-4.8) k/uL APTT 56.3 H (22.0-30.0) sec BUN (9-20) mg/dL Glucose 130 H (74-99) mg/dL POC Glucose (mg/dL) (75-99) mg/dL Phosphorus 4.6 H (2.5-4.5) mg/dL AST 478 H (17-59) U/L Troponin I (0.000-0.034) ng/mL Cholesterol 254 H (<200) mg/dL LDL Cholesterol, Calc 180 H (0-99) mg/dL Urine Protein (Negative) Urine Ketones (Negative) Urine Blood (Negative) Urine RBC (0-5) /hpf Urine Bacteria (None) /hpf Hyaline Casts (0-2) /lpf Urine Mucus (None) /hpf 03/01/19 03/01/19 03/01/19 Range/Units 17:55 20:37 21:30 RBC (4.30-5.90) m/uL Hgb (13.0-17.5) gm/dL Hct (39.0-53.0) % Neutrophils # (1.3-7.7) k/uL Lymphocytes # (1.0-4.8) k/uL APTT (22.0-30.0) sec BUN (9-20) mg/dL Glucose (74-99) mg/dL POC Glucose (mg/dL) 145 H (75-99) mg/dL Phosphorus (2.5-4.5) mg/dL AST (17-59) U/L Troponin I 84.200 H* (0.000-0.034) ng/mL Cholesterol (<200) mg/dL LDL Cholesterol, Calc (0-99) mg/dL Urine Protein Trace H (Negative) Urine Ketones Trace H (Negative) Urine Blood Small H (Negative) Urine RBC 20 H (0-5) /hpf Urine Bacteria Rare H (None) /hpf Hyaline Casts 23 H (0-2) /lpf Urine Mucus Rare H (None) /hpf 03/02/19 03/02/19 03/02/19 Range/Units 00:03 00:03 05:46 RBC (4.30-5.90) m/uL Hgb (13.0-17.5) gm/dL Hct (39.0-53.0) % Neutrophils # (1.3-7.7) k/uL Lymphocytes # (1.0-4.8) k/uL APTT 67.2 H (22.0-30.0) sec BUN 21 H (9-20) mg/dL Glucose 135 H (74-99) mg/dL POC Glucose (mg/dL) (75-99) mg/dL Phosphorus (2.5-4.5) mg/dL AST (17-59) U/L Troponin I 85.000 H* (0.000-0.034) ng/mL Cholesterol (<200) mg/dL LDL Cholesterol, Calc (0-99) mg/dL Urine Protein (Negative) Urine Ketones (Negative) Urine Blood (Negative) Urine RBC (0-5) /hpf Urine Bacteria (None) /hpf Hyaline Casts (0-2) /lpf Urine Mucus (None) /hpf 03/02/19 03/02/19 03/02/19 Range/Units 05:46 05:46 05:46 RBC 3.58 L (4.30-5.90) m/uL Hgb 11.7 L (13.0-17.5) gm/dL Hct 34.7 L (39.0-53.0) % Neutrophils # (1.3-7.7) k/uL Lymphocytes # 0.9 L (1.0-4.8) k/uL APTT 60.9 H (22.0-30.0) sec BUN (9-20) mg/dL Glucose (74-99) mg/dL POC Glucose (mg/dL) (75-99) mg/dL Phosphorus (2.5-4.5) mg/dL AST (17-59) U/L Troponin I 48.900 H* (0.000-0.034) ng/mL Cholesterol (<200) mg/dL LDL Cholesterol, Calc (0-99) mg/dL Urine Protein (Negative) Urine Ketones (Negative) Urine Blood (Negative) Urine RBC (0-5) /hpf Urine Bacteria (None) /hpf Hyaline Casts (0-2) /lpf Urine Mucus (None) /hpf 03/02/19 03/02/19 Range/Units 06:32 12:21 RBC (4.30-5.90) m/uL Hgb (13.0-17.5) gm/dL Hct (39.0-53.0) % Neutrophils # (1.3-7.7) k/uL Lymphocytes # (1.0-4.8) k/uL APTT (22.0-30.0) sec BUN (9-20) mg/dL Glucose (74-99) mg/dL POC Glucose (mg/dL) 129 H 124 H (75-99) mg/dL Phosphorus (2.5-4.5) mg/dL AST (17-59) U/L Troponin I (0.000-0.034) ng/mL Cholesterol (<200) mg/dL LDL Cholesterol, Calc (0-99) mg/dL Urine Protein (Negative) Urine Ketones (Negative) Urine Blood (Negative) Urine RBC (0-5) /hpf Urine Bacteria (None) /hpf Hyaline Casts (0-2) /lpf Urine Mucus (None) /hpf Thrombosis Risk Factor Assmnt - DVT/VTE Prophylaxis DVT/VTE Prophylaxis: Pharmacologic Prophylaxis ordered, Mechanical Prophylaxis ordered - Choose All That Apply Each Factor Represents 1 point: Heart failure (<1month), Obesity (BMI >25), Swollen legs (current) Each Risk Factor Represents 2 Points: Age 61-74 years Thrombosis Risk Factor Assessment Total Risk Factor Score: 5 Thrombosis Risk Factor Assessment Level: High Risk Assessment and Plan Assessment: Assessment and plan: 1. Acute non-ST elevation NV with significant changes in aVR and aVL suggestive of left main disease. Continue patient on aspirin, Plavix, heparin drip, nitroglycerin drip, Lipitor 80 mg orally once every day, Coreg 12.5 mg orally twice every day, ICU management. Cardiology consultation for left heart catheterization. 2. Acute pulmonary edema due to left main disease with non-ST elevation NV. C ontinue losartan 25 mg orally once every day, Coreg 12.5 mg orally twice every day, patient did receive Lasix 40 mg IV push every 12 hours. 3. Hyperlipidemia. Continue Lipitor 80 mg orally once every day. 4. Hypertension and hypertensive cardiovascular disease. Continue losartan 25 mg orally once every day as well as Coreg 12.5 mg orally twice every day. 5. CAD post CABG in with multiple PCI's with occluded old vein grafts except patent MARROQUIN to LAD with possible significant left main disease. Continue aspirin and Plavix Lipitor Coreg cardiology evaluation. 6. Diabetes mellitus type 2. Continue patient on low-carb diet. 7. Depression. Continue Lexapro 20 mg orally once every day. 8. Hemphill's esophagus status post EGD with 7 biopsies. Continue Protonix 40 mg orally twice every day. 9. Benign prostatic hypertrophy. Continue Proscar 5 mg once every day and Flomax 0.4 g once every day. 10. Severe carotid artery disease continue aspirin Plavix and Lipitor for s econdary prevention. 11. Sleep apnea currently on CPAP. 12. Chronic low back pain secondary to degenerative disc disease continue with Lyrica 100 mg orally twice every day. 13. DVT prophylaxis. Currently on heparin drip. 14. GI prophylaxis. Continue patient on PPI. 15. Admit to inpatient. Estimate a length of stay 2 midnights. 16. Patient is full code.
--- NOTE | 2019-03-03 16:54 | P.PN ---
Subjective Progress Note Date: 03/03/19 This is a 68-year-old male one of my patient with a previous medical history significant for CAD post-[place] as well as history of CABG with MARROQUIN to LAD and occluded all SVGs venous graft, attempted PCI of the diagonal branch back in July 2018 that was unsuccessful, ischemic cardiopathy, hypertension and hypertensive cardio vascular disease, hyperlipidemia, GERD, diabetes mellitus type 2, osteoarthritis, benign prostatic hypertrophy, sleep apnea on CPAP, patient was doing fine up until the day before the admission when he developed to have a significant chest pain at night prior to his scheduled procedure regarding his Hemphill's esophagus patient has been off aspirin and Plavix for the past 5 days prior to the procedure patient didn't do anything about it because thought that there is nothing can be done for his heart at this point so he went on to scheduled procedure underwent EGD by Dr. Estrada at [facility] and after the procedure developed to have a significant chest p ain associated with severe shortness breath he did receive nitroglycerin and aspirin and he was rushed to the emergency department at [facility] initial 12-lead EKG showed ST elevation in aVR with ST depression in aVL with diffuse ischemic anterolateral changes patient was immediately started on heparin drip as well as nitroglycerin drip along with aspirin beta la and Lipitor and he was admitted to the ICU initial troponin was negative however his second troponin can to 46 and the decision was made to transfer the patient to [facility] for evaluation by interventional cardiology and he was scheduled to go for left heart catheterization. 03/03: Patient is status post stenting of the left main with recommendations for dual antiplatelet therapy. Patient has been cleared by cardiology to go to cardiac stepdown unit and patient is waiting for a bed. He has been afebrile, heart rate 73, blood pressure 113/66, pulse ox 95% on room air. Repeat lab work reveals BUN 21 creatinine 1.04, hemoglobin 11.0, potassium 4.4. Blood sugars running between 124 and 160. Objective - Vital Signs Vital signs: Vital Signs Temp 98.1 F 03/03/19 12:00 Pulse 75 03/03/19 12:00 Resp 15 03/03/19 12:00 BP 102/63 03/03/19 12:00 Pulse Ox 92 L 03/03/19 12:00 Intake & Output 1003/03/19 03/03/19 18:59 06:59 18:59 Intake Total 9014.526 4124 370 Output Total 640 585 65 Balance 697.636 435 305 Weight 85.2 kg 82.4 kg Intake: IV 405 825 150 Sodium Chloride 0.9% 1, 825 150 000 ml @ 75 mls/hr IV . [id number] [facility] Rx#:[id number] Intake, IV Titration 812.636 75 Amount Heparin Sod,Pork in 0.45% 196.536 NaCl 25,000 unit In 0.45 % NaCl 1 250ml.bag @ 12 UNITS/KG/HR 10.32 mls/hr IV .Q24H [facility] Rx#: [id number] Nitroglycerin-D5w Pmx 50 41.1 mg In Dextrose/Water 1 250ml.bag @ 10 MCG/MIN 3 mls/hr IV .Q24H [facility] Rx#: [id number] Sodium Chloride 0.9% 1, 375 75 000 ml @ 75 mls/hr IV . [id number] [facility] Rx#:[id number] Sodium Chloride 0.9% 1, 200 000 ml @ 80 mls/hr IV . [id number] [facility] Rx#:[id number] Oral 120 120 220 Output: Urine 640 585 65 Other: Voiding Method Indwelling Catheter Indwelling Catheter Toilet # Bowel Movements 1 ABP, PAP, CO, CI - Last Documented Arterial Blood Pressure 116/63 - Exam Review of Systems Constitutional: Reports weakness, Denies anorexia, Denies chronic headaches, Denies lethargy Eyes: denies blurred vision, denies bulging eye, denies decreased vision, denies diplopia Ears: deny: decreased hearing Ears, nose, mouth and throat: Denies dysphagia, Denies neck lump, Denies sore throat Cardiovascular: Reports chest pain, Reports decreased exercise tolerance, Reports dyspnea on exertion, Reports shortness of breath, Denies lightheadedness, Denies rapid heart beat, Denies syncope Respiratory: Reports sleep apnea, Denies congestion, Denies cough with sputum, Denies home oxygen, Denies respiratory infections, Denies snoring, Denies wheezing Gastrointestinal: Denies abdominal pain, Denies bloating, Denies BRBPR, Denies heartburn, Denies melena, Denies nausea, Denies vomiting Genitourinary: Reports nocturia, Denies dysuria Musculoskeletal: Denies myalgias Musculoskeletal: absent: ankle pain, ankle stiffness, ankle swelling, elbow pain, elbow stiffness, elbow swelling, foot pain, foot stiffness, foot swelling, hand pain, hand stiffness, hand swelling, hip pain, hip stiffness, hip swelling, knee pain, knee stiffness, knee swelling, shoulder pain, shoulder stiffness, shoulder swelling, wrist pain, wrist stiffness, wrist swelling Integumentary: Denies pruritus, Denies rash Neurological: Denies numbness, Denies weakness Psychiatric: Reports depression, Denies anxiety, Denies sadness/tearfulness, Denies sleep disturbances, Denies suicidal ideation Endocrine: Denies fatigue, Denies weight change Physical exam: Patient resting in the ICU HEENT: Head is atraumatic, normocephalic, pupils were equal round reactive to light and accommodation, extraocular muscle movement were intact. Mucous membranes of the mouth are moist. Neck: Supple, no JVP. Chest: Decreased breath sounds at the bases, few rhonchi, minimal expiratory wheezes, minimal crackles, no chest wall tenderness, minimal intercostal retractions. Heart: First heart sound is depressed, second heart sound is normal, there is systolic ejection murmur 2/6 located in the left sternal border, S3. Abdomen: Soft, nontender, nondistended, positive bowel sounds, there is no hepatosplenomegaly. Extremities: Trace edema, no calf tenderness, dorsalis pedis +1 bilaterally. Neurologic examination: Patient is awake alert and oriented 3, cranial nerves II-12 appear grossly intact, muscle power 4 out of 5 in upper and lower extremities bilaterally. - Labs CBC & Chem 7: 03/03/19 04:13 03/03/19 04:13 Labs: Abnormal Lab Results - Last 24 Hours (Table) 03/02/19 03/02/19 03/02/19 Range/Units 05:46 14: 16:53 RBC (4.30-5.90) m/uL Hgb (13.0-17.5) gm/dL Hct (39.0-53.0) % Lymphocytes # (1.0-4.8) k/uL Chloride (98-107) mmol/L BUN (9-20) mg/dL Glucose (74-99) mg/dL POC Glucose (mg/dL) 119 H 121 H (75-99) mg/dL Hemoglobin A1c 6.3 H (4.0-6.0) % Calcium (8.4-10.2) mg/dL 03/02/19 03/03/19 03/03/19 Range/Units 20:25 04:13 04:13 RBC 3.27 L (4.30-5.90) m/uL Hgb 11.0 L (13.0-17.5) gm/dL Hct 32.3 L (39.0-53.0) % Lymphocytes # 0.6 L (1.0-4.8) k/uL Chloride 108 H (98-107) mmol/L BUN 21 H (9-20) mg/dL Glucose 124 H (74-99) mg/dL POC Glucose (mg/dL) 160 H (75-99) mg/dL Hemoglobin A1c (4.0-6.0) % Calcium 8.2 L (8.4-10.2) mg/dL 03/03/19 03/03/19 Range/Units 06:58 11:48 RBC (4.30-5.90) m/uL Hgb (13.0-17.5) gm/dL Hct (39.0-53.0) % Lymphocytes # (1.0-4.8) k/uL Chloride (98-107) mmol/L BUN (9-20) mg/dL Glucose (74-99) mg/dL POC Glucose (mg/dL) 124 H 144 H (75-99) mg/dL Hemoglobin A1c (4.0-6.0) % Calcium (8.4-10.2) mg/dL Assessment and Plan Plan: 1. Acute non-ST elevation [place] with significant changes in aVR and aVL suggestive of left main disease status post stent in main branch. Continue aspirin, Plavix, Lipitor 80 mg orally once every day, Coreg 12.5 mg orally twice every day. Cardiology consult appreciated. Patient to stop transferred to cardiac stepdown unit. 2. Acute pulmonary edema due to left main disease with non-ST elevation [place]. Continue losartan 25 mg orally once every day, Coreg 12.5 mg orally twice every day. 3. Hyperlipidemia. Continue Lipitor 80 mg orally once every day. 4. Hypertension and hypertensive cardiovascular disease. Continue losartan 25 mg orally once every day as well as Coreg 12.5 mg orally twice every day. 5. CAD post CABG in with multiple PCI's with occluded old vein grafts except patent MARROQUIN to LAD with possible significant left main disease. Continue aspirin and Plavix Lipitor Coreg cardiology evaluation. 6. Diabetes mellitus type 2. Continue patient on low-carb diet. 7. Depression. Continue Lexapro 20 mg orally once every day. 8. Hemphill's esophagus status post EGD with 7 biopsies. Continue Protonix 40 mg orally twice every day. 9. Benign prostatic hypertrophy. Continue Proscar 5 mg once every day and Flomax 0.4 g once every day. 10. Severe carotid artery disease continue aspirin Plavix and Lipitor for secondary prevention. 11. Sleep apnea currently on CPAP. 12. Chronic low back pain secondary to degenerative disc disease continue with Lyrica 100 mg orally twice every day. 13. DVT prophylaxis. 14. GI prophylaxis. Continue patient on PPI. 15. Patient is full code. Discharge plan: Home Impression and plan of care have been directed as dictated by the signing physician. Suzette Layne nurse practitioner acting as scribe for signing physician.
[2019-03-03 17:15] LABS: Glucose,Whole Blood 136 mg/dL (75-99)
[2019-03-03 20:09] LABS: Glucose,Whole Blood 183 mg/dL (75-99)
[2019-03-03] MEDS: ATORVASTATIN 80 MG TAB PO SCH (20:28)
[2019-03-03] MEDS: LOSARTAN 25 MG TAB PO SCH (20:30)
[2019-03-04] MEDS: NITROGLYCERIN OINT 1 INCH/GM PACKET TOPICAL SCH ×2 (01:11→07:03)
[2019-03-04 05:43] LABS: Basophils % (A) 1 %; Eosinophils # (A) 0.2 k/uL (0-0.7); Eosinophils % (A) 3 %; HCT 32.6 % (39.0-53.0); HGB 10.9 gm/dL (13.0-17.5); Lymphocytes # (A) 0.6 k/uL (1.0-4.8); Lymphocytes % (A) 11 %; MCH 32.9 pg (25.0-35.0); MCHC 33.5 g/dL (31.0-37.0); MCV 98.1 fL (80.0-100.0); Mean Platelet Volume 6.3; Monocytes # (A) 0.4 k/uL (0-1.0); Monocytes % (A) 7 %; Neutrophils # (A) 4.5 k/uL (1.3-7.7); Neutrophils % (A) 76 %; Platelet Count 183 k/uL (150-450); RBC 3.32 m/uL (4.30-5.90); RDW 14.1 % (11.5-15.5)
[2019-03-04 05:50] LABS: African American GFR (CKD) >90 (>60 ml/min/1.73 sqM); Anion Gap 4 mmol/L; Blood Urea Nitrogen 18 mg/dL (9-20); Calcium 8.3 mg/dL (8.4-10.2); Carbon Dioxide 25 mmol/L (22-30); Chloride 108 mmol/L (98-107); Glucose 144 mg/dL (74-99); Potassium 4.5 mmol/L (3.5-5.1); Sodium 137 mmol/L (137-145)
[2019-03-04 06:56] LABS: Glucose,Whole Blood 117 mg/dL (75-99)
[2019-03-04] MEDS: INSULIN ASPART (NovoLOG) 100 UNIT/ML VIAL SQ SCH ×4 (06:59→21:06)
[2019-03-04] MEDS: PANTOPRAZOLE 40 MG TABLET PO SCH (07:02)
[2019-03-04] MEDS: CARVEDILOL 12.5 MG TAB PO SCH ×2 (07:02→16:53)
[2019-03-04] MEDS: ASPIRIN 81 MG PO SCH (10:32)
[2019-03-04] MEDS: CLOPIDOGREL 75 MG TAB PO SCH (10:34)
[2019-03-04] MEDS: TAMSULOSIN 0.4 MG CAP.ER.24H PO SCH ×2 (10:34→21:06)
[2019-03-04] MEDS: PREGABALIN 100 MG CAP PO SCH ×2 (10:35→21:06)
[2019-03-04] MEDS: FINASTERIDE 5 MG TAB PO SCH (10:35)
[2019-03-04] MEDS: ESCITALOPRAM 20 MG TAB PO SCH (10:35)
[2019-03-04] MEDS ORDERED: ALPRAZolam 0.25 MG TAB PO PRN (10:37)
[2019-03-04] MEDS ORDERED: ALPRAZolam 0.5 MG TAB PO PRN (10:37)
[2019-03-04] MEDS ORDERED: ATORVASTATIN 80 MG TAB PO STA (10:37)
[2019-03-04] MEDS ORDERED: ASPIRIN 325 MG TAB PO STA (10:37)
[2019-03-04] MEDS ORDERED: SODIUM CHLORIDE 0.9% 1,000 ML in EMPTY BAG 1 BAG IV ONE (10:37)
[2019-03-04] MEDS ORDERED: NITROGLYCERIN SL TABS 0.4 MG TAB SUBLINGUAL PRN (10:37)
[2019-03-04] MEDS: ASPIRIN 325 MG TAB PO SCH (10:44)
[2019-03-04] MEDS: HEPARIN SOD,PORK IN 0.45% NACL 25,000 UNIT in 0.45% NACL 1 250ML.BAG IV SCH (10:47)
--- NOTE | 2019-03-04 11:19 | P.PN ---
Subjective Progress Note Date: 03/04/19 This is a 68-year-old male one of my patient with a previous medical history significant for CAD post-IA as well as history of CABG with MARROQUIN to LAD and occluded all SVGs venous graft, attempted PCI of the diagonal branch back in July 2018 that was unsuccessful, ischemic cardiopathy, hypertension and hypertensive cardio vascular disease, hyperlipidemia, GERD, diabetes mellitus type 2, osteoarthritis, benign prostatic hypertrophy, sleep apnea on CPAP, patient was doing fine up until the day before the admission when he developed to have a significant chest pain at night prior to his scheduled procedure regarding his Hemphill's esophagus patient has been off aspirin and Plavix for the past 5 days prior to the procedure patient didn't do anything about it because thought that there is nothing can be done for his heart at this point so he went on to scheduled procedure underwent EGD by Dr. Estrada at [facility] and after the procedure developed to have a significant chest p ain associated with severe shortness breath he did receive nitroglycerin and aspirin and he was rushed to the emergency department at [facility] initial 12-lead EKG showed ST elevation in aVR with ST depression in aVL with diffuse ischemic anterolateral changes patient was immediately started on heparin drip as well as nitroglycerin drip along with aspirin beta la and Lipitor and he was admitted to the ICU initial troponin was negative however his second troponin can to 46 and the decision was made to transfer the patient to [facility] for evaluation by interventional cardiology and he was scheduled to go for left heart catheterization. 03/03: Patient is status post stenting of the left main with recommendations for dual antiplatelet therapy. Patient has been cleared by cardiology to go to cardiac stepdown unit and patient is waiting for a bed. He has been afebrile, heart rate 73, blood pressure 113/66, pulse ox 95% on room air. Repeat lab work reveals BUN 21 creatinine 1.04, hemoglobin 11.0, potassium 4.4. Blood sugars running between 124 and 160. 03/04: Patient had episode of chest pain that woke him from sleep last evening. He did have improvement with nitroglycerin. On EKG there were ST-T wave abnormalities. He states that it was a same type of pain that brought him into the hospital. He is scheduled for repeat heart catheterization today with Dr. Osullivan. He has been afebrile, heart rate 72, blood pressure 113/63, pulse ox 96% on room air. Repeat lab work reveals white count of 6.0, hemoglobin 10.9, platelet count 183. Creatinine 0.87, potassium 4.5. Blood sugars running between 105 and 183. Objective - Vital Signs Vital signs: Vital Signs Temp 97.3 F L 03/04/19 08:00 Pulse 67 03/04/19 08:00 Resp 18 03/04/19 08:00 BP 113/63 03/04/19 08:00 Pulse Ox 96 03/04/19 08:00 Intake & Output 03/03/19 03/04/19 03/04/19 18:59 06:59 18:59 Intake Total 850 250 Output Total 65 Balance 785 250 Weight 85 kg Intake: IV 150 Sodium Chloride 0.9% 1, 150 000 ml @ 75 mls/hr IV . [id number] [facility] Rx#:[id number] Oral 700 250 Output: Urine 65 Other: Voiding Method Toilet Toilet # Voids 1 1 1 # Bowel Movements 1 ABP, PAP, CO, CI - Last Documented Arterial Blood Pressure 116/63 - Exam Review of Systems Constitutional: Reports weakness, Denies anorexia, Denies chronic headaches, Denies lethargy Eyes: denies blurred vision, denies bulging eye, denies decreased vision, denies diplopia Ears, nose, mouth and throat: Denies dysphagia, Denies neck lump, Denies sore throat Cardiovascular: Reports chest pain, Reports decreased exercise tolerance, Reports dyspnea on exertion, Reports shortness of breath, Denies lightheadedness, Denies rapid heart beat, Denies syncope Respiratory: Reports sleep apnea, Denies congestion, Denies cough with sputum, Denies home oxygen, Denies respiratory infections, Denies snoring, Denies wheezing Gastrointestinal: Denies abdominal pain, Denies bloating, Denies BRBPR, Denies heartburn, Denies melena, Denies nausea, Denies vomiting Genitourinary: Reports nocturia, Denies dysuria Musculoskeletal: Denies myalgias Musculoskeletal: absent: ankle pain, ankle stiffness, ankle swelling, elbow pain, elbow stiffness, elbow swelling, foot pain, foot stiffness, foot swelling, hand pain, hand stiffness, hand swelling, hip pain, hip stiffness, hip swelling, knee pain, knee stiffness, knee swelling, shoulder pain, shoulder stiffness, shoulder swelling, wrist pain, wrist stiffness, wrist swelling Integumentary: Denies pruritus, Denies rash Neurological: Denies numbness, Denies weakness Psychiatric: Reports depression, Denies anxiety, Denies sadness/tearfulness, Denies sleep disturbances, Denies suicidal ideation Endocrine: Denies fatigue, Denies weight change Physical exam: Patient resting in chair HEENT: Head is atraumatic, normocephalic, pupils were equal round reactive to light and accommodation, extraocular muscle movement were intact. Mucous membranes of the mouth are moist. Neck: Supple, no JVP. Chest: Decreased breath sounds at the bases, few rhonchi, minimal expiratory wheezes, minimal crackles, no chest wall tenderness, minimal intercostal retractions. Heart: First heart sound is depressed, second heart sound is normal, there is systolic ejection murmur 2/6 located in the left sternal border, S3. Abdomen: Soft, nontender, nondistended, positive bowel sounds, there is no hepatosplenomegaly. Extremities: Trace edema, no calf tenderness, dorsalis pedis +1 bilaterally. Neurologic examination: Patient is awake alert and oriented 3, cranial nerves II-12 appear grossly intact, muscle power 4 out of 5 in upper and lower extremities bilaterally. - Labs CBC & Chem 7: 03/04/19 04:54 03/04/19 04:54 Labs: Abnormal Lab Results - Last 24 Hours (Table) 03/03/19 03/03/19 03/03/19 Range/Units 11:48 17:04 20:07 RBC (4.30-5.90) m/uL Hgb (13.0-17.5) gm/dL Hct (39.0-53.0) % Lymphocytes # (1.0-4.8) k/uL Chloride (98-107) mmol/L Glucose (74-99) mg/dL POC Glucose (mg/dL) 144 H 136 H 183 H (75-99) mg/dL Calcium (8.4-10.2) mg/dL 03/04/19 03/04/19 03/04/19 Range/Units 04:54 04:54 06:54 RBC 3.32 L (4.30-5.90) m/uL Hgb 10.9 L (13.0-17.5) gm/dL Hct 32.6 L (39.0-53.0) % Lymphocytes # 0.6 L (1.0-4.8) k/uL Chloride 108 H (98-107) mmol/L Glucose 144 H (74-99) mg/dL POC Glucose (mg/dL) 117 H (75-99) mg/dL Calcium 8.3 L (8.4-10.2) mg/dL Assessment and Plan Plan: 1. Acute non-ST elevation IA with significant changes in aVR and aVL suggestive of left main disease status post stent in main branch. Continue aspirin, Plavix, Lipitor 80 mg orally once every day, Coreg 12.5 mg orally twice every day. Cardiology consult appreciated. Patient is now seen on the cardiac stepdown unit and will be returning to the blood bank laboratory professional today with Dr. Osullivan for repeat heart catheterization due to episode of chest pain and ST T wave changes. 2. Acute hypoxic respiratory failure due to pulmonary edema due to left main disease with non-ST elevation IA. Continue losartan 25 mg orally once every day, Coreg 12.5 mg orally twice every day. 3. Hyperlipidemia. Continue Lipitor 80 mg orally once every day. 4. Hypertension and hypertensive cardiovascular disease. Continue losartan 25 mg orally once every day as well as Coreg 12.5 mg orally twice every day. 5. CAD post CABG in with multiple PCI's with occluded old vein grafts except patent MARROQUIN to LAD with possible significant left main disease. Continue aspirin and Plavix Lipitor Coreg cardiology evaluation. 6. Diabetes mellitus type 2. Continue patient on low-carb diet. 7. Depression. Continue Lexapro 20 mg orally once every day. 8. Hemphill's esophagus status post EGD with 7 biopsies. Continue Protonix 40 mg orally twice every day. 9. Benign prostatic hypertrophy. Continue Proscar 5 mg once every day and Flomax 0.4 g once every day. 10. Severe carotid artery disease continue aspirin Plavix and Lipitor for secondary prevention. 11. Sleep apnea currently on CPAP. 12. Chronic low back pain secondary to degenerative disc disease continue with Lyrica 100 mg orally twice every day. 13. DVT prophylaxis. 14. GI prophylaxis. Continue patient on PPI. 15. Patient is full code. Discharge plan: Home Impression and plan of care have been directed as dictated by the signing physician. Suzette Layne nurse practitioner acting as scribe for signing physician.
--- NOTE | 2019-03-04 11:57 | P.PN ---
Subjective Progress Note Date: 03/04/19 This is a 68-year-old gentleman who follows with Dr. Quevedo in the office. He has a known history of diabetes, hypertension, hyperlipidemia, family history of premature coronary artery, history of coronary artery bypass grafting surgery and prior stent placement, carotid artery disease with a known total occlusion of the right carotid, presented to [facility] with symptoms of chest discomfort and subsequently was transferred here. Patient was taken to the cardiac catheterization lab where patient underwent successful stenting of the left main coronary artery using a science stent. His most recent heart cath was performed in August of this year and showed severe triple vessel coronary artery disease with severe disease in the left main and occlusion of all vein grafts, patent MARROQUIN to the LAD. Patient was also found to have a tight diagonal stenosis. Last night around 11 PM patient developed chest discomfort, EKG was performed which showed ST elevation in aVR with ST depression in 1 and aVL as well as V leads. According to the patient is chest pain lasted 3 hours in duration. This morning at the time of her examination, he was chest pain-free but because of the episode last night patient was advised to go back to the cardiac catheterization lab today. Blood pressure 112/60 with a heart rate in the 60s, 96% on room air. White blood cell count 6.0, he moglobin 10.9, platelet count 183. Sodium 137, potassium 4.5, BUN 18 and creatinine 0.8. Objective - Vital Signs Vital signs: Vital Signs Temp 97.3 F L 03/04/19 08:00 Pulse 67 03/04/19 08:00 Resp 18 03/04/19 08:00 BP 113/63 03/04/19 08:00 Pulse Ox 96 03/04/19 08:00 Intake & Output 03/03/19 03/04/19 03/04/19 18:59 06:59 18:59 Intake Total 850 250 Output Total 65 Balance 785 250 Weight 85 kg Intake: IV 150 Sodium Chloride 0.9% 1, 150 000 ml @ 75 mls/hr IV . [id number] [facility] Rx#:[id number] Oral 700 250 Output: Urine 65 Other: Voiding Method Toilet Toilet # Voids 1 1 1 # Bowel Movements 1 ABP, PAP, CO, CI - Last Documented Arterial Blood Pressure 116/63 - Exam PHYSICAL EXAMINATION: GENERAL: 68-year-old gentleman in no acute distress at the time of my examination HEENT: Head is atraumatic, normocephalic. Pupils equal, round. Sclera anicteric. Conjunctiva are clear. Mucous membranes of the mouth are moist. Neck is supple. There is no elevated jugular venous pressure. No carotid bruit is heard. HEART EXAMINATION: Heart S1, S2 systolic ejection murmur is heard normal. No mu rmur or gallop heard. CHEST EXAMINATION: Lungs are clear to auscultation and precussion. No chest wall tenderness is noted on palpation or with deep breathing. ABDOMEN: Soft, nontender. Bowel sounds are heard. No organomegaly noted. EXTREMITIES: 2+ peripheral pulses with no evidence of peripheral edema and no calf tenderness noted. Right groin soft, no evidence of any hematoma. NEUROLOGIC patient is awake, alert and oriented 3 . . - Labs CBC & Chem 7: 03/04/19 04:54 03/04/19 04:54 Labs: Abnormal Lab Results - Last 24 Hours (Table) 03/03/19 03/03/19 03/03/19 Range/Units 11:48 17:04 20:07 RBC (4.30-5.90) m/uL Hgb (13.0-17.5) gm/dL Hct (39.0-53.0) % Lymphocytes # (1.0-4.8) k/uL Chloride (98-107) mmol/L Glucose (74-99) mg/dL POC Glucose (mg/dL) 144 H 136 H 183 H (75-99) mg/dL Calcium (8.4-10.2) mg/dL 03/04/19 03/04/19 03/04/19 Range/Units 04:54 04:54 06:54 RBC 3.32 L (4.30-5.90) m/uL Hgb 10.9 L (13.0-17.5) gm/dL Hct 32.6 L (39.0-53.0) % Lymphocytes # 0.6 L (1.0-4.8) k/uL Chloride 108 H (98-107) mmol/L Glucose 144 H (74-99) mg/dL POC Glucose (mg/dL) 117 H (75-99) mg/dL Calcium 8.3 L (8.4-10.2) mg/dL Assessment and Plan Plan: Assessment and plan 1. Acute non-ST elevation PA status post angioplasty and stenting of the left main 2. Acute hypoxic respiratory failure due to pulmonary edema due to left main disease with non-ST elevation PA. 3. Hyperlipidemia. 4. Hypertension and hypertensive cardiovascular disease. 5. CAD post CABG in with multiple PCI's with occluded old vein grafts except patent MARROQUIN to LAD with possible significant left main disease. 6. Diabetes mellitus type 2. 7. Depression. 8. Hemphill's esophagus status post EGD with 7 biopsies. 9. Benign prostatic hypertrophy. 10. Severe carotid artery disease 11. Sleep apnea currently on CPAP. 12. Chronic low back pain secondary to degenerative disc disease Plan Because of the recurrent episode of chest discomfort with subsequent EKG changes through the night last night, patient is advised to go back to the cardiac catheterization lab today. Cardiac catheter be performed at 11:[address] Armenta. Further recommendations will be based on these findings and the patient's clinical course. DNP note has been reviewed, I agree with a documented findings and plan of care. Patient was seen and examined.
[2019-03-04] MEDS ORDERED: MIDAZOLAM 2 MG/2 ML VIAL IVP ONE (12:29)
[2019-03-04] MEDS ORDERED: LIDOCAINE 1% INJ 10MG/ML (20 ML MDV) SQ ONE (12:30)
[2019-03-04] MEDS ORDERED: SODIUM CHLORIDE 0.9% 1,000 ML IV ONE (12:33)
[2019-03-04] MEDS ORDERED: IOPAMIDOL-370 100ML BTL INJ ONE (12:46)
[2019-03-04] MEDS ORDERED: RX INFO: IV CONTRAST WAS GIVEN 1 EACH MISC MISCELLANE PRN (12:50)
[2019-03-04] MEDS ORDERED: SODIUM CHLORIDE 0.9% 1,000 ML IV SCH (13:00)
[2019-03-04 13:25] LABS: Glucose,Whole Blood 105 mg/dL (75-99)
--- NOTE | 2019-03-04 13:35 | CC ---
CARDIAC CATHETERIZATION REPORT DATE OF SERVICE: March 04, 2019 PERFORMING PHYSICIAN: Carlton Osullivan MD. PROCEDURE PERFORMED: 1. Selective left coronary angiogram. 2. Left internal mammary artery to LAD angiogram. 3. Left heart catheterization. INDICATION: This is a 68-year-old gentleman with history of coronary artery disease, status post coronary artery bypass grafting as well as coronary artery stenting with the last heart catheterization was performed on March 02, 2019, which revealed severe triple-vessel coronary artery disease with occlusion of all vein grafts and patent MARROQUIN to LAD. At that point, the patient underwent successful stenting of the left anterior descending artery with good angiographic results. This time he was on the floor and last night he was experiencing chest discomfort. He developed significant/ischemic ST and T-wave abnormalities and because of that a heart catheterization was advised. APPROACH: Right common femoral artery. COMPLICATION: None. LEVEL OF SEDATION: Moderate with sedation length of 17 minutes. PROCEDURE DESCRIPTION: After obtaining an informed consent, the patient was brought to the cardiac metallurgical lab technician. The right common femoral artery was cannulated using micropuncture technique, the micropuncture wire passed easily then I placed a 6-Macanese sheath in the right groin. After that I did left internal mammary artery to LAD angiogram using JR4 catheter. Left coronary angiogram was performed using an XP35 guide. Left heart catheterization was performed using 6-Macanese pigtail catheter. The procedure was completed without any complication. SELECTIVE CORONARY ANGIOGRAM: 1. The left main is stented with a patent stent. 2. The left circumflex is 100% occluded in the proximal portion. 3. The LAD is 100% occluded in the mid portion. It gives rise into a large diagonal branch which has a lesion appeared to be in the range of 70% to 80%. 4. The right coronary artery was not angiogram at this time, but it is known to be occluded. 5. The MARROQUIN to LAD is patent. HEMODYNAMICS: The left ventricular end-diastolic pressure was about 18 mmHg without significant gradient across the aortic valve. CONCLUSION: 1. Patent stent in the left main coronary artery. 2. Known occluded all vein grafts from previous heart catheterization. 3. Patent MARROQUIN to LAD. POSTPROCEDURE MANAGEMENT: Giving the above anatomy and the extension of coronary artery disease, I did recommend putting the patient on high dose oral nitrate as well as high dose Ranexa. MMODL / IJN: [id number] /
[2019-03-04] MEDS: RANOLAZINE 500 MG TAB.ER.12H PO SCH ×2 (13:48→21:06)
[2019-03-04] MEDS: ISOSORBIDE MONONITRATE ER 30 MG TAB.ER.24H PO SCH (13:48)
[2019-03-04] MEDS: SPIRONOLACTONE 25 MG TAB PO SCH (13:53)
[2019-03-04 17:16] LABS: Glucose,Whole Blood 131 mg/dL (75-99)
[2019-03-04 20:23] LABS: Glucose,Whole Blood 211 mg/dL (75-99)
[2019-03-04] MEDS: ATORVASTATIN 80 MG TAB PO SCH (21:06)
[2019-03-04] MEDS: LOSARTAN 25 MG TAB PO SCH (21:06)
[2019-03-04] MEDS: MELATONIN 3 MG TABLET PO PRN (23:02)
[2019-03-05 06:22] LABS: Glucose,Whole Blood 126 mg/dL (75-99)
[2019-03-05] MEDS: INSULIN ASPART (NovoLOG) 100 UNIT/ML VIAL SQ SCH ×2 (06:36→12:43)
[2019-03-05] MEDS: PANTOPRAZOLE 40 MG TABLET PO SCH (06:42)
[2019-03-05] MEDS: CARVEDILOL 12.5 MG TAB PO SCH (06:42)
[2019-03-05 07:20] LABS: HCT 29.9 % (39.0-53.0); HGB 10.1 gm/dL (13.0-17.5); MCH 33.6 pg (25.0-35.0); MCHC 33.9 g/dL (31.0-37.0); Mean Platelet Volume 6.3; Platelet Count 158 k/uL (150-450); RBC 3.02 m/uL (4.30-5.90); RDW 14.2 % (11.5-15.5); WBC 5.7 k/uL (3.8-10.6)
[2019-03-05 07:34] LABS: African American GFR (CKD) >90 (>60 ml/min/1.73 sqM); Anion Gap 6 mmol/L; Blood Urea Nitrogen 17 mg/dL (9-20); Calcium 8.1 mg/dL (8.4-10.2); Carbon Dioxide 26 mmol/L (22-30); Chloride 109 mmol/L (98-107); Glucose 116 mg/dL (74-99); Potassium 4.8 mmol/L (3.5-5.1); Sodium 141 mmol/L (137-145)
[2019-03-05] MEDS: FINASTERIDE 5 MG TAB PO SCH (10:05)
[2019-03-05] MEDS: TAMSULOSIN 0.4 MG CAP.ER.24H PO SCH (10:05)
[2019-03-05] MEDS: PREGABALIN 100 MG CAP PO SCH (10:05)
[2019-03-05] MEDS: RANOLAZINE 500 MG TAB.ER.12H PO SCH (10:05)
[2019-03-05] MEDS: ASPIRIN 325 MG TAB PO SCH (10:05)
[2019-03-05] MEDS: SPIRONOLACTONE 25 MG TAB PO SCH (10:05)
[2019-03-05] MEDS: CLOPIDOGREL 75 MG TAB PO SCH (10:06)
[2019-03-05] MEDS: ESCITALOPRAM 20 MG TAB PO SCH (10:06)
[2019-03-05] MEDS ORDERED: ISOSORBIDE MONONITRATE ER 30 MG TAB.ER.24H PO STA (10:21)
[2019-03-05 10:28] VITALS: RESP 18; TEMP 97.7
[2019-03-05 12:09] LABS: Glucose,Whole Blood 251 mg/dL (75-99)
[2019-03-05] MEDS ORDERED: PNEUMOCOCCAL VACC-PNEUMOVAX 23 25 MCG/0.5 ML VIAL IM ONE (12:09)
[2019-03-05] MEDS: HEPARIN SOD,PORK IN 0.45% NACL 25,000 UNIT in 0.45% NACL 1 250ML.BAG IV SCH (12:41)
[2019-03-05] MEDS: ISOSORBIDE MONONITRATE ER 30 MG TAB.ER.24H PO SCH (12:55)
--- NOTE | 2019-03-05 12:59 | P.PN ---
Subjective Patient denies any chest discomfort. He is sitting comfortably in a chair. Yesterday he was complaining of some chest discomfort and had an abnormal ECG with a few history depression with elevation in aVR and coronary angiography did not reveal restenosis acute thrombosis of the stent He stable today Blood pressure 110 06 5 mmHg pulse rate is in the 70s afebrile 97.7F Breath sounds clear no rhonchi no crackles Normal heart sounds normal S1 normal S2 Soft abdomen Impression Severe coronary artery disease with left main disease status post left main stenting Her cardiac standpoint he may be discharged home in the next 24-48 hours on [facility] medical treatment Overall prognosis is still guarded Objective - Vital Signs Vital signs: Vital Signs Temp 97.7 F 03/05/19 08:30 Pulse 69 03/05/19 08:30 Resp 18 03/05/19 08:30 BP 110/65 03/05/19 08:30 Pulse Ox 97 03/05/19 08:30 Intake & Output 03/04/19 03/05/19 03/05/19 18:59 06:59 18:59 Intake Total 1040 360 Output Total 200 500 Balance 1040 -200 -140 Weight 83 kg Intake: IV 100 Intake, IV Titration 450 Amount Sodium Chloride 0.9% 1, 450 000 ml @ 75 mls/hr IV . [id number] [facility] Rx#:[id number] Oral 490 360 Output: Urine 200 500 Other: Voiding Method Toilet Toilet Urinal Urinal # Voids 1 ABP, PAP, CO, CI - Last Documented Arterial Blood Pressure 116/63 - Labs CBC & Chem 7: 03/05/19 06:21 03/05/19 06:21 Labs: Abnormal Lab Results - Last 24 Hours (Table) 03/04/19 03/04/19 03/04/19 Range/Units 13:23 17:14 20:22 RBC (4.30-5.90) m/uL Hgb (13.0-17.5) gm/dL Hct (39.0-53.0) % Chloride (98-107) mmol/L Glucose (74-99) mg/dL POC Glucose (mg/dL) 105 H 131 H 211 H (75-99) mg/dL Calcium (8.4-10.2) mg/dL 03/05/19 03/05/19 03/05/19 Range/Units 06:21 06:21 06:21 RBC 3.02 L (4.30-5.90) m/uL Hgb 10.1 L (13.0-17.5) gm/dL Hct 29.9 L (39.0-53.0) % Chloride 109 H (98-107) mmol/L Glucose 116 H (74-99) mg/dL POC Glucose (mg/dL) 126 H (75-99) mg/dL Calcium 8.1 L (8.4-10.2) mg/dL 03/05/19 Range/Units 12:04 RBC (4.30-5.90) m/uL Hgb (13.0-17.5) gm/dL Hct (39.0-53.0) % Chloride (98-107) mmol/L Glucose (74-99) mg/dL POC Glucose (mg/dL) 251 H (75-99) mg/dL Calcium (8.4-10.2) mg/dL
[2019-03-05 13:18] VITALS: BP 106/60; PULSE 78
--- NOTE | 2019-03-05 15:17 | P.DS ---
Providers Date of admission: 03/01/19 17:36 Expected date of discharge: 03/05/19 Attending physician: Kenisha Stokes Consults: 03/01/19 17:39 Consult Physician Stat Consulting Provider: Nik Ramos Consult Reason/Comments: Known to, transfer from [facility] for cath Do you want consulting provider notified?: Yes 03/02/19 13:53 Consult Physician Routine Consulting Provider: [facility] Consult Reason/Comments: Post Interventional patient Do you want consulting provider notified?: Already Contacted Primary care physician: Kenisha Stokes Hospital Course: This is a 68-year-old male one of my patient with a previous medical history significant for CAD post-OK as well as history of CABG with MARROQUIN to LAD and occluded all SVGs venous graft, attempted PCI of the diagonal branch back in July 2018 that was unsuccessful, ischemic cardiopathy, hypertension and hypertensive cardio vascular disease, hyperlipidemia, GERD, diabetes mellitus type 2, osteoarthritis, benign prostatic hypertrophy, sleep apnea on CPAP, patient was doing fine up until the day before the admission when he developed to have a significant chest pain at night prior to his scheduled procedure regarding his Hemphill's esophagus patient has been off aspirin and Plavix for the past 5 days prior to the procedure patient didn't do anything about it because thought that there is nothing can be done for his heart at this point so he went on to scheduled procedure underwent EGD by Dr. Estrada at [facility] and after the procedure developed to have a significant chest pain associated with severe shortness breath he did receive nitroglycerin and aspirin and he was rushed to the emergency department at [facility] initial 12-lead EKG showed ST elevation in aVR with ST depression in aVL with diffuse ischemic anterolateral changes patient was immediately started on heparin drip as well as nitroglycerin drip along with aspirin beta la and Lipitor and he was admitted to the ICU initial troponin was negative however his second troponin can to 46 and the decision was made to transfer the patient to [facility] for evaluation by interventional cardiology and he was scheduled to go for left heart catheterization. 03/03: Patient is status post stenting of the left main with recommendations for dual antiplatelet therapy. Patient has been cleared by cardiology to go to cardiac stepdown unit and patient is waiting for a bed. He has been afebrile, heart rate 73, blood pressure 113/66, pulse ox 95% on room air. Repeat lab work reveals BUN 21 creatinine 1.04, hemoglobin 11.0, potassium 4.4. Blood sugars running between 124 and 160. 03/04: Patient had episode of chest pain that woke him from sleep last evening. He did have improvement with nitroglycerin. On EKG there were ST-T wave abnormalities. He states that it was a same type of pain that brought him into the hospital. He is scheduled for repeat heart catheterization today with Dr. Osullivan. He has been afebrile, heart rate 72, blood pressure 113/63, pulse ox 96% on room air. Repeat lab work reveals white count of 6.0, hemoglobin 10.9, platelet count 183. Creatinine 0.87, potassium 4.5. Blood sugars running between 105 and 183. 03/05: Patient underwent heart catheterization with Dr. Osullivan yesterday afternoon finding patent stent in the left main coronary artery. Known occluded old vein grafts from previous heart catheterization. Patent MARROQUIN to LAD. Dr. Osullivan recommended putting the patient on high-dose oral nitrate as well as high-dose Ranexa. Patient has been seen by cardiology and cleared for discharge. We will increase Imdur to 60 mg daily and patient will receive an additional 30 mg today to total 60 mg. He gets date he had pain episode of #8 out of 10 with improvement with nitroglycerin and oxygen. He has been up to the bathroom and feels okay but weak. He is urinating okay. Patient will be discharged home today in stable condition. Discharge diagnoses: 1. Acute non-ST elevation OK with significant changes in aVR and aVL suggestive of left main disease status post stent in main branch. 2. Acute hypoxic respiratory failure due to pulmonary edema due to left main disease with non-ST elevation OK. 3. Hyperlipidemia. 4. Hypertension and hypertensive cardiovascular disease. 5. CAD post CABG in with multiple PCI's with occluded old vein grafts except patent MARROQUIN to LAD with possible significant left main disease. 6. Diabetes mellitus type 2. 7. Recurrent depression 8. Hemphill's esophagus status post EGD with 7 biopsies. 9. Benign prostatic hypertrophy. 10. Severe carotid artery disease 11. Sleep apnea currently on CPAP. 12. Chronic low back pain secondary to degenerative disc disease Discharge plan: Home Impression and plan of care have been directed as dictated by the signing physician. Suzette Layne nurse practitioner acting as scribe for signing physician. Patient Condition at Discharge: Good Plan - Discharge Summary Discharge Rx Participant: Yes New Discharge Prescriptions: New Spironolactone [Aldactone] 25 mg PO DAILY #30 tab Isosorbide Mononitrate ER [Imdur] 60 mg PO DAILY #30 tab.er.24h Clopidogrel [Plavix] 75 mg PO DAILY #30 tab Aspirin 325 mg PO DAILY tab Continue Pantoprazole Sodium [Protonix] 40 mg PO DAILY Ubidecarenone [Co Q-10] 400 mg PO DAILY Ranolazine [Ranexa] 1,000 mg PO BID Nitroglycerin Sl Tabs [Nitrostat] 0.4 mg SUBLINGUAL Q5M PRN PRN Reason: Chest Pain Fluticasone Nasal [place] [Flonase Nasal [place]] 1 spray EA NOSTRIL BID Pregabalin [Lyrica] 100 mg PO BID cap Mirtazapine [Remeron] 15 mg PO HS #30 tab Carvedilol [Coreg*] 12.5 mg PO BID-W/MEALS #60 tab Atorvastatin [Lipitor] 80 mg PO HS #30 tab Losartan [Cozaar] 25 mg PO HS #0 Escitalopram [Lexapro] 20 mg PO DAILY Tamsulosin [Flomax] 0.4 mg PO BID Finasteride [Proscar] 5 mg PO DAILY Discontinued Isosorbide Mononitrate ER [Imdur] 30 mg PO DAILY #30 tab.er.24h Discharge Medication List Pantoprazole Sodium [Protonix] 40 mg PO DAILY 04/05/15 [History] Ubidecarenone [Co Q-10] 400 mg PO DAILY 04/25/17 [History] Fluticasone Nasal [place] [Flonase Nasal [place]] 1 spray EA NOSTRIL BID 07/14/18 [History] Nitroglycerin Sl Tabs [Nitrostat] 0.4 mg SUBLINGUAL Q5M PRN 07/14/18 [History] Ranolazine [Ranexa] 1,000 mg PO BID 07/14/18 [History] Pregabalin [Lyrica] 100 mg PO BID cap 07/16/18 [Rx] Mirtazapine [Remeron] 15 mg PO HS #30 tab 07/20/18 [Rx] Atorvastatin [Lipitor] 80 mg PO HS #30 tab 08/18/18 [Rx] Carvedilol [Coreg*] 12.5 mg PO BID-W/MEALS #60 tab 08/18/18 [Rx] Losartan [Cozaar] 25 mg PO HS #0 08/18/18 [Rx] Escitalopram [Lexapro] 20 mg PO DAILY 02/17/19 [History] Finasteride [Proscar] 5 mg PO DAILY 02/17/19 [History] Tamsulosin [Flomax] 0.4 mg PO BID 02/17/19 [History] Aspirin 325 mg PO DAILY tab 03/05/19 [Rx] Clopidogrel [Plavix] 75 mg PO DAILY #30 tab 03/05/19 [Rx] Isosorbide Mononitrate ER [Imdur] 60 mg PO DAILY #30 tab.er.24h 03/05/19 [Rx] Spironolactone [Aldactone] 25 mg PO DAILY #30 tab 03/05/19 [Rx] Follow up Appointment(s)/Referral(s): Kenisha Stokes MD [Primary Care Provider] - 1 Week (Spoke to medical office receptionist assistant. Office will call with appointment time) [facility], [NON-STAFF] - 1-2 Days Lilli Quevedo MD [STAFF PHYSICIAN] - 03/09/19 9:30 am (Friday) Patient Instructions/Handouts: *[facility]gery [facility] - After Heart Catheterization - Enrollment Advisor Instructions, Left Heart Catheterization (DC) Discharge Disposition: HOME WITH HOME HEALTH SERVICES
[2019-03-06] MEDS ORDERED: ISOSORBIDE MONONITRATE ER 60 MG TAB.ER.24H PO SCH (09:00)
== END 2019-03-05 15:01 | disposition home health service (06) | DRG 246 ==
LOC: 2SICU 17:36 → 3SCARD 03-04 06:48
PROVIDERS: ADMIT Internal Medicine; ATTEND Internal Medicine
PROC: 4A023N7 Measurement of Cardiac Sampling and Pressure, Left Heart, Percutaneous Approach (ICD-10-PCS; principal; 2019-03-02 11:40)
PROC: B2121ZZ Fluoroscopy of Single Coronary Artery Bypass Graft using Low Osmolar Contrast (ICD-10-PCS; principal; 2019-03-02 11:40)
PROC: B2181ZZ Fluoroscopy of Left Internal Mammary Bypass Graft using Low Osmolar Contrast (ICD-10-PCS; principal; 2019-03-02 11:40)
PROC: B2111ZZ Fluoroscopy of Multiple Coronary Arteries using Low Osmolar Contrast (ICD-10-PCS; principal; 2019-03-02 11:40)
PROC: 027034Z Dilation of Coronary Artery, One Artery with Drug-eluting Intraluminal Device, Percutaneous Approach (ICD-10-PCS; principal; 2019-03-02 11:40)
PROC: B2181ZZ Fluoroscopy of Left Internal Mammary Bypass Graft using Low Osmolar Contrast (ICD-10-PCS; 2019-03-04)
PROC: B2111ZZ Fluoroscopy of Multiple Coronary Arteries using Low Osmolar Contrast (ICD-10-PCS; 2019-03-04)
PROC: 4A023N7 Measurement of Cardiac Sampling and Pressure, Left Heart, Percutaneous Approach (ICD-10-PCS; 2019-03-04)
DX: I21.4 Non-ST elevation (NSTEMI) myocardial infarction (principal); J96.01 Acute respiratory failure with hypoxia; J81.0 Acute pulmonary edema; F33.9 Major depressive disorder, recurrent, unspecified; I25.810 Atherosclerosis of coronary artery bypass graft(s) without angina pectoris; E78.5 Hyperlipidemia, unspecified; G47.30 Sleep apnea, unspecified; K21.9 Gastro-esophageal reflux disease without esophagitis; N40.0 Benign prostatic hyperplasia without lower urinary tract symptoms; I25.10 Atherosclerotic heart disease of native coronary artery without angina pectoris; F43.10 Post-traumatic stress disorder, unspecified; I11.9 Hypertensive heart disease without heart failure; I25.5 Ischemic cardiomyopathy; I25.82 Chronic total occlusion of coronary artery; I65.29 Occlusion and stenosis of unspecified carotid artery; M51.9 Unspecified thoracic, thoracolumbar and lumbosacral intervertebral disc disorder; M19.90 Unspecified osteoarthritis, unspecified site; E11.40 Type 2 diabetes mellitus with diabetic neuropathy, unspecified; K22.70 Barrett's esophagus without dysplasia; E66.9 Obesity, unspecified; I25.2 Old myocardial infarction; Z99.89 Dependence on other enabling machines and devices; Z87.19 Personal history of other diseases of the digestive system; Z98.41 Cataract extraction status, right eye; Z90.49 Acquired absence of other specified parts of digestive tract; Z95.1 Presence of aortocoronary bypass graft; Z95.5 Presence of coronary angioplasty implant and graft; Z98.890 Other specified postprocedural states; Z80.9 Family history of malignant neoplasm, unspecified; Z84.89 Family history of other specified conditions; Z79.899 Other long term (current) drug therapy; Z88.0 Allergy status to penicillin; Z88.8 Allergy status to other drugs, medicaments and biological substances; Z68.32 Body mass index [BMI] 32.0-32.9, adult
CPT/HCPCS: 80048; 80053; 80061; 81001; 83036; 83735; 84100; 84484; 85025; 85027; 85347; 85610; 85730; 90732; 93458; 93459; C1874

== ENCOUNTER 2019-06-24 19:00 | Inpatient (IN) | payer OTHER, MEDICARE ==
[2019-06-24] MEDS ORDERED: ADENOSINE 3 MG/ML 2 ML VIAL IVP STA ×2 (19:24→19:25)
[2019-06-24] MEDS ORDERED: METOPROLOL TARTRATE 5 MG/5 ML VIAL IVP STA ×2 (19:31→19:39)
[2019-06-24] MEDS ORDERED: NITROGLYCERIN-D5W PMX 50 MG in DEXTROSE/WATER 1 250ML.BAG IV STA (19:33)
[2019-06-24 19:42] LABS: Basophils # (A) 0.1 k/uL (0-0.2); Basophils % (A) 1 %; Eosinophils # (A) 0.1 k/uL (0-0.7); Eosinophils % (A) 1 %; HCT 44.5 % (39.0-53.0); HGB 14.8 gm/dL (13.0-17.5); Lymphocytes # (A) 1.8 k/uL (1.0-4.8); Lymphocytes % (A) 15 %; MCH 31.9 pg (25.0-35.0); MCHC 33.2 g/dL (31.0-37.0); Mean Platelet Volume 8.7; Monocytes # (A) 0.8 k/uL (0-1.0); Monocytes % (A) 7 %; Neutrophils # (A) 8.5 k/uL (1.3-7.7); Neutrophils % (A) 72 %; Platelet Count 292 k/uL (150-450); RBC 4.64 m/uL (4.30-5.90); RDW 14.5 % (11.5-15.5); WBC 11.9 k/uL (3.8-10.6)
[2019-06-24 19:54] LABS: Albumin 4.4 g/dL (3.5-5.0); Calcium 9.5 mg/dL (8.4-10.2); Magnesium 1.8 mg/dL (1.6-2.3); Potassium 4.4 mmol/L (3.5-5.1); Total Bilirubin 1.5 mg/dL (0.2-1.3); Total Protein 7.8 g/dL (6.3-8.2)
[2019-06-24 19:55] LABS: Partial Thromboplastin Time 23.8 sec (22.0-30.0); Prothrombin Time 10.3 sec (9.0-12.0)
--- NOTE | 2019-06-24 20:53 | XR ---
EXAMINATION: XR chest 1V portable DATE AND TIME: 06/24/2019 8:03 PM CLINICAL INDICATION: PHH; chest pain TECHNIQUE: AP portable upright COMPARISON: 02/19/2019 FINDINGS: There is diffuse marked silhouetting of the pulmonary vasculature bilaterally throughout th e upper and mid and lower lung zones, by a fine reticular pattern of increased attenuation and with p rominent alveolar space consolidative opacity bilaterally as well. The changes are most consistent wi th a clinical diagnosis of interstitial and alveolar phase pulmonary edema. Exclusion of pneumonia as clinically necessary in this radiographic setting. Cardiac silhouette is moderately enlarged. There is no evidence of pneumothorax or pleural effusion. No acute skeletal or soft tissue findings are evident. IMPRESSION: Radiographic pattern consistent with marked pulmonary edema, both interstitial and alveolar phase and presumably of cardiogenic etiology, as discussed.
[2019-06-24] MEDS ORDERED: NALOXONE 0.4 MG/ML 1 ML VIAL IV PRN (20:58)
[2019-06-24] MEDS ORDERED: MORPHINE SULFATE 4 MG/ML SYRINGE IV PRN (20:58)
[2019-06-24] MEDS ORDERED: FUROSEMIDE 10 MG/ML 4 ML VIAL IV STA (21:00)
[2019-06-24] MEDS ORDERED: ASPIRIN 325 MG TAB PO STA (21:00)
[2019-06-24] MEDS ORDERED: NITROGLYCERIN SL TABS 0.4 MG TAB SUBLINGUAL PRN (21:15)
--- NOTE | 2019-06-24 21:22 | ED ---
General Adult HPI - General Chief complaint: Chest Pain Stated complaint: Chest Pain Time Seen by Provider: 06/24/19 19:19 Source: patient, family, EMS, RN notes reviewed, old records reviewed Mode of arrival: EMS Limitations: no limitations - History of Present Illness Initial comments: 68-year-old male history of CAD status post bypass presenting with 1 week of worsening dyspnea and development of chest pain. Pain is substernal. He presents by EMS in SVT. He has no history of A. fib or tachycardia dysrhythmia. He states his symptoms have been progressive over the course of one week. He is not currently on any diuretics. He is on aspirin and Plavix. History somewhat limited secondary to patient is in extremis. - Related Data Home Medications Medication Instructions Recorded Confirmed Pantoprazole Sodium [Protonix] 40 mg PO DAILY 04/05/15 03/01/19 Ubidecarenone [Co Q-10] 400 mg PO DAILY 04/25/17 03/01/19 Fluticasone Nasal [place] [Flonase 1 spray EA NOSTRIL BID 07/14/18 03/01/19 Nasal [place]] Nitroglycerin Sl Tabs [Nitrostat] 0.4 mg SUBLINGUAL Q5M PRN 07/14/18 03/01/19 Ranolazine [Ranexa] 1,000 mg PO BID 07/14/18 03/01/19 Escitalopram [Lexapro] 20 mg PO DAILY 02/17/19 03/01/19 Finasteride [Proscar] 5 mg PO DAILY 02/17/19 03/01/19 Tamsulosin [Flomax] 0.4 mg PO BID 02/17/19 03/01/19 Previous Rx's Medication Instructions Recorded Pregabalin [Lyrica] 100 mg PO BID cap 07/16/18 Mirtazapine [Remeron] 15 mg PO HS #30 tab 07/20/18 Atorvastatin [Lipitor] 80 mg PO HS #30 tab 08/18/18 Carvedilol [Coreg*] 12.5 mg PO BID-W/MEALS #60 tab 08/18/18 Losartan [Cozaar] 25 mg PO HS #0 08/18/18 Aspirin 325 mg PO DAILY tab 03/05/19 Clopidogrel [Plavix] 75 mg PO DAILY #30 tab 03/05/19 Isosorbide Mononitrate ER [Imdur] 60 mg PO DAILY #30 tab.er.24h 03/05/19 Spironolactone [Aldactone] 25 mg PO DAILY #30 tab 03/05/19 Allergies Allergy/AdvReac Type Severity Reaction Status Date / Time Penicillins Allergy Anaphylaxis Verified 06/24/19 19:13 simvastatin [From Zocor] AdvReac SEVERE Verified 06/24/19 19:13 JOINT PAIN Review of Systems ROS Statement: Those systems with pertinent positive or pertinent negative responses have been documented in the HPI. ROS Other: All systems not noted in ROS Statement are negative. Past Medical History Past Medical History: Coronary Artery Disease (CAD), Chest Pain / Angina, Diabetes Mellitus, Eye Disorder, GERD/Reflux, Hyperlipidemia, Hypertension, Myocardial Infarction (NC), Osteoarthritis (OA), Prostate Disorder, Sleep Apnea/CPAP/BIPAP Additional Past Medical History / Comment(s): EXPOSURE TO agent orange, HEP C pe r past hx but pt could'nt verify-stated he had mono and pancreatitis but not sure of hep c, NEUROPATHY, occ BACK PAIN, has lump bottom of rt rib cage. CATARACT RT EYE; was using CPAP but has not used in more than 2 years as it is not working correctly ( [facility]) Last Myocardial Infarction Date:: 2003? History of Any Multi-Drug Resistant Organisms: None Reported Past Surgical History: Cholecystectomy, Coronary Bypass/CABG, Heart Catheterization With Stent, Orthopedic Surgery Additional Past Surgical History / Comment(s): RT WRIST GANGLION CYST REMOVED.has had stents post cabg not sure how many or what arteries they are in. CABG 1999 (Quadruple bypass), COLONOSCOPY, EGD, Past Anesthesia/Blood Transfusion Reactions: Motion Sickness Additional Past Anesthesia/Blood Transfusion Reaction / Comment(s): Family hx un known, patient was adopted Date of Last Stent Placement:: 2003 Past Psychological History: Depression, PTSD Smoking Status: Never smoker Past Alcohol Use History: Occasional Past Drug Use History: None Reported - Past Family History Sister(s) Additional Family Medical History / Comment(s): thinks his sister from Cancer but is not sure Father History Unknown: Yes Additional Family Medical History / Comment(s): PT ADOPTED Mother History Unknown: Yes Additional Family Medical History / Comment(s): PT ADOPTED Brother(s) Additional Family Medical History / Comment(s): did find several brothers that had also been adopted out one from agent orange exposure/complications, one from etoh abuse, and one from chino gehrig's disease. General Exam Limitations: no limitations General appearance: alert Head exam: Present: atraumatic, normocephalic Eye exam: Present: normal appearance, PERRL ENT exam: Present: normal exam Neck exam: Present: normal inspection Respiratory exam: Present: respiratory distress, rales, accessory muscle use, decreased breath sounds Cardiovascular Exam: Present: normal rhythm, tachycardia, JVD GI/Abdominal exam: Present: soft, distended. Absent: tenderness, guarding, rebound Extremities exam: Present: pedal edema Neurological exam: Present: alert, oriented X3, CN II-XII intact. Absent: motor sensory deficit Psychiatric exam: Present: anxious Skin exam: Present: warm, cyanosis, diaphoretic Course Vital Signs 06/24/19 06/24/19 19:09 20:15 Temperature 99 F Pulse Rate 149 H 98 Respiratory 24 18 Rate Blood Pressure 155/103 135/92 O2 Sat by Pulse 84 L 97 Oximetry EKG Findings - EKG Comments: EKG Findings:: Initial EKG obtained at 1915, narrow complex tachycardia with significant ST segment depression in the precordial leads, rate of 155, QRS duration 100, QTC 472. Repeat EKG after adenosine and metoprolol, sinus rhythm with a first-degree AV block, rate of 99, IA interval 220, QRS duration 94, QTC 467, improved ST segment depression, no ST segment elevation. Medical Decision Making - Medical Decision Making 68-year-old male presenting in extremity, patient tachycardic in SVT, hypertensive, hypoxic with concern for flash pulmonary edema and hypertensive urgency. He's placed on BiPAP, given 2 doses of SVT and does not convert to sinus rhythm. His been told 10 mg metoprolol started on nitroglycerin infusion. He has improved aeration and oxygenation. He returns to sinus rhythm with minimal ischemic changes. His blood pressure normalizes and his oxygenation improves 100% on BiPAP. He is much more comfortable on reevaluation. His chest x-ray is consistent with naet pulmonary edema. He has normal electrolytes. He has an elevated BNP of 4600 and a minimally elevated troponin of 0.60. This is likely related to both demand and congestive heart failure. He is given aspirin and Lasix in the emergency department as well. Case is discussed with Dr. Cotton who will admit this patient, echo will be obtained, cardiology placed on consult. He will be continued on BiPAP, Lasix and initiated on his oral antihypertensive medications. - Lab Data Result diagrams: 06/24/19 19:29 06/24/19 19:29 Lab Results 06/24/19 06/24/19 06/24/19 Range/Units 19:29 19:29 19:29 WBC 11.9 H (3.8-10.6) k/uL RBC 4.64 (4.30-5.90) m/uL Hgb 14.8 (13.0-17.5) gm/dL Hct 44.5 (39.0-53.0) % MCV 96.0 (80.0-100.0) fL MCH 31.9 (25.0-35.0) pg MCHC 33.2 (31.0-37.0) g/dL RDW 14.5 (11.5-15.5) % Plt Count 292 (150-450) k/uL Neutrophils % 72 % Lymphocytes % 15 % Monocytes % 7 % Eosinophils % 1 % Basophils % 1 % Neutrophils # 8.5 H (1.3-7.7) k/uL Lymphocytes # 1.8 (1.0-4.8) k/uL Monocytes # 0.8 (0-1.0) k/uL Eosinophils # 0.1 (0-0.7) k/uL Basophils # 0.1 (0-0.2) k/uL PT 10.3 (9.0-12.0) sec INR 1.0 (<1.2) APTT 23.8 (22.0-30.0) sec Sodium 141 (137-145) mmol/L Potassium 4.4 (3.5-5.1) mmol/L Chloride 105 (98-107) mmol/L Carbon Dioxide 22 (22-30) mmol/L Anion Gap 14 mmol/L BUN 18 (9-20) mg/dL Creatinine 1.10 (0.66-1.25) mg/dL Est GFR (CKD-EPI)AfAm 79 (>60 ml/min/1.73 sqM) Est GFR (CKD-EPI)NonAf 68 (>60 ml/min/1.73 sqM) Glucose 190 H (74-99) mg/dL Calcium 9.5 (8.4-10.2) mg/dL Magnesium 1.8 (1.6-2.3) mg/dL Total Bilirubin 1.5 H (0.2-1.3) mg/dL AST 26 (17-59) U/L ALT 16 (4-49) U/L Alkaline Phosphatase 161 H (38-126) U/L Troponin I (0.000-0.034) ng/mL NT-Pro-B Natriuret Pep pg/mL Total Protein 7.8 (6.3-8.2) g/dL Albumin 4.4 (3.5-5.0) g/dL 06/24/19 06/24/19 Range/Units 19:29 19:29 WBC (3.8-10.6) k/uL RBC (4.30-5.90) m/uL Hgb (13.0-17.5) gm/dL Hct (39.0-53.0) % MCV (80.0-100.0) fL MCH (25.0-35.0) pg MCHC (31.0-37.0) g/dL RDW (11.5-15.5) % Plt Count (150-450) k/uL Neutrophils % % Lymphocytes % % Monocytes % % Eosinophils % % Basophils % % Neutrophils # (1.3-7.7) k/uL Lymphocytes # (1.0-4.8) k/uL Monocytes # (0-1.0) k/uL Eosinophils # (0-0.7) k/uL Basophils # (0-0.2) k/uL PT (9.0-12.0) sec INR (<1.2) APTT (22.0-30.0) sec Sodium (137-145) mmol/L Potassium (3.5-5.1) mmol/L Chloride (98-107) mmol/L Carbon Dioxide (22-30) mmol/L Anion Gap mmol/L BUN (9-20) mg/dL Creatinine (0.66-1.25) mg/dL Est GFR (CKD-EPI)AfAm (>60 ml/min/1.73 sqM) Est GFR (CKD-EPI)NonAf (>60 ml/min/1.73 sqM) Glucose (74-99) mg/dL Calcium (8.4-10.2) mg/dL Magnesium (1.6-2.3) mg/dL Total Bilirubin (0.2-1.3) mg/dL AST (17-59) U/L ALT (4-49) U/L Alkaline Phosphatase (38-126) U/L Troponin I 0.060 H* (0.000-0.034) ng/mL NT-Pro-B Natriuret Pep 4600 pg/mL Total Protein (6.3-8.2) g/dL Albumin (3.5-5.0) g/dL Critical Care Time Critical Care Time: Yes Total Critical Care Time: 35 Disposition Clinical Impression: CHF (congestive heart failure), Flash pulmonary edema, Acute and chronic respiratory failure with hypoxia, SVT (supraventricular tachycardia) Disposition: ADMITTED IP TO THIS [facility] Condition: Stable Is patient prescribed a controlled substance at d/c from ED?: No Referrals: Kenisha Stokes MD [Primary Care Provider] - 1-2 days Decision to Admit Reason: Admit from EC Decision Date: 06/24/19 Decision Time: 21:22
[2019-06-24] MEDS: ATORVASTATIN 80 MG TAB PO SCH (21:29)
[2019-06-24] MEDS: LOSARTAN 25 MG TAB PO SCH (21:42)
[2019-06-25] MEDS: FUROSEMIDE 10 MG/ML 4 ML VIAL IV SCH ×3 (01:00→20:42)
[2019-06-25] MEDS ORDERED: CARVEDILOL 12.5 MG TAB PO SCH (07:30)
[2019-06-25] MEDS ORDERED: SPIRONOLACTONE 25 MG TAB PO SCH (09:00)
[2019-06-25] MEDS ORDERED: ISOSORBIDE MONONITRATE ER 60 MG TAB.ER.24H PO SCH (09:00)
[2019-06-25] MEDS ORDERED: HEPARIN SODIUM,PORCINE 5,000 UNIT/ML 1 ML VIAL IV PRN (09:19)
[2019-06-25] MEDS ORDERED: HEPARIN SODIUM,PORCINE 5,000 UNIT/ML 1 ML VIAL IV ONE (09:19)
[2019-06-25 09:45] LABS: Basophils # (A) 0.1 k/uL (0-0.2); Basophils % (A) 2 %; Eosinophils # (A) 0.2 k/uL (0-0.7); Eosinophils % (A) 4 %; HCT 37.4 % (39.0-53.0); HGB 12.2 gm/dL (13.0-17.5); Lymphocytes # (A) 0.5 k/uL (1.0-4.8); Lymphocytes % (A) 8 %; MCH 31.1 pg (25.0-35.0); MCHC 32.5 g/dL (31.0-37.0); MCV 95.7 fL (80.0-100.0); Mean Platelet Volume 8.1; Monocytes # (A) 0.4 k/uL (0-1.0); Monocytes % (A) 6 %; Neutrophils # (A) 4.3 k/uL (1.3-7.7); Neutrophils % (A) 78 %; Platelet Count 171 k/uL (150-450); RBC 3.91 m/uL (4.30-5.90); RDW 14.5 % (11.5-15.5); WBC 5.6 k/uL (3.8-10.6)
[2019-06-25] MEDS: CLOPIDOGREL 75 MG TAB PO SCH (09:46)
[2019-06-25] MEDS: ASPIRIN 325 MG TAB PO SCH (09:46)
[2019-06-25 09:53] LABS: INR 1.1 (<1.2); Partial Thromboplastin Time 24.5 sec (22.0-30.0)
[2019-06-25] MEDS: HEPARIN SOD,PORK IN 0.45% NACL 25,000 UNIT in 0.45% NACL 1 250ML.BAG IV SCH (10:20)
[2019-06-25] MEDS ORDERED: NITROGLYCERIN SL TABS 0.4 MG TAB SUBLINGUAL PRN (11:33)
--- NOTE | 2019-06-25 11:33 | P.HPIM ---
History of Present Illness H&P Date: 06/25/19 Chief Complaint: chest pain This is a 68-year-old male patient of Dr. Stokes and Dr. Quevedo with a previous medical history significant for CAD post-IL as well as history of CABG with MARROQUIN to LAD and occluded all SVGs venous graft, attempted PCI of the diagonal branch back in July 2018 that was unsuccessful, acute non-ST elevated IL in February 2019 status post stenting of the left main, ischemic cardiopathy, hypertension and hypertensive cardio vascular disease, hyperlipidemia, GERD, diabetes mellitus type 2 diet controlled, osteoarthritis, benign prostatic hypertrophy, sleep apnea on CPAP. Patient states that he was last seen by Dr. Quevedo 2 weeks ago no change in medication at that time. He was not having any chest pain at that time as well. Patient states for the past 1 week he has had chest pain onset on and off. He takes nitroglycerin with some relief and then it comes back. He states he's had a little lightheadedness. He has had some right arm pain and generalized weakness. He's also noticed some increased edema to his lower legs. He complains of wheezing. Patient is also noted increased heart rate that started as an onset after the chest pain. The patient's states that she has increased his Lasix from 20 mg daily to twice daily. Patient has not been on Aldactone or indoor as this was discontinued at office visit. [facility] from [facility] 2019 revealed EF of 45-50%, mild mitral regurgitation, mild tricuspid regurgitation, no pulmonary hypertension. Patient presented to [facility] emergency center. His initial heart rate was 149, afebrile, blood pressure 155/103, pulse ox 84% on room air. EKG was supraventricular tachycardia at rate of 155. Patient was given adenosine and metoprolol and was then in a sinus rhythm with a first-degree AV block with a rate of 99. Lab work revealed hemoglobin 14.8, WBC 11.9, platelet count 292, electrolytes within normal limits, blood sugar 193, total bilirubin 1.5, alkaline phosphatase 161, AST and ALT normal. ProBNP 4600. Troponins 0.060, 0.986, 1.190. Chest x-ray reveals marked pulmonary edema, both interstitial and alveolar phase and presumably cardiogenic etiology. Patient wa s admitted to the cardiac stepdown unit and started Lasix IV 40 mg every 12 hours, cardiology consult. Upon evaluation, we have started a heparin drip and updated cardiology. Review of Systems Constitutional: Reports fatigue, Reports poor appetite, Denies chills, Denies fever Eyes: denies blurred vision, denies pain Ears, nose, mouth and throat: Denies dysphagia, Denies nasal congestion, Denies nasal discharge Cardiovascular: Reports chest pain, Reports dyspnea on exertion, Reports edema, Reports leg edema, Reports lightheadedness, Reports palpitations, Reports rapid heart beat, Denies syncope Respiratory: Reports sleep apnea, Reports wheezing, Denies cough, Denies cough with sputum, Denies excessive sputum, Denies hemoptysis, Denies home oxygen, Denies respiratory infections Gastrointestinal: Reports loss of appetite, Reports nausea, Denies abdominal pain, Denies diarrhea, Denies vomiting Genitourinary: Denies dysuria, Denies urinary retention Musculoskeletal: Denies frequent falls, Denies gait dysfunction, Denies myalgias Integumentary: Denies pruritus, Denies rash, Denies wounds Neurological: Denies change in mentation, Denies change in speech, Denies numbness, Denies weakness Psychiatric: Denies anxiety, Denies depression Endocrine: Denies fatigue, Denies weight change Past Medical History Past Medical History: Coronary Artery Disease (CAD), Chest Pain / Angina, Diabetes Mellitus, Eye Disorder, GERD/Reflux, Hyperlipidemia, Hypertension, Myocardial Infarction ([place]), Osteoarthritis (OA), Prostate Disorder, Sleep Ap robyn/CPAP/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 CATARACT RT EYE; was using CPAP but has not used in more than 2 years as it is not working correctly ( [facility]) Last Myocardial Infarction Date:: 2003? History of Any Multi-Drug Resistant Organisms: None Reported Past Surgical History: Cholecystectomy, Coronary Bypass/CABG, Heart Catheterization With Stent, Orthopedic Surgery Additional Past Surgical History / Comment(s): RT WRIST GANGLION CYST REMOVED.has had stents post cabg not sure how many or what arteries they are in. CABG 1999 (Quadruple bypass), COLONOSCOPY, EGD, Past Anesthesia/Blood Transfusion Reactions: Motion Sickness Additional Past Anesthesia/Blood Transfusion Reaction / Comment(s): Family hx unknown, patient was adopted Date of Last Stent Placement:: 2003 Past Psychological History: Depression, PTSD Smoking Status: Never smoker Past Alcohol Use History: Occasional Past Drug Use History: None Reported - Past Family History Sister(s) Additional Family Medical History / Comment(s): thinks his sister from Cancer but is not sure Father History Unknown: Yes Additional Family Medical History / Comment(s): PT ADOPTED Mother History Unknown: Yes Additional Family Medical History / Comment(s): PT ADOPTED Brother(s) Additional Family Medical History / Comment(s): did find several brothers that had also been adopted out one from agent orange exposure/complications, one from etoh abuse, and one from chino gehrig's disease. Medications and Allergies Home Medications Medication Instructions Recorded Confirmed Type Pantoprazole Sodium [Protonix] 40 mg PO DAILY 04/05/15 06/24/19 History Ubidecarenone [Co Q-10] 400 mg PO DAILY 04/25/17 06/24/19 History Fluticasone Nasal [place] [Flonase 1 spray EA NOSTRIL BID 07/14/18 06/25/19 History Nasal [place]] Nitroglycerin Sl Tabs [Nitrostat] 0.4 mg SUBLINGUAL Q5M PRN 07/14/18 06/24/19 History Ranolazine [Ranexa] 1,000 mg PO BID 07/14/18 06/24/19 History Atorvastatin [Lipitor] 80 mg PO HS #30 tab 08/18/18 06/24/19 Rx Escitalopram [Lexapro] 20 mg PO DAILY 02/17/19 06/24/19 History Finasteride [Proscar] 5 mg PO DAILY 02/17/19 06/24/19 History Tamsulosin [Flomax] 0.4 mg PO BID 02/17/19 06/24/19 History Clopidogrel [Plavix] 75 mg PO DAILY #30 tab 03/05/19 06/24/19 Rx Aspirin EC [Ecotrin Low Dose] 81 mg PO DAILY 06/24/19 06/24/19 History Carvedilol [Coreg] 25 mg PO AC-BID 06/24/19 06/24/19 History Multivitamins, Thera [Multivitamin 1 tab PO DAILY 06/24/19 06/24/19 History (formulary)] Pregabalin [Lyrica] 200 mg PO BID 06/24/19 06/24/19 History Vitamin D3(Unknown Dose) 1 tab PO DAILY 06/24/19 06/24/19 History Allergies Allergy/AdvReac Type Severity Reaction Status Date / Time Penicillins Allergy Anaphylaxis Verified 06/24/19 23:10 simvastatin [From Zocor] AdvReac SEVERE Verified 06/24/19 23:10 JOINT PAIN Physical Exam Vitals: Vital Signs Temp Pulse Pulse Resp BP BP BP 06/25/19 08:40 98.2 F 90 20 112/69 06/25/19 04:00 99.1 F 87 20 133/77 06/25/19 01:01 98.2 F 87 20 120/69 06/25/19 00:44 94 18 123/72 06/25/19 00:09 95 18 121/83 06/24/19 23:03 89 20 125/89 06/24/19 22:10 93 20 137/83 06/24/19 20:15 98 18 135/92 06/24/19 19:09 99 F 149 H 24 155/103 Pulse Ox 06/25/19 08:40 90 L 06/25/19 04:00 98 06/25/19 01:01 95 06/25/19 00:44 97 06/25/19 00:09 94 L 06/24/19 23:03 100 06/24/19 22:10 99 06/24/19 20:15 97 06/24/19 19:09 84 L Intake and Output 06/24/19 06/25/19 06/25/19 22:59 06:59 14:59 Intake Total 10 Output Total 300 Balance 10 -300 Intake: Intake, IV Titration 10 Amount Nitroglycerin-D5w Pmx 50 10 mg In Dextrose/Water 1 250ml.bag @ 20 MCG/MIN 6 mls/hr IV .Q24H STA Rx#: [id number] Output: Urine 300 Other: Weight 83.007 kg 88.7 kg GENERAL: This is a 68-year-old male. Patient is resting in bed and appears to be comfortable and in no acute distress. HEENT: Head is atraumatic, normocephalic, pupils were equal round reactive to light and accommodation, extraocular muscle movement were intact. Mucous membranes of the mouth are moist. Neck: Supple, no JVP. Chest: Decreased breath sounds at the bases, few rhonchi, expiratory wheezes, minimal crackles, no chest wall tenderness, no intercostal retractions. Heart: First heart sound is depressed, second heart sound is normal, there is systolic ejection murmur 2/6 located in the left sternal border, S3. Abdomen: Soft, nontender, nondistended, positive bowel sounds, there is no hepatosplenomegaly. Extremities: Trace edema bilaterally, no calf tenderness, dorsalis pedis +1 left and faint on the right. Neurologic examination: Patient is awake alert and oriented 3, cranial nerves II-12 appear grossly intact, muscle power 4 out of 5 in upper and lower ex tremities bilaterally. Results CBC & Chem 7: 06/25/19 09:31 06/24/19 19:29 Labs: Abnormal Lab Results - Last 24 Hours (Table) 06/24/19 06/24/19 06/24/19 Range/Units 19:29 19:29 19:29 WBC 11.9 H (3.8-10.6) k/uL Neutrophils # 8.5 H (1.3-7.7) k/uL Glucose 190 H (74-99) mg/dL Total Bilirubin 1.5 H (0.2-1.3) mg/dL Alkaline Phosphatase 161 H (38-126) U/L Troponin I 0.060 H* (0.000-0.034) ng/mL 06/25/19 06/25/19 Range/Units 01:36 07:02 WBC (3.8-10.6) k/uL Neutrophils # (1.3-7.7) k/uL Glucose (74-99) mg/dL Total Bilirubin (0.2-1.3) mg/dL Alkaline Phosphatase (38-126) U/L Troponin I 0.986 H* 1.190 H* (0.000-0.034) ng/mL Thrombosis Risk Factor Assmnt - DVT/VTE Prophylaxis DVT/VTE Prophylaxis: Pharmacologic Prophylaxis ordered - Choose All That Apply Any of the Below Risk Factors Present?: Yes Each Factor Represents 1 point: Heart failure (<1month) Other Risk Factors: Yes Each Risk Factor Represents 2 Points: Age 61-74 years Thrombosis Risk Factor Assessment Total Risk Factor Score: 3 Thrombosis Risk Factor Assessment Level: Moderate Risk Assessment and Plan Plan: 1. Acute non-ST elevation IL. Continue aspirin, Plavix, Lipitor 80 mg orally once every day, Coreg 12.5 mg orally twice every day. Cardiology consult. Heparin drip started. 2. Acute hypoxic respiratory failure due to pulmonary edema with acute diastolic heart failure. Continue Lasix IV 40 mg every 12 hours, daily weights I&O, continue Coreg 12.5 mg orally twice every day. 3. Uncontrolled hypertension. Patient has been resumed on Coreg, losartan 25 mg daily. 4. SVT status post adenosine and Lopressor. Rate is currently controlled. Continue Coreg. 5. Hyperlipidemia. Continue Lipitor 80 mg orally once every day. 6. Hypertension and hypertensive cardiovascular disease. Continue losartan and Coreg. 7. CAD post CABG in with multiple PCI's with occluded old vein grafts except patent MARROQUIN to LAD and subsequent stenting left main in February. 8. Diabetes mellitus type 2. Continue patient on low-carb diet, NovoLog scale before meals and at bedtime, check A1c. 9. Recurrent depression. Continue Lexapro 20 mg orally once every day. 10. Hemphill's esophagus status post EGD with 7 biopsies. Continue Protonix 40 mg orally daily. 11. Benign prostatic hypertrophy. Continue Proscar 5 mg once every day and Flomax 0.4 mg twice daily. 12. Severe carotid artery disease. Continue aspirin, Plavix and Lipitor for secondary prevention. 13. Sleep apnea currently on CPAP. 14. Chronic low back pain secondary to degenerative disc disease. Continue Lyrica 200 mg orally twice every day. 13. DVT prophylaxis. Heparin 14. GI prophylaxis. Continue patient on PPI. 15. Patient is full code. Patient admitted to the hospital for a minimum of 2 night stay. CODE STATUS: No code. Discharge plan: Home most likely Impression and plan of care have been directed as dictated by the signing physician. Suzette Layne nurse practitioner acting as scribe for signing physician.
--- NOTE | 2019-06-25 12:18 | P.CRDCN ---
History of Present Illness Consult date: 06/25/19 History of present illness: This is a 68-year-old gentleman with history of diabetes, hyperlipidemia, hypertension and also coronary artery disease with previous bypass surgery. Patient also had stenting of the left main. Last cardiac catheterization showed that all his vein grafts are closed, except MARROQUIN graft to the LAD. Last catheterization did not reveal any significant progression of the disease in the stent in the left main. Patient now comes to the hospital with complaints of having chest pains for the last several days with increasing shortness of breat h. Yesterday patient had a chest pain and shortness of breath and looks about 8 nitroglycerin without relief. Finally patient came to the emergency room. Patient was found to have supraventricular tachycardia with a heart rate of about 150. Of its appears to be SVT, though atrial flutter with 2 to one conduction cannot be completely excluded. Patient chest x-ray showed evidence of pulmonary edema. Patient has been on BiPAP along with diuretic therapy. He is feeling much better today. His troponins are elevated size to of possible non-STEMI. He did not have any chest pain and feeling slightly better compared to yesterday. We'll continue with current medical therapy. It's possible that supplement, tachycardia my Respiratory symptoms. I will have EP evaluation and see if patient would be a candidate for an ablation. The possibility of a cardiac catheterization to rule out any progression in the disease of the left main also to be considered. Further recommendation depending upon hospital course Review of Systems As per the chart Past Medical History Past Medical History: Coronary Artery Disease (CAD), Chest Pain / Angina, Diabetes Mellitus, Eye Disorder, GERD/Reflux, Hyperlipidemia, Hypertension, Myoc ardial Infarction ([place]), Osteoarthritis (OA), Prostate Disorder, Sleep Apnea/CPAP/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 CATARACT RT EYE; was using CPAP but has not used in more than 2 years as it is not working correctly ( [facility]) Last Myocardial Infarction Date:: 2003? History of Any Multi-Drug Resistant Organisms: None Reported Past Surgical History: Cholecystectomy, Coronary Bypass/CABG, Heart Catheterization With Stent, Orthopedic Surgery Additional Past Surgical History / Comment(s): RT WRIST GANGLION CYST REMOVED.has had stents post cabg not sure how many or what arteries they are in. CABG 1999 (Quadruple bypass), COLONOSCOPY, EGD, Past Anesthesia/Blood Transfusion Reactions: Motion Sickness Additional Past Anesthesia/Blood Transfusion Reaction / Comment(s): Family hx unknown, patient was adopted Date of Last Stent Placement:: 2003 Past Psychological History: Depression, PTSD Smoking Status: Never smoker Past Alcohol Use History: Occasional Past Drug Use History: None Reported - Past Family History Sister(s) Additional Family Medical History / Comment(s): thinks his sister from Cancer but is not sure Father History Unknown: Yes Additional Family Medical History / Comment(s): PT ADOPTED Mother History Unknown: Yes Additional Family Medical History / Comment(s): PT ADOPTED Brother(s) Additional Family Medical History / Comment(s): did find several brothers that had also been adopted out one from agent orange exposure/complications, one from etoh abuse, and one from chino gehrig's disease. Medications and Allergies Home Medications Medication Instructions Recorded Confirmed Type Pantoprazole Sodium [Protonix] 40 mg PO DAILY 04/05/15 06/24/19 History Ubidecarenone [Co Q-10] 400 mg PO DAILY 04/25/17 06/24/19 History Fluticasone Nasal [place] [Flonase 1 spray EA NOSTRIL BID 07/14/18 06/25/19 History Nasal [place]] Nitroglycerin Sl Tabs [Nitrostat] 0.4 mg SUBLINGUAL Q5M PRN 07/14/18 06/24/19 History Ranolazine [Ranexa] 1,000 mg PO BID 07/14/18 06/24/19 History Atorvastatin [Lipitor] 80 mg PO HS #30 tab 08/18/18 06/24/19 Rx Escitalopram [Lexapro] 20 mg PO DAILY 02/17/19 06/24/19 History Finasteride [Proscar] 5 mg PO DAILY 02/17/19 06/24/19 History Tamsulosin [Flomax] 0.4 mg PO BID 02/17/19 06/24/19 History Clopidogrel [Plavix] 75 mg PO DAILY #30 tab 03/05/19 06/24/19 Rx Aspirin EC [Ecotrin Low Dose] 81 mg PO DAILY 06/24/19 06/24/19 History Carvedilol [Coreg] 25 mg PO AC-BID 06/24/19 06/24/19 History Multivitamins, Thera [Multivitamin 1 tab PO DAILY 06/24/19 06/24/19 History (formulary)] Pregabalin [Lyrica] 200 mg PO BID 06/24/19 06/24/19 History Vitamin D3(Unknown Dose) 1 tab PO DAILY 06/24/19 06/24/19 History Allergies Allergy/AdvReac Type Severity Reaction Status Date / Time Penicillins Allergy Anaphylaxis Verified 06/24/19 23:10 simvastatin [From Zocor] AdvReac SEVERE Verified 06/24/19 23:10 JOINT PAIN Physical Exam Vitals: Vital Signs Temp Pulse Pulse Resp BP BP BP 06/25/19 08:40 98.2 F 90 20 112/69 06/25/19 08:30 20 06/25/19 04:00 99.1 F 87 20 133/77 06/25/19 01:01 98.2 F 87 20 120/69 06/25/19 00:44 94 18 123/72 06/25/19 00:09 95 18 121/83 06/24/19 23:03 89 20 125/89 06/24/19 22:10 93 20 137/83 06/24/19 20:15 98 18 135/92 06/24/19 19:09 99 F 149 H 24 155/103 Pulse Ox 06/25/19 08:40 90 L 06/25/19 08:30 06/25/19 04:00 98 06/25/19 01:01 95 06/25/19 00:44 97 06/25/19 00:09 94 L 06/24/19 23:03 100 06/24/19 22:10 99 06/24/19 20:15 97 06/24/19 19:09 84 L Intake and Output 06/24/19 06/25/19 06/25/19 22:59 06:59 14:59 Intake Total 10 358 Output Total 300 825 Balance 84 -004 -366 Intake: Intake, IV Titration 10 Amount Nitroglycerin-D5w Pmx 50 10 mg In Dextrose/Water 1 250ml.bag @ 20 MCG/MIN 6 mls/hr IV .Q24H STA Rx#: [id number] Oral 358 Output: Urine 300 825 Other: Voiding Method Urinal Weight 83.007 kg 88.7 kg GENERAL EXAM: Patient is alert and oriented and appears to be in [id number] distress but much better than yesterday. HEENT: Normocephalic. Normal reaction of pupils, equal size, normal range of extraocular motion. No erythema or exudates in the throat. NECK: No masses, no nuchal rigidity. CHEST: No chest wall deformity. LUNGS: Slight rhonchi and wheezes HEART: S1 and S2 normal. Distant heart sounds ABDOMEN: No hepatosplenomegaly, normal bowel sounds, no guarding or rigidity. SKIN: No rashes CENTRAL NERVOUS SYSTEM: No focal deficits. EXTREMITIES: No cyanosis, clubbing or edema. Results 06/25/19 09:31 06/24/19 19:29 Cardiac Enzymes 06/24/19 06/24/19 06/25/19 Range/Units 19:29 19:29 01:36 AST 26 (17-59) U/L Troponin I 0.060 H* 0.986 H* (0.000-0.034) ng/mL 06/25/19 Range/Units 07:02 AST (17-59) U/L Troponin I 1.190 H* (0.000-0.034) ng/mL Coagulation 06/24/19 06/25/19 Range/Units 19:29 09:31 PT 10.3 11.0 (9.0-12.0) sec APTT 23.8 24.5 (22.0-30.0) sec CBC 06/24/19 06/25/19 Range/Units 19:29 09:31 WBC 11.9 H 5.6 (3.8-10.6) k/uL RBC 4.64 3.91 L (4.30-5.90) m/uL Hgb 14.8 12.2 L (13.0-17.5) gm/dL Hct 44.5 37.4 L (39.0-53.0) % Plt Count 292 171 (150-450) k/uL Comprehensive Metabolic Panel 06/24/19 Range/Units 19:29 Sodium 141 (137-145) mmol/L Potassium 4.4 (3.5-5.1) mmol/L Chloride 105 (98-107) mmol/L Carbon Dioxide 22 (22-30) mmol/L BUN 18 (9-20) mg/dL Creatinine 1.10 (0.66-1.25) mg/dL Glucose 190 H (74-99) mg/dL Calcium 9.5 (8.4-10.2) mg/dL AST 26 (17-59) U/L ALT 16 (4-49) U/L Alkaline Phosphatase 161 H (38-126) U/L Total Protein 7.8 (6.3-8.2) g/dL Albumin 4.4 (3.5-5.0) g/dL Current Medications Generic Name Dose Route Start Last Admin Trade Name Freq PRN Reason Stop Dose Admin Aspirin 325 mg 06/25/19 09:00 06/25/19 09:46 Aspirin PO 325 mg DAILY [facility] Administration Atorvastatin Calcium 80 mg 06/24/19 21:00 06/24/19 21:29 Lipitor PO 80 mg HS [facility] Administration Carvedilol 25 mg 06/25/19 17:30 Coreg PO AC-BID [facility] Clopidogrel Bisulfate 75 mg 06/25/19 09:00 06/25/19 09:46 Plavix PO 75 mg DAILY [facility] Administration Escitalopram Oxalate 20 mg 06/26/19 09:00 Lexapro PO DAILY [facility] Finasteride 5 mg 06/26/19 09:00 Proscar PO DAILY [facility] Fluticasone Propionate 1 spray 06/25/19 21:00 Flonase Nasal [place] EA NOSTRIL BID [facility] Furosemide 40 mg 06/24/19 21:00 06/25/19 10:00 Lasix IV 40 mg Q12HR [facility] Administration Heparin Sodium (Porcine) 0 unit 06/25/19 09:19 Heparin IV PER PROTOCOL PRN Low PTT Protocol Heparin Sodium/Sodium Chloride 250 mls @ 10 mls/hr 06/25/19 09:30 06/25/19 10:20 25,000 unit/ Sodium Chloride IV 11.274 units/kg/hr .Q24H [facility] 10 mls/hr Administration Protocol 11.274 UNITS/KG/HR Insulin Aspart 0 unit 06/25/19 12:30 Novolog SQ ACHS [facility] Protocol Losartan Potassium 25 mg 06/24/19 21:00 06/24/19 21:42 Cozaar PO 25 mg HS [facility] Administration Morphine Sulfate 4 mg 06/24/19 20:58 Morphine Sulfate (Inj) IV Q4HR PRN Severe Pain Multivitamins 1 each 06/26/19 09:00 Theragran PO DAILY [facility] Naloxone HCl 0.2 mg 06/24/19 20:58 Narcan IV Q2M PRN Opioid Reversal Nitroglycerin 0.5 inch 06/25/19 12:00 Nitro-Bid Oint TOPICAL Q6HR [facility] Nitroglycerin 0.4 mg 06/25/19 11:33 Nitrostat SUBLINGUAL Q5M PRN Chest Pain Pantoprazole Sodium 40 mg 06/26/19 09:00 Protonix PO DAILY [facility] Pregabalin 200 mg 06/25/19 21:00 Lyrica PO BID [facility] Ranolazine 1,000 mg 06/25/19 21:00 Ranexa PO BID [facility] Tamsulosin HCl 0.4 mg 06/25/19 21:00 Flomax PO BID [facility] Intake and Output 06/24/19 06/25/19 06/25/19 22:59 06:59 14:59 Intake Total 10 358 Output Total 300 825 Balance 10 300 467 Intake: Intake, IV Titration 10 Amount Nitroglycerin-D5w Pmx 50 10 mg In Dextrose/Water 1 250ml.bag @ 20 MCG/MIN 6 mls/hr IV .Q24H STA Rx#: [id number] Oral 358 Output: Urine 300 825 Other: Voiding Method Urinal Weight 83.007 kg 88.7 kg 06/25/19 09:31 06/24/19 19:29 EKG Interpretations (text) Initial EKG showed supplement, tachycardia. Subsequent EKG showed sinus rhythm with mild ST-T changes Assessment and Plan (1) History of coronary artery bypass graft Current Visit: Yes Status: Acute Code(s): Z95.1 - PRESENCE OF AORTOCORONARY BYPASS GRAFT SNOMED Code(s): 101239041 (2) Acute and chronic respiratory failure with hypoxia Current Visit: Yes Status: Acute Code(s): J96.21 - ACUTE AND CHRONIC RESPIRATORY FAILURE WITH HYPOXIA SNOMED Code(s): 07265068 (3) CHF (congestive heart failure) Current Visit: Yes Status: Acute Code(s): I50.9 - HEART FAILURE, UNSPECIFIED SNOMED Code(s): 45970247 (4) SVT (supraventricular tachycardia) Current Visit: Yes Status: Acute Code(s): I47.1 - SUPRAVENTRICULAR TACHYCARDIA SNOMED Code(s): 7597933 (5) ACS (acute coronary syndrome) Current Visit: No Status: Acute Code(s): I24.9 - ACUTE ISCHEMIC HEART DISEASE, UNSPECIFIED SNOMED Code(s): 223394695 Plan: Continue current management. We will get an EP evaluation for possible ablation for SVT. We may also consider cardiac catheterization to rule out any pro gression of the disease in the left main. However, patient prognosis is guarded. We'll repeat the echocardiogram
[2019-06-25 12:47] LABS: Glucose,Whole Blood 147 mg/dL (75-99)
[2019-06-25] MEDS: NITROGLYCERIN OINT 1 INCH/GM PACKET TOPICAL SCH ×2 (12:57→17:38)
[2019-06-25] MEDS: INSULIN ASPART (NovoLOG) 100 UNIT/ML VIAL SQ SCH ×3 (13:19→20:43)
[2019-06-25] MEDS: CARVEDILOL 12.5 MG TAB PO SCH (17:38)
[2019-06-25 17:49] LABS: Glucose,Whole Blood 120 mg/dL (75-99)
[2019-06-25 20:37] LABS: Glucose,Whole Blood 167 mg/dL (75-99)
[2019-06-25] MEDS: LOSARTAN 25 MG TAB PO SCH (20:42)
[2019-06-25] MEDS: PREGABALIN 100 MG CAP PO SCH (20:42)
[2019-06-25] MEDS: ATORVASTATIN 80 MG TAB PO SCH (20:42)
[2019-06-25] MEDS: FLUTICASONE 50MCG/SPRAY NASAL 16GM EA NOSTRIL SCH (20:43)
[2019-06-25] MEDS: RANOLAZINE 500 MG TAB.ER.12H PO SCH (20:43)
[2019-06-25] MEDS: TAMSULOSIN 0.4 MG CAP.ER.24H PO SCH (20:43)
[2019-06-25 23:43] LABS: Hemoglobin A1C 6.4 % (4.0-6.0)
[2019-06-26 05:46] LABS: Glucose,Whole Blood 126 mg/dL (75-99)
[2019-06-26 06:29] LABS: Basophils % (A) 1 %; Eosinophils # (A) 0.2 k/uL (0-0.7); Eosinophils % (A) 3 %; HCT 37.2 % (39.0-53.0); HGB 12.1 gm/dL (13.0-17.5); Lymphocytes # (A) 0.6 k/uL (1.0-4.8); Lymphocytes % (A) 10 %; MCH 30.8 pg (25.0-35.0); MCHC 32.5 g/dL (31.0-37.0); MCV 94.8 fL (80.0-100.0); Mean Platelet Volume 8.4; Monocytes # (A) 0.5 k/uL (0-1.0); Monocytes % (A) 7 %; Neutrophils # (A) 4.8 k/uL (1.3-7.7); Neutrophils % (A) 76 %; Platelet Count 165 k/uL (150-450); RBC 3.92 m/uL (4.30-5.90); RDW 14.4 % (11.5-15.5); WBC 6.3 k/uL (3.8-10.6)
[2019-06-26] MEDS: INSULIN ASPART (NovoLOG) 100 UNIT/ML VIAL SQ SCH ×4 (07:50→21:36)
[2019-06-26] MEDS: NITROGLYCERIN OINT 1 INCH/GM PACKET TOPICAL SCH ×2 (07:50→11:22)
[2019-06-26] MEDS ORDERED: NON FORMULARY DRUG (Aspirin Ec 81 MG) PO SCH (09:00)
[2019-06-26] MEDS: HEPARIN SOD,PORK IN 0.45% NACL 25,000 UNIT in 0.45% NACL 1 250ML.BAG IV SCH (09:04)
[2019-06-26] MEDS: ESCITALOPRAM 20 MG TAB PO SCH (09:20)
[2019-06-26] MEDS: RANOLAZINE 500 MG TAB.ER.12H PO SCH ×2 (09:20→20:17)
[2019-06-26] MEDS: FINASTERIDE 5 MG TAB PO SCH (09:20)
[2019-06-26] MEDS: ASPIRIN 325 MG TAB PO SCH (09:20)
[2019-06-26] MEDS: FUROSEMIDE 10 MG/ML 4 ML VIAL IV SCH ×2 (09:21→15:15)
[2019-06-26] MEDS: PREGABALIN 100 MG CAP PO SCH ×2 (09:21→20:17)
[2019-06-26] MEDS: TAMSULOSIN 0.4 MG CAP.ER.24H PO SCH ×2 (09:21→20:17)
[2019-06-26] MEDS: PANTOPRAZOLE 40 MG TABLET PO SCH (09:21)
[2019-06-26] MEDS: MULTIVITAMINS, THERA 1 EACH TAB PO SCH (09:21)
[2019-06-26] MEDS: CARVEDILOL 12.5 MG TAB PO SCH ×2 (09:21→17:33)
[2019-06-26] MEDS: CLOPIDOGREL 75 MG TAB PO SCH (09:21)
[2019-06-26] MEDS: FLUTICASONE 50MCG/SPRAY NASAL 16GM EA NOSTRIL SCH ×2 (09:21→20:17)
[2019-06-26 12:28] LABS: Glucose,Whole Blood 186 mg/dL (75-99)
--- NOTE | 2019-06-26 13:05 | P.PN ---
Subjective This is a pleasant 68-year-old male past medical history significant for coronary artery disease status post bypass grafting, hypertension, dyslipidemia and diabetes mellitus. He follows in the office with Dr. Quevedo. He is seen and examined sitting up in bed in no acute distress. He had no further symptoms of chest discomfort. His breathing is stable. Telemetry tracings no further SVT. He was using BiPAP last night and continued on diuretic therapy. Blood pressure 112/59 heart rate 77 afebrile maintaining oxygen saturation on nasal cannula. Laboratory data reviewed, WBC 6.3, hemoglobin 12.1, platelets 165, troponin 0.404. GENERAL: Well-appearing, well-nourished and in no acute distress. NECK: Supple without JVD or thyromegaly. LUNGS: Rales bilaterally, worse on the left than the right. No rhonchi or wheezes. Respiration equal and unlabored. HEART: Regular rate and rhythm with systolic ejection murmur at the left sternal border, no rubs or gallops. S1 and S2 heard. EXTREMITIES: Normal range of motion, no edema. No clubbing or cyanosis. Peripheral pulses intact. ASSESSMENT Acute on chronic systolic heart failure Supraventricular tachycardia, resolved Troponin elevation secondary to oxygen supply demand mismatch from SVT, Type II Coronary artery disease s/p bypass grafting. Only MARROQUIN-LAD patent on recent cath 02/2019 Peripheral vascular disease PLAN Discontinue heparin and decrease aspirin to 81 mg daily. Increase lasix to TID. Follow renal function and electrolytes daily. Document accurate intake and output along with daily weights. Ongoing telemetry monitoring. Echocardiogram has been obtained and will be reviewed. We will continue to follow make recommendations accordingly. Nurse Practitioner note has been reviewed, I agree with a documented findings and plan of care. Patient was seen and examined. Objective - Vital Signs Vital signs: Vital Signs Temp 97.7 F 06/26/19 09:10 Pulse 77 06/26/19 11:20 Resp 16 06/26/19 12:49 BP 112/59 06/26/19 11:20 Pulse Ox 94 L 06/26/19 12:49 Intake & Output 06/25/19 06/26/19 06/26/19 18:59 06:59 18:59 Intake Total 660 935 227.333 Output Total 1275 1900 125 Balance -615 -965 102.333 Weight 86.9 kg Intake: IV 80 100 Heparin Sod,Pork in 0.45% 80 100 NaCl 25,000 unit In 0.45 % NaCl 1 250ml.bag @ 11. 274 UNITS/KG/HR 10 mls/hr IV .Q24H [facility] Rx#: [id number] Intake, IV Titration 227.333 Amount Heparin Sod,Pork in 0.45% 227.333 NaCl 25,000 unit In 0.45 % NaCl 1 250ml.bag @ 11. 274 UNITS/KG/HR 10 mls/hr IV .Q24H [facility] Rx#: [id number] Oral 580 835 Output: Urine 1275 1900 125 Other: Voiding Method Urinal Urinal - Labs CBC & Chem 7: 06/26/19 05:40 06/24/19 19:29 Labs: Abnormal Lab Results - Last 24 Hours (Table) 06/25/19 06/25/19 06/25/19 Range/Units 15:53 15:53 17:48 RBC (4.30-5.90) m/uL Hgb (13.0-17.5) gm/dL Hct (39.0-53.0) % Lymphocytes # (1.0-4.8) k/uL APTT 48.9 H (22.0-30.0) sec POC Glucose (mg/dL) 120 H (75-99) mg/dL Hemoglobin A1c 6.4 H (4.0-6.0) % Troponin I (0.000-0.034) ng/mL 06/25/19 06/26/19 06/26/19 Range/Units 20:36 05:40 05:40 RBC 3.92 L (4.30-5.90) m/uL Hgb 12.1 L (13.0-17.5) gm/dL Hct 37.2 L (39.0-53.0) % Lymphocytes # 0.6 L (1.0-4.8) k/uL APTT 52.0 H (22.0-30.0) sec POC Glucose (mg/dL) 167 H (75-99) mg/dL Hemoglobin A1c (4.0-6.0) % Troponin I (0.000-0.034) ng/mL 06/26/19 06/26/19 06/26/19 Range/Units 05:44 10:24 12:25 RBC (4.30-5.90) m/uL Hgb (13.0-17.5) gm/dL Hct (39.0-53.0) % Lymphocytes # (1.0-4.8) k/uL APTT (22.0-30.0) sec POC Glucose (mg/dL) 126 H 186 H (75-99) mg/dL Hemoglobin A1c (4.0-6.0) % Troponin I 0.404 H* (0.000-0.034) ng/mL
--- NOTE | 2019-06-26 14:33 | P.DS ---
Providers Date of admission: 06/24/19 20:58 Attending physician: Ashley Cotton Consults: 06/24/19 20:59 Consult Physician Routine Consulting Provider: Arnol Fernandez Consult Reason/Comments: Hypertensive urgency, flash pulmonary edema, SVT Do you want consulting provider notified?: Yes Primary care physician: Kenisha Stokes [place] [facility] Course: This is a 45-year-old female patient of Dr. James with past medical history of hyperlipidemia, asthma, gastroesophageal reflux disease, spinal stenosis, migraine headaches, recurrent depression and generalized anxiety disorder, remote history of tobacco use. 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 There was radiation to the jaw and neck area. She came directly to the hospital. Her initial EKG did not reveal any ischemic changes. Chest x-ray showed no acute process. CBC and CMP unremarkable. Triglycerides 164, cholesterol 267, LDL 172, HDL 62. Troponin 0.045, 2.180 and 2.450. She was started on IV heparin, Nitropaste and aspirin, beta blockers and patient was scheduled for heart catheterization which occurred this morning. Heart catheterization done this morning by Dr. Fernandez reveals 80- 90% focal stenosis involving the PDA. Patient's is currently underwent percutaneous coronary angiography and 2 drug-eluting stent placement with Dr. FARHAT Hollis. Patient is now seen on the cardiac stepdown unit. She states she has very little constricting feeling in her chest. No shortness of breath. 06/25: Patient denies having any chest pain or shortness of breath. She has been afebrile, heart rate 95, blood pressure 99/65 to 128/94, pulse ox 95% on room air. Repeat CBC and BMP normal, creatinine 0.78. Patient apparently had chest pain during the night and cardiology would like to keep her another day for monitoring. 06/26: Patient is doing very well no further chest pain or shortness of breath after angioplasty no recurrent angina, was seen and evaluate the by cardiology and determine that she is ready for discharge today. Patient be discharged home today. Discharge diagnoses: 1. Acute non-ST elevated myocardial infarction status post heart catheterization in stent of the PDA. 2. Hypertension. 3. Hyperlipidemia. 4. Hypothyroidism. 5. Recurrent depression and generalized anxiety disorder. 6. Mild intermittent asthma, stable. Discharge plan: home Impression and plan of care have been directed as dictated by the signing physician. Suzette Layne nurse practitioner acting as scribe for signing physician. Patient Condition at Discharge: Stable Plan - Discharge Summary New Discharge Prescriptions: No Action Pantoprazole Sodium [Protonix] 40 mg PO DAILY Ubidecarenone [Co Q-10] 400 mg PO DAILY Ranolazine [Ranexa] 1,000 mg PO BID Nitroglycerin Sl Tabs [Nitrostat] 0.4 mg SUBLINGUAL Q5M PRN PRN Reason: Chest Pain Fluticasone Nasal Bolton [Flonase Nasal Bolton] 1 spray EA NOSTRIL BID Atorvastatin [Lipitor] 80 mg PO HS #30 tab Escitalopram [Lexapro] 20 mg PO DAILY Tamsulosin [Flomax] 0.4 mg PO BID Finasteride [Proscar] 5 mg PO DAILY Clopidogrel [Plavix] 75 mg PO DAILY #30 tab Vitamin D3(Unknown Dose) 1 tab PO DAILY Multivitamins, Thera [Multivitamin (formulary)] 1 tab PO DAILY Carvedilol [Coreg] 25 mg PO AC-BID Aspirin EC [Ecotrin Low Dose] 81 mg PO DAILY Pregabalin [Lyrica] 200 mg PO BID Discharge Medication List Pantoprazole Sodium [Protonix] 40 mg PO DAILY 04/05/15 [History] Ubidecarenone [Co Q-10] 400 mg PO DAILY 04/25/17 [History] Fluticasone Nasal Bolton [Flonase Nasal Bolton] 1 spray EA NOSTRIL BID 07/14/18 [History] Nitroglycerin Sl Tabs [Nitrostat] 0.4 mg SUBLINGUAL Q5M PRN 07/14/18 [History] Ranolazine [Ranexa] 1,000 mg PO BID 07/14/18 [History] Atorvastatin [Lipitor] 80 mg PO HS #30 tab 08/18/18 [Rx] Escitalopram [Lexapro] 20 mg PO DAILY 02/17/19 [History] Finasteride [Proscar] 5 mg PO DAILY 02/17/19 [History] Tamsulosin [Flomax] 0.4 mg PO BID 02/17/19 [History] Clopidogrel [Plavix] 75 mg PO DAILY #30 tab 03/05/19 [Rx] Aspirin EC [Ecotrin Low Dose] 81 mg PO DAILY 06/24/19 [History] Carvedilol [Coreg] 25 mg PO AC-BID 06/24/19 [History] Multivitamins, Thera [Multivitamin (formulary)] 1 tab PO DAILY 06/24/19 [History] Pregabalin [Lyrica] 200 mg PO BID 06/24/19 [History] Vitamin D3(Unknown Dose) 1 tab PO DAILY 06/24/19 [History] Follow up Appointment(s)/Referral(s): Kenisha Stokes MD [Primary Care Provider] - 1-2 days
--- NOTE | 2019-06-26 14:47 | P.PN ---
Subjective Progress Note Date: 06/26/19 Objective - Vital Signs Vital signs: Vital Signs - Exam Subjective Progress Note Date: 06/26/19 Principal diagnosis: Chest pain and angina, acute non-ST IA, CAD, diabetes, hypertension, hyperlipidemia, neuropathy This is a 68-year-old male patient of Dr. Stokes and Dr. Quevedo with a previous medical history significant for CAD post-IA as well as history of CABG with MARROQUIN to LAD and occluded all SVGs venous graft, attempted PCI of the diagonal branch back in July 2018 that was unsuccessful, acute non-ST elevated IA in February 2019 status post stenting of the left main, ischemic cardiopathy, hypertension and hypertensive cardio vascular disease, hyperlipidemia, GERD, diabetes mellitus type 2 diet controlled, osteoarthritis, benign prostatic hypertrophy, sleep apnea on CPAP. Patient states that he was last seen by Dr. Quevedo 2 weeks ago no change in medication at that time. He was not having any chest pain at that time as well. Patient states for the past 1 week he has had chest pain onset on and off. He takes nitroglycerin with some relief and then it comes back. He states he's had a little lightheade dness. He has had some right arm pain and generalized weakness. He's also noticed some increased edema to his lower legs. He complains of wheezing. Patient is also noted increased heart rate that started as an onset after the chest pain. The patient's states that she has increased his Lasix from 20 mg daily to twice daily. Patient has not been on Aldactone or indoor as this was discontinued at office visit. [facility] from [facility] 2019 revealed EF of 45-50%, mild mitral regurgitation, mild tricuspid regurgitation, no pulmonary hypertension. Patient presented to [facility]. His initial heart rate was 149, afebrile, blood pressure 155/103, pulse ox 84% on room air. EKG was supraventricular tachycardia at rate of 155. Patient was given adenosine and metoprolol and was then in a sinus rhythm with a first-degree AV block with a rate of 99. Lab work revealed hemoglobin 14.8, WBC 11.9, platelet count 292, electrolytes within normal limits, blood sugar 193, total bilirubin 1.5, alkaline phosphatase 161, AST and ALT normal. ProBNP 4600. Troponins 0.060, 0.986, 1.190. Chest x-ray reveals marked pulmonary edema, both interstitial and alveolar phase and presumably cardiogenic etiology. Patient was admitted to the cardiac stepdown unit and started Lasix IV 40 mg every 12 hours, cardiology consult. Upon evaluation, we have started a heparin drip and updated cardiology. 06/26: Patient is doing much better was seen cardiology decided not to do any invasive no heart catheter angioplasty this point patient will be on medical management echocardiogram was done results still pending at this point. Objective - Vital Signs Vital signs: Temp 97.7 F 06/26/19 09:10 Pulse 77 06/26/19 11:20 Resp 16 06/26/19 12:49 BP 112/59 06/26/19 11:20 Pulse Ox 94 L 06/26/19 12:49 Intake & Output 06/25/19 06/26/19 06/26/19 18:59 06:59 18:59 Intake Total 660 935 227.333 Output Total 1275 1900 125 Balance -615 -965 102.333 Weight 86.9 kg Intake: IV 80 100 Heparin Sod,Pork in 0.45% 80 100 NaCl 25,000 unit In 0.45 % NaCl 1 250ml.bag @ 11. 274 UNITS/KG/HR 10 mls/hr IV .Q24H [facility] Rx#: [id number] Intake, IV Titration 227.333 Amount Heparin Sod,Pork in 0.45% 227.333 NaCl 25,000 unit In 0.45 % NaCl 1 250ml.bag @ 11. 274 UNITS/KG/HR 10 mls/hr IV .Q24H [facility] Rx#: [id number] Oral 580 835 Output: Urine 1275 1900 125 Other: Voiding Method Urinal Urinal - Exam Review of system: CONSTITUTIONAL: Well-developed no acute respiratory distress. EYES: No icterus sclerae, no conjunctivitis. EARS, NOSE, MOUTH, THROAT, and FACE: No sore throat, lymphadenopathy, carotid bruits or deformity. RESPIRATORY: Slight shortness of breath no cough or wheezes. CARDIOVASCULAR: Positive PND orthopnea positive angina with history of CAD. GASTROINTESTINAL: No Abd pain, Nausea or vomiting, no Diarrhea or constipation, No GI Bleed, no distention or masses. GENITOURINARY: Negative for Hematuria or UTI, no kidney stones. INTEGUMENT/BREAST: Negative for any muscular injury with mild osteoarthritis.. HEMATOLOGIC/LYMPHATIC: Negative for bleed or purpura. MUSCULOSKELTAL: Negative for Myalgia or arthralgia. NEURLOGICAL: No LOC, Sz or syncope, blurred vision dizziness or abnormality.. BEHAVIORAL/PSYCH: Negative. ENDOCRINE: Negative. Physical examination: General Appearance: Alert, cooperative, no distress, appears stated age. Neck HEENT: Supple, no lymphadenopathy, no thyroid enlargement, no carotid bruits. Lungs: Decreased breath some bilateral fine rhonchi plasma but spread wheezes. Chest Wall: Decrease expansion with deep inspiration no tenderness and no deformity was found on exam, no costochondral pain or discomfort. Heart: Regular rate and rhythm, S1, S2 normal, no murmur, rub or gallop. Back: Symmetric, no curvature, ROM normal, no CVA tenderness. Abdomen: Soft, non-tender, bowel sounds active all four quadrants, no masses, no organomegaly. Extremities: Extremities normal, atraumatic, no cyanosis or edema. Pulses: 2+ and symmetric. Skin: Skin color, texture, tugor normal, no rashes or lesions. Neurologic: Alert oriented x3 cranial nerves II through XII intact, no motor deficit, no abnormal balance or gait. - Labs CBC & Chem 7: 06/26/19 07:10 06/25/19 08:55 Labs: Abnormal Lab Results - Last 24 Hours (Table) 06/26/19 Range/Units 07:10 WBC 12.0 H (3.8-10.6) k/uL RBC 3.20 L (3.80-5.40) m/uL Hgb 10.4 L (11.4-16.0) gm/dL Hct 32.7 L (34.0-46.0) % MCV 102.1 H (80.0-100.0) fL Neutrophils # 9.2 H (1.3-7.7) k/uL Assessment and Plan Plan: 1 acute non-ST IA: Continue patient on secondary prevention, continue aspirin, Plavix, Lipitor and Coreg. Patient is off heparin drip was seen cardiology no intervention required this point. 2 CAD post CABG, multiple PCI and stent placement last one done in February, patient still on medical management seen cardiology regularly. 3 type 2 diabetes: He is on NovoLog per sliding scale. 4 Hyperlipidemia: Remain on atorvastatin 80 mg daily. 5 noncontrolled hypertension: Resume Coreg and losartan titrate medication and if needed will start patient on hydralazine. 6 SVT post-adenosine and Lopressor patient is doing well so far continue beta la. 7 benign prostatic hypertrophy: Remain on Proscar 5 mg a day. 8 history of Hemphill esophagus: Remain on proton pump inhibitor with Protonix 40 mg a day. 9 history of obstructive sleep apnea: Remain on CPAP. 10 chronic history of lower back pain, is on Lyrica 200 mg twice a day still on hydrocodone as needed still seen pain management. Discharge planning: The patient is doing well tomorrow might be discharged home. - Labs CBC & Chem 7: 06/26/19 05:40 06/24/19 19:29 Labs: Abnormal Lab Results - Last 24 Hours (Table) 06/25/19 06/25/19 06/25/19 Range/Units 15:53 15:53 17:48 RBC (4.30-5.90) m/uL Hgb (13.0-17.5) gm/dL Hct (39.0-53.0) % Lymphocytes # (1.0-4.8) k/uL APTT 48.9 H (22.0-30.0) sec POC Glucose (mg/dL) 120 H (75-99) mg/dL Hemoglobin A1c 6.4 H (4.0-6.0) % Troponin I (0.000-0.034) ng/mL 06/25/19 06/26/19 06/26/19 Range/Units 20:36 05:40 05:40 RBC 3.92 L (4.30-5.90) m/uL Hgb 12.1 L (13.0-17.5) gm/dL Hct 37.2 L (39.0-53.0) % Lymphocytes # 0.6 L (1.0-4.8) k/uL APTT 52.0 H (22.0-30.0) sec POC Glucose (mg/dL) 167 H (75-99) mg/dL Hemoglobin A1c (4.0-6.0) % Troponin I (0.000-0.034) ng/mL 06/26/19 06/26/19 06/26/19 Range/Units 05:44 10:24 12:25 RBC (4.30-5.90) m/uL Hgb (13.0-17.5) gm/dL Hct (39.0-53.0) % Lymphocytes # (1.0-4.8) k/uL APTT (22.0-30.0) sec POC Glucose (mg/dL) 126 H 186 H (75-99) mg/dL Hemoglobin A1c (4.0-6.0) % Troponin I 0.404 H* (0.000-0.034) ng/mL
[2019-06-26 16:38] LABS: Glucose,Whole Blood 107 mg/dL (75-99)
[2019-06-26] MEDS: LOSARTAN 25 MG TAB PO SCH (20:17)
[2019-06-26] MEDS: ATORVASTATIN 80 MG TAB PO SCH (20:17)
[2019-06-26 20:48] LABS: Glucose,Whole Blood 178 mg/dL (75-99)
[2019-06-27] MEDS: FUROSEMIDE 10 MG/ML 4 ML VIAL IV SCH ×2 (00:31→09:21)
[2019-06-27 05:58] LABS: Glucose,Whole Blood 134 mg/dL (75-99)
[2019-06-27 06:15] LABS: Basophils % (A) 1 %; Eosinophils # (A) 0.1 k/uL (0-0.7); Eosinophils % (A) 2 %; HCT 35.4 % (39.0-53.0); HGB 11.6 gm/dL (13.0-17.5); Lymphocytes # (A) 0.5 k/uL (1.0-4.8); Lymphocytes % (A) 9 %; MCH 31.1 pg (25.0-35.0); MCHC 32.8 g/dL (31.0-37.0); MCV 94.7 fL (80.0-100.0); Mean Platelet Volume 8.6; Monocytes # (A) 0.4 k/uL (0-1.0); Monocytes % (A) 7 %; Neutrophils # (A) 4.4 k/uL (1.3-7.7); Neutrophils % (A) 78 %; Platelet Count 176 k/uL (150-450); RBC 3.73 m/uL (4.30-5.90); RDW 14.5 % (11.5-15.5); WBC 5.6 k/uL (3.8-10.6)
[2019-06-27 06:28] LABS: Calcium 8.1 mg/dL (8.4-10.2); Potassium 3.8 mmol/L (3.5-5.1)
[2019-06-27] MEDS: INSULIN ASPART (NovoLOG) 100 UNIT/ML VIAL SQ SCH ×4 (07:54→20:41)
[2019-06-27] MEDS: ASPIRIN 81 MG PO SCH (09:20)
[2019-06-27] MEDS: MULTIVITAMINS, THERA 1 EACH TAB PO SCH (09:20)
[2019-06-27] MEDS: RANOLAZINE 500 MG TAB.ER.12H PO SCH ×2 (09:20→20:43)
[2019-06-27] MEDS: FINASTERIDE 5 MG TAB PO SCH (09:20)
[2019-06-27] MEDS: PREGABALIN 100 MG CAP PO SCH ×2 (09:20→20:41)
[2019-06-27] MEDS: CARVEDILOL 12.5 MG TAB PO SCH ×2 (09:20→17:37)
[2019-06-27] MEDS: TAMSULOSIN 0.4 MG CAP.ER.24H PO SCH ×2 (09:20→20:41)
[2019-06-27] MEDS: PANTOPRAZOLE 40 MG TABLET PO SCH (09:20)
[2019-06-27] MEDS: CLOPIDOGREL 75 MG TAB PO SCH (09:21)
[2019-06-27] MEDS: ESCITALOPRAM 20 MG TAB PO SCH (09:21)
[2019-06-27 11:34] LABS: Glucose,Whole Blood 162 mg/dL (75-99)
--- NOTE | 2019-06-27 11:44 | P.PN ---
Subjective This is a pleasant 68-year-old male past medical history significant for coronary artery disease status post bypass grafting, hypertension, dyslipidemia and diabetes mellitus. He follows in the office with Dr. Quevedo. He is seen and examined sitting up in bed in no acute distress. He had no further symptoms of chest discomfort. His breathing is stable. Telemetry tracings no further SVT. He was using BiPAP last night and continued on diuretic therapy. Blood pressure 112/59 heart rate 77 afebrile maintaining oxygen saturation on nasal cannula. Laboratory data reviewed, WBC 6.3, hemoglobin 12.1, platelets 165, troponin 0.404. 06/27/2019 Patient was seen and examined resting comfortably on BiPAP. Blood pressure 115/60 heart rate 82 afebrile maintaining oxygen saturation. He denies chest pain, shortness of breath, dizziness or palpitations. Laboratory data reviewed, WBC 5.6, hemoglobin 11.6, platelets 176, sodium 138, potassium 3.8, creatinine 1.23. Currently maintained on Lasix 40 mg IV 3 times a day, aspirin 81 mg daily, atorvastatin 80 mg daily, carvedilol 25 mg twice a day, Plavix 75 mg daily, losartan 25 mg at bedtime and Ranexa 1000 mg twice a day. GENERAL: Well-appearing, well-nourished and in no acute distress. NECK: Supple without JVD or thyromegaly. LUNGS: Scattered rhonchi, diminished bilaterally. No rales or wheezes. Respiration equal and unlabored. HEART: Regular rate and rhythm with systolic ejection murmur at the left sternal border, no rubs or gallops. S1 and S2 heard. EXTREMITIES: Normal range of motion, no edema. No clubbing or cyanosis. Peripheral pulses intact. ASSESSMENT Acute on chronic systolic heart failure Supraventricular tachycardia, resolved Troponin elevation secondary to oxygen supply demand mismatch from SVT, Type II Coronary artery disease s/p bypass grafting. Only MARROQUIN-LAD patent on recent cath 02/2019 Peripheral vascular disease PLAN Oxygen tolerance performed with the nurse. The patient becomes hypoxic with exertion in the 70s and at rest in the mid 80s. Recommend home oxygen. Transitioned to oral diuretics Lasix 60 mg twice a day. Follow-up in the office with Dr. Quevedo upon discharge. Further EP evaluation with Dr. Wright will be handled as an outpatient. Nurse Practitioner note has been reviewed, I agree with a documented findings and plan of care. Patient was seen and examined. Objective - Vital Signs Vital signs: Vital Signs Temp 97.7 F 06/27/19 09:30 Pulse 82 06/27/19 09:30 Resp 18 06/27/19 09:30 BP 115/60 06/27/19 09:30 Pulse Ox 96 06/27/19 09:30 Intake & Output 06/26/19 06/27/19 06/27/19 18:59 06:59 18:59 Intake Total 467.333 360 230 Output Total 125 Balance 342.333 360 230 Weight 86.5 kg Intake: Intake, IV Titration 227.333 Amount Heparin Sod,Pork in 0.45% 227.333 NaCl 25,000 unit In 0.45 % NaCl 1 250ml.bag @ 11. 274 UNITS/KG/HR 10 mls/hr IV .Q24H [facility] Rx#: [id number] Oral 240 360 230 Output: Urine 125 Other: Voiding Method Urinal Urinal Urinal - Labs CBC & Chem 7: 06/27/19 05:19 06/27/19 05:19 Labs: Abnormal Lab Results - Last 24 Hours (Table) 06/26/19 06/26/19 06/26/19 Range/Units 10:24 12:25 16:36 RBC (4.30-5.90) m/uL Hgb (13.0-17.5) gm/dL Hct (39.0-53.0) % Lymphocytes # (1.0-4.8) k/uL BUN (9-20) mg/dL Glucose (74-99) mg/dL POC Glucose (mg/dL) 186 H 107 H (75-99) mg/dL Calcium (8.4-10.2) mg/dL Troponin I 0.404 H* (0.000-0.034) ng/mL 06/26/19 06/27/19 06/27/19 Range/Units 20:47 05:19 05:19 RBC 3.73 L (4.30-5.90) m/uL Hgb 11.6 L (13.0-17.5) gm/dL Hct 35.4 L (39.0-53.0) % Lymphocytes # 0.5 L (1.0-4.8) k/uL BUN 27 H (9-20) mg/dL Glucose 134 H (74-99) mg/dL POC Glucose (mg/dL) 178 H (75-99) mg/dL Calcium 8.1 L (8.4-10.2) mg/dL Troponin I (0.000-0.034) ng/mL 06/27/19 Range/Units 05:56 RBC (4.30-5.90) m/uL Hgb (13.0-17.5) gm/dL Hct (39.0-53.0) % Lymphocytes # (1.0-4.8) k/uL BUN (9-20) mg/dL Glucose (74-99) mg/dL POC Glucose (mg/dL) 134 H (75-99) mg/dL Calcium (8.4-10.2) mg/dL Troponin I (0.000-0.034) ng/mL
[2019-06-27] MEDS: FLUTICASONE 50MCG/SPRAY NASAL 16GM EA NOSTRIL SCH ×2 (12:41→20:43)
--- NOTE | 2019-06-27 13:12 | P.PN ---
Subjective Progress Note Date: 06/27/19 Principal diagnosis: Chest pain and angina, acute non-ST CT, CAD, diabetes, hypertension, hyperlipidemia, neuropathy This is a 68-year-old male patient of Dr. Stokes and Dr. Quevedo with a previous medical history significant for CAD post-CT as well as history of CABG with MARROQUIN to LAD and occluded all SVGs venous graft, attempted PCI of the diagonal branch back in July 2018 that was unsuccessful, acute non-ST elevated CT in February 2019 status post stenting of the left main, ischemic cardiopathy, hypertension and hypertensive cardio vascular disease, hyperl ipidemia, GERD, diabetes mellitus type 2 diet controlled, osteoarthritis, benign prostatic hypertrophy, sleep apnea on CPAP. Patient states that he was last seen by Dr. Quevedo 2 weeks ago no change in medication at that time. He was not having any chest pain at that time as well. Patient states for the past 1 week he has had chest pain onset on and off. He takes nitroglycerin with some relief and then it comes back. He states he's had a little lightheadedness. He has had some right arm pain and generalized weakness. He's also noticed some increased edema to his lower legs. He complains of wheezing. Patient is also noted increased heart rate that started as an onset after the chest pain. The patient's states that she has increased his Lasix from 20 mg daily to twice daily. Patient has not been on Aldactone or indoor as this was discontinued at office visit. [facility] from [facility] 2019 revealed EF of 45-50%, mild mitral regurgitation, mild tricuspid regurgitation, no pulmonary hypertension. Patient presented to [facility] emergency center. His initial heart rate was 149, afebrile, blood pressure 155/103, pulse ox 84% on room air. EKG was supraventricular tachycardia at rate of 155. Patient was given adenosine and metoprolol and was then in a sinus rhythm with a first-degree AV block with a rate of 99. Lab work revealed hemoglobin 14.8, WBC 11.9, platelet count 292, electrolytes within normal limits, blood sugar 193, total bilirubin 1.5, alkaline phosphatase 161, AST and ALT normal. ProBNP 4600. Troponins 0.060, 0.986, 1.190. Chest x-ray reveals marked pulmonary edema, both interstitial and alveolar phase and presumably cardiogenic etiology. Patient was admitted to the cardiac stepdown unit and started Lasix IV 40 mg every 12 hours, cardiology consult. Upon evaluation, we have started a heparin drip and updated cardiology. 06/26: Patient is doing much better was seen cardiology decided not to do any invasive no heart catheter angioplasty this point patient will be on medical management echocardiogram was done results still pending at this point. 06/27: Patient continues to have slight shortness of breath, continued to have significant problem with ambulating and feeling his balance is off, continue to require oxygen with pulse ox remain slightly bit low. Patient still not safe to go home currently he wants to go to rehab for 1-2 weeks and preferably inpatient rehab with possible otherwise group home rehab as a best next step. Objective - Vital Signs Vital signs: Vital Signs Temp 97.7 F 06/27/19 09:30 Pulse 72 06/27/19 11:00 Resp 18 06/27/19 11:00 BP 99/63 06/27/19 11:00 Pulse Ox 97 06/27/19 11:00 Intake & Output 06/26/19 06/27/19 06/27/19 18:59 06:59 18:59 Intake Total 467.333 360 230 Output Total 125 Balance 342.333 360 230 Weight 86.5 kg Intake: Intake, IV Titration 227.333 Amount Heparin Sod,Pork in 0.45% 227.333 NaCl 25,000 unit In 0.45 % NaCl 1 250ml.bag @ 11. 274 UNITS/KG/HR 10 mls/hr IV .Q24H [facility] Rx#: [id number] Oral 240 360 230 Output: Urine 125 Other: Voiding Method Urinal Urinal Urinal - Exam - Exam Review of system: CONSTITUTIONAL: Well-developed no acute respiratory distress. EYES: No icterus sclerae, no conjunctivitis. EARS, NOSE, MOUTH, THROAT, and FACE: No sore throat, lymphadenopathy, carotid bruits or deformity. RESPIRATORY: Slight shortness of breath no cough or wheezes. CARDIOVASCULAR: Positive PND orthopnea positive angina with history of CAD. GASTROINTESTINAL: No Abd pain, Nausea or vomiting, no Diarrhea or constipation, No GI Bleed, no distention or masses. GENITOURINARY: Negative for Hematuria or UTI, no kidney stones. INTEGUMENT/BREAST: Negative for any muscular injury with mild osteoarthritis.. HEMATOLOGIC/LYMPHATIC: Negative for bleed or purpura. MUSCULOSKELTAL: Negative for Myalgia or arthralgia. NEURLOGICAL: No LOC, Sz or syncope, blurred vision dizziness or abnormality.. BEHAVIORAL/PSYCH: Negative. ENDOCRINE: Negative. Physical examination: General Appearance: Alert, cooperative, no distress, appears stated age. Neck HEENT: Supple, no lymphadenopathy, no thyroid enlargement, no carotid bruits. Lungs: Decreased breath some bilateral fine rhonchi plasma but spread wheezes. Chest Wall: Decrease expansion with deep inspiration no tenderness and no deformity was found on exam, no costochondral pain or discomfort. Heart: Regular rate and rhythm, S1, S2 normal, no murmur, rub or gallop. Back: Symmetric, no curvature, ROM normal, no CVA tenderness. Abdomen: Soft, non-tender, bowel sounds active all four quadrants, no masses, no organomegaly. Extremities: Extremities normal, atraumatic, no cyanosis or edema. Pulses: 2+ and symmetric. Skin: Skin color, texture, tugor normal, no rashes or lesions. Neurologic: Alert oriented x3 cranial nerves II through XII intact, no motor deficit, no abnormal balance or gait. - Labs CBC & Chem 7: 06/27/19 05:19 06/27/19 05:19 Labs: Abnormal Lab Results - Last 24 Hours (Table) 06/26/19 06/26/19 06/27/19 Range/Units 16:36 20:47 05:19 RBC 3.73 L (4.30-5.90) m/uL Hgb 11.6 L (13.0-17.5) gm/dL Hct 35.4 L (39.0-53.0) % Lymphocytes # 0.5 L (1.0-4.8) k/uL BUN (9-20) mg/dL Glucose (74-99) mg/dL POC Glucose (mg/dL) 107 H 178 H (75-99) mg/dL Calcium (8.4-10.2) mg/dL 06/27/19 06/27/19 06/27/19 Range/Units 05:19 05:56 11:28 RBC (4.30-5.90) m/uL Hgb (13.0-17.5) gm/dL Hct (39.0-53.0) % Lymphocytes # (1.0-4.8) k/uL BUN 27 H (9-20) mg/dL Glucose 134 H (74-99) mg/dL POC Glucose (mg/dL) 134 H 162 H (75-99) mg/dL Calcium 8.1 L (8.4-10.2) mg/dL Assessment and Plan Plan: 1 acute non-ST [address]: Continue patient on secondary prevention, continue aspirin, Plavix, Lipitor and Coreg. Patient is off heparin drip was seen cardiology no intervention required this point. 2 CAD post CABG, multiple PCI and stent placement last one done in February, patient still on medical management seen cardiology regularly. 3 type 2 diabetes: He is on NovoLog per sliding scale. 4 Hyperlipidemia: Remain on atorvastatin 80 mg daily. 5 noncontrolled hypertension: Resume Coreg and losartan titrate medication and if needed will start patient on hydralazine. 6 SVT post-adenosine and Lopressor patient is doing well so far continue beta la. 7 benign prostatic hypertrophy: Remain on Proscar 5 mg a day. 8 history of Hemphill esophagus: Remain on proton pump inhibitor with Protonix 40 mg a day. 9 history of obstructive sleep apnea: Remain on CPAP. 10 chronic history of lower back pain, is on Lyrica 200 mg twice a day still on hydrocodone as needed still seen pain management. Discharge planning: Titrate PTOT and with study whether patient need O2 or not at home patient probably be able to go to rehab tomorrow.
[2019-06-27 17:25] LABS: Glucose,Whole Blood 126 mg/dL (75-99)
[2019-06-27 20:38] LABS: Glucose,Whole Blood 162 mg/dL (75-99)
[2019-06-27] MEDS: FUROSEMIDE 10 MG/ML 10 ML VIAL IV SCH (20:41)
[2019-06-27] MEDS: LOSARTAN 25 MG TAB PO SCH (20:43)
[2019-06-27] MEDS: ATORVASTATIN 80 MG TAB PO SCH (20:43)
[2019-06-28 06:09] LABS: Glucose,Whole Blood 124 mg/dL (75-99)
[2019-06-28] MEDS: INSULIN ASPART (NovoLOG) 100 UNIT/ML VIAL SQ SCH ×4 (06:20→21:13)
[2019-06-28] MEDS: CARVEDILOL 12.5 MG TAB PO SCH ×3 (06:20→19:11)
[2019-06-28 06:29] LABS: Basophils # (A) 0.1 k/uL (0-0.2); Basophils % (A) 1 %; Eosinophils # (A) 0.2 k/uL (0-0.7); Eosinophils % (A) 3 %; HCT 36.5 % (39.0-53.0); HGB 11.6 gm/dL (13.0-17.5); Lymphocytes # (A) 0.5 k/uL (1.0-4.8); Lymphocytes % (A) 10 %; MCH 30.5 pg (25.0-35.0); MCHC 31.9 g/dL (31.0-37.0); MCV 95.5 fL (80.0-100.0); Mean Platelet Volume 8.2; Monocytes # (A) 0.4 k/uL (0-1.0); Monocytes % (A) 8 %; Neutrophils # (A) 3.9 k/uL (1.3-7.7); Neutrophils % (A) 74 %; Platelet Count 168 k/uL (150-450); RBC 3.82 m/uL (4.30-5.90); RDW 14.3 % (11.5-15.5); WBC 5.2 k/uL (3.8-10.6)
[2019-06-28 06:41] LABS: Albumin 3.3 g/dL (3.5-5.0); Calcium 8.3 mg/dL (8.4-10.2); Potassium 4.1 mmol/L (3.5-5.1); Total Protein 6.2 g/dL (6.3-8.2)
[2019-06-28] MEDS: PANTOPRAZOLE 40 MG TABLET PO SCH (09:05)
[2019-06-28] MEDS: RANOLAZINE 500 MG TAB.ER.12H PO SCH ×2 (09:05→21:12)
[2019-06-28] MEDS: MULTIVITAMINS, THERA 1 EACH TAB PO SCH (09:05)
[2019-06-28] MEDS: CLOPIDOGREL 75 MG TAB PO SCH (09:05)
[2019-06-28] MEDS: ASPIRIN 81 MG PO SCH (09:06)
[2019-06-28] MEDS: ESCITALOPRAM 20 MG TAB PO SCH (09:06)
[2019-06-28] MEDS: TAMSULOSIN 0.4 MG CAP.ER.24H PO SCH ×2 (09:06→21:13)
[2019-06-28] MEDS: PREGABALIN 100 MG CAP PO SCH ×2 (09:06→21:12)
[2019-06-28] MEDS: FLUTICASONE 50MCG/SPRAY NASAL 16GM EA NOSTRIL SCH ×2 (09:07→21:12)
[2019-06-28] MEDS: FUROSEMIDE 10 MG/ML 10 ML VIAL IV SCH (09:07)
[2019-06-28] MEDS: FINASTERIDE 5 MG TAB PO SCH (09:07)
[2019-06-28 12:15] LABS: Glucose,Whole Blood 127 mg/dL (75-99)
--- NOTE | 2019-06-28 12:45 | P.DS ---
Providers Date of admission: 06/24/19 20:58 Expected date of discharge: 06/29/19 Attending physician: Ashley Cotton Consults: 06/24/19 20:59 Consult Physician Routine Consulting Provider: Arnol Fernandez Consult Reason/Comments: Hypertensive urgency, flash pulmonary edema, SVT Do you want consulting provider notified?: Yes Primary care physician: Kenisha Stokes [facility] Course: This is a 68-year-old male patient of Dr. Stokes and Dr. Quevedo with a previous medical history significant for CAD post-[place] as well as history of CABG with M[place] to LAD and occluded all SVGs venous graft, attempted PCI of the diagonal branch back in July 2018 that was unsuccessful, acute non-ST elevated [place] in February 2019 status post stenting of the left main, ischemic cardiopathy, hypertension and hypertensive cardio vascular disease, hyperlipidemia, GERD, diabetes mellitus type 2 diet controlled, osteoarthritis, benign prostatic hypertrophy, sleep apnea on CPAP. Patient states that he was last seen by Dr. Quevedo 2 weeks ago no change in medication at that time. He was not having any chest pain at that time as well. Patient states for the past 1 week he has had chest pain onset on and off. He takes nitroglycerin with some relief and then it comes back. He states he's had a little lightheadedness. He has had some right arm pain and generalized weakness. He's also noticed some increased edema to his lower legs. He complains of wheezing. Patient is also noted increased heart rate that started as an onset after the chest pain. The patient's states that she has increased his Lasix from 20 mg daily to twice daily. Patient has not been on Aldactone or indoor as this was discontinued at office visit. Patient [facility] echocardiogram from [facility] 2019 revealed EF of 45-50%, mild mitral regurgitation, mild tricuspid regurgitation, no pulmonary hypertension. Patient presented to [facility] emergency center. His initial heart rate was 149, afebrile, blood pressure 155/103, pulse ox 84% on room air. EKG was supraventricular tachycardia at rate of 155. Patient was given adenosine and metoprolol and was then in a sinus rhythm with a first-degree AV block with a rate of 99. Lab work revealed hemoglobin 14.8, WBC 11.9, platelet count 292, electrolytes within normal limits, blood sugar 193, total bilirubin 1.5, alkaline phosphatase 161, AST and ALT normal. ProBNP 4600. Troponins 0.060, 0.986, 1.190. Chest x-ray reveals marked pulmonary edema, both interstitial and alveolar phase and presumably cardiogenic etiology. Patient was admitted to the cardiac stepdown unit and started Lasix IV 40 mg every 12 hours, cardiology consult. Upon evaluation, we have started a heparin drip and updated cardiology. 06/26: Patient is doing much better was seen cardiology decided not to do any invasive no heart catheter angioplasty this point patient will be on medical management echocardiogram was done results still pending at this point. 06/27: Patient continues to have slight shortness of breath, continued to have significant problem with ambulating and feeling his balance is off, continue to require oxygen with pulse ox remain slightly bit low. Patient still not safe to go home currently he wants to go to rehab for 1-2 weeks and preferably inpatient rehab with possible otherwise [facility] rehab as a best next step. 06/28: Patient has been afebrile, heart rate 85, blood pressure 111/53, pulse ox 90% on 2 L nasal cannula. Patient was on BiPAP during the night. Patient has be en cleared by cardiology for discharge. Patient is requesting either home or subacute rehab. PT is worked with the patient this morning. Social work is following and has submitted for insurance authorization. Patient will be discharge to [facility] once all arrangements are completed. 06/29: Patient worked with physical therapy this morning and along with case management was decided that patient was safe to go home and patient requests to go home. Patient's brought up to rn case mgr need for CPAP the patient has not been using it for 10 years and this was obtained through [facility]. Patient to have follow-up with [facility] in order to get proper testing done and a new CPAP if needed. Patient has been afebrile, heart rate 70, blood pressure 102/47, pulse ox 92% on room air. Patient will be discharged home today in stable condition. Discharge diagnoses: 1. Acute non-ST elevation IN. 2. Acute hypoxic respiratory failure due to pulmonary edema with acute diasto lic heart failure. 3. Uncontrolled hypertension. 4. SVT status post adenosine and Lopressor. 5. Hyperlipidemia. 6. Hypertension and hypertensive cardiovascular disease. 7. CAD post CABG in with multiple PCI's with occluded old vein grafts except patent MARROQUIN to LAD and subsequent stenting left main in February. 8. Diabetes mellitus type 2. 9. Recurrent depression. 10. Hemphill's esophagus status post EGD with 7 biopsies. 11. Benign prostatic hypertrophy. 12. Severe carotid artery disease. 13. Sleep apnea currently on CPAP. 14. Chronic low back pain secondary to degenerative disc disease. Continue Lyrica 200 mg orally twice every day. Discharge plan: home with homecare Impression and plan of care have been directed as dictated by the signing physician. Suzette Layne nurse practitioner acting as scribe for signing physician. Patient Condition at Discharge: Good Plan - Discharge Summary New Discharge Prescriptions: New Losartan [Cozaar] 25 mg PO HS #30 tab Potassium Chloride ER [K-Dur 20] 20 meq PO BID #60 tab.er.prt Furosemide [Lasix] 40 mg PO BID@0900,1600 #60 tab Continue Pantoprazole Sodium [Protonix] 40 mg PO DAILY Ubidecarenone [Co Q-10] 400 mg PO DAILY Ranolazine [Ranexa] 1,000 mg PO BID Nitroglycerin Sl Tabs [Nitrostat] 0.4 mg SUBLINGUAL Q5M PRN PRN Reason: Chest Pain Fluticasone Nasal [place] [Flonase Nasal [place]] 1 spray EA NOSTRIL BID Atorvastatin [Lipitor] 80 mg PO HS #30 tab Escitalopram [Lexapro] 20 mg PO DAILY Tamsulosin [Flomax] 0.4 mg PO BID Finasteride [Proscar] 5 mg PO DAILY Clopidogrel [Plavix] 75 mg PO DAILY #30 tab Vitamin D3(Unknown Dose) 1 tab PO DAILY Multivitamins, Thera [Multivitamin (formulary)] 1 tab PO DAILY Carvedilol [Coreg] 25 mg PO AC-BID Aspirin EC [Ecotrin Low Dose] 81 mg PO DAILY Pregabalin [Lyrica] 200 mg PO BID #12 cap Discharge Medication List Pantoprazole Sodium [Protonix] 40 mg PO DAILY 04/05/15 [History] Ubidecarenone [Co Q-10] 400 mg PO DAILY 04/25/17 [History] Fluticasone Nasal [place] [Flonase Nasal [place]] 1 spray EA NOSTRIL BID 07/14/18 [History] Nitroglycerin Sl Tabs [Nitrostat] 0.4 mg SUBLINGUAL Q5M PRN 07/14/18 [History] Ranolazine [Ranexa] 1,000 mg PO BID 07/14/18 [History] Atorvastatin [Lipitor] 80 mg PO HS #30 tab 08/18/18 [Rx] Escitalopram [Lexapro] 20 mg PO DAILY 02/17/19 [History] Finasteride [Proscar] 5 mg PO DAILY 02/17/19 [History] Tamsulosin [Flomax] 0.4 mg PO BID 02/17/19 [History] Clopidogrel [Plavix] 75 mg PO DAILY #30 tab 03/05/19 [Rx] Aspirin EC [Ecotrin Low Dose] 81 mg PO DAILY 06/24/19 [History] Carvedilol [Coreg] 25 mg PO AC-BID 06/24/19 [History] Multivitamins, Thera [Multivitamin (formulary)] 1 tab PO DAILY 06/24/19 [History] Vitamin D3(Unknown Dose) 1 tab PO DAILY 06/24/19 [History] Furosemide [Lasix] 40 mg PO BID@0900,1600 #60 tab 06/28/19 [Rx] Losartan [Cozaar] 25 mg PO HS #30 tab 06/28/19 [Rx] Potassium Chloride ER [K-Dur 20] 20 meq PO BID #60 tab.er.prt 06/28/19 [Rx] Pregabalin [Lyrica] 200 mg PO BID #12 cap 06/28/19 [Rx] Follow up Appointment(s)/Referral(s): Lilli Quevedo MD [STAFF PHYSICIAN] - 07/13/19 2:15 pm (Friday) Kenisha Stokes MD [Primary Care Provider] - 1 Week (Spoke to studio receptionist. Office will call with appointment time) Patient Instructions/Handouts: Heart Failure (DC) Discharge Disposition: HOME WITH HOME HEALTH SERVICES
--- NOTE | 2019-06-28 12:51 | P.PN ---
Subjective Progress Note Date: 06/28/19 This is a 68-year-old male patient of Dr. Stokes and Dr. Quevedo with a previous medical history significant for CAD post-NC as well as history of CABG with M[place] to LAD and occluded all SVGs venous graft, attempted PCI of the diagonal branch back in July 2018 that was unsuccessful, acute non-ST elevated [place] in February 2019 status post stenting of the left main, ischemic cardiopathy, hypertension and hypertensive cardio vascular disease, hyperlipidemia, GERD, diabetes mellitus type 2 diet controlled, osteoarthritis, benign prostatic hypertrophy, sleep apnea on CPAP. Patient states that he was last seen by Dr. Quevedo 2 weeks ago no change in medication at that time. He was not having any chest pain at that time as well. Patient states for the past 1 week he has had chest pain onset on and off. He takes nitroglycerin with some relief and then it comes back. He states he's had a little lightheadedness. He has had some right arm pain and generalized weakness. He's also noticed some increased edema to his lower legs. He complains of wheezing. Patient is also noted increased heart rate that started as an onset after the chest pain. The patient's states that she has increased his Lasix from 20 mg daily to twice daily. Patient has not been on Aldactone or indoor as this was discontinued at office visit. Patient states that he gets his medications from the [facility]. echocardiogram from February 2019 revealed EF of 45-50%, mild mitral regurgitation, mild tricuspid regurgitation, no pulmonary hypertension. Patient presented to [facility] emergency center. His initial heart rate was 149, afebrile, blood pressure 155/103, pulse ox 84% on room air. EKG was supraventricular tachycardia at rate of 155. Patient was given adenosine and metoprolol and was then in a sinus rhythm with a first-degree AV block with a rate of 99. Lab work revealed hemoglobin 14.8, WBC 11.9, platelet count 292, electrolytes within normal limits, blood sugar 193, total bilirubin 1.5, alkaline phosphatase 161, AST and ALT normal. ProBNP 4600. Troponins 0.060, 0.986, 1.190. Chest x-ray reveals marked pulmonary edema, both interstitial and alveolar phase and presumably cardiogenic etiology. Patient was admitted to the cardiac stepdown unit and started Lasix IV 40 mg every 12 hours, cardiology consult. Upon evaluation, we have started a heparin drip and updated cardiology. 06/26: Patient is doing much better was seen cardiology decided not to do any invasive no heart catheter angioplasty this point patient will be on medical management echocardiogram was done results still pending at this point. 06/27: Patient continues to have slight shortness of breath, continued to have significant problem with ambulating and feeling his balance is off, continue to require oxygen with pulse ox remain slightly bit low. Patient still not safe to go home currently he wants to go to rehab for 1-2 weeks and preferably inpatient rehab with possible otherwise long term rehab as a best next step. 06/28: Patient has been afebrile, heart rate 85, blood pressure 111/53, pulse ox 90% on 2 L nasal cannula. Patient was on BiPAP during the night. Patient has been cleared by cardiology for discharge. Patient is requesting either home or subacute rehab. PT is worked with the patient this morning. Social work is following and has submitted for insurance authorization. Patient will be discharge to [facility] once all arrangements are completed. Patient will be transitioned to oral Lasix Objective - Vital Signs Vital signs: Vital Signs Temp 97.9 F 06/28/19 08:00 Pulse 85 06/28/19 08:00 Resp 18 06/28/19 08:00 BP 111/53 06/28/19 08:00 Pulse Ox 98 06/28/19 08:00 Intake & Output 06/27/19 06/28/19 06/28/19 18:59 06:59 18:59 Intake Total 460 Output Total 500 Balance -40 Weight 86.7 kg Intake: Oral 460 Output: Urine 500 Other: Voiding Method Urinal - Exam Review of system: CONSTITUTIONAL: Denies fever, denies chills. EYES: No icterus sclerae, no conjunctivitis. EARS, NOSE, MOUTH, THROAT, and FACE: No sore throat, lymphadenopathy, carotid bruits or deformity. RESPIRATORY: Slight shortness of breath with activity no cough or wheezes. CARDIOVASCULAR: Positive PND orthopnea positive angina with history of CAD. GASTROINTESTINAL: No Abd pain, Nausea or vomiting, no Diarrhea or constipation, No GI Bleed, no distention or masses. GENITOURINARY: Negative for Hematuria or UTI, no kidney stones. INTEGUMENT/BREAST: Negative for any muscular injury with mild osteoarthritis.. HEMATOLOGIC/LYMPHATIC: Negative for bleed or purpura. MUSCULOSKELTAL: Negative for Myalgia or arthralgia. NEURLOGICAL: No LOC, Sz or syncope, blurred vision dizziness or abnormality.. BEHAVIORAL/PSYCH: Negative. ENDOCRINE: Negative. Physical examination: General Appearance: Alert, cooperative, no distress, appears stated age. Neck HEENT: Supple, no lymphadenopathy, no thyroid enlargement, no carotid bruits. Lungs: Decreased breath some bilateral fine rhonchi plasma but spread wheezes. Chest Wall: Decrease expansion with deep inspiration no tenderness and no deformity was found on exam, no costochondral pain or discomfort. Heart: Regular rate and rhythm, S1, S2 normal, no murmur, rub or gallop. Back: Symmetric, no curvature, ROM normal, no CVA tenderness. Abdomen: Soft, non-tender, bowel sounds active all four quadrants, no masses, no organomegaly. Extremities: Extremities normal, atraumatic, no cyanosis or edema. Pulses: 2+ and symmetric. Skin: Skin color, texture, tugor normal, no rashes or lesions. Neurologic: Alert oriented x3 cranial nerves II through XII intact, no motor deficit, no abnormal balance or gait. - Labs CBC & Chem 7: 06/28/19 06:03 06/28/19 06:03 Labs: Abnormal Lab Results - Last 24 Hours (Table) 06/27/19 06/27/19 06/28/19 Range/Units 17:16 20:37 06:03 RBC 3.82 L (4.30-5.90) m/uL Hgb 11.6 L (13.0-17.5) gm/dL Hct 36.5 L (39.0-53.0) % Lymphocytes # 0.5 L (1.0-4.8) k/uL BUN (9-20) mg/dL Glucose (74-99) mg/dL POC Glucose (mg/dL) 126 H 162 H (75-99) mg/dL Calcium (8.4-10.2) mg/dL Total Protein (6.3-8.2) g/dL Albumin (3.5-5.0) g/dL 06/28/19 06/28/19 06/28/19 Range/Units 06:03 06:08 11:59 RBC (4.30-5.90) m/uL Hgb (13.0-17.5) gm/dL Hct (39.0-53.0) % Lymphocytes # (1.0-4.8) k/uL BUN 28 H (9-20) mg/dL Glucose 124 H (74-99) mg/dL POC Glucose (mg/dL) 124 H 127 H (75-99) mg/dL Calcium 8.3 L (8.4-10.2) mg/dL Total Protein 6.2 L (6.3-8.2) g/dL Albumin 3.3 L (3.5-5.0) g/dL Assessment and Plan Plan: 1. Acute non-ST elevation [place]. Continue aspirin, Plavix, Lipitor 80 mg orally once every day, Coreg 25 mg orally twice every day. Cardiology consult. 2. Acute hypoxic respiratory failure due to pulmonary edema with acute diastolic heart failure. Continue Lasix po 40 mg every 12 hours, daily weights I&O, continue Coreg 25 mg orally twice every day. 3. Uncontrolled hypertension. Patient has been resumed on Coreg, losartan 25 mg daily. 4. SVT status post adenosine and Lopressor. Rate is currently controlled. Continue Coreg. 5. Hyperlipidemia. Continue Lipitor 80 mg orally once every day. 6. Hypertension and hypertensive cardiovascular disease. Continue losartan and Coreg. 7. CAD post CABG in with multiple PCI's with occluded old vein grafts except patent MARROQUIN to LAD and subsequent stenting left main in February. 8. Diabetes mellitus type 2. Continue patient on low-carb diet, NovoLog scale before meals and at bedtime, check A1c. 9. Recurrent depression. Continue Lexapro 20 mg orally once every day. 10. Hemphill's esophagus status post EGD with 7 biopsies. Continue Protonix 40 mg orally daily. 11. Benign prostatic hypertrophy. Continue Proscar 5 mg once every day and Flomax 0.4 mg twice daily. 12. Severe carotid artery disease. Continue aspirin, Plavix and Lipitor for secondary prevention. 13. Sleep apnea currently on CPAP. 14. Chronic low back pain secondary to degenerative disc disease. Continue Lyrica 200 mg orally twice every day. 13. DVT prophylaxis. Heparin 14. GI prophylaxis. Continue patient on PPI. 15. Patient is full code. CODE STATUS: No code. Discharge plan: [facility] insurance authorization has been obtained from MD. Impression and plan of care have been directed as dictated by the signing physician. Suzette Layne nurse practitioner acting as scribe for signing physician.
--- NOTE | 2019-06-28 14:51 | P.PN ---
Subjective Progress Note Date: 06/28/19 This is a pleasant 68-year-old male past medical history significant for coronary artery disease status post bypass grafting, hypertension, dyslipidemia and diabetes mellitus. He follows in the office with Dr. Quevedo. He is seen and examined sitting up in bed in no acute distress. He had no further symptoms of chest discomfort. His breathing is stable. Telemetry tracings no further SVT. He is currently on oral diuretics. Blood pressure 110/50 with a heart rate in the 80s, 98% on 2 L of oxygen. White blood cell count 5.2, hemoglobin 11.6, platelet count 168. Sodium 137, potassium 4.1, BUN 28, creatinine 1.1. Objective - Vital Signs Vital signs: Vital Signs Temp 97.9 F 06/28/19 08:00 Pulse 85 06/28/19 08:00 Resp 18 06/28/19 08:00 BP 111/53 06/28/19 08:00 Pulse Ox 98 06/28/19 08:00 Intake & Output 06/27/19 06/28/19 06/28/19 18:59 06:59 18:59 Intake Total 460 240 Output Total 500 Balance -40 240 Weight 86.7 kg Intake: Oral 460 240 Output: Urine 500 Other: Voiding Method Urinal - Exam GENERAL: Well-appearing, well-nourished and in no acute distress. NECK: Supple without JVD or thyromegaly. LUNGS: Scattered rhonchi, diminished bilaterally. No rales or wheezes. Respiration equal and unlabored. HEART: Regular rate and rhythm with systolic ejection murmur at the left sternal border, no rubs or gallops. S1 and S2 heard. EXTREMITIES: Normal range of motion, no edema. No clubbing or cyanosis. Peripheral pulses intact. - Labs CBC & Chem 7: 06/28/19 06:03 06/28/19 06:03 Labs: Abnormal Lab Results - Last 24 Hours (Table) 06/27/19 06/27/19 06/28/19 Range/Units 17:16 20:37 06:03 RBC 3.82 L (4.30-5.90) m/uL Hgb 11.6 L (13.0-17.5) gm/dL Hct 36.5 L (39.0-53.0) % Lymphocytes # 0.5 L (1.0-4.8) k/uL BUN (9-20) mg/dL Glucose (74-99) mg/dL POC Glucose (mg/dL) 126 H 162 H (75-99) mg/dL Calcium (8.4-10.2) mg/dL Total Protein (6.3-8.2) g/dL Albumin (3.5-5.0) g/dL 06/28/19 06/28/19 06/28/19 Range/Units 06:03 06:08 11:59 RBC (4.30-5.90) m/uL Hgb (13.0-17.5) gm/dL Hct (39.0-53.0) % Lymphocytes # (1.0-4.8) k/uL BUN 28 H (9-20) mg/dL Glucose 124 H (74-99) mg/dL POC Glucose (mg/dL) 124 H 127 H (75-99) mg/dL Calcium 8.3 L (8.4-10.2) mg/dL Total Protein 6.2 L (6.3-8.2) g/dL Albumin 3.3 L (3.5-5.0) g/dL Assessment and Plan Plan: ASSESSMENT and plan #1 Acute on chronic systolic heart failure #2 Supraventricular tachycardia, resolved #3 Troponin elevation secondary to oxygen supply demand mismatch from SVT, Type II #4 Coronary artery disease s/p bypass grafting. Only MARR[place]QU[place]-LAD patent on recent cath 02/2019 #5 Peripheral vascular disease #6 hypertension #7 diabetes #8 hyperlipidemia Plan Patient did have an echocardiogram with Doppler study performed on the , for some reason the results are yet pending. We will look at his echo. From our perspective he may be able to be discharged once he cleared by primary. Follow- up appointment in the office with Dr. Quevedo. DNP note has been reviewed, I agree with a documented findings and plan of care. Patient was seen and examined.
--- NOTE | 2019-06-28 15:07 | ECHOF ---
Referral Reason:chf MEASUREMENTS -------- HEIGHT: 165.1 cm WEIGHT: 83.0 kg BP: 133/77 RVIDd: 3.4 cm (< 3.3) IVSd: 1.3 cm (0.6 - 1.1) LVIDd: 4.8 cm (3.9 - 5.3) LVPWd: 1.3 cm (0.6 - 1.1) IVSs: 1.7 cm LVIDs: 4.3 cm LVPWs: 1.7 cm LA Diam: 4.4 cm (2.7 - 3.8) LAESV Index (A-L): 37.69 ml/m Ao Diam: 3.4 cm (2.0 - 3.7) AV Cusp: 2.1 cm (1.5 - 2.6) MV EXCURSION: 11.800 mm (> 18.000) MV EF SLOPE: 47 mm/s (70 - 150) EPSS: 1.5 cm MV E [place]: 1.10 m/s MV DecT: 117 ms MV A [place]: 0.83 m/s MV E/A Ratio: 1.33 RAP: 5.00 mmHg RVSP: 39.79 mmHg FINDINGS -------- Sinus rhythm. This was a technically adequate study. The left ventricular size is normal. There is mild concentric left ventricular hypertrophy. Overa ll left ventricular systolic function is moderately impaired with, an EF between 35 - 40 %. Basal i nferior LV wall motion is hypokinetic. Basal inferoseptal LV wall motion is hypokinetic. Mid in ferior LV wall motion is hypokinetic. Mid inferoseptal LV wall motion is hypokinetic. The right ventricle is mildly enlarged. LA is moderately dilated 34-39 ml/m2 The right atrium is normal in size. Interatrial and interventricular septum intact. There is mild aortic valve sclerosis. Mild mitral annular calcification present. [id number] mitral regurgitation is present. Mild tricuspid regurgitation present. There is mild pulmonary hypertension. The right ventricular systolic pressure, as measured by Doppler, is 39.79mmHg. Trace/mild (physiologic) pulmonic regurgitation. The aortic root size is normal. Normal inferior vena cava with normal inspiratory collapse consistent with estimated right atrial pre ssure of 5 mmHg. There is no pericardial effusion. CONCLUSIONS -------- 1. Sinus rhythm. 2. This was a technically adequate study. 3. The left ventricular size is normal. 4. There is mild concentric left ventricular hypertrophy. 5. Basal inferior LV wall motion is hypokinetic. 6. Basal inferoseptal LV wall motion is hypokinetic. 7. Mid inferior LV wall motion is hypokinetic. 8. Mid inferoseptal LV wall motion is hypokinetic. 9. The right ventricle is mildly enlarged. 10. LA is moderately dilated 34-39 ml/m2 11. The right atrium is normal in size. 12. Interatrial and interventricular septum intact. 13. There is mild aortic valve sclerosis. 14. Mild mitral annular calcification present. 15. Mild tricuspid regurgitation present. 16. There is mild pulmonary hypertension. 17. The right ventricular systolic pressure, as measured by Doppler, is 39.79mmHg. 18. Trace/mild (physiologic) pulmonic regurgitation. 19. The aortic root size is normal. 20. Normal inferior vena cava with normal inspiratory collapse consistent with estimated right atrial pressure of 5 mmHg. 21. There is no pericardial effusion. MACHINE SETTER AND REPAIRER: Jessica Ramos RDCS
[2019-06-28] MEDS: FUROSEMIDE 40 MG TAB PO SCH (16:16)
[2019-06-28 16:47] LABS: Glucose,Whole Blood 124 mg/dL (75-99)
[2019-06-28 20:38] LABS: Glucose,Whole Blood 227 mg/dL (75-99)
[2019-06-28] MEDS: ATORVASTATIN 80 MG TAB PO SCH (21:12)
[2019-06-28] MEDS: LOSARTAN 25 MG TAB PO SCH (21:12)
[2019-06-28] MEDS: POTASSIUM CHLORIDE ER 20 MEQ TAB.ER PO SCH (21:12)
[2019-06-29 04:11] VITALS: RESP 20
[2019-06-29 06:05] LABS: Glucose,Whole Blood 123 mg/dL (75-99)
[2019-06-29] MEDS: INSULIN ASPART (NovoLOG) 100 UNIT/ML VIAL SQ SCH (06:10)
[2019-06-29] MEDS: CARVEDILOL 12.5 MG TAB PO SCH (06:41)
[2019-06-29] MEDS: FUROSEMIDE 40 MG TAB PO SCH (08:34)
[2019-06-29] MEDS: TAMSULOSIN 0.4 MG CAP.ER.24H PO SCH (08:34)
[2019-06-29] MEDS: PANTOPRAZOLE 40 MG TABLET PO SCH (08:34)
[2019-06-29] MEDS: ESCITALOPRAM 20 MG TAB PO SCH (08:34)
[2019-06-29] MEDS: RANOLAZINE 500 MG TAB.ER.12H PO SCH (08:34)
[2019-06-29] MEDS: CLOPIDOGREL 75 MG TAB PO SCH (08:34)
[2019-06-29] MEDS: PREGABALIN 100 MG CAP PO SCH (08:34)
[2019-06-29] MEDS: MULTIVITAMINS, THERA 1 EACH TAB PO SCH (08:34)
[2019-06-29] MEDS: ASPIRIN 81 MG PO SCH (08:34)
[2019-06-29] MEDS: FINASTERIDE 5 MG TAB PO SCH (08:34)
[2019-06-29] MEDS: FLUTICASONE 50MCG/SPRAY NASAL 16GM EA NOSTRIL SCH (08:34)
[2019-06-29] MEDS: POTASSIUM CHLORIDE ER 20 MEQ TAB.ER PO SCH (08:34)
[2019-06-29 09:55] VITALS: TEMP 97.5
[2019-06-29 12:04] LABS: Glucose,Whole Blood 123 mg/dL (75-99)
[2019-06-29 12:14] VITALS: BP 111/61; PULSE 64
--- NOTE | 2019-06-29 14:33 | P.PN ---
Subjective Progress Note Date: 06/29/19 This is a pleasant 68-year-old male past medical history significant for coronary artery disease status post bypass grafting, hypertension, dyslipidemia and diabetes mellitus. He follows in the office with Dr. Quevedo. He is seen and examined sitting up in bed in no acute distress. He had no further symptoms of chest discomfort. His breathing is stable. Telemetry tracings no further SVT. He is currently on oral diuretics. Blood pressure 110/50 with a heart rate in the 80s, 98% on 2 L of oxygen. White blood cell count 5.2, hemoglobin 11.6, platelet count 168. Sodium 137, potassium 4.1, BUN 28, creatinine 1.1. 06/29/2019 Patient seen and examined this morning, doing well this morning. Hemodynamically stable. Objective - Vital Signs Vital signs: Vital Signs Temp 97.5 F L 06/29/19 08:00 Pulse 64 06/29/19 12:00 Resp 20 06/29/19 12:00 BP 111/61 06/29/19 12:00 Pulse Ox 93 L 06/29/19 12:00 Intake & Output 06/28/19 06/29/19 06/29/19 18:59 06:59 18:59 Intake Total 480 600 Balance 480 600 Weight 86.3 kg Intake: Oral 480 600 Other: # Voids 1 - Exam GENERAL: Well-appearing, well-nourished and in no acute distress. NECK: Supple without JVD or thyromegaly. LUNGS: Scattered rhonchi, diminished bilaterally. No rales or wheezes. Respiration equal and unlabored. HEART: Regular rate and rhythm with systolic ejection murmur at the left sternal border, no rubs or gallops. S1 and S2 heard. EXTREMITIES: Normal range of motion, no edema. No clubbing or cyanosis. Peripheral pulses intact. - Labs CBC & Chem 7: 06/28/19 06:03 06/28/19 06:03 Labs: Abnormal Lab Results - Last 24 Hours (Table) 06/28/19 06/28/19 06/29/19 Range/Units 16:40 20:37 06:03 POC Glucose (mg/dL) 124 H 227 H 123 H (75-99) mg/dL 06/29/19 Range/Units 12:02 POC Glucose (mg/dL) 123 H (75-99) mg/dL Assessment and Plan Plan: ASSESSMENT and plan #1 Acute on chronic systolic heart failure #2 Supraventricular tachycardia, resolved #3 Troponin elevation secondary to oxygen supply demand mismatch from SVT, Type II #4 Coronary artery disease s/p bypass grafting. Only MARROQUIN-LAD patent on recent cath 02/2019 #5 Peripheral vascular disease #6 hypertension #7 diabetes #8 hyperlipidemia Plan Cardiology's perspective, patient may be able to be discharged home today, we'll make a follow-up appointment with Dr. Quevedo in the office post discharge. DNP note has been reviewed, I agree with a documented findings and plan of care. Patient was seen and examined.
== END 2019-06-29 14:29 | disposition home health service (06) | DRG 280 ==
LOC: EC 19:00 → 3SCARD 20:58
PROVIDERS: ADMIT Family Medicine; ATTEND Family Medicine
DX: I21.4 Non-ST elevation (NSTEMI) myocardial infarction (principal); I50.43 Acute on chronic combined systolic (congestive) and diastolic (congestive) heart failure; J96.21 Acute and chronic respiratory failure with hypoxia; F33.9 Major depressive disorder, recurrent, unspecified; I47.1 Supraventricular tachycardia; I11.0 Hypertensive heart disease with heart failure; G89.29 Other chronic pain; I16.0 Hypertensive urgency; E11.40 Type 2 diabetes mellitus with diabetic neuropathy, unspecified; E11.51 Type 2 diabetes mellitus with diabetic peripheral angiopathy without gangrene; E78.5 Hyperlipidemia, unspecified; F43.10 Post-traumatic stress disorder, unspecified; G47.30 Sleep apnea, unspecified; Z99.89 Dependence on other enabling machines and devices; I25.119 Atherosclerotic heart disease of native coronary artery with unspecified angina pectoris; I25.2 Old myocardial infarction; I44.0 Atrioventricular block, first degree; K22.70 Barrett's esophagus without dysplasia; N40.0 Benign prostatic hyperplasia without lower urinary tract symptoms; Z79.02 Long term (current) use of antithrombotics/antiplatelets; Z79.82 Long term (current) use of aspirin; Z79.899 Other long term (current) drug therapy; Z80.9 Family history of malignant neoplasm, unspecified; Z95.1 Presence of aortocoronary bypass graft; Z82.69 Family history of other diseases of the musculoskeletal system and connective tissue; Z88.0 Allergy status to penicillin; M54.5 Low back pain; M19.90 Unspecified osteoarthritis, unspecified site; Z57.4 Occupational exposure to toxic agents in agriculture
CPT/HCPCS: 36415; 71045; 80048; 80053; 83036; 83735; 83880; 84484; 85025; 85610; 85730; 93005; 93306; 94660; 94760; 96365; 96366; 96375; 96376; 99291

== ENCOUNTER → 2019-11-22 | Outpatient (CLI) | payer OTHER ==
--- NOTE | 2019-11-22 22:30 | US ---
EXAMINATION TYPE: US carotid duplex BILAT DATE OF EXAM: 11/22/2019 COMPARISON: US 10/19/2018 CLINICAL HISTORY: I51.9 HEART DISEASE. Right ICA 100% occluded EXAM MEASUREMENTS: RIGHT: Peak Systolic Velocity (PSV) cm/sec ----- Right CCA: 76.1 ----- Right ICA: 0 ----- Right ECA: 130 ICA/CCA ratio: 0 RIGHT: End Diastole cm/sec ----- Right CCA: 0 ----- Right ICA: 0 ----- Right ECA: 0 LEFT: Peak Systolic Velocity (PSV) cm/sec ----- Left CCA: 90.1 ----- Left ICA: 110 ----- Left ECA: 152 ICA/CCA ratio: 0.7 LEFT: End Diastole cm/sec ----- Left CCA: 26.9 ----- Left ICA: 35.3 ----- Left ECA: 0 VERTEBRALS (direction of flow): Right Vertebral: Antegrade Left Vertebral: Antegrade Rhythm: Normal Moderate/severe amount of plaque visualized bilaterally. No flow visualized within the right ICA. Alpa vated velocities visualized right ECA, left CCA, left ECA There is an area of shadowing within the proximal right internal carotid artery. No flow is evident b eyond this location. Complete obstruction is suspected. 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 Cons ider CTA or angiography to evaluate for minimal patency. Left internal carotid artery is patent witho ut significant stenosis. Criteria for Assigning % of Stenosis / Diameter reduction (Estimation based on the indirect measurements of the internal carotid artery velocities (ICA PSV). 1. Normal (no stenosis)=ICA PSV < 125 cm/s: ratio < 2.0: ICA EDV<40 cm/s. 2. Less than 50% stenosis=ICA PSV < 125 cm/s: ratio < 2.0: ICA EDV<40 cm/s. 3. 50 to 69% stenosis=ICA PSV of 125 to 230 cm/s: ration 2.0 ? 4.0: ICA EDV 40-100 cm/s. 4. Greater than 70% stenosis to near occlusion= ICA PSV > 230 cm/s: ratio > 4.0: ICA EDV > 100 cm/s. 5. Near occlusion= ICA PSV velocities may be low or undetectable: variable ratio and ICA EDV. 6. Total occlusion=unable to detect flow.
== END | disposition home or self-care (01) ==
LOC: RADUSWWP 15:34
DX: I51.9 Heart disease, unspecified (principal)
CPT/HCPCS: 93880